=== PATIENT | female | born 1950 | race Caucasian/White ===

== ENCOUNTER → 2018-04-22 09:38 | Outpatient (CLI) | payer MEDICARE, MEDICAID, SELFPAY ==
--- NOTE | 2018-04-22 | CI_ITS ---
Cerebrovascular Exam Indications: Follow-up carotid 433.10. 785.9 Bruit. IMPRESSIONS 1. The bilateral vertebral arteries are patent with normal antegrade flow. 2. Study suggests 20-49% stenosis involving the right internal carotid artery and the left internal carotid artery. Carotid duplex study. Complete study and Doppler flow study including spectral analysis, color and marshall scale imaging. Height: Height: 160cm. Height: 63in. Weight: Weight: 78.9kg. Weight: 173.6lb. Body mass index: BMI: 30.8kg/m^2. Body surface area: BSA: 1.9m^2. Location: Vascular laboratory. Patient status: Outpatient. Tables: Arterial flow: + +--------+--------+ Location V sys V ed + +--------+--------+ Right CCA - proximal 89.6cm/s 14.1cm/s + +--------+--------+ Right CCA - distal 81.7cm/s 16.5cm/s + +--------+--------+ Right ECA 183cm/s -------- + +--------+--------+ Right ICA - proximal 90.8cm/s 17.2cm/s + +--------+--------+ Right ICA - mid 92.8cm/s 22.6cm/s + +--------+--------+ Right ICA - distal 90.4cm/s 22.1cm/s + +--------+--------+ Right vertebral 72.3cm/s -------- + +--------+--------+ Left CCA - proximal 139cm/s 14.9cm/s + +--------+--------+ Left CCA - distal 69.8cm/s 18.8cm/s + +--------+--------+ Left ECA 95.4cm/s -------- + +--------+--------+ Left ICA - proximal 82cm/s 21.6cm/s + +--------+--------+ Left ICA - mid 98.7cm/s 22.1cm/s + +--------+--------+ Left ICA - distal 109cm/s 26.5cm/s + +--------+--------+ Left vertebral 60.2cm/s -------- + +--------+--------+ Velocity ratios: + + + + + + Right, V sys Right, V ed Left, V sys Left, V ed + + + + + + Max ICA/dist CCA 1.14 1.37 1.56 1.41 + + + + + + (Report amended ) Electronically signed by: Erwin Baumann [id number]
--- NOTE | 2018-04-22 10:19 | XR_ITS ---
XR knee RT 3V HISTORY: ITS.REASON: RT KNEE PAIN ORDERING PHYSICIAN: JAY Edwards PATIENT AGE: 67 years COMPARISON: None FINDINGS: No fracture or dislocation. No lytic or blastic change. The joint spaces are well-preserved. There is increased density in the suprapatellar region consistent with knee joint effusion. Multiple surgical clips are present along the medial aspect of the distal thigh and proximal leg. IMPRESSION: Knee joint effusion otherwise negative
== END ==
PROVIDERS: Family Provider Family Medicine; PCP Family Medicine; Visit Provider Physician Assistant
DX: R09.89 Other specified symptoms and signs involving the circulatory and respiratory systems (principal); M25.561 Pain in right knee
CPT/HCPCS: 73562; 93880

== ENCOUNTER → 2019-02-16 15:01 | Outpatient (CLI) | payer MEDICARE, MEDICAID, SELFPAY ==
--- NOTE | 2019-02-16 15:03 | MR_ITS ---
MR lumbar spine wo con, MR 3-d myelogram/MRCP HISTORY: Low back pain, bilateral hip and leg pain, LT leg pain worse. Symptoms x 2-3 months. ITS.REASON: LUMBAR BACK PAIN WITH RADICULOPATHY AFFECTING LEFT LOWER EXT ORDERING PHYSICIAN: Raad Adams MD PATIENT AGE: 68 years Comparison: None TECHNIQUE: Standard multiplanar multiecho sequences are performed without contrast. 3-D MIP and myelographic images are also rendered and reviewed FINDINGS: There is normal alignment. The spinal cord ends at the L1 level. T11-T12: Mild degenerative disc disease. T12-L1: Mild degenerative disc disease. L1-L2: Unremarkable. L2-L3: Mild degenerative disc disease with small concentric bulging disc and mild facet and ligamentum flavum hypertrophy with mild bilateral lateral recess and foraminal narrowing. L3-L4: Degenerative disc disease with bulging disc along with facet and ligamentum flavum hypertrophy causing moderate bilateral lateral recess and foraminal narrowing. There is some transverse narrowing of the canal. L4-L5: Mild concentric bulging disc along with facet and ligamentum flavum hypertrophy with canal stenosis and moderate to severe bilateral lateral recess narrowing and moderate to severe bilateral foraminal narrowing greater on the left. The canal measures approximately 8 mm. L5-S1: Mild concentric bulging disc with mild facet and ligamentous hypertrophy. No extruded herniated disc is evident. IMPRESSION: 1. Mild multilevel degenerative disc disease with bulging disc along with facet and ligamentum flavum hypertrophy with lateral recess and foraminal narrowing. Please above for detailed description at each level 2. L3-L4: Degenerative disc disease with bulging disc along with facet and ligamentum flavum hypertrophy causing moderate bilateral lateral recess and foraminal narrowing. There is some transverse narrowing of the canal. 3. L4-L5: Mild concentric bulging disc along with facet and ligamentum flavum hypertrophy with canal stenosis and moderate to severe bilateral lateral recess narrowing and moderate to severe bilateral foraminal narrowing greater on the left. The canal measures approximately 8 mm
== END ==
PROVIDERS: PCP Family Medicine; Visit Provider Family Medicine
DX: M54.16 Radiculopathy, lumbar region (principal); M51.36 Other intervertebral disc degeneration, lumbar region
CPT/HCPCS: 72148; 76376

== ENCOUNTER → 2019-03-09 08:37 | Outpatient (CLI) | payer MEDICARE, MEDICAID, SELFPAY ==
--- NOTE | 2019-03-09 08:39 | FL_ITS ---
FL barium enema w air contrast CLINICAL INDICATION: History of polyps ITS.REASON: tortuous colon ORDERING PHYSICIAN: You Johnson MD PATIENT AGE: 68 years Comparison: None Fluoroscopy time: 2 minutes and 36 seconds FINDINGS: [employer] exam shows scattered vascular calcifications. There is a 4 mm calcific density overlying the midportion of the left kidney and could be due to a renal stone. The colon is visualized from rectum to cecum. The appendix was filled. No annular constricting lesions or fixed polypoid filling defects are evident. No mucosal anomalies are apparent. There are a few diverticula within the sigmoid colon. IMPRESSION: There are few sigmoid diverticula noted otherwise negative air-contrast barium enema
== END ==
PROVIDERS: PCP Nurse Practitioner; Visit Provider Surgery
DX: Q43.8 Other specified congenital malformations of intestine (principal)
CPT/HCPCS: 74280

== ENCOUNTER → 2021-01-19 17:15 | Outpatient (CLI) | payer MEDICARE, MEDICAID, SELFPAY ==
--- NOTE | 2021-01-19 17:33 | ECG_ITS ---
APPROVED REPORT Exam: Resting ECG HR:62 bpm ECG Measurements Heart Rate 62 AXES OK 138 P 62 QRSd 88 QRS 39 QT 426 T 37 QTc 432 Conclusion Normal sinus rhythm Anterior changes present since 2015 Abnormal ECG Electronically signed by : Sukumar Segura, 01/20/2021 16:30:48
== END ==
PROVIDERS: PCP Nurse Practitioner; Visit Provider Nurse Practitioner
DX: I10 Essential (primary) hypertension (principal); R94.31 Abnormal electrocardiogram [ECG] [EKG]
CPT/HCPCS: 93005; 93225; 93226

== ENCOUNTER → 2021-02-01 14:42 | Outpatient (CLI) | payer MEDICARE, MEDICAID, SELFPAY ==
--- NOTE | 2021-02-01 14:46 | CA_ITS ---
APPROVED REPORT EXAM: Comprehensive 2D, Doppler, and color-flow Echocardiogram Pharmacy Scheduler: [facility] RVT Ht: 5 ft 3 in Wt: 170lbs BSA: 1.80 BP: 144/84 mmHg Indications: PALPS,DM,HTN,A-FIB,CABG 2D Dimensions LVOT 1.38 cm (M/F) 1.5-2.5 LA Volume 21.80 mL LA Volume Index 12.11 mL/m2 (M/F) 16-34 M-Mode Dimensions RVDd 2.58 cm (0.9-2.6) LA Diam 4.57 cm (1.9-4.0) LVDd 3.97 cm (3.5-5.7) Ao Diam 2.51 cm (2.0-3.7) LVDs 2.61 cm (3.5-5.7) IVSd 0.75 cm (0.6-1.1) PWd 1.07 cm (0.6-1.1) EF (Teich) 64.00% FS 34.30% EDV (Teich) 68.80 mL ESV (Teich) 24.80 mL LV Diastology E Decel Time 340.00 (160-240 msec) E/A Ratio 1.1 MED E' 5.70 (< 7 cm/sec) E'/MED E' Ratio 18.47 (>14) LAT E' 7.10 (<10 cm/sec) E/LAT E' Ratio 14.83 (>14) Aortic Valve LVOT Max 164.00 (70-110 cm/s) LVOT VTI 34.84 cm AoV Peak Jeronimo. 249.00 (50-130 cm/s) AI PHT 467.00 ms AO Peak GR. 24.70 mmHg AO Mean GR. 12.50 (<5 mmHg) AO VTI 53.48 (18-25 cm) CLIFFORD (VTI) 0.97 (2.5-4.5 cm2) Mitral Valve MV E Max Ejronimo. 105.00 (40-130 cm/s) MV A Velocity 92.00 (40-130 cm/s) E/A Ratio 1.15 MV Decel. Time 340.00 (160-240 ms) MV PHT 100.00 ms Pulmonary Valve PV Peak Velocity 132.00 (50-150 cm/s) Tricuspid Valve TR P. Velocity 207.00 cm/s RAP Estimate 10.00 mmHg RVSP 27.10 mmHg Left Ventricle Left atrium is mildly enlarged, left ventricle is normal size, mild concentric left ventricular hypertrophy, visually estimated ejection fraction 55% with no regional wall motion abnormality, grade 2 diastolic dysfunction seen with tissue Doppler evidence of raise left atrial pressure. Right Ventricle Right atrium and right ventricular qualitatively mildly enlarged with normal contractility. Aortic Valve Aortic valve is thickened and calcified, mean gradient across valve is 15 mmHg, valve area 1.5 cm??? represents mild aortic stenosis, there is mild aortic insufficiency present. Mitral Valve Mitral valve is grossly normal, there is mild mitral regurgitation. Tricuspid Valve Tricuspid grossly normal, there is mild tricuspid regurgitation, tricuspid regurgitation jet velocity is inadequate for calculation of the right ventricular systolic pressure. Pulmonic Valve Pulmonic valve is poorly visualized. Great Vessels Aortic root is normal size. Pericardium No significant pericardial effusion noted. Conclusion 1. Mild biatrial enlargement, normal left ventricular size, mild concentric left ventricular hypertrophy, visually estimated ejection fraction 55% with no regional wall motion abnormality, grade 2 diastolic dysfunction seen with tissue Doppler evidence of raise left atrial pressure. 2. Mildly enlarged right ventricle with normal contractility. 3. Thickened and calcified aortic valve with mild aortic stenosis, valve area is 1.6 cm???. There is mild aortic insufficiency. 4. Mild mitral and tricuspid regurgitation. 5. No significant pericardial effusion noted. Electronically signed by : Adal Leary, 02/01/2021 16:29:01
== END ==
PROVIDERS: PCP Nurse Practitioner; Visit Provider Nurse Practitioner
DX: R00.2 Palpitations (principal)
CPT/HCPCS: 93306

== ENCOUNTER → 2022-05-11 15:44 | Outpatient (CLI) | payer MEDICARE, MEDICAID, SELFPAY | PROVIDERS: PCP Nurse Practitioner; Visit Provider Surgery | DX: Z01.812 Encounter for preprocedural laboratory examination (principal); Z20.822 Contact with and (suspected) exposure to COVID-19; Z13.810 Encounter for screening for upper gastrointestinal disorder; Z12.11 Encounter for screening for malignant neoplasm of colon | CPT/HCPCS: C9803; U0003; U0005 ==

== ENCOUNTER 2022-05-14 08:20 | Day surgery (SDC) | payer MEDICARE, MEDICAID, SELFPAY ==
[2022-05-10 14:23] VITALS: BMI 24.7
[2022-05-14 08:52] VITALS: BP 161/58; PULSE 78; RESP 18; TEMP 36.7; O2SAT 98
--- NOTE | 2022-05-14 09:07 | P.PN_ITS ---
[facility] Anesthesia Checklist - Patient Identification Patient Identification: Arm Band - Structural Data Admitted From: Home Planned Operative Procedure/s: EGD/Colonoscopy Consent for Planned Operative Procedure(s) Verified: Yes - NPO Status Verified Time NPO: 00:00 - Additional verifications Anesthesia Reactions: No Hx Blood Transfusions: No Blood Transfusion Reaction: No - Airway Assessment C-Spine Mobility Assessed: Yes TMJ Mobility Assessed: Yes Dentition: Edentulous - Neurological Assessment Level of Consciousness: Awake Hx Seizures: No Numbness or tingling in extremities: No - Anesthesia Plan Anesthesia Risk discussed: Yes Anesthesia Plan: Verified ASA Class: III Anesthesia Type: MAC [facility] History I have reviewed the patient's past medical history: Yes Medical History: Reports:: Atrial Fibrillation, Diabetes Mellitus Type 2, Hyperlipidemia, Hypertension Denies:: Cancer, Diabetes Mellitus Type 1, Internal Pacemaker, Lung Disease, MRSA, Seizures *Have you ever received a pneumonia vaccine?: Yes *Have you received a flu vaccine this season?: No Other Medical History: Denies: Blood Transfusion Reaction Anesthesia experience/problems:: None Laterality Cases: Bilateral: Other Other Surgeries: Yes: Colonoscopy, Hysterectomy-Total. No: Pacemaker Amputation: No Fractures: No - *Social History Last grade of school completed: High school graduate Smoking Status: Never smoker Alcohol Intake: never Alcohol Intake Frequency:: 0-2 drinks per day Substance Use Type: denies use *Occupational Status:: retired Housing: house Household Members: other *Travel in the last 8 weeks: None Family Hx:: Coronary Artery Disease, Hypertension, Diabetes
[2022-05-14 09:09] LABS: POC Glucose,Bedside 240 (70-110)
[2022-05-14 09:48] VITALS: O2SAT 98
[2022-05-14 10:31] VITALS: BP 103/51; PULSE 85; RESP 18; TEMP 36.2; O2SAT 94
--- NOTE | 2022-05-14 10:32 | HMH.SCOPE ---
- Procedure: Date: 05/14/22 Patient Date of :: 1950 Procedure Performed:: Esophagogastroduodenoscopy with biopsy Colonoscopy Indications:: History of colon polyps Recent weight loss (20 pounds in 4 months) Gastroesophageal reflux Note: The patient is status post colonoscopy in March 2016 at which time she was diagnosed with diverticulosis and a right colonic adenoma. Visualization somewhat limited secondary to spasticity and tortuosity. A repeat colonoscopy in November 2018 revealed persistent spasticity and tortuosity and an adenoma was removed at 40 cm. Follow-up barium enema in February 2019 revealed diverticulosis and no other definitive abnormality. She has noticed some increased reflux recently and has also noted a 20 pound weight loss over the past 4 months despite normal appetite . Performing Provider:: You Johnson MD Referring Provider:: . Sedation:: Monitored anesthesia care Procedure:: After informed consent was obtained the patient was taken to the endoscopy suite. Sedation ensued after the patient was transferred to the left lateral decubitus position. Pulse, blood pressure, and oxygen saturation were monitored throughout the procedure. The endoscope was advanced beyond the duodenal bulb. Retroflexion within the gastric lumen was accomplished. The gastroscope was carefully removed. Digital rectal exam revealed no significant abnormality. The colonoscope was placed in position. The entire colon was evaluated. The colonoscope was carefully removed and the patient was transferred to recovery in stable condition. Please see findings and specimens below for detail. Findings:: Sliding hiatal hernia Gastroesophageal junction at 35 cm Very mild/early mid/distal varices Bowel preparation moderate to poor with undigested food particles noted throughout Fairly significant lack of relaxation Persistent tortuosity/spasticity Specimens:: Antral biopsy Recommendations:: Follow-up pathology Evaluation with regard to weight loss will be ongoing. May benefit from UGI/SBFT May benefit from CT scan of chest, abdomen, and pelvis Continued fairly close surveillance with repeat colonoscopy in approximately 3 years (unless needed more urgently) Complications:: No immediate Estimated blood obtained (mL): 1
[2022-05-14 10:41] VITALS: BP 103/53; PULSE 79; RESP 18; O2SAT 94
[2022-05-14 10:51] VITALS: BP 96/43; PULSE 79; RESP 18; O2SAT 94
[2022-05-14 11:15] VITALS: BP 111/51; PULSE 76; RESP 18; O2SAT 96
== END 2022-05-14 11:20 | disposition home or self-care (01) ==
LOC: OUTP 08:22
PROVIDERS: PCP Nurse Practitioner; Visit Provider Surgery
PROC: 0DJ08ZZ Inspection of Upper Intestinal Tract, Via Natural or Artificial Opening Endoscopic (ICD-10-PCS; CPT 43235; principal; 2022-05-14 09:30)
DX: K21.9 Gastro-esophageal reflux disease without esophagitis (principal); R63.4 Abnormal weight loss; Z86.010 Personal history of colon polyps; E11.9 Type 2 diabetes mellitus without complications; I48.91 Unspecified atrial fibrillation; I10 Essential (primary) hypertension; E78.5 Hyperlipidemia, unspecified; Z79.899 Other long term (current) drug therapy; K29.50 Unspecified chronic gastritis without bleeding; B96.81 Helicobacter pylori [H. pylori] as the cause of diseases classified elsewhere
CPT/HCPCS: 43239; 45378; 82962; 88305; J2704

== ENCOUNTER → 2022-05-24 15:36 | Outpatient (CLI) | payer MEDICARE, MEDICAID, SELFPAY ==
[2022-05-24 16:00] LABS: Basophils # 0.1 K/mm3 (0-0.2); Basophils % 1.4 % (0.1-2.0); Eosinophils # 0.1 K/mm3 (0.0-0.4); Eosinophils % 1.6 % (0.1-12.0); Hemoglobin 8.9 g/dL (12.2-16.2); Lymphocytes # 1.9 K/mm3 (0.7-4.5); Lymphocytes % 25.3 % (10-50); Mean Corpuscular HGB Conc 29.7 g/dL (31.8-35.4); Mean Corpuscular Hemoglobin 21.3 pg (27.0-31.2); Mean Corpuscular Volume 71.7 fl (81-99); Mean Platelet Volume 9.1 fl (7.4-10.4); Monocytes # 0.4 K/mm3 (0.1-1.0); Monocytes % 4.7 % (1.7-9.3); Neutrophils # 4.9 K/mm3 (1.8-7.8); Platelet Count 189 K/mm3 (142-424); Red Blood Count 4.18 M/mm3 (4.20-5.40); Red Cell Distribution Width 20.3 % (11.5-17.5); White Blood Count 7.3 K/mm3 (4.8-10.8)
[2022-05-24 16:23] LABS: Alanine Aminotransferase 20 U/L (12-78); Albumin Level 4.2 g/dl (3.5-5.0); Albumin/Globulin Ratio 1.4 (1.1-1.8); Alkaline Phosphatase 130 U/L (38-126); Amylase 46 U/L (30-110); Anion Gap 15.7 mEq/L (5-15); Aspartate Amino Transferase 28 U/L (14-36); Bilirubin,Total 0.3 mg/dl (0.2-1.3); Blood Urea Nitrogen 20 mg/dl (7-17); Calcium 9.2 mg/dl (8.4-10.2); Carbon Dioxide 26 mmol/L (22.0-30.0); Chloride 99 mmol/L (98-107); Estimated Glomerular Filt Rate 71 ml/min (>60); GFR (African American) 86 ML/MIN (>60); Globulin 3.1 g/dL (1.3-3.2); Glucose 271 mg/dl (74-100); Lipase 292 U/L (23-300); Potassium 4.7 mmoL/L (3.5-5.1); Sodium 136 mmol/L (136-145); Total Protein,Serum 7.3 g/dl (6.3-8.2)
== END ==
PROVIDERS: PCP Nurse Practitioner; Visit Provider Surgery
DX: R10.9 Unspecified abdominal pain (principal)
CPT/HCPCS: 36415; 80053; 82150; 83690; 85025

== ENCOUNTER → 2022-05-27 09:38 | Outpatient (CLI) | payer MEDICARE, MEDICAID, SELFPAY ==
--- NOTE | 2022-05-27 09:39 | CT_ITS ---
FINAL REPORT CLINICAL HISTORY: abdominal pain/ weight loss blood in urine COMPARISON: September 24, 2016 FINDINGS: CT OF THE ABDOMEN AND PELVIS WITH CONTRAST Axial CT images of the abdomen and pelvis were obtained after the administration of oral and iv contrast. Coronal reformatted images were also obtained and reviewed.This study was performed with techniques to keep radiation doses as low as reasonably achievable (ALARA). Individualized dose reduction techniques using automated exposure control or adjustment of mA and/or kV according to the patient's size were employed. Abdomen: There is mild atelectasis or scarring in the lung bases.. The heart is normal in size. The liver has an unremarkable appearance, without evidence of mass or biliary ductal dilatation. The spleen is unremarkable. No adrenal mass is present. The pancreas has an unremarkable appearance. There is a 14 mm mass in the lower pole of the right kidney favored to represent a small cyst. There is mild left hydronephrosis and hydroureter. The aorta is normal in caliber. There is no free fluid or adenopathy. There is moderate vascular calcification. Pelvis: The appendix is somewhat enlarged up to 8 mm. There is no adjacent inflammation or evidence of appendicitis. There is right greater than left lateral wall thickening favored to be inflammatory over neoplastic. There has been hysterectomy. There are multiple borderline sized bilateral inguinal lymph nodes that are nonspecific and favored to be reactive. There are several sigmoid diverticulum. IMPRESSION: Mild left hydronephrosis and hydroureter. 14 mm right renal mass favoring a small cyst. Bladder wall thickening favored to be inflammatory over neoplastic. Nonspecific bilateral inguinal adenopathy favored to be reactive. Mildly enlarged appendix without evidence of appendicitis. Reviewed, Interpreted and Dictated by Antoni Solano III, MD Transcribed by Danish Matt Authenticated and [facility]
== END ==
PROVIDERS: PCP Nurse Practitioner; Visit Provider Surgery
DX: R10.9 Unspecified abdominal pain (principal)
CPT/HCPCS: 74177; Q9967

== ENCOUNTER → 2022-05-29 14:16 | Outpatient (CLI) | payer MEDICARE, MEDICAID, SELFPAY ==
[2022-05-29 14:21] LABS: Microscopic, Urine URINE MICROSCOPIC (MICROSCOPIC)
[2022-05-29 15:28] LABS: Hematocrit 31.6 % (37.0-47.0); Hemoglobin 9.6 g/dL (12.2-16.2)
[2022-05-29 15:30] LABS: Appearance,Urine CLEAR (Clear); Bilirubin,Urine Negative (Negative); Blood, Urine 3+ (Negative); Color,Urine YELLOW (Yellow); Glucose,Urine (UA) 3+ (Negative); Ketones,Urine Negative (Negative); Leukocyte Esterase,Urine Negative (Negative); Nitrate,Urine Negative (Negative); PH,Urine 5.5 (5.0-8.5); Protein,Urine Negative (Negative); Urobilinogen,Urine 0.2 EU/dl (0.2)
[2022-05-29 16:04] LABS: RBC,Urine 20-50 #/hpf (0-3)
== END ==
PROVIDERS: PCP Nurse Practitioner; Visit Provider Surgery
DX: R63.4 Abnormal weight loss (principal); A04.8 Other specified bacterial intestinal infections; R10.33 Periumbilical pain; K21.9 Gastro-esophageal reflux disease without esophagitis; D64.9 Anemia, unspecified
CPT/HCPCS: 36415; 81001; 85014; 85018

== ENCOUNTER → 2022-06-03 07:48 | Outpatient (CLI) | payer MEDICARE, MEDICAID, SELFPAY ==
--- NOTE | 2022-06-03 07:51 | FL_ITS ---
FINAL REPORT CLINICAL HISTORY: Upper GI with small bowel-- fluoro and xrays FINDINGS: UPPER GI WITH SBFT UPPER GI EXAM HISTORY: Anemia PROCEDURE: The patient ingested barium. Effervescent crystals were also administered. Spot and overhead films were obtained. FINDINGS: The esophagus is normal. There is a small sliding type hiatal hernia. There is moderate gastroesophageal reflux. Peristalsis is normal. The rugal fold pattern of the stomach is normal. The duodenal bulb is normal. FLUOROSCOPY TIME: 1 minute IMPRESSION: Small sliding-type hiatal hernia. Gastroesophageal reflux to the level of the aortic arch. Otherwise, unremarkable upper GI. SBFT: The turntable man film is normal. There is no evidence of obstruction. The mucosal fold pattern is normal. The terminal ilium is normal. IMPRESSION: Normal SBFT. Films reviewed , interpreted and dictated by Dr. Veroniac Arroyo. Transcribed by Jimmie Tracy PA-C. Reviewed, Interpreted and Dictated by Veronica Arroyo MD Transcribed by JAY Long Authenticated and [facility]
[2022-06-03 10:28] LABS: Occult Blood,Stool Negative (Negative)
[2022-06-05 06:15] LABS: H. pylori Stool Ag, EIA Negative (Negative)
== END ==
PROVIDERS: PCP Nurse Practitioner; Visit Provider Surgery
DX: K21.9 Gastro-esophageal reflux disease without esophagitis (principal); R63.4 Abnormal weight loss
CPT/HCPCS: 74246; 74248; 82272; 87338; G0328

== ENCOUNTER → 2022-06-11 06:13 | Outpatient (CLI) | payer MEDICARE, MEDICAID, SELFPAY | PROVIDERS: PCP Nurse Practitioner; Visit Provider Nurse Practitioner | DX: L03.031 Cellulitis of right toe (principal); B95.7 Other staphylococcus as the cause of diseases classified elsewhere | CPT/HCPCS: 87070; 87077; 87186; 87205 ==

== ENCOUNTER → 2022-08-07 15:03 | Outpatient (CLI) | payer MEDICARE, MEDICAID, SELFPAY | PROVIDERS: PCP Nurse Practitioner Family; Visit Provider Nurse Practitioner Family | DX: S91.201A Unspecified open wound of right great toe with damage to nail, initial encounter (principal); B95.7 Other staphylococcus as the cause of diseases classified elsewhere | CPT/HCPCS: 87070; 87077; 87186; 87205 ==

== ENCOUNTER → 2022-08-16 10:46 | Outpatient (CLI) | payer MEDICARE, MEDICAID, SELFPAY ==
--- NOTE | 2022-08-16 10:47 | US_ITS ---
FINAL REPORT CLINICAL HISTORY: CLAUDICATION,DM,HTN,HLD FINDINGS: ANKLE-BRACHIAL PRESSURE INDICES Pressure indices are as follows: RIGHT LOWER EXTREMITY: Ankle-brachial pressure index: 1.07 Comments: Normal LEFT LOWER EXTREMITY: Ankle-brachial pressure index: 1.07 Comments: Normal CONCLUSION: No evidence of significant obstructive peripheral vascular disease of the lower extremities Reviewed, Interpreted and Dictated by Antoni Solano III, MD Transcribed by Guadalupe Amanda Authenticated and . [facility]
== END ==
PROVIDERS: PCP Nurse Practitioner; Visit Provider Podiatrist
DX: R09.89 Other specified symptoms and signs involving the circulatory and respiratory systems (principal)
CPT/HCPCS: 93923

== ENCOUNTER 2023-02-28 22:07 | Emergency (ER) | payer MEDICARE, MEDICAID, SELFPAY ==
[2023-02-28 22:08] VITALS: BP 154/68; PULSE 101; RESP 18; TEMP 36.9; O2SAT 98; BMI 22.8
[2023-02-28 22:19] VITALS: BP 154/68; PULSE 102; O2SAT 100
[2023-02-28 22:23] LABS: Microscopic, Urine URINE MICROSCOPIC (MICROSCOPIC)
[2023-02-28 22:31] VITALS: BP 141/71; PULSE 97; O2SAT 94
[2023-02-28 22:32] LABS: Appearance,Urine CLOUDY (Clear); Bilirubin,Urine 1+ (Negative); Blood, Urine 3+ (Negative); Color,Urine ORANGE (Yellow); Glucose,Urine (UA) 3+ (Negative); Ketones,Urine Negative (Negative); Leukocyte Esterase,Urine 1+ (Negative); Nitrate,Urine POSITIVE (Negative); Protein,Urine 3+ (Negative); Specific Gravity, Urine 1.015 (1.005-1.030)
--- NOTE | 2023-02-28 22:36 | PC.NURSE ---
Spoke with [facility] about obtaining medical records from last weeks visit. Release of information faxed.
--- NOTE | 2023-02-28 22:38 | CT_ITS ---
PROCEDURE INFORMATION: Exam: CT Abdomen And Pelvis Without Contrast Exam date and time: 02/28/2023 11:01 PM Age: 72 years old Clinical indication: Abdominal pain; Additional info: Abd pain TECHNIQUE: Imaging protocol: Computed tomography of the abdomen and pelvis without contrast. Radiation optimization: All CT scans at this facility use at least one of these dose optimization techniques: automated exposure control; mA and/or kV adjustment per patient size (includes targeted exams where dose is matched to clinical indication); or iterative reconstruction. REPORTING DATA: Count of CT and Cardiac NM exams in prior 12 months: This patient has received [address] and 0 known cardiac nuclear medicine studies in the 12 months prior to the current study. COMPARISON: CT ABDOMEN PELVIS W CON 05/27/2022 10:00 AM FINDINGS: Lungs: Calcified granuloma in the right middle lobe. Coronary arteries: Partially visualized coronary artery calcification. Liver: Calcified granulomas in the liver. Hepatomegaly with liver measuring 19.7 cm in craniocaudal dimension, unchanged compared to 05/27/2022. Gallbladder and bile ducts: Unremarkable. Pancreas: Unremarkable. Spleen: Calcified the spleen. Adrenal glands: Unremarkable. Kidneys and ureters: Stable hypodensity at the right inferior renal pole which is incompletely characterized but likely a cyst. Asymmetric enlargement kidney perinephric stranding. No perinephric fluid collection. Severe left hydroureteronephrosis. Stomach and bowel: Unremarkable. No bowel obstruction. Appendix: No evidence of appendicitis. Intraperitoneal space: Prominent atherosclerotic calcification in the abdomen and pelvis. Vasculature: Unremarkable. Lymph nodes: Mildly enlarged pelvic sidewall and left retroperitoneal lymph nodes are likely reactive. Urinary bladder: Distended bladder with circumferential wall thickening and Clotilde cystic stranding. Multiple foci of air noted within the bladder wall and within the lumen of the bladder. Reproductive: Status post hysterectomy. Bones/joints: No acute osseous abnormality. Soft tissues: Unremarkable. IMPRESSION: 1. Prominent bladder wall thickening with intraluminal air and foci of gas within bladder wall compatible with emphysematous cystitis. 2. Severe left hydroureteronephrosis, source of obstruction not identified. 3. Mildly enlarged pelvic sidewall and left retroperitoneal lymph nodes are likely reactive. 4. Stable hepatomegaly. COMMENTS: Consistent with the [employer]'s Incidental Findings Committee white paper (J Am Guillermina Radiol 2018): Any incidental renal lesion less than 1 cm or classified as too small to characterize, or any incidental cystic renal lesion characterized as simple-appearing, is likely benign. No follow-up imaging is recommended for these lesions per consensus recommendations based on imaging criteria.
--- NOTE | 2023-02-28 22:38 | PC.NURSE ---
Pt medical release faxed to [facility]
[2023-02-28 22:45] LABS: Bacteria,Urine 1+ /lpf; RBC,Urine TNTC #/hpf (0-3); Squamous Epithelial Cell,Urine Occasional #/hpf (0-5)
--- NOTE | 2023-02-28 23:16 | HMH.EDABDPAI ---
Discharge Plan Disposition Patient Disposition: Home, Self-Care Prescriptions Prescriptions: New cefdinir [cefdinir] 300 mg capsule 300 mg PO BID Qty: 14 0RF No Action lovastatin 40 mg tablet 40 mg PO QPM aspirin [Adult Low Dose Aspirin] 81 mg tablet,delayed release (DR/EC) 81 mg PO ONCE fluticasone propionate [Allergy Relief (fluticasone)] 50 mcg/actuation spray,suspension 1 spray NS DAILY Rx Instructions: administer into each nostril Fish Oil 340-1,000 mg capsule 3 cap PO DAILY cholecalciferol (vitamin D3) 50 mcg (2,000 unit) tablet 150 mcg PO DAILY tamsulosin 0.4 mg capsule 0.4 mg PO HS nitroglycerin 0.4 mg tablet, sublingual 0.4 mg SL Q5M PRN Rx Instructions: do not exceed 3 doses per episode cyanocobalamin (vitamin B-12) 1,000 mcg tablet 1,000 mcg PO DAILY atorvastatin 40 mg tablet 40 mg PO DAILY amlodipine 5 mg tablet 5 mg PO DAILY Label Comments: TAKE 1 TABLET BY MOUTH EVERY DAY ferrous sulfate 325 mg (65 mg iron) tablet 325 mg PO TID Label Comments: TAKE 1 TABLET BY MOUTH THREE TIMES A DAY lidocaine (PF) 20 mg/mL (2 %) solution 20 mg SQ ONCE Qty: 3 0RF gentamicin 0.1 % ointment 1 applic topical .qday Qty: 30 1RF silver sulfadiazine 1 % cream 1 applic topical BID Qty: 25 2RF Rx Instructions: apply a 1.5 mm thickness pantoprazole 40 mg tablet,delayed release (DR/EC) See Rx Instructions .ROUTE .COMPLEX Qty: 90 1RF Dose Instruction: TAKE 1 TABLET BY MOUTH EVERY DAY FOR 90 DAYS Rx Instructions: TAKE 1 TABLET BY MOUTH EVERY DAY FOR 90 DAYS metoprolol succinate 50 mg tablet extended release 24 hr See Rx Instructions .ROUTE .COMPLEX Qty: 180 1RF Dose Instruction: TAKE 2 TABLETS BY MOUTH EVERY DAY FOR 90 DAYS Rx Instructions: TAKE 2 TABLETS BY MOUTH EVERY DAY FOR 90 DAYS estradiol 0.5 mg tablet See Rx Instructions .ROUTE .COMPLEX Qty: 90 1RF Dose Instruction: TAKE 1 TABLET BY MOUTH EVERY DAY FOR 90 DAYS Rx Instructions: TAKE 1 TABLET BY MOUTH EVERY DAY FOR 90 DAYS meloxicam 15 mg tablet See Rx Instructions .ROUTE .COMPLEX Qty: 90 1RF Dose Instruction: TAKE 1 TABLET BY MOUTH EVERY DAY FOR 90 DAYS Rx Instructions: TAKE 1 TABLET BY MOUTH EVERY DAY FOR 90 DAYS fenofibrate 160 mg tablet See Rx Instructions .ROUTE .COMPLEX Qty: 90 1RF Dose Instruction: TAKE 1 TABLET BY MOUTH EVERY DAY FOR 90 DAYS Rx Instructions: TAKE 1 TABLET BY MOUTH EVERY DAY FOR 90 DAYS losartan 50 mg tablet See Rx Instructions .ROUTE .COMPLEX Qty: 90 1RF Dose Instruction: TAKE 1 TABLET BY MOUTH EVERY DAY FOR 90 DAYS Rx Instructions: TAKE 1 TABLET BY MOUTH EVERY DAY FOR 90 DAYS metformin 1,000 mg tablet See Rx Instructions .ROUTE .COMPLEX Qty: 180 1RF Dose Instruction: TAKE 1 TABLET BY MOUTH TWICE A DAY FOR DIABETES Rx Instructions: TAKE 1 TABLET BY MOUTH TWICE A DAY FOR DIABETES empagliflozin 25 mg tablet 25 mg PO DAILY Qty: 90 0RF Referrals Follow up/Referrals: Toro Narayanan [Primary Care Provider] - See instructions Clinical Impressions Clinical Impression: Emphysematous cystitis, Hydroureteronephrosis, SIRS (systemic inflammatory response syndrome) Instructions Patient Instructions: DI for Urinary Tract Infection (UTI) Discharge ED Provider: Federico (ED)Abel Abdominal Pain HPI General Chief Complaint: Abdominal Pain Stated Complaint: Possible UTI Time Seen by Provider: 02/28/23 23:16 Mode of Arrival: Ambulatory Source of Information: Patient and Medical Record Limitations: No Limitations Description of Symptoms (Recalled from ER Triage Doc. by RN): Pt states that she has been having lower mid abdominal pain since last night with urinary urgency. Pt reports that she self-caths three times a day to prevent urinary retention. Denies fever or body aches. History of
[2023-02-28 23:25] LABS: Basophils % 0.3 % (0.1-2.0); Eosinophils # 0.2 K/mm3 (0.0-0.4); Eosinophils % 1.2 % (0.1-12.0); Hematocrit 31.5 % (37.0-47.0); Hemoglobin 9.9 g/dL (12.2-16.2); Lymphocytes # 1.3 K/mm3 (0.7-4.5); Lymphocytes % 9.7 % (10-50); Mean Corpuscular HGB Conc 31.4 g/dL (31.8-35.4); Mean Corpuscular Hemoglobin 25.5 pg (27.0-31.2); Mean Corpuscular Volume 81.1 fl (81-99); Mean Platelet Volume 7.7 fl (7.4-10.4); Monocytes # 0.6 K/mm3 (0.1-1.0); Monocytes % 4.9 % (1.7-9.3); Platelet Count 399 K/mm3 (142-424); Red Blood Count 3.88 M/mm3 (4.20-5.40); White Blood Count 13.1 K/mm3 (4.8-10.8)
[2023-02-28 23:30] VITALS: BP 154/69; PULSE 96; O2SAT 96
--- NOTE | 2023-02-28 23:31 | PC.NURSE ---
Spoke with [facility] concerning out patient ultra sound. They advised they are unable to release those records because they were through a urology group. Attempted to call urology group. They have no one in office after hours.
[2023-02-28 23:32] LABS: Chloride 100 mmol/L (98-107); Potassium 3.6 mmoL/L (3.5-5.1); Sodium 137 mmol/L (136-145)
[2023-02-28 23:35] LABS: Alanine Aminotransferase 19 U/L (12-78); Albumin Level 3.9 g/dl (3.5-5.0); Albumin/Globulin Ratio 0.8 (1.1-1.8); Alkaline Phosphatase 209 U/L (38-126); Anion Gap 13.6 mEq/L (5-15); Aspartate Amino Transferase 30 U/L (14-36); Bilirubin,Total 0.6 mg/dl (0.2-1.3); Blood Urea Nitrogen 29 mg/dl (7-17); Calcium 9.3 mg/dl (8.4-10.2); Carbon Dioxide 27 mmol/L (22.0-30.0); Creatinine Clearance Estimated 48 mL/min (50-200); Estimated Glomerular Filt Rate 55 ml/min (>60); GFR (African American) 66 ML/MIN (>60); Globulin 4.6 g/dL (1.3-3.2); Glucose 274 mg/dl (74-100); Total Protein,Serum 8.5 g/dl (6.3-8.2)
[2023-02-28 23:42] LABS: C-Reactive Protein 131.6 mg/L (0-4)
[2023-03-01] VITALS: BP 142/65; PULSE 95; O2SAT 98
[2023-03-01 00:06] LABS: Erythrocyte Sedimentation Rate > 140 mm/hr (0-30)
[2023-03-01 00:08] LABS: Procalcitonin 0.238 ng/mL (0.0-2.0)
[2023-03-01 01:30] VITALS: BP 161/75; PULSE 53; O2SAT 96
[2023-03-01 02:00] VITALS: BP 147/69; PULSE 93; O2SAT 95
[2023-03-01 02:12] VITALS: BP 150/60; PULSE 90; RESP 18; TEMP 36.6; O2SAT 99
== END 2023-03-01 02:19 | disposition home or self-care (01) ==
PROVIDERS: Emergency Provider Emergency Medicine; PCP Pediatrics
DX: N30.80 Other cystitis without hematuria (principal); N13.4 Hydroureter; R65.10 Systemic inflammatory response syndrome (SIRS) of non-infectious origin without acute organ dysfunction
CPT/HCPCS: 74176; 80053; 81001; 84145; 85025; 85651; 86140; 87086; 87088; 87186; 96360; 96361; 96374; 99284; 99285; J1335

== ENCOUNTER 2023-10-29 13:47 | Emergency (ER) | payer MEDICARE, MEDICAID, SELFPAY ==
[2023-10-29 13:49] VITALS: BP 210/90; PULSE 79; RESP 16; TEMP 36.6; O2SAT 97; BMI 25.8
[2023-10-29 13:59] VITALS: BP 160/79; PULSE 83; O2SAT 98
[2023-10-29 14:15] VITALS: BP 151/68; PULSE 83; O2SAT 95
--- NOTE | 2023-10-29 14:20 | CT_ITS ---
FINAL REPORT TECHNIQUE: Axial images were obtained of the cervical spine by computed tomography. Coronal and sagittal reconstruction process performed. This study was performed with techniques to keep radiation doses as low as reasonably achievable (ALARA). Individualized dose reduction techniques using automated exposure control or adjustment of mA and/or kV according to the patient''s size were employed. CLINICAL HISTORY: fall injury FINDINGS: Cervical vertebrae show normal height. Disc spaces are well-preserved. There is no malalignment. There is [id number] facet hypertrophy in the upper cervical spine. There are densely calcified right paratracheal and subcarinal lymph nodes. IMPRESSION: Facet sclerosis without acute bony abnormality. Reviewed, Interpreted and Dictated by Adiel Alegre MD Transcribed by Kathy Delgadillo Authenticated and [facility]
--- NOTE | 2023-10-29 14:20 | CT_ITS ---
FINAL REPORT TECHNIQUE: Axial CT images were performed through the head. Coronal reformatted images were submitted. This study was performed with techniques to keep radiation doses as low as reasonably achievable (ALARA). Individualized dose reduction techniques using automated exposure control or adjustment of mA and/or kV according to the patient's size were employed. CLINICAL HISTORY: fall head injury FINDINGS: There is mild to moderate ventriculomegaly which appears out of proportion to the degree of cortical atrophy, may be related to communicating hydrocephalus. There is no evidence of hemorrhage. There is no mass or edema identified. There is no abnormal extra-axial fluid seen. The sinuses are well aerated. 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 Reviewed, Interpreted and Dictated by Adiel Alegre MD Transcribed by Kathy Delgadillo Authenticated and [facility]
--- NOTE | 2023-10-29 14:24 | HMH.EDGENADL ---
Discharge Plan Disposition Patient Disposition: Home, Self-Care Condition: Good Prescriptions Prescriptions: No Action lovastatin 40 mg tablet 40 mg PO QPM aspirin [Adult Low Dose Aspirin] 81 mg tablet,delayed release (DR/EC) 81 mg PO ONCE fluticasone propionate [Allergy Relief (fluticasone)] 50 mcg/actuation spray,suspension 1 spray NS DAILY Rx Instructions: administer into each nostril Fish Oil 340-1,000 mg capsule 3 cap PO DAILY cholecalciferol (vitamin D3) 50 mcg (2,000 unit) tablet 150 mcg PO DAILY tamsulosin 0.4 mg capsule 0.4 mg PO HS nitroglycerin 0.4 mg tablet, sublingual 0.4 mg SL Q5M PRN Rx Instructions: do not exceed 3 doses per episode cyanocobalamin (vitamin B-12) 1,000 mcg tablet 1,000 mcg PO DAILY atorvastatin 40 mg tablet 40 mg PO DAILY amlodipine 5 mg tablet 5 mg PO DAILY Patient Comments: TAKE 1 TABLET BY MOUTH EVERY DAY ferrous sulfate 325 mg (65 mg iron) tablet 325 mg PO TID Patient Comments: TAKE 1 TABLET BY MOUTH THREE TIMES A DAY lidocaine (PF) 20 mg/mL (2 %) solution 20 mg SQ ONCE Qty: 3 0RF gentamicin 0.1 % ointment 1 applic topical .qday Qty: 30 1RF silver sulfadiazine 1 % cream 1 applic topical BID Qty: 25 2RF Rx Instructions: apply a 1.5 mm thickness Jardiance 25 mg tablet See Rx Instructions .ROUTE .COMPLEX Qty: 90 1RF Dose Instruction: TAKE 1 TABLET ORALLY ONCE DAILY FOR DIABETES Rx Instructions: TAKE 1 TABLET ORALLY ONCE DAILY FOR DIABETES metformin 1,000 mg tablet See Rx Instructions .ROUTE .COMPLEX Qty: 180 1RF Dose Instruction: TAKE 1 TABLET BY MOUTH TWICE A DAY FOR DIABETES Rx Instructions: TAKE 1 TABLET BY MOUTH TWICE A DAY FOR DIABETES pantoprazole 40 mg tablet,delayed release (DR/EC) See Rx Instructions .ROUTE .COMPLEX Qty: 30 0RF Dose Instruction: TAKE 1 TABLET BY MOUTH EVERY DAY FOR 90 DAYS Rx Instructions: TAKE 1 TABLET BY MOUTH EVERY DAY estradiol 0.5 mg tablet See Rx Instructions .ROUTE .COMPLEX Qty: 90 1RF Dose Instruction: TAKE 1 TABLET BY MOUTH EVERY DAY FOR 90 DAYS Rx Instructions: TAKE 1 TABLET BY MOUTH EVERY DAY FOR 90 DAYS meloxicam 15 mg tablet See Rx Instructions .ROUTE .COMPLEX Qty: 90 1RF Dose Instruction: TAKE 1 TABLET BY MOUTH EVERY DAY FOR 90 DAYS Rx Instructions: TAKE 1 TABLET BY MOUTH EVERY DAY FOR 90 DAYS metoprolol succinate 50 mg tablet extended release 24 hr See Rx Instructions .ROUTE .COMPLEX Qty: 180 1RF Dose Instruction: TAKE 2 TABLETS BY MOUTH EVERY DAY FOR 90 DAYS Rx Instructions: TAKE 2 TABLETS BY MOUTH EVERY DAY FOR 90 DAYS losartan 50 mg tablet See Rx Instructions .ROUTE .COMPLEX Qty: 90 1RF Dose Instruction: TAKE 1 TABLET BY MOUTH EVERY DAY FOR 90 DAYS Rx Instructions: TAKE 1 TABLET BY MOUTH EVERY DAY FOR 90 DAYS fenofibrate 160 mg tablet See Rx Instructions .ROUTE .COMPLEX Qty: 90 1RF Dose Instruction: TAKE 1 TABLET BY MOUTH EVERY DAY FOR 90 DAYS Rx Instructions: TAKE 1 TABLET BY MOUTH EVERY DAY FOR 90 DAYS cefdinir [cefdinir] 300 mg capsule 300 mg PO BID Qty: 14 0RF Referrals Follow up/Referrals: Toro Narayanan [Primary Care Provider] - See instructions Activity Restrictions/Add. Instructions Additional Instructions/Restrictions: You were evaluated in the emergency department today. Please follow-up with your primary care provider. Return to the emergency department for new or worsening symptoms. Clinical Impressions Clinical Impression: Minor head injury, Hematoma of occipital region of scalp, Fall, Hydrocephalus Instructions Patient Instructions: DI for Closed Head Injury Discharge ED Provider: Lizbeth Helm General Adult HPI <Melvina Cabral MD - Last Filed: 10/29/23 14:55> General Chief complaint: Head Injury Stated complaint: [id number]
--- NOTE | 2023-10-29 15:34 | PC.NURSE ---
checked on pt no needs at this time,call light at bs
[2023-10-29 15:50] VITALS: BP 170/68; PULSE 77; RESP 16; TEMP 36.6; O2SAT 97
== END 2023-10-29 15:51 | disposition home or self-care (01) ==
PROVIDERS: Emergency Provider Emergency Medicine; PCP Pediatrics
DX: S09.8XXA Other specified injuries of head, initial encounter (principal); G91.9 Hydrocephalus, unspecified; S00.03XA Contusion of scalp, initial encounter; E11.9 Type 2 diabetes mellitus without complications; E78.5 Hyperlipidemia, unspecified; I10 Essential (primary) hypertension; W18.30XA Fall on same level, unspecified, initial encounter
CPT/HCPCS: 70450; 72125; 96360; 99285

== ENCOUNTER 2023-12-20 12:55 | Observation (INO) | payer MEDICARE, MEDICAID, SELFPAY ==
[2023-12-20] VITALS (9 sets, daily range): BP systolic 132–198; BP diastolic 60–80; PULSE 83–110; RESP 18–35; TEMP 36.9–37.9; O2SAT 92–97; BMI 23.3
[2023-12-20 14:03] LABS: Chloride 101 mmol/L (98-107); Potassium 4.6 mmoL/L (3.5-5.1); Sodium 138 mmol/L (136-145)
[2023-12-20 14:06] LABS: Alanine Aminotransferase 20 U/L (12-78); Albumin Level 4.4 g/dl (3.5-5.0); Albumin/Globulin Ratio 0.9 (1.1-1.8); Alkaline Phosphatase 157 U/L (38-126); Anion Gap 15.6 mEq/L (5-15); Aspartate Amino Transferase 36 U/L (14-36); Bilirubin,Total 0.8 mg/dl (0.2-1.3); Blood Urea Nitrogen 21 mg/dl (7-17); Carbon Dioxide 26 mmol/L (22.0-30.0); Creatinine Clearance Estimated 41 mL/min (50-200); Estimated Glomerular Filt Rate 44 ml/min (>60); GFR (African American) 54 ML/MIN (>60); Globulin 4.9 g/dL (1.3-3.2); Total Protein,Serum 9.3 g/dl (6.3-8.2)
[2023-12-20 14:07] LABS: Calcium 9.9 mg/dl (8.4-10.2); Glucose 280 mg/dl (74-100)
--- NOTE | 2023-12-20 14:07 | XR_ITS ---
PROCEDURE INFORMATION: Exam: XR Chest Exam date and time: 12/20/2023 2:12 PM Age: 73 years old Clinical indication: Dyspnea TECHNIQUE: Imaging protocol: Radiologic exam of the chest. Views: 1 view. COMPARISON: CT CERVICAL SPINE WO CON 10/29/2023 2:31 PM FINDINGS: Lungs: Unremarkable. No consolidation. Pleural spaces: Unremarkable. No pleural effusion. No pneumothorax. Heart/Mediastinum: Unremarkable. No cardiomegaly. Bones/joints: Unremarkable. IMPRESSION: No acute findings.
--- NOTE | 2023-12-20 14:07 | CT_ITS ---
PROCEDURE INFORMATION: Exam: CT Head Without Contrast Exam date and time: 12/20/2023 2:21 PM Age: 73 years old Clinical indication: Altered mental status/memory loss; Confusion or disorientation; Additional info: AMS TECHNIQUE: Imaging protocol: Computed tomography of the head without contrast. Radiation optimization: All CT scans at this facility use at least one of these dose optimization techniques: automated exposure control; mA and/or kV adjustment per patient size (includes targeted exams where dose is matched to clinical indication); or iterative reconstruction. COMPARISON: CT HEAD/BRAIN WO CON 10/29/2023 2:31 PM FINDINGS: Brain: Periventricular white matter tract changes demonstrated. Mild-moderate prominence of the cortical sulci. Cerebral ventricles: No ventriculomegaly. Paranasal sinuses: Visualized sinuses are unremarkable. No fluid levels. Mastoid air cells: Visualized mastoid air cells are well aerated. Bones/joints: Unremarkable. No acute fracture. Soft tissues: Unremarkable. IMPRESSION: 1. Findings compatible with moderate intracerebral volume loss. 2. No evidence of acute intracranial abnormality.
--- NOTE | 2023-12-20 14:09 | ED_ITS ---
Discharge Plan Disposition Patient Disposition: Admitted Prescriptions Prescriptions: No Action lovastatin 40 mg tablet 40 mg PO QPM aspirin [Adult Low Dose Aspirin] 81 mg tablet,delayed release (DR/EC) 81 mg PO ONCE fluticasone propionate [Allergy Relief (fluticasone)] 50 mcg/actuation spray,suspension 1 spray NS DAILY Rx Instructions: administer into each nostril Fish Oil 340-1,000 mg capsule 3 cap PO DAILY cholecalciferol (vitamin D3) 50 mcg (2,000 unit) tablet 150 mcg PO DAILY tamsulosin 0.4 mg capsule 0.4 mg PO HS nitroglycerin 0.4 mg tablet, sublingual 0.4 mg SL Q5M PRN Rx Instructions: do not exceed 3 doses per episode cyanocobalamin (vitamin B-12) 1,000 mcg tablet 1,000 mcg PO DAILY atorvastatin 40 mg tablet 40 mg PO DAILY amlodipine 5 mg tablet 5 mg PO DAILY Patient Comments: TAKE 1 TABLET BY MOUTH EVERY DAY ferrous sulfate 325 mg (65 mg iron) tablet 325 mg PO TID Patient Comments: TAKE 1 TABLET BY MOUTH THREE TIMES A DAY lidocaine (PF) 20 mg/mL (2 %) solution 20 mg SQ ONCE Qty: 3 0RF gentamicin 0.1 % ointment 1 applic topical .qday Qty: 30 1RF silver sulfadiazine 1 % cream 1 applic topical BID Qty: 25 2RF Rx Instructions: apply a 1.5 mm thickness Jardiance 25 mg tablet See Rx Instructions .ROUTE .COMPLEX Qty: 90 1RF Dose Instruction: TAKE 1 TABLET ORALLY ONCE DAILY FOR DIABETES Rx Instructions: TAKE 1 TABLET ORALLY ONCE DAILY FOR DIABETES metformin 1,000 mg tablet See Rx Instructions .ROUTE .COMPLEX Qty: 180 1RF Dose Instruction: TAKE 1 TABLET BY MOUTH TWICE A DAY FOR DIABETES Rx Instructions: TAKE 1 TABLET BY MOUTH TWICE A DAY FOR DIABETES estradiol 0.5 mg tablet See Rx Instructions .ROUTE .COMPLEX Qty: 90 1RF Dose Instruction: TAKE 1 TABLET BY MOUTH EVERY DAY FOR 90 DAYS Rx Instructions: TAKE 1 TABLET BY MOUTH EVERY DAY FOR 90 DAYS meloxicam 15 mg tablet See Rx Instructions .ROUTE .COMPLEX Qty: 90 1RF Dose Instruction: TAKE 1 TABLET BY MOUTH EVERY DAY FOR 90 DAYS Rx Instructions: TAKE 1 TABLET BY MOUTH EVERY DAY FOR 90 DAYS metoprolol succinate 50 mg tablet extended release 24 hr See Rx Instructions .ROUTE .COMPLEX Qty: 180 1RF Dose Instruction: TAKE 2 TABLETS BY MOUTH EVERY DAY FOR 90 DAYS Rx Instructions: TAKE 2 TABLETS BY MOUTH EVERY DAY FOR 90 DAYS losartan 50 mg tablet See Rx Instructions .ROUTE .COMPLEX Qty: 90 1RF Dose Instruction: TAKE 1 TABLET BY MOUTH EVERY DAY FOR 90 DAYS Rx Instructions: TAKE 1 TABLET BY MOUTH EVERY DAY FOR 90 DAYS fenofibrate 160 mg tablet See Rx Instructions .ROUTE .COMPLEX Qty: 90 1RF Dose Instruction: TAKE 1 TABLET BY MOUTH EVERY DAY FOR 90 DAYS Rx Instructions: TAKE 1 TABLET BY MOUTH EVERY DAY FOR 90 DAYS pantoprazole 40 mg tablet,delayed release (DR/EC) See Rx Instructions .ROUTE .COMPLEX Qty: 30 0RF Dose Instruction: TAKE 1 TABLET BY MOUTH EVERY DAY Rx Instructions: TAKE 1 TABLET BY MOUTH EVERY DAY cefdinir [cefdinir] 300 mg capsule 300 mg PO BID Qty: 14 0RF Referrals Follow up/Referrals: Toro Narayanan [Primary Care Provider] - See instructions Clinical Impressions Clinical Impression: Encephalopathy acute, Severe sepsis, Acute UTI Instructions Patient Instructions: DI for Altered Mental Status Discharge ED Provider: Melvina Cabral General Adult HPI General Chief complaint: Altered Mental Status Stated complaint: disorientation vomiting ba dizziness Time Seen by Provider: 12/20/23 14:04 Mode of Arrival: Wheelchair Source of Information: Patient and Relative Limitations: No Limitations Description of Symptoms (Recalled from ER Triage Doc. by RN): pt family member noted patient acting more confused last night and this morning and pt has hx of UTIs. pt also vomitted once today but denies any other s/s and no pain History of Present Illness HPI narrative: Patient is a 73-year-old female brought in today for confusion and altered mental status by daughter. Denies any symptoms including dysuria frequency urgency chest pain shortness of breath etc. She is without complaints at the moment. Related Data Home Medications Medication Instructions Recorded Confirmed aspirin 81 mg tablet,delayed 81 mg PO ONCE prevention 05/26/18 09/11/22 release (Adult Low Dose Aspirin) lovastatin 40 mg tablet 40 mg PO QPM Cholesterol 05/26/18 09/11/22 cholecalciferol (vitamin D3) 50 150 mcg PO DAILY 06/10/22 09/11/22 mcg (2,000 unit) tablet cyanocobalamin (vitamin B-12) 1,000 mcg PO DAILY 06/10/22 09/11/22 1,000 mcg tablet fluticasone propionate 50 1 spray intranasal DAILY 06/10/22 09/11/22 mcg/actuation nasal spray,suspension (Allergy Relief (fluticasone)) nitroglycerin 0.4 mg sublingual 0.4 mg sublingual Q5M PRN 06/10/22 09/11/22 tablet omega-3 fatty acids-fish oil 340 3 cap PO DAILY 06/10/22 09/11/22 mg-1,000 mg capsule (Fish Oil) tamsulosin 0.4 mg capsule 0.4 mg PO HS 06/10/22 09/11/22 amlodipine 5 mg tablet 5 mg PO DAILY 10/16/22 10/16/22 atorvastatin 40 mg tablet 40 mg PO DAILY 10/16/22 10/16/22 ferrous sulfate 325 mg (65 mg 325 mg PO TID 10/16/22 10/16/22 iron) tablet Previous Rx's Medication Instructions Recorded gentamicin 0.1 % topical ointment 1 applic topical .qday cellulitis 07/17/22 #30 grams silver sulfadiazine 1 % topical 1 applic topical BID burn #25 grams 08/21/22 cream cefdinir 300 mg capsule 300 mg PO BID #14 caps 03/01/23 empagliflozin 25 mg tablet See Rx Instructions .Route 05/29/23 (Jardiance) .COMPLEX #90 tabs metformin 1,000 mg tablet See Rx Instructions .Route 07/10/23 .COMPLEX #180 tabs estradiol 0.5 mg tablet See Rx Instructions .Route 10/01/23 .COMPLEX #90 tabs losartan 50 mg tablet See Rx Instructions .Route 10/01/23 .COMPLEX #90 tabs meloxicam 15 mg tablet See Rx Instructions .Route 10/01/23 .COMPLEX #90 tabs metoprolol succinate 50 mg See Rx Instructions .Route 10/01/23 tablet,extended release 24 hr .COMPLEX #180 tabs fenofibrate 160 mg tablet See Rx Instructions .Route 10/14/23 .COMPLEX #90 tabs pantoprazole 40 mg tablet,delayed See Rx Instructions .Route 11/11/23 release .COMPLEX #30 tabs Allergies Allergy/AdvReac Type Severity Reaction Status Date / Time No Known Allergies Allergy Verified 10/16/22 13:54 [facility] Disclaimer: The information contained in this section may have been updated after the patient was seen, as this information can be updated by other users. Social History Smoking Status: Never smoker second hand exposure: Yes alcohol intake: never substance use type: denies use current occupational status: retired Travel in the last 8 weeks: None household members: other housing: house current occupational exposures/hazards: No caffeine: Yes ROS Obtained: Yes All systems reviewed & no additional complaints except as documented Physical Exam General General appearance: alert and in no apparent distress Respiratory Respiratory exam: Present normal lung sounds bilaterally; Absent respiratory distress Cardiovascular Cardiovascular exam: Present regular rate and tachycardia Abdominal Exam Abdominal exam: Present soft; Absent distention or tenderness Neurological Exam Neurological exam: Present alert, oriented X3 and CN II-XII intact; Absent motor sensory deficit Skin Skin exam: Present warm (Feels very warm I repeated her temperature was 100.5 on my evaluation) Medical Decision Making Henry Inquiry Pt receiving controlled substance: No Vital Signs: 12/20/23 12:57 12/20/23 15:00 12/20/23 15:30 Temperature 98.4 F Temperature Source Oral Pulse Rate 101 H 89 Pulse Rate [Right Radial] 102 H Respiratory Rate 18 22 24 Blood Pressure 151/66 H 153/62 H Blood Pressure [Right Arm] 198/80 H Blood Pressure Mean 113 109 Blood Pressure Mean [Right Arm] 119 02 Sat by Pulse Oximetry 93 L 97 94 L Oxygen Delivery Method Room Air Lab Data Lab results reviewed: Yes I reviewed the patient's lab results. Lab Results 12/20/23 13:40: WBC 13.8 H, RBC 4.40, Hgb 11.0 L, Hct 34.6 L, MCV 78.6 L, MCH 24.9 L, MCHC 31.7 L, RDW 17.7 H, Plt Count 352, MPV 7.8, Neut % (Auto) 91.5 H, Lymph % (Auto) 5.6 L, [place] % (Auto) 2.6, Eos % (Auto) 0.0 L, Baso % (Auto) 0.2, Neut # (Auto) 12.6 H, Lymph # (Auto) 0.8, [place] # (Auto) 0.4, Eos # (Auto) 0.0, Baso # (Auto) 0.0, Total Counted 100, Neutrophils % (Manual) 95 H, Lymphocytes % (Manual) 3 L, Monocytes % (Manual) 2, Platelet Estimate Normal, RBC Morphology Normal, Sodium 138, Potassium 4.6, Chloride 101, Carbon Dioxide 26, Anion Gap 15.6 H, BUN 21 H, Creatinine 1.20 H, Estimated Creat Clear 41, Estimated GFR 44 L, Est GFR ( Amer) 54 L, Glucose 280 H, Calcium 9.9, Total Bilirubin 0.8, AST 36, ALT 20, Alkaline Phosphatase 157 H, Total Protein 9.3 H, Albumin 4.4, Globulin 4.9 H, Albumin/Globulin Ratio 0.9 L 12/20/23 13:54: Urine Color Yellow, Urine Appearance Clear, Urine pH 6.5, Ur Specific [place] 1.010, Urine Protein 2+, Urine Glucose (UA) 3+, Urine Ketones Negative, Urine Blood 3+, Urine Nitrate Positive, Urine Bilirubin Negative, Ur ine Urobilinogen 0.2, Ur Leukocyte Esterase 1+ A, Urine RBC 20-50, Urine WBC 10- 20, Ur Squamous Epith Cells Occasional, Urine Bacteria 3+ 12/20/23 14:05: SARS-CoV-2 (PCR) Not detected, Influenza A Untype (PCR) Not detected, Influenza Type B (PCR) Not detected 12/20/23 14:27: Lactate 1.3 12/20/23 13:40 12/20/23 13:40 Orders (Tests/Meds): ED MEDICATIONS Generic Name Dose Route Start Last Admin Trade Name Freq PRN Reason Stop Dose Admin Ceftriaxone Sodium 1 gm/ 50 mls @ 100 mls/hr 12/20/23 15:38 12/20/23 15:45 Sodium Chloride IV 12/20/23 16:07 100 mls/hr ONCE ONE Administration Discontinued Medications Generic Name Dose Route Start Last Admin Trade Name Freq PRN Reason Stop Dose Admin Acetaminophen 1,000 mg 12/20/23 14:07 12/20/23 14:16 Acetaminophen 500mg Tab PO 12/20/23 14:08 1,000 mg ONCE ONE Administration Lactated Ringer's 1,000 mls @ 999 mls/hr 12/20/23 14:15 12/20/23 14:16 Lactated Ringer's 1000 Ml Bag IV 12/20/23 15:15 999 mls/hr .[id number] MARIA EUGENIA Administration ORDERS Category Date Time Status CT head/brain wo con Stat Cat Scan 12/20/23 14:07 Completed CXR --portable [XR chest portable] Stat Exams 12/20/23 14:07 Completed Complete Blood Count Auto Diff Stat Lab 12/20/23 13:40 Completed Comprehensive Metabolic Panel Stat Lab 12/20/23 13:40 Completed Lactic Acid Stat Lab 12/20/23 14:27 Completed Rapid PCR Covid and Flu A/B Stat Lab 12/20/23 14:05 Completed Urinalysis and Microscopic Stat Lab 12/20/23 13:54 Completed Blood Culture Stat Micro 12/20/23 14:33 Received Urine Culture Stat Micro 12/20/23 13:54 Received Tissue Perfus/Sepsis Re-Eval Sepsis Re-Evaluation Performed: Yes Date Performed: 12/20/23 Time Performed: 15:59 Medical Decision Narrative: Patient is a 73-year-old female presents today with confusion but her exam for me is relatively normal. She is febrile on my exam and tachycardic. Will work her up for sepsis including looking for source with urine and chest x-ray flu COVID blood cultures etc. Reassessment chest x-ray performed which I personally turbid shows no acute cardiopulmonary emergency CT scan of the head which I personally interpreted shows no acute intracranial abnormality radiology read consistent with this as well. Remarkable for leukocytosis also she is positive for urinary tract infection. Patient is encephalopathic from historical standpoint and this is endorgan damage and she also presented with tachycardia fever and she was mildly tachypneic on my reassessment. She is hemodynamically stable. Overall this is consistent with severe sepsis with endorgan damage being her encephalopathy. She was given Rocephin bolus of fluids tissue perfusion and with serial assessments remained stable. She was admitted to hospital medicine for further evaluation and treatment. Critical Care Critical Care Time Critical Care Time: Yes Attestation: On 12/20/23, the high probability of a clinically significant, sudden or life threatening deterioration of the following system(s) required my full and direct attention, intervention and personal management. The time I documented below is in addition to time spent performing reported procedures but includes the following listed in this critical care notation. Total Time Total Critical Care Time: 35
[2023-12-20 14:15] LABS: Basophils % 0.2 % (0.1-2.0); Hematocrit 34.6 % (37.0-47.0); Lymphocytes # 0.8 K/mm3 (0.7-4.5); Lymphocytes % 5.6 % (10-50); Mean Corpuscular HGB Conc 31.7 g/dL (31.8-35.4); Mean Corpuscular Hemoglobin 24.9 pg (27.0-31.2); Mean Corpuscular Volume 78.6 fl (81-99); Mean Platelet Volume 7.8 fl (7.4-10.4); Monocytes # 0.4 K/mm3 (0.1-1.0); Monocytes % 2.6 % (1.7-9.3); Neutrophils # 12.6 K/mm3 (1.8-7.8); Neutrophils % 91.5 % (37.0-80.0); Platelet Count 352 K/mm3 (142-424); Red Cell Distribution Width 17.7 % (11.5-17.5); White Blood Count 13.8 K/mm3 (4.8-10.8)
--- NOTE | 2023-12-20 14:15 | PC.NURSE ---
RAD at [facility]
[2023-12-20] MEDS: LACTATED RINGERS 1000ML 1,000 ML 999 ML IV (14:16)
[2023-12-20] MEDS: ACETAMINOPHEN 500MG TAB 1000 MG PO (14:16)
[2023-12-20 14:17] LABS: Microscopic, Urine URINE MICROSCOPIC (MICROSCOPIC)
[2023-12-20 14:17] LABS: Coronavirus 19, PCR Not Detected (NotDetected); Influenza A, PCR Not Detected (NotDetected); Influenza B, PCR Not Detected (NotDetected)
[2023-12-20 14:23] LABS: Appearance,Urine CLEAR (Clear); Bilirubin,Urine Negative (Negative); Blood, Urine 3+ (Negative); Color,Urine YELLOW (Yellow); Glucose,Urine (UA) 3+ (Negative); Ketones,Urine Negative (Negative); Leukocyte Esterase,Urine 1+ (Negative); Nitrate,Urine POSITIVE (Negative); PH,Urine 6.5 (5.0-8.5); Protein,Urine 2+ (Negative); Urobilinogen,Urine 0.2 EU/dl (0.2)
[2023-12-20 14:25] LABS: MANUAL DIFFERENTIAL MANUAL DIFFERENTIAL (MANUAL DIFF)
[2023-12-20 14:33] LABS: Lymphocytes % 3 % (10-50); Monocytes % 2 % (2-9); Neutrophils % 95 % (42-76); Total Cells Counted 100
[2023-12-20 14:34] LABS: Platelet Estimate Normal; RBC Morphology Normal
[2023-12-20 14:53] LABS: Bacteria,Urine 3+ /lpf; RBC,Urine 20-50 #/hpf (0-3); Squamous Epithelial Cell,Urine Occasional #/hpf (0-5)
[2023-12-20 14:59] LABS: Lactic Acid 1.3 mmol/L (0.7-2.1)
[2023-12-20] MEDS: CEFTRIAXONE SODIUM 1 GM in 0.9 % SODIUM CHLORIDE 50 ML IV (15:45)
--- NOTE | 2023-12-20 16:04 | EXP.HP ---
History of Present Illness *Admission Date: 12/20/23 *Reason for visit:: confusion *History of present illness: Ms. Maria is a 73-year-old female with history of urine retention needing frequent In-N-Out catheterizations, hyperlipidemia, hypertension, diabetes, who presented to the ER with report of acting more confused by her daughter who presented with her. She has a history of UTIs but has done well and not had one in several months. Daughter reports patient also vomited once today. Denies any fever, chills, chest pain or shortness of breath. Confusion has been worsening over the past 24 hours. No report of dysuria. Workup in the ER concerning for sepsis with tachycardia, leukocytosis, grossly abnormal UA. Urine culture obtained. Patient initiated on antibiotics and fluids. Medicine consulted for admission. Upon my evaluation in the ER, patient is alert and oriented x 3. Feeling somewhat better. Does have some mild right-sided CVA tenderness. Daughter at bedside states patient is doing better but not quite back to herself. Has had couple spontaneous voids since decision to admit but does have some lower abdominal tenderness. Stable on room air. [facility] Disclaimer: The information contained in this section may have been updated after the patient was seen, as this information can be updated by other users. Medical History (Updated 12/20/23 @ 20:27 by Reg Oquendo MD) Diabetes HTN (hypertension) Family History Hx of CABG Social History Smoking Status: Never smoker second hand exposure: Yes alcohol intake: never substance use type: denies use current occupational status: retired Travel in the last 8 weeks: None household members: other housing: house current occupational exposures/hazards: No caffeine: Yes Review of Systems Review of Systems Review of systems (narrative): 14 point review of systems performed, pertinent positives and negatives as per HPI Meds Home Medications and Allergies Home Medications Medication Instructions Recorded Confirmed Type aspirin 81 mg tablet,delayed 81 mg PO ONCE prevention 05/26/18 12/20/23 History release (Adult Low Dose Aspirin) cholecalciferol (vitamin D3) 50 150 mcg PO DAILY 06/10/22 12/20/23 History mcg (2,000 unit) tablet cyanocobalamin (vitamin B-12) 1,000 mcg PO DAILY 06/10/22 12/20/23 History 1,000 mcg tablet fluticasone propionate 50 1 spray intranasal DAILY 06/10/22 12/20/23 History mcg/actuation nasal spray,suspension (Allergy Relief (fluticasone)) nitroglycerin 0.4 mg sublingual 0.4 mg sublingual Q5M PRN chestpain 06/10/22 12/20/23 History tablet omega-3 fatty acids-fish oil 340 3 cap PO DAILY 06/10/22 12/20/23 History mg-1,000 mg capsule (Fish Oil) tamsulosin 0.4 mg capsule 0.4 mg PO HS 06/10/22 12/20/23 History amlodipine 5 mg tablet 5 mg PO DAILY 10/16/22 12/20/23 History atorvastatin 40 mg tablet 40 mg PO DAILY 10/16/22 12/20/23 History ferrous sulfate 325 mg (65 mg 325 mg PO TID 10/16/22 12/20/23 History iron) tablet empagliflozin 25 mg tablet See Rx Instructions .Route 05/29/23 12/20/23 Rx (Jardiance) .COMPLEX #90 tabs metformin 1,000 mg tablet See Rx Instructions .Route 07/10/23 12/20/23 Rx .COMPLEX #180 tabs metoprolol succinate 50 mg See Rx Instructions .Route 10/01/23 12/20/23 Rx tablet,extended release 24 hr .COMPLEX #180 tabs fenofibrate 160 mg tablet See Rx Instructions .Route 10/14/23 12/20/23 Rx .COMPLEX #90 tabs pantoprazole 40 mg tablet,delayed See Rx Instructions .Route 11/11/23 12/20/23 Rx release .COMPLEX #30 tabs estradiol 0.5 mg tablet 0.5 mg PO DAILY 12/20/23 12/20/23 History losartan 50 mg tablet 50 mg PO DAILY 12/20/23 12/20/23 History meloxicam 15 mg tablet 15 mg PO DAILY 12/20/23 12/20/23 History New Prescriptions to Start Prescriptions: Allergies Allergy/AdvReac Type Severity Reaction Status Date / Time No Known Allergies Allergy Verified 10/16/22 13:54 Exam Data for Last 24 hours Vital signs and Labs for Last 24 Hours: Temp Pulse Resp BP Pulse Ox O2 Del Method 98.4 F 89 24 153/62 H 94 L Room Air 12/20/23 12:57 12/20/23 15:30 12/20/23 15:30 12/20/23 15:30 12/20/23 15:30 12/20/23 12:57 Laboratory Results - last 24 hr 12/20/23 13:40: WBC 13.8 H, RBC 4.40, Hgb 11.0 L, Hct 34.6 L, MCV 78.6 L, MCH 24.9 L, MCHC 31.7 L, RDW 17.7 H, Plt Count 352, MPV 7.8, Neut % (Auto) 91.5 H, Lymph % (Auto) 5.6 L, [place] % (Auto) 2.6, Eos % (Auto) 0.0 L, Baso % (Auto) 0.2, Neut # (Auto) 12.6 H, Lymph # (Auto) 0.8, [place] # (Auto) 0.4, Eos # (Auto) 0.0, Baso # (Auto) 0.0, Total Counted 100, Neutrophils % (Manual) 95 H, Lymphocytes % (Manual) 3 L, Monocytes % (Manual) 2, Platelet Estimate Normal, RBC Morphology Normal, Sodium 138, Potassium 4.6, Chloride 101, Carbon Dioxide 26, Anion Gap 15.6 H, BUN 21 H, Creatinine 1.20 H, Estimated Creat Clear 41, Estimated GFR 44 L, Est GFR ( Amer) 54 L, Glucose 280 H, Calcium 9.9, Total Bilirubin 0.8, AST 36, ALT 20, Alkaline Phosphatase 157 H, Total Protein 9.3 H, Albumin 4.4, Globulin 4.9 H, Albumin/Globulin Ratio 0.9 L 12/20/23 13:54: Urine Color Yellow, Urine Appearance Clear, Urine pH 6.5, Ur Specific [place] 1.010, Urine Protein 2+, Urine Glucose (UA) 3+, Urine Ketones Negative, Urine Blood 3+, Urine Nitrate Positive, Urine Bilirubin Negative, Urine Urobilinogen 0.2, Ur Leukocyte Esterase 1+ A, Urine RBC 20-50, Urine WBC 10-20, Ur Squamous Epith Cells Occasional, Urine Bacteria 3+ 12/20/23 14:05: SARS-CoV-2 (PCR) Not detected, Influenza A Untype (PCR) Not detected, Influenza Type B (PCR) Not detected 12/20/23 14:27: Lactate 1.3 I & O for Last 24 hours: Intake & Output 12/17/23 12/18/23 12/19/23 12/20/23 23:59 23:59 23:59 23:59 Weight 59.874 kg Constitutional Constitutional: no acute distress, average body habitus and cooperative *Routine HEENT Exam Head: Present normocephalic Eye: Present EOMI and PERRL ENT: Present mucous membranes moist *Routine Neck Exam Neck: Present supple; Absent lymphadenopathy *Routine Respiratory Exam Respiratory: Present CTA bilaterally; Absent rhonchi, wheezes or crackles *Routine Cardiovascular Exam Cardiovascular: Present RRR *Routine Abdominal Exam Abdominal: Present soft, normoactive bowel sounds and tenderness (suprapubic with firm mass above pubis) *Routine Rectal Exam Rectal:: deferred *Routine Genitalia Exam Genitalia:: deferred *Routine Extremities Exam Extremities: Absent cyanosis, clubbing or edema Routine Back/Spine/Pelvis Exam Back/Spine: Present CVA tenderness (mild, right sided) *Routine Skin Exam Skin: Present warm; Absent rash *Routine Neurological Exam Neurological: Present alert, oriented X3 and moving all extremities; Absent altered mental status Assessment and Plan *Assessment and plan (1) Severe sepsis: Status: Acute Category: Medical Code(s): A41.9 - Sepsis, unspecified organism; R65.20 - Severe sepsis without septic shock (2) Acute UTI: Status: Acute Category: Medical Code(s): N39.0 - Urinary tract infection, site not specified (3) Encephalopathy acute: Status: Acute Category: Medical Code(s): G93.40 - Encephalopathy, unspecified (4) HTN (hypertension): Status: Acute Category: Medical Code(s): I10 - Essential (primary) hypertension (5) Urinary retention: Status: Acute Category: Medical Code(s): R33.9 - Retention of urine, unspecified (6) Diabetes: Status: Acute Category: Medical Code(s): E11.9 - Type 2 diabetes mellitus without complications Plan 73-year-old female presenting with confusion. Found to have UTI. Discussed case with ER, request admission for antibiotics and further treatment of sepsis. Medicine agreed to admit. Problems addressed as follows: Sepsis Urinary tract infection -Urinalysis grossly abnormal; Positive nitrate, 1+ leuk esterase, 3+ bacteria white cell count elevated at 13.8. Patient tachycardic. CVA tenderness on right side. Suspicious for pyelonephritis. -Previous cultures positive for Klebsiella, sensitive to ceftriaxone and fluoroquinolones. -Continue ceftriaxone 1 g daily, urine and blood cultures pending -Status post bolus in the ER. Given improvement in mentation, tolerating p.o. intake well. -CBC, CMP, magnesium ordered for the morning. Hypertension: A1c 8.7. Continue sliding scale insulin with fingersticks ACHS. Continue home metformin 1000mg twice daily -Hold Jardiance in the setting of UTI Hypertension: Hyperlipidemia Resume metoprolol succinate 50 mg daily, losartan 50 mg daily, Lipitor 40 mg daily, amlodipine 5 mg daily Chronic GERD: Continue pantoprazole 40 mg daily Chronic urinary retention: Will place [place] catheter to decompress bladder, reevaluate use tomorrow and transitioning back to in and out cathing. Continue tamsulosin 0.4 mg daily Full code Diabetic diet Lovenox 40 mg subcu daily
--- NOTE | 2023-12-20 16:14 | PC.NURSE ---
pt is being admitted per hospital medicine for urosepsis, DTA order placed, dye house worker notified for bed assignment
[2023-12-20 17:15] LABS: Hemoglobin A1C 8.7 % (4.0-6.0)
--- NOTE | 2023-12-20 17:15 | PC.NURSE ---
Pt to be admitted with urosepsis to hospitalist; room 218 obs
--- NOTE | 2023-12-20 17:15 | PC.NURSE ---
FAMILY AT BEDSIDE, NO NEEDS AT THIS TIME
--- NOTE | 2023-12-20 17:26 | PC.NURSE ---
Pt provided with dinner tray
--- NOTE | 2023-12-20 17:26 | PC.NURSE ---
Called report to Naz JONES, answered all questions
--- NOTE | 2023-12-20 17:44 | PC.NURSE ---
Dr. Oquendo at BS
--- NOTE | 2023-12-20 18:19 | PC.NURSE ---
Pt waiting for room on med/surg to be prepped
[2023-12-20] MEDS: LACTATED RINGERS 1000ML 1,570 ML 785 ML IV (19:46)
--- NOTE | 2023-12-20 19:49 | PC.NURSE ---
Verified with Tito that pt will get additional 794 ml to complete sepsis bolus. For a total of 1794.
[2023-12-20] MEDS: ACETAMINOPHEN 325MG TAB 650 MG PO (21:45)
[2023-12-20] MEDS: PANTOPRAZOLE 40MG TABLET 40 MG PO (21:45)
[2023-12-20] MEDS: TAMSULOSIN 0.4MG CAPSULE 0.400000000000000022 MG PO (22:22)
[2023-12-21] VITALS: BP 143/66; PULSE 110; PULSE 118; RESP 28; TEMP 38.4; O2SAT 94
[2023-12-21] MEDS: ACETAMINOPHEN 325MG TAB 650 MG PO (01:47)
--- NOTE | 2023-12-21 02:15 | ECG_ITS ---
APPROVED REPORT Exam: Resting ECG HR:95 bpm ECG Measurements Heart Rate 95 AXES CA 132 P 57 QRSd 90 QRS 43 QT 274 T 48 QTc 327 Conclusion SINUS RHYTHM WITH FREQUENT SUPRAVENTRICULAR PREMATURE COMPLEXES POSSIBLE LEFT ATRIAL ENLARGEMENT [-0.1mV P-WAVE IN V1/V2] NONSPECIFIC T-WAVE ABNORMALITY ABNORMAL RHYTHM ECG UNCONFIRMED REPORT Electronically signed by : Sukumar Segura MD 12/21/2023 14:30:35
[2023-12-21 04:00] VITALS: BP 119/53; PULSE 90; PULSE 96; RESP 18; TEMP 37.2; O2SAT 96; BMI 23.3
[2023-12-21 07:38] LABS: Chloride 103 mmol/L (98-107); Potassium 4.6 mmoL/L (3.5-5.1); Sodium 137 mmol/L (136-145)
[2023-12-21 07:39] LABS: Basophils % 0.3 % (0.1-2.0); Eosinophils % 0.2 % (0.1-12.0); Hematocrit 32.4 % (37.0-47.0); Hemoglobin 10.1 g/dL (12.2-16.2); Lymphocytes # 1.5 K/mm3 (0.7-4.5); Lymphocytes % 16.7 % (10-50); Mean Corpuscular HGB Conc 31.2 g/dL (31.8-35.4); Mean Corpuscular Hemoglobin 24.7 pg (27.0-31.2); Monocytes # 0.3 K/mm3 (0.1-1.0); Monocytes % 3.2 % (1.7-9.3); Neutrophils # 6.9 K/mm3 (1.8-7.8); Neutrophils % 79.5 % (37.0-80.0); Platelet Count 286 K/mm3 (142-424); Red Cell Distribution Width 17.6 % (11.5-17.5); White Blood Count 8.7 K/mm3 (4.8-10.8)
[2023-12-21 07:40] LABS: Blood Urea Nitrogen 21 mg/dl (7-17); Creatinine Clearance Estimated 41 mL/min (50-200); Estimated Glomerular Filt Rate 44 ml/min (>60); GFR (African American) 54 ML/MIN (>60)
[2023-12-21 07:41] LABS: Alanine Aminotransferase 20 U/L (12-78); Albumin Level 3.8 g/dl (3.5-5.0); Albumin/Globulin Ratio 0.9 (1.1-1.8); Alkaline Phosphatase 137 U/L (38-126); Anion Gap 12.6 mEq/L (5-15); Aspartate Amino Transferase 40 U/L (14-36); Bilirubin,Total 0.8 mg/dl (0.2-1.3); Calcium 9.4 mg/dl (8.4-10.2); Carbon Dioxide 26 mmol/L (22.0-30.0); Globulin 4.3 g/dL (1.3-3.2); Glucose 220 mg/dl (74-100); Magnesium 2.3 mg/dl (1.6-2.3); Total Protein,Serum 8.1 g/dl (6.3-8.2)
[2023-12-21 08:00] VITALS: BP 136/63; PULSE 90; PULSE 97; RESP 21; TEMP 36.4; O2SAT 97
[2023-12-21] MEDS: IRBESARTAN 75MG TABLET 75 MG PO (09:59)
[2023-12-21] MEDS: ASPIRIN EC 81MG TABLET 81 MG PO (09:59)
[2023-12-21] MEDS: METFORMIN 500MG TABLET 1000 MG PO (09:59)
[2023-12-21] MEDS: AMLODIPINE 5MG TABLET 5 MG PO (09:59)
[2023-12-21] MEDS: levoFLOXacin 750 MG TABLET PO (09:59)
[2023-12-21] MEDS: INSULIN GLARGINE 100 UNITS/ML 3ML FLEXPEN 10 UNIT SQ (10:04)
[2023-12-21] MEDS: ONDANSETRON 4MG/2ML VIAL 4 MG IV (10:49)
--- NOTE | 2023-12-21 11:15 | HMH.PHAINT1 ---
Pharmacy Intervention Comments: MEDICATION RECONCILIATION COMPLETE USING EXTERNAL PHARMACY FILL HISTORY.
[2023-12-21] MEDS: humaLOG 100 UNITS/ML 3ML VIAL (SSI) SQ (11:30)
[2023-12-21 11:33] VITALS: BP 137/70; PULSE 96; RESP 15; TEMP 36.9; O2SAT 98
[2023-12-21 12:00] VITALS: PULSE 102
[2023-12-21 12:11] LABS: POC Glucose,Bedside 275 (70-110)
[2023-12-21 12:11] LABS: POC Glucose,Bedside 224 (70-110)
--- NOTE | 2023-12-21 14:34 | P.DS_ITS ---
General Admission date:: 12/20/23 Discharge date: 12/21/23 HPI HPI HPI: Ms. Maria is a 73-year-old female with history of urine retention needing frequent In-N-Out catheterizations, hyperlipidemia, hypertension, diabetes, who presented to the ER with report of acting more confused by her daughter who presented with her. She has a history of UTIs but has done well and not had one in several months. Daughter reports patient also vomited once today. Denies any fever, chills, chest pain or shortness of breath. Confusion has been worsening over the past 24 hours. No report of dysuria. Workup in the ER c oncerning for sepsis with tachycardia, leukocytosis, grossly abnormal UA. Urine culture obtained. Patient initiated on antibiotics and fluids. Medicine consulted for admission. Upon my evaluation in the ER, patient is alert and oriented x 3. Feeling somewhat better. Does have some mild right-sided CVA tenderness. Daughter at bedside states patient is doing better but not quite back to herself. Has had couple spontaneous voids since decision to admit but does have some lower abdominal tenderness. Stable on room air. Hospital Course Hospital Course Hospital Course: 73-year-old female presenting with confusion. Found to have UTI. Discussed case with ER, request admission for antibiotics and further treatment of sepsis. Medicine agreed to admit. Responded well to antibiotics during admission. Improved to baseline mentation rapidly after treatment initiation. Stable for discharge home. Needs close follow-up with her urologist. Problems addressed as follows: Sepsis, resolved Urinary tract infection -Urinalysis grossly abnormal; Positive nitrate, 1+ leuk esterase, 3+ bacteria white cell count elevated at 13.8. Patient tachycardic. CVA tenderness on right side. Suspicious for pyelonephritis. Previous cultures positive for Klebsiella, sensitive to ceftriaxone and fluoroquinolones. Initially started on ceftriaxone, transitioned to levofloxacin. Will continue levofloxacin 750 mg every other day for total of 7 days of antibiotics. Given improvement in mentation and normalization in white count, stable for discharge home. Will continue to follow culture and monitor for sensitivity. Diabetes: A1c 8.7. Sliding scale insulin during admission. Continue metformin. Initiated on glargine. Continue at discharge with 15 units nightly. Jardiance is contraindicated in the setting of UTI. Discontinued at this time. Needs repeat A1c in 3 months. Hypertension: Hyperlipidemia Resume metoprolol succinate 50 mg daily, losartan 50 mg daily, Lipitor 40 mg daily, amlodipine 5 mg daily Chronic GERD: Continue pantoprazole 40 mg daily Chronic urinary retention: Fiore catheter placed to decompress bladder. Patient had improved symptom relief. Will leave in place at discharge. Recommend close follow-up with urologist to discuss further management. Continue tamsulosin 0.4 mg daily. Spent 30 minutes in discharge counseling, documentation, chart review, and direct care with patient. Exam Data for Last 24 hours Vital signs and Labs for Last 24 Hours: Temp Pulse Resp BP Pulse Ox O2 Del Method 98.5 F 102 H 15 137/70 98 Room Air 12/21/23 11:33 12/21/23 12:00 12/21/23 11:33 12/21/23 11:33 12/21/23 11:33 12/21/23 11:33 Laboratory Results - last 24 hr 12/20/23 13:40: Total Counted 100, Neutrophils % (Manual) 95 H, Lymphocytes % (Manual) 3 L, Monocytes % (Manual) 2, Platelet Estimate Normal, RBC Morphology Normal, Hemoglobin A1c 8.7 H 12/20/23 13:54: Urine RBC 20-50, Urine WBC 10-20, Ur Squamous Epith Cells Occasional, Urine Bacteria 3+ 12/20/23 14:05: SARS-CoV-2 (PCR) Not detected, Influenza A Untype (PCR) Not detected, Influenza Type B (PCR) Not detected 12/20/23 14:27: Lactate 1.3 12/21/23 06:08: POC Glucose 224 H 12/21/23 07:00: WBC 8.7 D, RBC 4.10 L, Hgb 10.1 L, Hct 32.4 L, MCV 79.0 L, MCH 24.7 L, MCHC 31.2 L, RDW 17.6 H, Plt Count 286, MPV 8.0, Neut % (Auto) 79.5, Lymph % (Auto) 16.7, Phelps % (Auto) 3.2, Eos % (Auto) 0.2, Baso % (Auto) 0.3, Neut # (Auto) 6.9, Lymph # (Auto) 1.5, Phelps # (Auto) 0.3, Eos # (Auto) 0.0, Baso # (Auto) 0.0, Sodium 137, Potassium 4.6, Chloride 103, Carbon Dioxide 26, Anion Gap 12.6, BUN 21 H, Creatinine 1.20 H, Estimated Creat Clear 41, Estimated GFR 44 L, Est GFR ( Amer) 54 L, Glucose 220 H D, Calcium 9.4, Magnesium 2.3, Total Bilirubin 0.8, AST 40 H, ALT 20, Alkaline Phosphatase 137 H, Total Protein 8.1, Albumin 3.8 D, Globulin 4.3 H, Albumin/Globulin Ratio 0.9 L 12/21/23 11:22: POC Glucose 275 H I & O for Last 24 hours: Intake & Output 12/18/23 12/19/23 12/20/23 12/21/23 23:59 23:59 23:59 23:59 Intake Total 898 / 898 Output Total 2800 / 2800 Balance -1902 / -1902 Weight 59.874 kg 59.862 kg Constitutional Constitutional: no acute distress, average body habitus and chronically ill appearing *Routine HEENT Exam Head: Present normocephalic Eye: Present EOMI and PERRL ENT: Present mucous membranes moist *Routine Neck Exam Neck: Present supple; Absent lymphadenopathy *Routine Respiratory Exam Respiratory: Present CTA bilaterally; Absent rhonchi, wheezes or crackles *Routine Cardiovascular Exam Cardiovascular: Present RRR *Routine Abdominal Exam Abdominal: Present soft and normoactive bowel sounds; Absent tenderness *Routine Exam Comments: fiore in place *Routine Extremities Exam Extremities: Absent cyanosis, clubbing or edema *Routine Skin Exam Skin: Present warm; Absent rash *Routine Neurological Exam Neurological: Present alert, oriented X3 and moving all extremities; Absent altered mental status Results Data Completed and Pending Labs on day of discharge: Labs from last 24 hours 12/21/23 12/21/23 12/21/23 11:22 07:00 06:08 WBC 8.7 D RBC 4.10 L Hgb 10.1 L Hct 32.4 L MCV 79.0 L MCH 24.7 L MCHC 31.2 L RDW 17.6 H Plt Count 286 MPV 8.0 Neut % (Auto) 79.5 Lymph % (Auto) 16.7 Phelps % (Auto) 3.2 Eos % (Auto) 0.2 Baso % (Auto) 0.3 Neut # (Auto) 6.9 Lymph # (Auto) 1.5 Phelps # (Auto) 0.3 Eos # (Auto) 0.0 Baso # (Auto) 0.0 Total Counted Neutrophils % (Manual) Lymphocytes % (Manual) Monocytes % (Manual) Platelet Estimate RBC Morphology Sodium 137 Potassium 4.6 Chloride 103 Carbon Dioxide 26 Anion Gap 12.6 BUN 21 H Creatinine 1.20 H Estimated Creat Clear 41 Estimated GFR 44 L Est GFR ( Amer) 54 L Glucose 220 H D POC Glucose 275 H 224 H Hemoglobin A1c Lactate Calcium 9.4 Magnesium 2.3 Total Bilirubin 0.8 AST 40 H ALT 20 Alkaline Phosphatase 137 H Total Protein 8.1 Albumin 3.8 D Globulin 4.3 H Albumin/Globulin Ratio 0.9 L Urine RBC Urine WBC Ur Squamous Epith Cells Urine Bacteria SARS-CoV-2 (PCR) Influenza A Untype (PCR) Influenza Type B (PCR) 12/20/23 12/20/23 12/20/23 14:27 14:05 13:54 WBC RBC Hgb Hct MCV MCH MCHC RDW Plt Count MPV Neut % (Auto) Lymph % (Auto) Phelps % (Auto) Eos % (Auto) Baso % (Auto) Neut # (Auto) Lymph # (Auto) Phelps # (Auto) Eos # (Auto) Baso # (Auto) Total Counted Neutrophils % (Manual) Lymphocytes % (Manual) Monocytes % (Manual) Platelet Estimate RBC Morphology Sodium Potassium Chloride Carbon Dioxide Anion Gap BUN Creatinine Estimated Creat Clear Estimated GFR Est GFR ( Amer) Glucose POC Glucose Hemoglobin A1c Lactate 1.3 Calcium Magnesium Total Bilirubin AST ALT Alkaline Phosphatase Total Protein Albumin Globulin Albumin/Globulin Ratio Urine RBC 20-50 Urine WBC 10-20 Ur Squamous Epith Cells Occasional Urine Bacteria 3+ SARS-CoV-2 (PCR) Not detected Influenza A Untype (PCR) Not detected Influenza Type B (PCR) Not detected 12/20/23 13:40 WBC RBC Hgb Hct MCV MCH MCHC RDW Plt Count MPV Neut % (Auto) Lymph % (Auto) Phelps % (Auto) Eos % (Auto) Baso % (Auto) Neut # (Auto) Lymph # (Auto) Phelps # (Auto) Eos # (Auto) Baso # (Auto) Total Counted 100 Neutrophils % (Manual) 95 H Lymphocytes % (Manual) 3 L Monocytes % (Manual) 2 Platelet Estimate Normal RBC Morphology Normal Sodium Potassium Chloride Carbon Dioxide Anion Gap BUN Creatinine Estimated Creat Clear Estimated GFR Est GFR ( Amer) Glucose POC Glucose Hemoglobin A1c 8.7 H Lactate Calcium Magnesium Total Bilirubin AST ALT Alkaline Phosphatase Total Protein Albumin Globulin Albumin/Globulin Ratio Urine RBC Urine WBC Ur Squamous Epith Cells Urine Bacteria SARS-CoV-2 (PCR) Influenza A Untype (PCR) Influenza Type B (PCR) DS: Diagnosis Discharge Diagnosis (1) Severe sepsis: Status: Acute Code(s): A41.9 - Sepsis, unspecified organism; R65.20 - Severe sepsis without septic shock (2) Acute UTI: Status: Acute Code(s): N39.0 - Urinary tract infection, site not specified (3) Encephalopathy acute: Status: Acute Code(s): G93.40 - Encephalopathy, unspecified (4) HTN (hypertension): Status: Acute Code(s): I10 - Essential (primary) hypertension (5) Urinary retention: Status: Acute Code(s): R33.9 - Retention of urine, unspecified (6) Diabetes: Status: Acute Code(s): E11.9 - Type 2 diabetes mellitus without complications Meds Home Medications and Allergies Home Medications Medication Instructions Recorded Confirmed Type aspirin 81 mg tablet,delayed 81 mg PO DAILY Heart Disease 05/26/18 12/21/23 History release (Adult Low Dose Aspirin) cholecalciferol (vitamin D3) 50 150 mcg PO DAILY Supplement 06/10/22 12/21/23 History mcg (2,000 unit) tablet cyanocobalamin (vitamin B-12) 1,000 mcg PO DAILY Supplement 06/10/22 12/21/23 History 1,000 mcg tablet fluticasone propionate 50 1 spray intranasal DAILY Allergy 06/10/22 12/21/23 History mcg/actuation nasal Symptoms spray,suspension (Allergy Relief (fluticasone)) nitroglycerin 0.4 mg sublingual 0.4 mg sublingual Q5MINP PRN Chest 06/10/22 12/21/23 History tablet Pain omega-3 fatty acids-fish oil 340 3 cap PO DAILY Cholesterol 06/10/22 12/20/23 History mg-1,000 mg capsule (Fish Oil) tamsulosin 0.4 mg capsule 0.4 mg PO HS URINARY SYMPTOMS 06/10/22 12/20/23 History amlodipine 5 mg tablet 5 mg PO DAILY 10/16/22 12/21/23 History atorvastatin 40 mg tablet 40 mg PO HS Cholesterol 10/16/22 12/21/23 History ferrous sulfate 325 mg (65 mg 325 mg PO DAILY Supplement 10/16/22 12/21/23 History iron) tablet estradiol 0.5 mg tablet 0.5 mg PO DAILY HORMONE REPLACEMENT 12/20/23 12/20/23 History losartan 50 mg tablet 50 mg PO DAILY High Blood Pressure 12/20/23 12/21/23 History meloxicam 15 mg tablet 15 mg PO DAILY Pain 12/20/23 12/20/23 History dulaglutide 3 mg/0.5 mL 3 mg SQ WEEKLY 12/21/23 12/21/23 History subcutaneous pen injector (Trulicity) fenofibrate 160 mg tablet 160 mg PO DAILY Cholesterol 12/21/23 12/21/23 History insulin glargine 100 unit/mL (3 15 unit (0.15 mL) SQ HS 30 days 12/21/23 Rx mL) subcutaneous pen (Lantus #4.5 mL Solostar U-100 Insulin) levofloxacin 750 mg tablet 750 mg PO Q48H 6 days #3 tabs 12/21/23 Rx metformin 1,000 mg tablet 1,000 mg PO BIDWMEAL Diabetes 12/21/23 12/21/23 History metoprolol succinate 50 mg 100 mg PO DAILY High Blood Pressure 12/21/23 12/21/23 History tablet,extended release 24 hr mirabegron 25 mg tablet,extended 25 mg PO DAILY URINARY SYMPTOMS 12/21/23 12/21/23 History release 24 hr (Myrbetriq) pantoprazole 40 mg tablet,delayed 40 mg PO DAILY Acid Reflux 12/21/23 12/21/23 History release pen needle, diabetic 31 gauge x #100 ea 12/21/23 Rx 1/4 New Prescriptions to Start Prescriptions: insulin glargine [Lantus Solostar U-100 Insulin] Reg Oquendo levofloxacin Reg Oquendo pen needle, diabetic Reg Oquendo Allergies Allergy/AdvReac Type Severity Reaction Status Date / Time No Known Allergies Allergy Verified 10/16/22 13:54 Discharge Plan Disposition Patient Disposition: Home, Self-Care Condition: Fair Follow up Plan Follow up with: Toro Narayanan [Primary Care Provider] - Enter time for follow up (Please call for your follow up appt. ) Prescriptions/Medication Reconciliation: New levofloxacin 750 mg Tablet 750 mg PO Q48H 6 Days Qty: 3 0RF Rx Instructions: Next dose due 12/23/2023. insulin glargine [Lantus Solostar U-100 Insulin] 100 unit/mL (3 mL) Insulin Pen 15 unit SQ HS 30 Days Qty: 4.5 0RF (DME) pen needle, diabetic 31 gauge x 1/4 needle See Rx Instructions .Route Qty: 100 0RF Rx Instructions: As directed Continued aspirin [Adult Low Dose Aspirin] 81 mg tablet,delayed release (DR/EC) 81 mg PO DAILY fluticasone propionate [Allergy Relief (fluticasone)] 50 mcg/actuation spray,suspension 1 spray NS DAILY Fish Oil 340-1,000 mg capsule 3 cap PO DAILY cholecalciferol (vitamin D3) 50 mcg (2,000 unit) tablet 150 mcg PO DAILY tamsulosin 0.4 mg capsule 0.4 mg PO HS nitroglycerin 0.4 mg tablet, sublingual 0.4 mg SL Q5MINP PRN (Reason: Chest Pain) Rx Instructions: do not exceed 3 doses per episode cyanocobalamin (vitamin B-12) 1,000 mcg tablet 1,000 mcg PO DAILY atorvastatin 40 mg tablet 40 mg PO HS amlodipine 5 mg tablet 5 mg PO DAILY ferrous sulfate 325 mg (65 mg iron) tablet 325 mg PO DAILY Patient Comments: TAKE 1 TABLET BY MOUTH THREE TIMES A DAY meloxicam 15 mg tablet 15 mg PO DAILY losartan 50 mg tablet 50 mg PO DAILY estradiol 0.5 mg tablet 0.5 mg PO DAILY metoprolol succinate 50 mg tablet extended release 24 hr 100 mg PO DAILY Patient Comments: TAKE 2 TABLETS BY MOUTH EVERY DAY FOR 90 DAYS pantoprazole 40 mg tablet,delayed release (DR/EC) 40 mg PO DAILY Patient Comments: TAKE 1 TABLET BY MOUTH EVERY DAY metformin 1,000 mg tablet 1,000 mg PO BIDWMEAL Patient Comments: TAKE 1 TABLET BY MOUTH TWICE A DAY FOR DIABETES fenofibrate 160 mg tablet 160 mg PO DAILY Patient Comments: TAKE 1 TABLET BY MOUTH EVERY DAY FOR 90 DAYS Myrbetriq 25 mg tablet extended release 24 hr 25 mg PO DAILY Patient Comments: TAKE 1 TABLET BY MOUTH EVERY DAY Trulicity 3 mg/0.5 mL pen injector 3 mg SQ WEEKLY Discontinued Jardiance 25 mg tablet 25 mg PO DAILY Problem Reconciliation Problems Reviewed?: Yes Patient Discharge Instructions ACTIVITY: Continue current activity DIET: continue same diet Additional Instructions: Please dual appointment with your urologist in [facility] for sometime in the next 1 to 2 weeks to discuss removal of Fiore catheter Patient Instructions: DI for Urinary Tract Infection (UTI), DI for Sepsis -- Adult, Catheter-Associated Urinary Tract Infection Providers Primary Care Provider: Toro Narayaann Admit Provider: Reg Oquendo Attending Provider: Reg Oquendo
--- NOTE | 2023-12-23 15:27 | CARE MANAGER ---
Called and spoke with patient regrding recent discharge. She states that she is doing well, has made her f/u appt for next Friday with her PCP and has started new medication. She voiced no concerns at time of call.
== END 2023-12-21 15:32 | disposition home or self-care (01) ==
LOC: ER 16:05 → 2ND 17:43 → ICU 19:51
PROVIDERS: Student in an Organized Health Care Education/Training Program; Admitting Provider Internal Medicine Adolescent Medicine; Emergency Provider Emergency Medicine; PCP Pediatrics; Visit Provider Internal Medicine Adolescent Medicine
DX: A41.9 Sepsis, unspecified organism (principal); R65.20 Severe sepsis without septic shock; N39.0 Urinary tract infection, site not specified; G93.40 Encephalopathy, unspecified; I10 Essential (primary) hypertension; R33.9 Retention of urine, unspecified; E11.9 Type 2 diabetes mellitus without complications; Z79.84 Long term (current) use of oral hypoglycemic drugs; E78.5 Hyperlipidemia, unspecified; K21.9 Gastro-esophageal reflux disease without esophagitis
CPT/HCPCS: 36415; 70450; 71045; 80053; 81001; 82962; 83036; 83605; 83735; 85007; 85025; 87040; 87086; 87636; 93005; G0378; J0696; J2405

== ENCOUNTER 2025-05-19 17:10 | Emergency (ER) | payer MEDICARE, MEDICAID, SELFPAY ==
--- OUTSIDE RECORDS SUMMARY | 2024-07-27 20:00 | XMS_ITS | CCD ---
Author Name Lawanda Horn NP Address [address] [facility] [address] [place] [address] Phone Organization [facility] Phone Care Team Providers Care It Infrastructure Engineer Name Role Phone Unavailable Primary Care Provider Unavailabl e Unavailable Chronic Care Management Unavaila ble Summary Purpose DataExchange Insurance Providers Payer name Policy type / Coverage type Covered democrat ID Effective Begin Date Effective End Date MEDICARE [place] [id number] Unknown Unknown NO COPAY HOLD [id number] Unknown Unknown Family history Mother Diagnosis Age At Onset CAD (Coronary Artery Disease) Unknown Diabetes Unknown Father Diagnosis Age At Onset Diabetes Unknown CAD (Coronary Artery Disease) Unknown Social History Social History Element Codes Description Effec tive Dates Marital status Unknown 07/28/2024 Number of children Unknown 1 Living arrangements Unknown Trailer 07/28/20 24 Number of children in household Unknown 0 07/28/2024 Number of adults in household Unknown 1 07/28/2024 Education level Unknown High School Graduate 07/11 Employment Unknown Retired from [employer] work 07/28/2024 Tobacco history Unknown Never Used 07/28/[address]: [id number] Never drinks alco hol 07/28/2024 Illegal/Recreational drug history Unknown *Has never used illegal/recreational drugs 07/28/2024 DNR Order/ Advanced Directive Unknown Full Code 07/28/2024 Allergies, Adverse Reactions, Alerts Substance Reaction Codes Entered Date Inactivated Date Status *No known food allergies Unknown 07/28/2024 No I nactive Date Active *No known environmental allergies Unknown 07/28/2024 No Inactive Date Active * NO KNOWN DRUG ALLERGIES Unknown 07/28/2024 No Inactive Date Active Problems Condition Codes Effective Dates Condition St atus Aortic valve disease ICD-10: I35.9 06/26/2021 Active Atherosclerosis of aorta ICD-10: I70.0 10/11/2022 Ac tive Atrial fibrillation, unspeci fied type ICD-10: I48.91 ICD-9: 427.31 07/28/2024 Active Atrial fibrillation, unspeci fied type ICD-10: I48.91 03/08/2024 Active Bulging lumbar disc ICD-10: M51.36 06/22/2021 Active Calculus of ureter ICD-10: N20.1 01/27/2023 Active Coronary artery disease invo lving coronary bypass graft of [place] heart without angina pectoris ICD-10: I25.810 ICD-9: 414.05 07/28/2024 Active Coronary artery disease invo lving coronary bypass graft of [place] heart without angina pectoris ICD-10: I25.810 01/02/2012 Active Encounter for general adult medical examination with abnormal findings ICD-10: Z00.01 ICD-9: V70.0 07/28/2024 Active Hyperlipidemia ICD-10: E78.5 ICD-9: 272.4 07/28/2024 Active Hyperlipidemia ICD-10: E78.5 03/08/2024 Active Murmur, heart ICD-10: R01.1 10/31/2011 Active Neurogenic bladder ICD-10: N31.9 03/08/2024 Active Palpitations ICD-10: R00.2 02/19/2021 Active Persistent microalbuminuria associated with type II diabetes mellitus ICD-10: E11.29 12/11/2023 Active Polyarthralgia ICD-10: M25.50 03/08/2022 Active Post-menopausal bleeding ICD-10: N95.0 01/07/2011 Ac tive Primary hypertension ICD-10: I10 ICD-9: 401.9 07/28/2024 Active Primary hypertension ICD-10: I10 10/31/2011 Active S/P CABG x 3 ICD-10: Z95.1 10/31/2011 Active Type 2 diabetes mellitus wit h hyperglycemia, without long-term current use of insulin ICD-10: E11.65 ICD-9: 250.00 07/28/2024 Active Type 2 diabetes mellitus wit h hyperglycemia, without long-term current use of insulin ICD-10: E11.65 01/20/2023 Active Medications Medication Codes Instructions Start Date Stop Date Status Fill Instructions Myrbetriq 25 mg tablet,extended release RxNorm: 1795645 Take 1 Tablet(s) Oral every day 4 10/20/20 25 Active Jardiance 25 mg tablet RxNorm: 0840021 Take 1 Tablet(s) Oral every day 4 10/25/20 24 Inactive dulaglutide (TRULICITY) 4.5 mg/0.5 mL SubQ Pen Injector RxNorm: 6561774 Subcutaneous (Inject under the skin) 0.5 mL once a week. 4 No Stop Date Active finerenone (KERENDIA) 10 mg Oral Tablet RxNorm: 4763241 Take 10 Milligram(s) Oral every day . 4 No Stop Date Active cephALEXin (KEFLEX) 500 mg Oral Capsule RxNorm: 428851 Take 1 Capsule(s) Oral every 8 hours for 10 days . 4 07/18/20 24 Inactive meloxicam (MOBIC) 15 mg Oral Tablet RxNorm: 478102 Take 15 Milligram(s) Oral every day . 4 No Stop Date Active pantoprazole (PROTONIX) 40 mg Oral Tablet, Delayed Release (E.C.) RxNorm: 544597 Take 1 Tablet(s) Oral every day 4 No Stop Date Active ferrous sulfate 325 mg (65 mg iron) Oral Tablet RxNorm: 063425 Take 1 Tablet(s) Oral every day 4 No Stop Date Active metoprolol succinate (TOPROL-XL) 50 mg Oral Tablet Sustained Release 24 hr RxNorm: 778237 Take 2 Tablet(s) Oral every day . 4 No Stop Date Active fenofibrate (LOFIBRA) 160 mg Oral Tablet RxNorm: 166972 Take 1 Tablet(s) Oral every day . 4 No Stop Date Active losartan (COZAAR) 50 mg Oral Tablet RxNorm: 169563 Take 1 Tablet(s) Oral every day . 4 10/04/20 24 Inactive pioglitazone (ACTOS) 30 mg Oral Tablet RxNorm: 199972 Take 1 Tablet(s) Oral every day . 4 No Stop Date Active atorvastatin (LIPITOR) 40 mg Oral Tablet RxNorm: 016217 Take 1 Tablet(s) Oral every day night time 4 No Stop Date Active amLODIPine (NORVASC) 5 mg Oral Tablet RxNorm: 091957 Take 1 Tablet(s) Oral every day . 4 No Stop Date Active cholecalciferol, vitamin D3, 25 mcg (1,000 unit) Oral Tablet RxNorm: 595054 Take 1 Tablet(s) Oral every day . 4 Active aspirin 81 mg Oral Tablet, Chewable RxNorm: 326368 Take by mouth daily. 4 Active Medication Administered No Medication Administered data Results Observation Observation Code Item Item Code Result Date Service Location Direct LDL 01935 LDL-Direct 54886-6 81 mg/dL 024 [facility] [address] [place] [address] 22271 TRIGLYCERIDES 53999 Triglycerides 2571-8 266 mg/dL 024 [facility] [address] [place] [address] 49638 TRIGLYCERIDES 81787 VLDL 62567-7 53 mg/dL 024 [facility] [address] [place] [address] 62460 COMPLETE CBC W/ DIFF WBC 07130 WBC 6690-2 7.8 K/ul 024 [facility] [address] [place] [address] 47698 COMPLETE CBC W/ DIFF WBC 48999 RBC 789-8 3.76 M/uL 024 [facility] [address] [place] [address] 34031 COMPLETE CBC W/ DIFF WBC 14130 Hemoglobin 718-7 9.8 g/dL 024 [facility] [address] [place] [address] 11340 COMPLETE CBC W/ DIFF WBC 22189 Hematocrit 4544-3 30.9 % 024 [facility] [address] [place] [address] 74020 COMPLETE CBC W/ DIFF WBC 89425 MCV 787-2 82.1 fL 024 [facility] [address] [place] [address] 95037 COMPLETE CBC W/ DIFF WBC 16247 MCH 785-6 26.1 pg 024 [facility] [address] [place] [address] 10956 COMPLETE CBC W/ DIFF WBC 32082 MCHC 786-4 31.8 g/dL 024 [facility] [address] [place] [address] 97332 COMPLETE CBC W/ DIFF WBC 85719 RDW 788-0 18.5 % 024 [facility] [address] [place] [address] 99669 COMPLETE CBC W/ DIFF WBC 29755 Platelet Count 777-3 318 K/uL 024 [facility] [address] [place] [address] 85745 COMPLETE CBC W/ DIFF WBC 02517 MPV 23343-1 8.1 fL 024 [facility] [address] [place] [address] COMPLETE CBC W/ DIFF WBC 60618 Neutrophils % 770-8 75.6 % 024 [facility] [address] [place] [address] 71168 COMPLETE CBC W/ DIFF WBC 49355 Lymphocytes % 736-9 17.4 % 024 [facility] [address] [place] [address] 77029 COMPLETE CBC W/ DIFF WBC 76602 Monocytes % 5905-5 5.3 % 024 [facility] [address] [place] [address] 45915 COMPLETE CBC W/ DIFF WBC 90748 Eosinophils % 713-8 1.0 % 024 [facility] [address] [place] [address] 82611 COMPLETE CBC W/ DIFF WBC 35940 Basophils% 706-2 0.7 % 024 [facility] [address] [place] [address] 11331 COMPLETE CBC W/ DIFF WBC 90432 Absolute Neutrophil 751-8 5897 /ul 024 [facility] [address] [place] [address] 06854 COMPLETE CBC W/ DIFF WBC 95205 Absolute Lymphocyte 27950-0 1357 /ul 024 [facility] [address] [place] [address] 15033 COMPLETE CBC W/ DIFF WBC 10145 Absolute Monocyte 742-7 413 /ul 024 [facility] [address] [place] [address] 12267 COMPLETE CBC W/ DIFF WBC 44991 Absolute Eosinophil 711-2 78 /ul 024 [facility] [address] [place] [address] 78215 COMPLETE CBC W/ DIFF WBC 82629 Absolute Basophil 704-7 55 /ul 024 [facility] [address] [place] [address] 85280 [id number] IN 4548-4 Glyco HGB A1C 36528-5 8.3 % 024 [facility] [address] [place] [address] [id number] IN 4548-4 eAG 60249-3 192 mg/dL 024 [facility] [address] [place] [address] CHOLESTEROL 33350 Cholesterol 2093-3 160 mg/dL 024 [facility] [address] [place] [address] URINALYSIS AUTO W/SCOPE 17209 Glucose 2345-7 >1000 mg/dL ++++ mg/dL 024 [facility] [address] [place] [address] URINALYSIS AUTO W/SCOPE 16718 Protein 100 mg/dL ++ mg/dL 024 [facility] [address] [place] [address] URINALYSIS AUTO W/SCOPE 83258 Bilirubin Negative mg/dL 024 [facility] [address] [place] [address] URINALYSIS AUTO W/SCOPE 12223 Urobilinogen Negative mg/dL 024 [facility] [address] [place] [address] URINALYSIS AUTO W/SCOPE 52549 Ph 6.00 024 [facility] [address] [place] [address] URINALYSIS AUTO W/SCOPE 28965 Blood >1.0 mg/dL +++ mg/dL 024 [facility] [address] [place] [address] URINALYSIS AUTO W/SCOPE 90725 Ketones Negative mg/dL 024 [facility] [address] [place] [address] URINALYSIS AUTO W/SCOPE 63039 Nitrite Negative 024 [facility] [address] [place] [address] URINALYSIS AUTO W/SCOPE 52455 Leukocytes 500 Kain/uL +++ Kain/uL 024 [facility] [address] [place] [address] URINALYSIS AUTO W/SCOPE 60362 Clarity Ex.Turbid 024 [facility] [address] [place] [address] URINALYSIS AUTO W/SCOPE 85758 Specific [place] 1.014 024 [facility] [address] [place] [address] URINALYSIS AUTO W/SCOPE 37913 Color Light-Orang e 024 [facility] [address] [place] [address] URINALYSIS AUTO W/SCOPE 19892 Red Blood Cell >182 #/HPF 024 [facility] [address] [place] [address] URINALYSIS AUTO W/SCOPE 31494 SQUAMOUS EPITHELIAL 2 /HPF #/HPF 024 [facility] [address] [place] [address] URINALYSIS AUTO W/SCOPE 99311 White Blood Cell >182 #/HPF 024 [facility] [address] [place] [address] URINALYSIS AUTO W/SCOPE 71670 Bacteria 2+ graded/HPF 024 [facility] [address] [place] [address] URINALYSIS AUTO W/SCOPE 12729 White Blood Cell Clump MANY graded/HPF 024 [facility] [address] [place] [address] CHEM 14 (METABOLIC PANEL) 53795 Glucose 2345-7 199 mg/dL 024 [facility] [address] [place] [address] 09550 CHEM 14 (METABOLIC PANEL) 10415 BUN 3094-0 35 mg/dL 024 [facility] [address] [place] [address] 21050 CHEM 14 (METABOLIC PANEL) 91484 Creatinine 2160-0 2.2 mg/dL 024 [facility] [address] [place] [address] 59021 CHEM 14 (METABOLIC PANEL) 91157 BUN/Creat Ratio 3097-3 15.8 024 [facility] [address] [place] [address] 41279 CHEM 14 (METABOLIC PANEL) 33599 GFR Estimated 85704-5 23 mL/min/1.73 m2 024 [facility] [address] [place] [address] 50797 CHEM 14 (METABOLIC PANEL) 65505 Sodium 2951-2 139 mmol/L 024 [facility] [address] [place] [address] 68931 CHEM 14 (METABOLIC PANEL) 17758 Potassium 2823-3 4.1 mmol/L 024 [facility] [address] [place] [address] 30023 CHEM 14 (METABOLIC PANEL) 80296 Chloride 2075-0 108 mmol/L 024 [facility] [address] [place] [address] 70742 CHEM 14 (METABOLIC PANEL) 69264 Total CO2 2028-9 23 mmol/L 024 [facility] [address] [place] [address] 05883 CHEM 14 (METABOLIC PANEL) 53058 Anion Gap 1863-0 12.1 mEq/L 024 [facility] [address] [place] [address] 50303 CHEM 14 (METABOLIC PANEL) 46303 Calculated Serum Osmolality 53007-5 302 mOsm/kg 024 [facility] [address] [place] [address] 31298 CHEM 14 (METABOLIC PANEL) 91269 Albumin 25621-9 3.5 g/dL 024 [facility] [address] [place] [address] 66407 CHEM 14 (METABOLIC PANEL) 70104 Total Protein 2885-2 8.4 g/dL 024 [facility] [address] [place] [address] 33002 CHEM 14 (METABOLIC PANEL) 60510 Globulin 2336-6 4.9 g/dL 024 [facility] [address] [place] [address] 38688 CHEM 14 (METABOLIC PANEL) 09498 Albumin/Globulin Ratio 1759-0 0.7 024 [facility] [address] [place] [address] 79324 CHEM 14 (METABOLIC PANEL) 04804 ALK PHOS 6768-6 104.00 U/L 024 [facility] [address] [place] [address] 76460 CHEM 14 (METABOLIC PANEL) 70839 SGOT/AST 1920-8 20 U/L 024 [facility] [address] [place] [address] 98445 CHEM 14 (METABOLIC PANEL) 43125 SGPT/ALT 1743-4 12 U/L 024 [facility] [address] [place] [address] 92053 CHEM 14 (METABOLIC PANEL) 73087 Total Bilirubin 1975-2 0.4 mg/dL 024 [facility] [address] [place] [address] 45615 CHEM 14 (METABOLIC PANEL) 71597 Calcium 45089-7 9.2 mg/dL 024 [facility] [address] [place] [address] 41538 CHEM 14 (METABOLIC PANEL) 13258 Corrected Calcium 11296-2 9.8 mg/dL 024 [facility] [address] [place] [address] 15283 Microalbumin (Urine) 18076 Microalbumin 40537-6 28.0 mg/dL 024 [facility] [address] [address] Microalbumin (Urine) 67507 Microalbumin/Cre atinine Ratio 16913-8 582 MCG/MGCREAT 024 [facility] [address] [address] Microalbumin (Urine) 05003 Urine Creatinine 2161-8 48.10 mg/dL 024 [facility] [address] [address] HDL - CHOL 38628 HDL 2085-9 46 mg/dL 024 [facility] [address] [address] HDL - CHOL 77727 CHD 13011-2 29 % 024 [facility] [address] [address] Procedures Procedure Codes Date MED LIST DOCD IN [facility] CPT-4: 1159F 07/28/2024 RVW MEDS BY RX/DR IN [facility] CPT-4: 1160F 2023 Amnt pain noted; none prsnt CPT-4: 1126F 07/11 Screening for clinical depre ssion is negative, follow-up plan not required CPT-4: G8510 07/28/2024 [id number] CPT-4: 84346 Unknown Vital Signs Date Vital 07/28/2024 Blood Pressure 1: 158/65 Code: 8480-6 BMI: 23.9 Code: 47267-0 Heart Rate 1: 81 bpm Height: 5'3 Code: 8302-2 Respiratory Rate: 16 bpm SpO2: 98% Temperature: 35.8 (C) / 96.5 (F) Weight: 135 lbs Code: 95327-3 Reason For Visit Reason For Visit Effective Dates Notes new patient welcome visit 07/28/2024 Encounters Encounter Performer Location Location Address Codes Date ([address]) Home or Residence Visit MANAGER SHAREPOINT - Moderate Level, 60 mins Diagnosis: Encounter for general adult medical examination with abnormal findings[ICD10: Z00.01] Diagnosis: Primary hypertension[ICD10 : I10] Diagnosis: Type 2 diabetes mellitus with hyperglycemia, without long-term current use of insulin[ICD10: E11.65] Diagnosis: Atrial fibrillation, unspecified type[ICD10: I48.91] Diagnosis: Hyperlipidemia[ICD 10: E78.5] Diagnosis: Coronary artery disease involving coronary bypass graft of [place] heart without angina pectoris[ICD10: I25.810] Lawanda Finkxiao [place] [facility] [address] [place] [address] CPT-4: 51017 07/28/2024 Plan of Care Planned Activity Notes Codes Status Date Visit Plan: Z00.01-V70.0 Encount er for general adult medical examination with abnormal findings I10-401.9 Primary hypertension E11.65-250.00 Type 2 diabetes mellitus with hyperglycemia, without long-term current use of insulin I48.91-427.31 Atrial fibrillation, unspecified type E78.5-272.4 Hyperlipidemia I25.810-414.05 Coronary artery disease involving coronary bypass graft of [place] heart without angina pectoris This is a pleasant 74 year old female that presents for her welcome visit. Patient reports that she does have a significant heart history. She has had a triple bypass done in the past. She does have DM type 2. She does not use insulin. She tries to watch her sugar levels with diet. She was ill last month and her A1C went up according to her PCP. She does see a sanipractic physician once a year, Her PCP has been managing her medication for her afib and HTN. She is going to see a Kidney Doctor soon as her PCP states her kidney function is getting worse. She does not know what kind of kidney function is wrong with her. Her daughter has been taking her to appointments. She is unable to drive herself to appointments. She is asking if we can help with some transportation to MD appointments. We did draw labs today on this patient. Patient will be notified of the results. We did talk with patient about her disease process. We did encourage her to eat a heart healthy diabetic diet. We advised her to limit her sodium intake. We also stressed to take her medications at the same time everyday. We did encourage her to increase her water intake. Patient will continue to use her medications as prescribed. She will continue her current treatment plan. We will follow up with this patient in four weeks for a recheck. We also did send in a referral for assistance with transportation. We also did refer her for a yearly diabetic eye exam. Patient was encouraged to contact clinic with any needs before her next appointment. Patient verbalized understanding and agreeable to plan of care, 07/28/2024 Patient Education: Patient Medication Summary Completed 07/28/2024 Care Plan: eGFR KHE Pending Referral: [facility] WPtel: [address] [facility] [id number] [place] Referral faxed to: Agency Name: [facility] Agency Address: [address] [place] [address] Agency Phone #: [phone] Agency Agency will contact the patient to schedule Order Faxed Referral: Pending Medical Records Information ORDER FAXED TO [id number] [facility] Order Faxed Referral: Henrymary ann Lawanda WPtel: [address] [facility] [address] [facility] [address] [id number] Was the patient contacted?_Yes, no pref Patient scheduling preferences:_agency will contact pt Was agency contacted and confirmed insurance is accepted?_yes Was an appointment scheduled?_no Referral faxed to: Agency Name:[facility] Agency Address:[address] [facility] [address], [place] [address] Agency Agency Order Faxed Instructions Comment Date . Z00.01-V70.0 Encounter for general adult medical examination with abnormal findings I10-401.9 Primary hypertension E11.65-250.00 Type 2 diabetes mellitus with hyperglycemia, without long-term current use of insulin I48.91-427.31 Atrial fibrillation, unspecified type E78.5-272.4 Hyperlipidemia I25.810-414.05 Coronary artery disease involving coronary bypass graft of [place] heart without angina pectoris This is a pleasant 74 year old female that presents for her welcome visit. Patient reports that she does have a significant heart history. She has had a triple bypass done in the past. She does have DM type 2. She does not use insulin. She tries to watch her sugar levels with diet. She was ill last month and her A1C went up according to her PCP. She does see a sanipractic physician once a year, Her PCP has been managing her medication for her afib and HTN. She is going to see a Kidney Doctor soon as her PCP states her kidney function is getting worse. She does not know what kind of kidney function is wrong with her. Her daughter has been taking her to appointments. She is unable to drive herself to appointments. She is asking if we can help with some transportation to MD appointments. We did draw labs today on this patient. Patient will be notified of the results. We did talk with patient about her disease process. We did encourage her to eat a heart healthy diabetic diet. We advised her to limit her sodium intake. We also stressed to take her medications at the same time everyday. We did encourage her to increase her water intake. Patient will continue to use her medications as prescribed. She will continue her current treatment plan. We will follow up with this patient in four weeks for a recheck. We also did send in a referral for assistance with transportation. We also did refer her for a yearly diabetic eye exam. Patient was encouraged to contact clinic with any needs before her next appointment. Patient verbalized understanding and agreeable to plan of care, 07/28/2024 Medical Equipment No Medical Equipment data Advance Directives No Advance Directive data
--- OUTSIDE RECORDS SUMMARY | 2024-10-03 20:00 | XMS_ITS | CCD ---
Author Name Justina SALINAS, Lawanda Address [address] [facility] [address] [place] [address] Phone Organization [facility] Phone Care Team Providers Care Hotel Lobby Concierge Name Role Phone Unavailable Primary Care Provider Unavailabl e Unavailable Chronic Care Management Unavaila ble Summary Purpose DataExchange Insurance Providers Payer name Policy type / Coverage type Covered alliance party ID Effective Begin Date Effective End Date MEDICARE [place] [id number] Unknown Unknown NO COPAY HOLD [id number] Unknown Unknown Family history Mother Diagnosis Age [...] School Graduate 07/11 Employment Unknown Retired from [employer] 07/28/2024 Tobacco history Unknown Never Used 07/28/[address]: [id number] Never drinks alco hol 07/28/2024 Illegal/Recreational drug [...] Condition Codes Effective Dates Condition St atus Atrial fibrillation, unspeci fied type ICD-10: I48.91 ICD-9: 427.31 07/28/2024 Active 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 angina pectoris ICD-10: I25.810 ICD-9: 414.05 07/28/2024 Active Neurogenic bladder ICD-10: N31.9 ICD-9: 596.59 10/04/2024 Active Primary hypertension ICD-10: I10 ICD-9: 401.9 07/28/2024 Active Type 2 diabetes mellitus wit h hyperglycemia, without long-term current use of insulin ICD-10: E11.65 ICD-9: 250.00 07/28/2024 Active Aortic valve disease ICD-10: I35.9 06/26/2021 Active Atherosclerosis of aorta ICD-10: I70.0 10/11/2022 Ac tive Atrial fibrillation, unspeci fied type ICD-10: I48.91 03/08/2024 Active Bulging lumbar disc ICD-10: M51.36 06/22/2021 Active Calculus of ureter ICD-10: N20.1 01/27/2023 Active 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 angina pectoris ICD-10: I25.810 01/02/2012 [...] 01/07/2011 Ac tive Primary hypertension ICD-10: I10 10/31/2011 Active S/P CABG x 3 ICD-10: Z95.1 10/31/2011 Active Type 2 diabetes mellitus wit h hyperglycemia, without long-term current use of insulin ICD-10: E11.65 01/20/2023 Active Medications Medication Codes Instructions Start Date Stop Date Status Fill Instructions Myrbetriq 25 mg tablet,extended release RxNorm: 7355486 Take 1 Tablet(s) Oral every day 4 10/20/20 25 Active Jardiance 25 mg tablet RxNorm: 9020368 Take 1 Tablet(s) Oral every day 4 10/25/20 24 Inactive dulaglutide (TRULICITY) 4.5 mg/0.5 mL SubQ Pen Injector RxNorm: 3854090 Subcutaneous (Inject under the skin) 0.5 mL once a week. 4 No Stop Date Active finerenone (KERENDIA) 10 mg Oral Tablet RxNorm: 8786748 Take 10 Milligram(s) Oral every day . 4 No Stop Date Active cephALEXin (KEFLEX) 500 mg Oral Capsule RxNorm: 408613 Take 1 Capsule(s) Oral every 8 hours for 10 days . 4 07/18/20 24 Inactive meloxicam (MOBIC) 15 mg Oral Tablet RxNorm: 498987 Take 15 Milligram(s) Oral every day . 4 No Stop Date Active pantoprazole (PROTONIX) 40 mg Oral Tablet, Delayed Release (E.C.) RxNorm: 254677 Take 1 Tablet(s) Oral every day 4 No Stop Date Active ferrous sulfate 325 mg (65 mg iron) Oral Tablet RxNorm: 988558 Take 1 Tablet(s) Oral every day 4 No Stop Date Active metoprolol succinate (TOPROL-XL) 50 mg Oral Tablet Sustained Release 24 hr RxNorm: 210482 Take 2 Tablet(s) Oral every day . 4 No Stop Date Active fenofibrate (LOFIBRA) 160 mg Oral Tablet RxNorm: 178387 Take 1 Tablet(s) Oral every day . 4 No Stop Date Active losartan (COZAAR) 50 mg Oral Tablet RxNorm: 626399 Take 1 Tablet(s) Oral every day . 4 10/04/20 24 Inactive pioglitazone (ACTOS) 30 mg Oral Tablet RxNorm: 270022 Take 1 Tablet(s) Oral every day . 4 No Stop Date Active atorvastatin (LIPITOR) 40 mg Oral Tablet RxNorm: 197582 Take 1 Tablet(s) Oral every day night time No Stop Date Active amLODIPine (NORVASC) 5 mg Oral Tablet RxNorm: 038030 Take 1 Tablet(s) Oral every day . 4 No Stop Date Active cholecalciferol, vitamin D3, 25 mcg (1,000 unit) Oral Tablet RxNorm: 543477 Take 1 Tablet(s) Oral every day . 4 Active aspirin 81 mg Oral Tablet, Chewable RxNorm: 441258 Take by mouth daily. Active Medication Administered No Medication Administered data Procedures Procedure Codes Date Most recent A1c = 8.0% and < 9.0% CPT-4: 3052F 10/04/2024 Discharge Meds Reconciled w/ Current Med list CP T-4: 1111F 10/04/2024 MED LIST DOCD IN [facility] CPT-4: 1159F 10/04/2024 RVW MEDS BY RX/DR IN [facility] CPT-4: 1160F 2023 [id number] CPT-4: 99383 Unknown Vital Signs Date Vital 10/04/2024 Blood Pressure 1: 130/80 Code: 8480-6 BMI: 23.9 Code: 08025-3 Heart Rate 1: 62 bpm Height: 5'3 Code: 8302-2 Respiratory Rate: 16 bpm SpO2: 97% Temperature: 36.2 (C) / 97.2 (F) Weight: 135 lbs Code: 42459-3 Reason For Visit Reason For Visit Effective Dates Notes established patient visit 10/04/2024 post ED/hospital visit 10/04/2024 Encounters Encounter Performer Location Location Address Codes Date ([address]) Home or Residence Visit Est Pt - Moderate Level, 40 mins Diagnosis: Neurogenic bladder[ICD10: N31.9] Diagnosis: Atrial fibrillation, unspecified type[ICD10: I48.91] Diagnosis: Type 2 diabetes mellitus with hyperglycemia, without long-term current use of insulin[ICD10: E11.65] Diagnosis: Coronary artery disease involving 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 angina pectoris[ICD10: I25.810] Diagnosis: Primary hypertension[ICD10 : I10] Lawanda Horn [place] [facility] [address] [facility] [address] [place] [address] CPT-4: 45726 10/04/2024 Plan of Care Planned Activity Notes Codes Status Date Visit Plan: N31.9-596.59 Neuroge stefany bladder I48.91-427.31 Atrial fibrillation, unspecified type E11.65-250.00 Type 2 diabetes mellitus with hyperglycemia, without long-term current use of insulin I25.810-414.05 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 After patients last visit she went to the Kidney doctor that had her admitted to the hospital for fluid on the kidneys . She was discharged on 09/01 to home. They have left a indwelling catheter in for her to use. She does self cath twice daily. Patients discharge records look like she had a bacterial infection that caused the hospitalization. She has since been wearing the indwelling cath with no issues. She had some medications discharged while in the hospital. She also started some new rueda medications. She has been taking all her medications as prescribed. She states that her blood pressure has been doing good. She has kept a log of her blood pressure for us today. Her blood sugars have been usually under 180 with a few high spikes but she states that this is due to eating poorly. We did talk with patient today about her yearly eye exam. We will send her to an opthomologist for evaluation. We will also send in referral for help with any resources in the community that she might qualify for including private aid and food. We did talk about a healthy ADA cardiac diet. We discussed the importance of maintaining blood sugars below 180. Patient will continue her current medications as prescribed. We will see patient back in 6 weeks for a recheck. Patient verbalized understanding and agreeable to plan of care. We did provide the number for medicare so that she can change her plan as [facility] is no longer accepting her insurance plan. 10/04/2024 Patient Education: Patient Medication Summary Completed 10/04/2024 Appointment: Lawanda Horn WPtel: [address] [place], [place] [id number] [id number] 07/28/2024 Referral: [facility] WPtel: [address] [facility] [id number] [place] Referral faxed to: Agency Name: [facility] Nakita Uribe Agency Address: [address] [facility], [place] [address] Agency Phone #: [phone] Agency Agency will contact the patient to schedule Order Faxed Referral: Pending Medical Records Information ORDER FAXED TO [id number] [facility] Order Faxed Referral: Lawanda Horn WPtel: [address] [facility] [address] [facility] [address] [id number] [place] Was the patient contacted?_Yes, no pref Patient scheduling preferences:_agency will contact pt Was agency contacted and confirmed insurance is accepted?_yes Was an appointment scheduled?_no Referral faxed to: Agency Name:[facility] Agency Address:[address] [facility] [address], [place] [address] Agency Agency Order Faxed Instructions Comment Date 1-800-medicare. N31.9-596.59 Neurogenic bladder I48.91-427.31 Atrial fibrillation, unspecified type E11.65-250.00 Type 2 diabetes mellitus with hyperglycemia, without long-term current use of insulin I25.810-414.05 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 After patients last visit she went to the Kidney doctor that had her admitted to the hospital for fluid on the kidneys . She was discharged on 09/01 to home. They have left a indwelling catheter in for her to use. She does self cath twice daily. Patients discharge records look like she had a bacterial infection that caused the hospitalization. She has since been wearing the indwelling cath with no issues. She had some medications discharged while in the hospital. She also started some new rueda medications. She has been taking all her medications as prescribed. She states that her blood pressure has been doing good. She has kept a log of her blood pressure for us today. Her blood sugars have been usually under 180 with a few high spikes but she states that this is due to eating poorly. We did talk with patient today about her yearly eye exam. We will send her to an opthomologist for evaluation. We will also send in referral for help with any resources in the community that she might qualify for including private aid and food. We did talk about a healthy ADA cardiac diet. We discussed the importance of maintaining blood sugars below 180. Patient will continue her current medications as prescribed. We will see patient back in 6 weeks for a recheck. Patient verbalized understanding and agreeable to plan of care. We did provide the number for medicare so that she can change her plan as [facility] is no longer accepting her insurance plan. 10/04/2024 Medical Equipment No Medical Equipment data Advance Directives No Advance Directive data
--- OUTSIDE RECORDS SUMMARY | 2024-11-24 20:00 | XMS_ITS | CCD ---
Author Name Justina SALINAS, Lawanda Address [address] [facility] [address] [place] [address] Phone Organization [facility] Phone Care Team Providers Care Printer Machine Name Role Phone Unavailable Primary Care Provider Unavailabl e Unavailable Chronic Care Management Unavaila ble Summary Purpose DataExchange Insurance Providers Payer name Policy type / Coverage type Covered alliance party ID Effective Begin Date Effective End Date MEDICARE [place]ARE [place] [id number] Unknown Unknown NO COPAY HOLD [id number] Unknown Unknown Family history Mother Diagnosis Age [...] School Graduate 07/11 Employment Unknown Retired from [employer] 07/28/2024 Tobacco history Unknown Never Used 07/28/[address]: 893121067 Never drinks alco hol 07/28/2024 Illegal/Recreational drug [...] Condition Codes Effective Dates Condition St atus Patient not seen ICD-10: UXZ.01 ICD-9: UXZ.01 11/25/2024 Active Atrial fibrillation, unspeci fied type ICD-10: I48.91 ICD-9: 427.31 07/28/2024 Active Coronary artery disease invo lving coronary bypass graft of [place] heart without angina pectoris ICD-10: I25.810 ICD-9: [...] disease invo lving coronary bypass graft of [place] heart without angina pectoris ICD-10: I25.810 01/02/2012 [...] Instructions Myrbetriq 25 mg tablet,extended release RxNorm: 7073078 Take 1 Tablet(s) Oral every day 4 10/20/20 25 Active Jardiance 25 mg tablet RxNorm: 4315725 Take 1 Tablet(s) Oral every day 4 10/25/20 24 Inactive dulaglutide (TRULICITY) 4.5 mg/0.5 mL SubQ Pen Injector RxNorm: 3284137 Subcutaneous (Inject under the skin) 0.5 mL once a week. 4 No Stop Date Active finerenone (KERENDIA) 10 mg Oral Tablet RxNorm: 5468280 Take 10 Milligram(s) Oral every day . 4 No Stop Date Active cephALEXin (KEFLEX) 500 mg Oral Capsule RxNorm: 573193 Take 1 Capsule(s) Oral every 8 hours for 10 days . 4 07/18/20 24 Inactive meloxicam (MOBIC) 15 mg Oral Tablet RxNorm: 789568 Take 15 Milligram(s) Oral every day . 4 No Stop Date Active pantoprazole (PROTONIX) 40 mg Oral Tablet, Delayed Release (E.C.) RxNorm: 073027 Take 1 Tablet(s) Oral every day 4 No Stop Date Active ferrous sulfate 325 mg (65 mg iron) Oral Tablet RxNorm: 551245 Take 1 Tablet(s) Oral every day 4 No Stop Date Active metoprolol succinate (TOPROL-XL) 50 mg Oral Tablet Sustained Release 24 hr RxNorm: 910615 Take 2 Tablet(s) Oral every day . 4 No Stop Date Active fenofibrate (LOFIBRA) 160 mg Oral Tablet RxNorm: 418752 Take 1 Tablet(s) Oral every day . 4 No Stop Date Active losartan (COZAAR) 50 mg Oral Tablet RxNorm: 349774 Take 1 Tablet(s) Oral every day . 4 10/04/20 24 Inactive pioglitazone (ACTOS) 30 mg Oral Tablet RxNorm: 108505 Take 1 Tablet(s) Oral every day . 4 No Stop Date Active atorvastatin (LIPITOR) 40 mg Oral Tablet RxNorm: 190119 Take 1 Tablet(s) Oral every day night time No Stop Date Active amLODIPine (NORVASC) 5 mg Oral Tablet RxNorm: 949277 Take 1 Tablet(s) Oral every day . 4 No Stop Date Active cholecalciferol, vitamin D3, 25 mcg (1,000 unit) Oral Tablet RxNorm: 045557 Take 1 Tablet(s) Oral every day . 4 Active aspirin 81 mg Oral Tablet, Chewable RxNorm: 422823 Take by mouth daily. 4 Active Medication Administered No Medication Administered data Procedures Procedure Codes Date Most recent A1c = 8.0% and < 9.0% CPT-4: 3052F 11/25/2024 [id number] CPT-4: 68697 Unknown Reason For Visit No Reason For Visit data Encounters Encounter Performer Location Location Address Codes Date ([address]) Other Reason/Patient not seen Diagnosis: Patient not seen[ICD10: UXZ.01] Lawanda Horn [place] [facility] [address] [address] CPT-4: 10084 11/25/2024 Plan of Care Planned Activity Notes Codes Status Date Patient Education: Patient Medication Summary Completed 11/25/2024 Appointment: Lawanda Horn WPtel: [address] [place], [place] [id number] 10/04/2024 Appointment: Lawanda Horn WPtel: [address] [place], [place] [id number] [id number] 07/28/2024 Referral: [facility] WPtel: [address] [place], [place] [id number] Referral faxed to: Agency Name: [facility] Agency Address: [address] [place] [address] Agency Phone #: [phone] Agency Agency will contact the patient to schedule Order Faxed Referral: Pending Medical Records Information ORDER FAXED TO [id number] [facility] Order Faxed Referral: Kecia Horni WPtel: [address] [facility] [address] [id number] [place] Was the patient contacted?_Yes, no pref Patient scheduling preferences:_agency will contact pt Was agency contacted and confirmed insurance is accepted?_yes Was an appointment scheduled?_no Referral faxed to: Agency Name:[facility] Agency Address:[address] [facility] [address], [place] [address] Agency Agency Order Faxed Medical Equipment No Medical Equipment data Advance Directives No Advance Directive data
--- OUTSIDE RECORDS SUMMARY | 2025-03-30 13:36 | XMS_ITS | Encounter Summary ---
Author [place] [address] Care Team Providers Care Printer Assistant Name Role Phone Reg Narayanan MD Primary Care Provider [phone] Perez Matthew Ud, MD Unavailable [phone] Reason for Visit * Auth/Cert/Inpt Specialty Diagnoses / Procedures Referred By Tyrone t Referred To Contact Diagnoses Hydronephrosis, unspecified hydronephrosis type Hydronephrosis, unspecified hydronephrosis type [N13.30] Procedures VA CYSTOURETHROSCOPY WITH BIOPSY VA CYSTOURETHROSCOPY W/URETERAL CATHETERIZATION VA CYSTO W/INSERT URETERAL STENT VA CYSTO W/SIMPLE REMOVAL STONE & STENT cystoscopy possible bladder biopsy bilateral retrograde pyelogram possible bilateral stent insertion Referral ID Status Reason Start Date Expiration Date Visits Re quested Visits Authorized [id number] 1 1 Encounter Details Date Type Department Care Team (Latest Contact Info) Description 03/30/2025 1:36 PM EDT - 03/30/2025 2:38 PM EDT Hospital Encounter EDG PRE-ADMIT TESTING [facility] [address] [place] [id number] Preop testing (Primary Dx); Hypertension, unspecified type; Hydronephrosis, unspecified hydronephrosis type; Chronic kidney disease, unspecified CKD stage Discharge Disposition: Home or Self Care Anesthesia Record Procedure Summary Procedure Name Responsible Anesthesiologist Anesthesia Start Time Anesthesia Stop Time CYSTOSCOPY WITH BLADDER BIOPSY AND FULGURATION (Bilateral) Ann Mack MD 04/08/25 1113 04/08/25 1210 Events Date Time Event Comment 04/08/2025 0950 1113 AN Equip Check 1113 An Start 1113 An Start Data 1113 Start Supplemental O2 Disabl es direct capture of O2 [ANES AGENT O2 [[id number]] and Air flow [ANES AGENT AIR [[id number]] variables into chart. 1113 Immediate Pre Anesthetic Ass es 1120 Anesthesia Ready 1127 Time out 1127 Incision 1203 an stop data 1210 An Stop 1210 Handoff I completed my SBAR handoff to the receiving nurse which has included the followin. Identification of the patient, family, or patient surrogate 2. Identification of the responsible practitioner 3. Pertinent medical history 4. Surgical procedure and reason for procedure 5. Intraoperative anesthetic management 6. All current lines, drains and respiratory support. 7. Outstanding follow up orders (X-rays, consults etc) 8. Expectations/Plans for the early post-procedure period 9. Opportunity for questions and acknowledgement of understanding from the receiving PACU/ICU merchandise flow team member Meds * Agents No agents on file. * Blood No blood administrations on file. Lines, Drains, and Airways Type Details Placement Removal Peripheral IV 04/08/25; 0946; 20; Right; Hand; Clint ambrose RN; 1; 04/08/25; 1235; Therapy completed 04/08/25 0946 by Cassandra Byrnes RN 04/08/25 1235 by Tamica Bush RN Airway Device: Nasal Cannul a Salter; Placement Date: 04/08/25; Placement Time: 1113 (created via procedure documentation); Removal Date: 04/08/25; Removal Time: 1241 04/08/25 1113 by Ayad Contreras CRNA 04/08/25 1241 by Tamica Bush RN Incision/Wound 04/08/25; 1125; Yes (urethra); Other (Comment); Urethra; 04/08/25; 165804/08/25 1125 by Carol العلي RN 04/08/25 165 by Discharge Provider, Automatic Urethral Catheter ([place]) Placement Date: 04/08/25; Placement Time: 1154; Inserted By: Loraine Hanson MD; Type: Double-lumen, Straight-tip; Balloon Size: 10 ml; Collection Container: Standard; Securement Method: Leg strap; Urine Returned: Yes; Location: OR; Silver-Coated Catheter In Use?: Yes; YUNIER Intact?: Yes; Removal Date: 04/08/25; Removal Time: 165804/08/25 1154 by Lilliana Quinonez RN 04/08/25 1659 by Discharge Provider, Automatic documented in this encounter Social History Tobacco Use Types Packs/Day Years Used Date Smoking Tobacco: Never Smokeless Tobacco: Never Alcohol Use Standard Drinks/Week Comments No 0 (1 standard drink = 0.6 oz pur e alcohol) [facility] Utilities Answer Date Recorded In the past 12 months has th e electric, gas, oil, or water company threatened to shut off services in your home? No 09/02/2024 Overall Financial Resource Strain (CARDIA) Answe r Date Recorded How hard is it for you to pa y for the very basics like food, housing, medical care, and heating? Not very hard 09/02/2024 PHQ-2 Answer Date Recorded PHQ-2 Total Score 0 09/02/2024 [facility] - Occupational Stress Questionnaire Answer Date Recorded Do you feel stress - tense, restless, nervous, or anxious, or unable to sleep at night because your mind is troubled all the time - these days? Only a little 09/02/2024 Exercise Vital Sign Answer Date Recorde d On average, how many days pe r week do you engage in moderate to strenuous exercise (like a brisk walk)? 0 days 09/02/2024 On average, how many minutes do you engage in exercise at this level? 0 min 09/02/2024 Hunger Vital Sign Answer Date Recorded Within the past 12 months, y ou worried that your food would run out before you got the money to buy more. Never true 09/02/20 24 Within the past 12 months, t he food you bought just didn't last and you didn't have money to get more. Never true 09/02/2024 PRAPARE - Transportation Answer Date Re corded In the past 12 months, has l ack of transportation kept you from medical appointments or from getting medications? No 02/09 In the past 12 months, has l ack of transportation kept you from meetings, work, or from getting things needed for daily living? No 03/08/2022 [facility] IP Transportation Answer D ate Recorded In the past 12 months, has l ack of reliable transportation kept you from medical appointments, meetings, work or from getting things needed for daily living? No 09/02/2024 Sexually Active Control Partners Comments Not Currently Post-menopausal Male hysterectom y Comments No Sex and Gender Information Value Date Recorded Sex Assigned at Not on file Legal Sex Female 7:25 AM EDT Gender Identity Not on file Sexual Orientation Not on file documented as of this encounter Last Filed Vital Signs Vital Sign Reading Time Taken Comments Blood Pressure 123/51 03/30/2025 1:54 PM EDT Pulse 72 03/30/2025 1:54 PM EDT Temperature 36.6 C (97.8 F) 03/30/2025 1:54 PM EDT Respiratory Rate 16 03/30/2025 1:54 PM EDT Oxygen Saturation 98% 03/30/2025 1:54 PM EDT Inhaled Oxygen Concentration - - Weight 60.6 kg (133 lb 8 oz) 03/30/2025 1:54 PM EDT Height 157.5 cm (5' 2 ) 03/30/2025 1:54 PM EDT Body Mass Index 24.42 03/30/2025 1:54 PM EDT documented in this encounter Functional Status * Is the person deaf or does he/she have serious difficulty hearing? Answer Date of Assessment Author No 01/20/2023 8:57 AM EDT Jreemías Salazar MA * Is the person blind or does he/she have serious difficulty seeing even when wearing glasses? Answer Date of Assessment Author No 01/20/2023 8:57 AM EDT Jeremías Salazar MA * Does this person have serious difficulty walking or climbing stairs? Answer Date of Assessment Author No 01/20/2023 8:57 AM EDT Jeremías Salazar MA * Does this person have difficulty dressing or bathing? Answer Date of Assessment Author No 01/20/2023 8:57 AM EDT Jeremías Salazar MA * Because of a physical, mental or emotional condition, does this person have difficulty doing errands alone such as visiting a doctor's office or shopping? Answer Date of Assessment Author No 01/20/2023 8:57 AM EDT Jeremías Salazar MA documented as of this encounter Mental Status * Because of a physical, mental or emotional condition, does this person have serious difficulty concentrating, remembering or making decisions? Answer Entry Date Author No 01/20/2023 8:57 AM EDT Jeremías Salazar MA documented in this encounter Discharge Instructions * Discharge Instructions* Ruma Tang, KAREN - 03/30/2025 1:56 PM EDT Images from the original note were not included. PREPARING FOR YOUR SURGERY Date of Surgery: 04/08/25 Time of Surgery: Your surgeon???s office will notify you of your scheduled arrival time. {QIANA CHACKO SE and SSI:[id number]} PREPARING FOR YOUR SURGERY Date of Surgery: 04/08/25 Time of Surgery: Your surgeon???s office will notify you of your scheduled arrival time. Medications on the Day of Surgery Take the following medications on the morning of surgery: metoprolol, amlodipine, protonix Medications to hold prior to surgery; Verify with your doctor for possibly discontinuing the following medications: blood thinners, aspirin, anti-inflammatories, or supplements. Hold Farxiga 3 days prior to surgery. and Hold Tirzepatide (Mounjaro) 7 days prior to surgery. RYDER KIRAN DIABETIC INSTRUCTIONS-ORAL MEDS: Day before Surgery:Take all diabetic meds as usual unless your doctor gives you other instructions., Do not take any oral DIABETIC medications the morning of surgery., and We will check your blood sugar when you get to the hospital and throughout the day. Food, Drinks, Tobacco Do not eat any food after midnight. This includes gum, mints, candy, chewing tobacco, and dip. Unless otherwise instructed by your surgeon, you may consume water, Gatorade, Powerade, black coffee/tea(no milk, no cream/creamers, no sugar) up to two hours prior to your scheduled arrival time. No exceptions or substitutions to these restrictions. Do not smoke, vape, or use any type of tobacco or marijuana products within 24 hours prior to surgery. Smoking will also slow your rate of healing. It is advised that you do not smoke during the healing process. No alcohol 24 hours prior to surgery. Stock Taker It is important to have a Stock Taker, someone who is 18 years or older, to accompany you and remain in the facility for the duration of your surgery. This person should be available for the Perioperative Team, which includes your surgeon, to communicate with before, during and after your surgery. Because you are receiving anesthesia, someone is needed to drive you home and remain with you for at least 24 hours after surgery to make sure you are safe during that time We also recommend that no children be present on the day of surgery. If you have a concern, please reach out to our department [phone]. Hygiene [place] your teeth and gargle the morning of surgery. Shower the morning of surgery or the night before. Do not wear makeup (including eye makeup) lotion, powder, deodorant, perfume, or cologne. Do not shave the operative extremity or near the operative area. Remove nail citizen [place] prior to surgery. This includes artificial nails and gel nail [place]. Turn the water back on and rinse your body thoroughly. Pat yourself dry with a clean, soft towel. Do not apply any lotions, perfumes or powders after use. See additional information located under label on product. Personal Items Wear clean, simple, loose-fitting clothing (no jeans) and sturdy shoes (no flip flops, slides or crocs) to the hospital. Do not bring unnecessary valuables with you. It is policy that [facility] does not assume responsibility for lost, stolen or broken personal items that are brought in. Exceptions may be consideredfor items which are considered necessary for your healthcare. These items will be formally documented. Remove all jewelry prior to surgery to prevent injury. We will not tape wedding rings/bands If you have dentures, they may need to be removed before going into the operating room. We will have a case for them. Glasses and contacts will need to be removed prior to surgery. Please bring a case for them.. Bring with You Bring a copy of your Living Will and/or Durable Power of Transport Aide for Healthcare. Notify the Surgeon Notify your surgeon if you develop any illness (fever, cold, cough, sore throat, nausea, vomiting, skin rashes etc.) between now and surgery time Notify your surgeon and Pre-admission testing ([phone]) if you have any changes in your healthconditions or if any new medications are ordered between now and surgery.. Questions or Concerns? If you have any questions or concerns, feel free to call the Pre-Admission testing department at [phone]. We want to make sure you feel safe and have an excellent experience while you are here. Do not reply to this message through [employer] as it may not be answered promptly. [facility] [place] at [phone]; [place] [facility]: Patient Entrance 3A, stop at check-in desk. [address] [place] [id number]. Please do not reply to this message. Please call Pre-admission testing [phone] with questions. DOORS OPEN AT 5:00 AM FRI-FRI AND 6:00 SHYANN FRIDAY AND 6:30 AM ON FRIDAY Surgical Site Infections FAQs What is a Surgical Site Infection (SSI)? A surgical site infection is an infection that occurs after surgery in the part of the body where the surgery took place. Most patients who have surgery do not develop an infection. However, infections develop in about 1 to 3 out of every 100 patients who have surgery. Some of the common symptoms of a surgical site infection are: Redness and pain around the area where you had surgery Drainage of cloudy fluid from your surgical wound. Fever Can SSIs be treated? Yes. Most surgical site infections can be treated with antibiotics. The antibiotic given to you depends on the bacteria (germs) causing the infection. Sometimes patients with SSIs also need another surgery to treat the infection. What are some of the things that hospitals are doing to prevent SSIs? To prevent SSIs, doctors, nurses, and other healthcare providers: Clean their hands and arms up to their elbows with an antiseptic agent just before the surgery. Clean their hands with soap and water or an alcohol-based hand rub before and after caring for eachpatient. May remove some of your hair immediately before your surgery using electric clippers if the hair isin the same area where the procedure will occur. They should not shave you with a razor. Wear special hair covers, masks, gowns, and gloves during surgery to keep the surgery area clean. Give you antibiotics before your surgery starts. In most cases, you should get antibiotics within 60 minutes before the surgery starts and the antibiotics should be stopped within 24 hours after surgery. Clean the skin at the site of your surgery with a special soap that kills germs. What can I do to help prevent SSIs? Before your surgery: Tell your doctor about other medical problems you may have. Health problems such as allergies, diabetes, and obesity could affect your surgery and your treatment. Quit smoking. Patients who smoke get more infections. Talk to your doctor about how you can quit before your surgery. Do not shave near where you will have surgery. Shaving with a razor can irritate your skin and makeit easier to develop an infection. At the time of your surgery: Speak up if someone tries to shave you with a razor before surgery. Ask why you need to be shaved and talk with your surgeon if you have any concerns. Ask if you will get antibiotics before surgery. After your surgery: Make sure that your healthcare providers clean their hands before examining you, either with soap and water or an alcohol-based hand rub. If you do not see your providers clean their hands, please ask them to do so. Family and friends who visit you should not touch the surgical wound or dressings. Family and friends should clean their hands with soap and water or an alcohol- based hand rub beforeand after visiting you. If you do not see them clean their hands, ask them to clean their hands. What do I need to do when I go home from the hospital? Before you go home, your doctor or nurse should explain everything you need to know about taking care of your wound. Make sure you understand how to care for your wound before you leave the hospital. Always clean your hands before and after caring for your wound. Before you go home, make sure you know who to contact if you have questions or problems after you get home. If you have any symptoms of an infection, such as redness and pain at the surgery site, drainage, or fever, call your doctor immediately. If you have additional questions, please ask your doctor or nurse. Developed and co-sponsored by The Society for Healthcare Epidemiology of [place] (CHAVES); InfectiousDiseases Society of [place] (IDSA); [place] [facility] [employer]; Association for Professionals inInfection Control and Epidemiology (APIC); Centers for Disease Control and Prevention (CDC); and The Joint Commission. This information is not intended to replace advice given to you by your health care provider. Make sure you discuss any questions you have with your health care provider. , ANESTHESIA - COMMON SIDE EFFECTS (if present, these should resolve within 24 hours) TIREDNESS SHIVERING DIZZINESS DRY MOUTH MILD NAUSEA/VOMITING SORE THROAT OR HOARSENESS MILD PAIN OR DISCOMFORT IS NORMAL CALL THE SURGEON DAY OR NIGHT You have nausea or vomiting that doesn???t go away by the next morning. You experience severe pain not relieved by suggested medications. Thank you for letting us care for you. documented in this encounter Medications at Time of Discharge amLODIPine (NORVASC) 5 mg Oral TabletIndications :Primary hypertension Take 1 Tablet by mouth daily. 30 Tablet 5 02/23/2025 aspirin 81 mg Oral Tablet, Chewable Take by mouth daily. atorvastatin (LIPITOR) 80 mg Oral Tablet Take 1 Tablet by mouth nightly. 30 Tablet 11 08/26/2024 Blood Sugar Diagnostic (ONETOUCH ULTRA TEST) Misc StripIndications: Type 2 diabetes mellitus without complication, unspecified whether usp insulin use (HCC) USE TO CHECK BLOOD SUGAR 3 times DAILY 200 Strip 11 11/25/2024 Blood Sugar Diagnostic Misc Strip Use as directed once daily 100 Each 11 12/09/2024 Blood-Glucose Meter Misc Kit Use daily as directed. 1 Kit 12/09/2024 Blood-Glucose Meter Misc Kit Use to check blood sugar daily. 1 Kit 09/27/2024 cholecalciferol, vitamin D3, 25 mcg (1,000 unit) Oral Tablet Take 1 Tablet by mouth daily. cyanocobalamin 1,000 mcg Oral Tablet Take 1,000 mcg by mouth daily. dapagliflozin propanediol (FARXIGA) 10 mg Oral TabletIndications :Type 2 diabetes mellitus with stage 3b chronic kidney disease, with long-term current use of insulin (HCC) Take 1 Tablet by mouth daily. 90 Tablet 3 02/24/2025 fenofibrate (LOFIBRA) 160 mg Oral Tablet Take 1 Tablet by mouth once daily. 90 Tablet 1 11/18/2024 finerenone (KERENDIA) 10 mg Oral Tablet Take 10 mg by mouth daily. 21 Tablet 01/18/2025 finerenone (KERENDIA) 10 mg Oral TabletIndications :Type 2 diabetes mellitus with hyperglycemia, without long-term current use of insulin ([facility]),Microalbumi nuric diabetic nephropathy (HCC),Stage 3a chronic kidney disease ([facility]) Take 10 mg by mouth daily. 90 Tablet 3 07/08/2024 Fish Oil-DHA-EPA 1,200-144-216 mg Oral Capsule Take 1 Capsule by mouth daily. insulin glargine U-300 conc (TOUJEO SOLOSTAR U-300 INSULIN) 300 unit/mL (1.5 mL) SubQ Insulin PenIndications:Ty pe 2 diabetes mellitus with stage 3b chronic kidney disease, with long-term current use of insulin ([facility]) Subcutaneous (Inject under the skin) 20 Units daily. 3 mL 3 12/23/2024 Lancets [facility] Use to check blood sugar daily. 100 Each 2 12/19/2022 metoprolol succinate (TOPROL-XL) 50 mg Oral Tablet Sustained Release 24 hr Take 2 Tablets by mouth daily. 200 Tablet 2 09/06/2024 mirabegron (MYRBETRIQ) 25 mg Oral Tablet Sustained Release 24 hr Take by mouth daily. nitroGLYCERIN (NITROSTAT) 0.4 mg SL Tablet, SublingualIndicat ions:ASHD (arteriosclerotic heart disease) Place 1 Tablet under the tongue every 5 minutes as needed for Chest pain. Dissolve 1 tablet under the tongue at onset of chest pain. For persistent or worsening pain, call 911 and repeat dose every 5 minutes, up to 3 tablets in a 15-minute period. 100 Tablet 3 08/26/2024 pen needle, diabetic (MICRODOT INSULIN PEN NEEDLE) 33 gauge x 5/32 [facility] NeedleIndications :Type 2 diabetes mellitus with stage 3b chronic kidney disease, with long-term current use of insulin ([facility]) 1 Applicator by [facility].(Non-Drug; Combo Route) route once a week. 100 Each 1 09/17/2024 tamsulosin (FLOMAX) 0.4 mg Oral CapsuleIndication s:Feeling of incomplete bladder emptying Take 1 Capsule by mouth nightly. 30 Capsule 01/19/2025 tirzepatide (MOUNJARO) 7.5 mg/0.5 mL SubQ Pen InjectorIndicatio ns:Type 2 diabetes mellitus with stage 3b chronic kidney disease, with long-term current use of insulin ([facility]) Inject 7.5 mg under the skin once weekly. 2 mL 2 03/09/2025 cephALEXin (KEFLEX) 500 mg Oral Capsule Take 1 Capsule by mouth every 8 hours for 5 days. 15 Capsule 04/08/2025 5 FEROSUL 325 mg (65 mg iron) Oral Tablet Take 1 Tablet by mouth once daily. 90 Tablet 12/15/2024 5 pantoprazole (PROTONIX) 40 mg Oral Tablet, Delayed Release (E.C.)Indications :Melena Take 1 Tablet by mouth 2 times daily (before meals) for 90 days. 60 Tablet 2 02/14/2025 5 documented as of this encounter Discharge Disposition Disposition Code Departure Means Destination Home or Self Care documented in this encounter Plan of Treatment Upcoming Encounters Date Type Department Care Team (Late st Contact Info) Description 06/06/2025 9:15 AM EDT Office Visit [facility] [address] [place] [id number] Reg Narayanan MD [address] [place] [address] [place] [id number] 07/20/2025 11:30 AM EDT Office Visit [facility] [address] [facility] [address] [place] [address] Perez Matthew Ud, MD [address] [place] [address] documented as of this encounter Goals Goal Patient Goal Type Associated Problems Recent Progress Patient-Stated? Author Blood Pressure < 140/90 Blood Pressure 120/78(2024 8:54 PM EDT) No Reg Narayanan MD BMI (Calculated) < 30 General 23.9(04/11/20 8:54 PM EDT) No Reg Narayanan MD Maintain a healthy diet, exercise regularly and maintain an ideal body weight General No Reg Narayanan MD HEMOGLOBIN A1C < 7.0 Result Component 6.9( 8:23 AM EDT) No Reg Narayanan MD documented as of this encounter Procedures Procedure Name Priority Date/Time Associated Diagnosis Comments BASIC METABOLIC PANEL Routine 03/30/2025 2:48 PM EDT Preop testing Hypertension, unspecified type Hydronephrosis, unspecified hydronephrosis type Chronic kidney disease, unspecified CKD stage EK EKG 12 LEAD STAT 03/30/2025 2:39 PM EDT Preop testing Hypertension, unspecified type Hydronephrosis, unspecified hydronephrosis type Chronic kidney disease, unspecified CKD stage documented in this encounter Results * (ABNORMAL) BASIC METABOLIC PANEL (03/30/2025 2:48 PM EDT) Sodium 139 136 - 145 mmol/L 03/30/2025 3:51 PM EDT [facility] Potassium 3.8 3.5 - 5.0 mmol/L 03/30/2025 3:51 PM EDT [facility] Chloride 104 98 - 107 mmol/L 03/30/2025 3:51 PM EDT [facility] Total CO2 21(L) 22 - 29 mmol/L 03/30/2025 3:51 PM EDT [facility] Anion Gap 14 7 - 16 mmol/L 03/30/2025 3:51 PM EDT [facility] Calcium 8.3(L) 8.8 - 10.4 mg/dL 03/30/2025 3:51 PM EDT [facility] Glucose Lvl 331(H) 70 - 99 mg/dL 03/30/2025 3:51 PM EDT [facility] BUN 35(H) 8 - 23 mg/dL 03/30/2025 3:51 PM EDT [facility] Creatinine 1.87(H) 0.51 - 1.30 mg/dL 03/30/2025 3:51 PM EDT [facility] eGFR (CKD-EPIcr 2020) 28(L) >=60 mL/min/1.7 3 m2 03/30/2025 3:51 PM EDT [facility] Comment:Estimated GFR was ca lculated using the CKD-EPIcr (2020) equation refit without race. The equation is recommended by the National Kidney Foundation - [place] Society of Nephrology Task Force. Blood VENOUS BLOOD / Unknown Venipuncture / Unknown 03/30/2025 2:48 PM EDT 03/30/2025 2:53 PM EDT us Marycruz Bingham [employer]PER[employer] CHEMISTRY ORDERABLES Final Re sult [facility], [facility] [address] , [place] [address] * EK EKG 12 LEAD (03/30/2025 2:39 PM EDT) Anatomical Region Laterality Modality Electrocardiogra phy 03/30/2025 2:40 PM EDT Impressions 03/31/2025 9:[address] [facility] Test Date: 2025-03-30 Pat Name: ABRAHAN WILKINSON Department: DEPID Room: Gender: Female Kickboxing Instructor: : 1950 Requested By: MARYCRUZ BINGHAM Order Number: [id number] Reading : Nitesh Tom Measurements Intervals [place] Rate: 71 P: 58 VA: 140 QRS: 47 QRSD: 88 T: 24 QT: 364 QTc: 398 Interpretive Statements SINUS RHYTHM NO PREVIOUS ECG Electronically Signed On 03-31-2025 09:42:50 EDT by Nitesh Tom Narrative Procedure Note Nitesh Tom MD - 03/31/2025 IMPRESSION [facility] Test Date: 2025-03-30 Pat Name: ABRAHAN Department: DEPID Room: Gender: Female Kickboxing Instructor: : 1950 Requested By: MARYCRUZ BINGHAM Order Number: [id number] Jin BARRIOS: Nitesh Tom Measurements Intervals [place] Rate: 71 P: 58 VA: 140 QRS: 47 QRSD: 88 T: 24 QT: 364 QTc: 398 Interpretive Statements SINUS RHYTHM NO PREVIOUS ECG Electronically Signed On 03-31-2025 09:42:50 EDT by Nitesh Tom us Marycruz Bingham ELECTRONICS PRODUCTION SUPERVISOR IMG ECG ORDERABLES Final Resu lt documented in this encounter Visit Diagnoses Diagnosis Preop testing- Primary Preoperative examination, unspecified Hypertension, unspecified type Hydronephrosis, unspecified hydronephrosis type Chronic kidney disease, unspecified CKD stage documented in this encounter Additional Health Concerns Assessment Noted Time A fall risk assessment has been complete d for the patient 12/22/2024 11:37 AM EST documented as of this encounter Care Teams Printer Assistant Relationship Specialty Start Date End Date Reg Narayanan MD [address] [place] [address] [place] [address] PCP - General Family Medicine 10/14/22 Perez Matthew Ud, MD [address] [place] [address] Internal Medicine-Nephrology 08/04/24 documented as of this encounter
--- OUTSIDE RECORDS SUMMARY | 2025-03-30 14:39 | XMS_ITS | Encounter Summary ---
Author Organization [place] [address] Care Team Providers Care Options Advisor Name Role Phone Reg Narayanan MD Primary Care Provider [phone] Perez Matthwe Ud, MD Unavailable [phone] Encounter Details Date Type Department Care Team (Latest Contact Info) Description 03/30/2025 2:39 PM EDT - 03/30/2025 11:59 PM EDT Hospital Encounter [facility] [address] [place] [address] Marycruz Rutledge APRN [address] [facility] [address] [place] [address] Discharge Disposition: Home or Self Care Social History Tobacco Use Types Packs/Day Years Used Date Smoking Tobacco: Never Smokeless Tobacco: Never Alcohol Use Standard Drinks/Week Comments No 0 (1 standard drink = 0.6 oz pur e alcohol) [facility] Utilities Answer Date Recorded In the past 12 months has [facility] [employer], gas, oil, or water [email or web address] threatened to shut off services in your home? No 09/02/2024 Overall Financial Resource Strain (CARDIA) Answe r Date Recorded How hard is it for you to pa y for the very basics like food, housing, medical care, and heating? Not very hard 09/02/2024 PHQ-2 Answer Date Recorded PHQ-2 Total Score 0 09/02/2024 [facility] [place] [facility] Occup[facility] - Occupational Stress [...] money to buy more. Never true 09/02/20 Within the past 12 months, t he [...] things needed for daily living? No 03/08/2022 [facility] IP Transportation Answer D ate Recorded In [...] on file documented as of this encounter Functional Status * Is the person deaf or does he/she have serious difficulty hearing? Answer Date of Assessment Author No 01/20/2023 8:57 AM Jeremías Harding MA * Is the person blind or does he/she have serious difficulty seeing even when wearing glasses? Answer Date of Assessment Author No 01/20/2023 8:57 AM Jeremías Harding MA * Does this person have serious difficulty walking or climbing stairs? Answer Date of Assessment Author No 01/20/2023 8:57 AM Jeremías Harding MA * Does this person have difficulty dressing or bathing? Answer Date of Assessment Author No 01/20/2023 8:57 AM Jeremías Harding MA * Because of a physical, mental or emotional condition, does this person have difficulty doing errands alone such as visiting a doctor's office or shopping? Answer Date of Assessment Author No 01/20/2023 8:57 AM Jeremías Harding MA documented as of this encounter Mental Status * Because of a physical, mental or emotional condition, does this person have serious difficulty concentrating, remembering or making decisions? Answer Entry Date Author No 01/20/2023 8:57 AM Jeremías Harding MA documented in this encounter Medications at Time [...] 2 diabetes mellitus without complication, unspecified whether halfway insulin use (HCC) USE TO CHECK BLOOD [...] hyperglycemia, without long-term current use of insulin (HCC),Microalbumi nuric diabetic nephropathy (HCC),Stage 3a chronic kidney disease (HCC) Take 10 mg by mouth daily. 90 Tablet 3 07/08/2024 Fish Oil-DHA-EPA 1,200-144-216 mg Oral Capsule Take 1 Capsule by mouth daily. insulin glargine U-300 conc (TOUJEO SOLOSTAR U-300 INSULIN) 300 unit/mL (1.5 mL) SubQ Insulin PenIndications:Ty pe 2 diabetes mellitus with stage 3b chronic kidney disease, with long-term current use of insulin ([facility]) Subcutaneous (Inject under the skin) 20 Units daily. 3 mL 3 12/23/2024 Lancets [facility] Use to check blood sugar [...] INSULIN PEN NEEDLE) 33 gauge x 5/32 [facility] NeedleIndications :Type 2 diabetes mellitus with stage 3b chronic kidney disease, with long-term current use of insulin ([facility]) 1 Applicator by [facility]Non-Drug; Combo Route) route once a week. 100 Each 1 09/17/2024 tamsulosin (FLOMAX) 0.4 mg Oral CapsuleIndication s:Feeling of incomplete bladder emptying Take 1 Capsule by mouth nightly. 30 Capsule 01/19/2025 tirzepatide (MOUNJARO) 7.5 mg/0.5 mL SubQ Pen InjectorIndicatio ns:Type 2 diabetes mellitus with stage 3b chronic kidney disease, with long-term current use of insulin ([facility]) Inject 7.5 mg under the skin once weekly. 2 mL 2 03/09/2025 cephALEXin (KEFLEX) 500 mg Oral Capsule Take 1 Capsule by mouth every 8 hours for 5 days. 15 Capsule 04/08/2025 FEROSUL 325 mg (65 mg iron) Oral Tablet Take 1 Tablet by mouth once daily. 90 Tablet 12/15/2024 pantoprazole (PROTONIX) 40 mg Oral Tablet, Delayed [...] 9:15 AM EDT Office Visit [facility] Ar[facility]o [address] [place] [address] Reg Narayanan MD [address] [place] [address] [place] [address] 07/20/2025 11:30 AM EDT Office Visit [facility] [address] [facility] [place] [address] Perez Matthew Ud, MD [address] [place] [address] documented as of this encounter Goals Goal [...] Procedure Name Priority Date/Time Associated Diagnosis Comments EK EKG 12 LEAD STAT 03/30/2025 2:39 PM EDT Preop testing Hypertension, unspecified type Hydronephrosis, unspecified hydronephrosis type Chronic kidney disease, unspecified CKD stage documented in this encounter Results * EK EKG 12 LEAD (03/30/2025 2:39 PM EDT) Anatomical Region Laterality Modality Electrocardiogra phy 03/30/2025 2:40 PM EDT Impressions 03/31/2025 9:42 AM EDT [facility] Test Date: 2025-03-30 Pat Name: JEANNE MARIA Department: DEPID Room: Gender: Female Elevator Runner: : 1950 Requested By: MARYCRUZ RUTLEDGE Order Number: [id number] Reading MD: Nitesh Tom Measurements Intervals [place] Rate: 71 P: 58 NV: 140 QRS: 47 QRSD: 88 T: 24 QT: 364 QTc: 398 Interpretive Statements SINUS RHYTHM NO PREVIOUS ECG Electronically Signed On 03-31-2025 09:42:50 EDT by Nitesh Tom Narrative Procedure Note Nitesh Tom MD - 03/31/2025 IMPRESSION [place] [facility] Test Date: 2025-03-30 Pat Name: JEANNE MARIA Department: DEPID Room: Gender: Female Elevator Runner: : 1950 Requested By: MARYCRUZ RUTLEDGE Order Number: [id number] Reading : Nitesh Tom Measurements Intervals [place] Rate: 71 P: 58 NV: 140 QRS: 47 QRSD: 88 T: 24 QT: 364 QTc: 398 Interpretive Statements SINUS RHYTHM NO PREVIOUS ECG Electronically Signed On 03-31-2025 09:42:50 EDT by Nitesh Tom us Marycruz Rutledge [employer] IN[employer]ATION [employer]W MEMBER IMG ECG ORDERABLES Final Resu lt documented in this encounter Visit Diagnoses Not on filedocumented in this encounter Additional Health Concerns Assessment Noted Time A fall risk assessment has been complete d for the patient 12/22/2024 11:37 AM EST documented as of this encounter Care Teams Options Advisor Relationship Specialty Start Date End Date Reg Narayanan MD [address] [place] [address] [place] [address] PCP - General Family Medicine 10/14/22 Perez Matthew Ud, MD [address] [facility] [place] [address] Internal Medicine-Nephrology 08/04/24 documented as of this encounter
--- OUTSIDE RECORDS SUMMARY | 2025-04-08 08:50 | XMS_ITS | Encounter Summary ---
Author Organization [place] [address] Care Team Providers Care Ear Nose And Throat Specialist Name Role Phone Reg Narayanan MD Primary Care Provider Perez Matthew Ud, MD Unavailable Reason for Visit * Auth/Cert/Inpt Specialty Diagnoses / Procedures Referred By Tyrone hall Referred To Contact Diagnoses Hydronephrosis, unspecified hydronephrosis type Hydronephrosis, unspecified hydronephrosis type [N13.30] Procedures GA CYSTOURETHROSCOPY WITH BIOPSY GA CYSTOURETHROSCOPY W/URETERAL CATHETERIZATION GA CYSTO W/INSERT URETERAL STENT GA CYSTO W/SIMPLE REMOVAL STONE & STENT cystoscopy possible bladder biopsy bilateral retrograde pyelogram possible bilateral stent insertion Referral ID Status Reason Start Date Expiration Date Visits Re quested Visits Authorized [id number] 1 1 Encounter Details Date Type Department Care Team (Latest Contact Info) Description 04/08/2025 8:50 AM EDT - 04/08/2025 12:54 PM EDT Hospital Encounter [facility] SAME DAY SURGERY [facility] Alex Hanson MD [address] [place] [address] Hydronephrosis, unspecified hydronephrosis type Discharge Disposition: Home or Self Care Social History Tobacco Use Types Packs/Day Years Used Date Smoking Tobacco: Never Smokeless Tobacco: Never Alcohol Use Standard Drinks/Week Comments No 0 (1 standard drink = 0.6 oz pur e alcohol) [facility] Utilities Answer Date Recorded In the past 12 months has [employer], gas, oil, or water company threatened to shut off services in your home? No 09/02/2024 Overall Financial Resource Strain (CARDIA) Answe r Date Recorded How hard is it for you to pa y for the very basics like food, housing, medical care, and heating? Not very hard 09/02/2024 PHQ-2 Answer Date Recorded PHQ-2 Total Score 0 09/02/2024 [facility] - Occupational Stress Questionnaire Answer Date Recorded [...] things needed for daily living? No 03/08/2022 [facility] IP Transportation Answer D ate Recorded In [...] Sign Reading Time Taken Comments Blood Pressure 117/83 04/08/2025 12:26 PM EDT Pulse 68 04/08/2025 12:26 PM EDT Temperature 36.7 C (98.1 F) 04/08/2025 12:08 PM EDT Respiratory Rate 16 04/08/2025 12:26 PM EDT Oxygen Saturation 99% 04/08/2025 12:26 PM EDT Inhaled Oxygen Concentration - - Weight 58 kg (127 lb 12.8 oz) 04/08/2025 9:19 AM EDT Height 157.5 cm (5' 2 ) 04/08/2025 9:19 AM EDT Body Mass Index 23.37 04/08/2025 9:19 AM EDT documented in this encounter Functional Status * Is the person deaf or does he/she have serious difficulty hearing? Answer Date of Assessment Author No 01/20/2023 8:57 AM EDT Jeremías Salazar MA * Is the person blind [...] Jeremías Harding MA documented in this encounter Discharge Instructions * Discharge Instructions* Jermaine Meza MD - 04/08/2025 9:50 AM EDT Images from the original note were not included. +++++++++++++++++++++++++++++++++++++++++++++++++++++++++++++++++++ [facility] Discharge Instructions - Following Anesthesia We appreciate the opportunity to care for you today! Here are a few reminders as you head home: A responsible adult, 18 years or older must be in attendance until tomorrow morning. Rest quietly today. May resume usual diet as tolerated or as directed by your surgeon. Do not drive or operate any machinery until tomorrow morning or as instructed. Do not make any legal or important decisions for the next 24 hours. Do not drink alcoholic beverages or take sleeping pills for 24 hours unless otherwise directed. If you received a nerve block for post-operative pain control, protect your blocked arm/leg. It maybe numb. Carefully pad your limb to prevent pressure sores and other injuries. Be careful with applying cold/warm to the blocked limb. Numbness will alter the sensation of the limb and could damage your skin if you cannot correctly feel the temperature. If you have questions or concerns regarding your anesthesia experience, please call our office at . Get Well Soon! [facility] +++++++++++++++++++++++++++++++++++++++++++++++++++++++++++++++++++ documented in this encounter Medications at Time of Discharge amLODIPine (NORVASC) 5 mg Oral TabletIndications :Primary hypertension Take 1 Tablet by mouth daily. 30 Tablet 5 02/23/2025 aspirin 81 mg Oral Tablet, Chewable Take by mouth daily. atorvastatin (LIPITOR) 80 mg Oral Tablet Take 1 Tablet by mouth nightly. 30 Tablet 11 08/26/2024 Blood Sugar Diagnostic (ONETOUCH ULTRA TEST) [facility] StripIndications: Type 2 diabetes mellitus without complication, unspecified whether watermaster insulin use (HCC) USE TO CHECK BLOOD [...] disease, with long-term current use of insulin ([facility]) Take 1 Tablet by mouth daily. 90 Tablet 3 02/24/2025 fenofibrate (LOFIBRA) 160 mg Oral Tablet Take 1 Tablet by mouth once daily. 90 Tablet 1 11/18/2024 finerenone (KERENDIA) 10 mg Oral Tablet Take 10 mg by mouth daily. 21 Tablet 01/18/2025 finerenone (KERENDIA) 10 mg Oral TabletIndications :Type 2 diabetes mellitus with hyperglycemia, without long-term current use of insulin ([facility]),Microalbumi nuric diabetic nephropathy (HCC),Stage 3a chronic kidney disease (HCC) Take 10 mg by mouth daily. 90 Tablet 3 07/08/2024 Fish Oil-DHA-EPA 1,200-144-216 mg Oral Capsule Take 1 Capsule by mouth daily. insulin glargine U-300 conc (TOUJEO SOLOSTAR U-300 INSULIN) 300 unit/mL (1.5 mL) SubQ Insulin PenIndications:Ty pe 2 diabetes mellitus with stage 3b chronic kidney disease, with long-term current use of insulin ([facility]) Subcutaneous (Inject under the skin) 20 Units daily. 3 mL 3 12/23/2024 Lancets [facility] Use to check blood [...] (MICRODOT INSULIN PEN NEEDLE) 33 gauge x [facility] NeedleIndications :Type 2 diabetes mellitus with stage 3b chronic kidney disease, with long-term current use of insulin (HCC) 1 Applicator by [facility].(Non-Drug; Combo Route) route once a week. 100 Each 1 09/17/2024 tamsulosin (FLOMAX) 0.4 mg Oral CapsuleIndication s:Feeling of incomplete bladder emptying Take 1 Capsule by mouth nightly. 30 Capsule 01/19/2025 tirzepatide (MOUNJARO) 7.5 mg/0.5 mL SubQ Pen InjectorIndicatio ns:Type 2 diabetes mellitus with stage 3b chronic kidney disease, with long-term current use of insulin (HCC) Inject 7.5 mg under the skin once [...] 02/14/2025 5 documented as of this encounter Ordered Prescriptions Prescription Sig Dispense Quantity Refills Last Filled Start Date End Date cephALEXin (KEFLEX) 500 mg Oral Capsule Take 1 Capsule by mouth every 8 hours for 5 days. 15 Capsule 04/08/2025 5 documented in this encounter Discharge Disposition Disposition Code Departure Means Destination Comment s Home or Self Care Wheelchair Home documented in this encounter H&P Notes * Chris Dick APRN - 04/08/2025 9:08 AM EDT [facility] History and Physical Name: Jeanne Hong [place] ADDRESS: [address] [place] [id number] : 1950 AGE: 74 y.o. ASSESSMENT: Hydronephrosis, unspecified hydronephrosis type [N13.30] Medications: Poor historian with her meds-->sets out meds per week. Aspirin 81 mg-last dose states no longer taking Amlodipine 5 mg-last dose 04/08/2025 Farxiga 10 mg-Off x 3 days Metoprolol succinate-last dose 04/08/2025 Mounjaro-last dose 04/01/2025 PLAN: Procedure(s): cystoscopy possible bladder biopsy bilateral retrograde pyelogram possible bilateral stent insertion per Alex Hanson MD Admitting Physician: Alex Hanson MD Date of Admit: 04/08/2025 SUBJECTIVE: Chief Complaint: Hydronephrosis, unspecified hydronephrosis type [N13.30] History of Present Illness: Patient is a 74 y.o. female with Hydronephrosis, unspecified hydronephrosis type [N13.30] who presents for surgical intervention. Past Medical History: Diagnosis Date AAA (abdominal aortic aneurysm) Anemia CAD (coronary artery disease) Colon polyp Diabetes mellitus (HCC) Heart murmur Heartburn Hyperlipidemia Hypertension Kidney stones Post-operative nausea and vomiting Self-catheterizes urinary bladder 3 times daily Urinary incontinence Past Surgical History: Procedure Laterality Date CARDIAC CATHETERIZATION CARDIAC SURGERY 06/05/2011 CORONARY ARTERY BYPASS GRAFT - SCIP performed by CRISTY RICHMOND at ED MAIN OR COLONOSCOPY 04/23/2022 CYSTOSCOPY N/A 02/12/2022 cystoscopy with bladder biopsy; Surgeon: Christos Hood MD; Location: [facility] OR; Service: Urology CYSTOSCOPY 02/06/2023 Surgeon: Alex Hanson MD; Location: ED MAIN OR; Service: Urology CYSTOSCOPY 02/06/2023 Surgeon: Alex Hanson MD; Location: ED MAIN OR; Service: Urology HYSTERECTOMY 02/19/2011 DAVINCI ROBOTIC TOTAL HYSTERECTOMY - SCIP performed by ALEXANDER WHIPPLE at ED MAIN OR IR ANGIOGRAM RENAL LEFT SELECTIVE 02/25/2025 IR ANGIOGRAM RENAL LEFT SELECTIVE 02/25/2025 Ana Arnett MD [facility] IR IR ULTRASOUND GUIDED VASCULAR ACCESS 02/25/2025 IR ULTRASOUND GUIDED VASCULAR ACCESS 02/25/2025 Ana Arnett MD [facility] IR UPPER GASTROINTESTINAL ENDOSCOPY UPPER GASTROINTESTINAL ENDOSCOPY 05/31/2024 Prior to Admission medications Medication Sig Start Date End Date Taking? Authorizing Provider dapagliflozin propanediol (FARXIGA) 10 mg Oral Tablet Take 1 Tablet by mouth daily. 02/24/25 Yes Reg Narayanan MD metoprolol succinate (TOPROL-XL) 50 mg Oral Tablet Sustained Release 24 hr Take 2 Tablets by mouth daily. 09/06/24 Yes Reg Narayanan MD amLODIPine (NORVASC) 5 mg Oral Tablet Take 1 Tablet by mouth daily. 02/23/25 Perez Matthew Ud, MD aspirin 81 mg Oral Tablet, Chewable Take by mouth daily. Patient not taking: Reported on 03/30/2025 Provider, Historical atorvastatin (LIPITOR) 80 mg Oral Tablet Take 1 Tablet by mouth nightly. 08/26/24 Yolanda Santacruz, Blood Sugar Diagnostic (ONETOUCH ULTRA TEST) Misc Strip USE TO CHECK BLOOD SUGAR 3 times DAILY 11/25/24 Reg Narayanan MD Blood Sugar Diagnostic Misc Strip Use as directed once daily 12/09/24 Reg Narayanan MD Blood-Glucose Meter Misc Kit Use daily as directed. 12/09/24 Reg Narayanan MD Blood-Glucose Meter Misc Kit Use to check blood sugar daily. 09/27/24 Reg Narayanan MD cholecalciferol, vitamin D3, 25 mcg (1,000 unit) Oral Tablet Take 1 Tablet by mouth daily. Provider, Historical cyanocobalamin 1,000 mcg Oral Tablet Take 1,000 mcg by mouth daily. Provider, Historical fenofibrate (LOFIBRA) 160 mg Oral Tablet Take 1 Tablet by mouth once daily. 11/18/24 Reg Narayanan MD FEROSUL 325 mg (65 mg iron) Oral Tablet Take 1 Tablet by mouth once daily. 12/15/24 Reg Narayanan MD finerenone (KERENDIA) 10 mg Oral Tablet Take 10 mg by mouth daily. Patient not taking: Reported on 03/30/2025 01/18/25 Reg Narayanan MD finerenone (KERENDIA) 10 mg Oral Tablet Take 10 mg by mouth daily. Patient not taking: Reported on 03/30/2025 07/08/24 Reg Narayanan MD Fish Oil-DHA-EPA 1,200-144-216 mg Oral Capsule Take 1 Capsule by mouth daily. Provider, Historical insulin glargine U-300 conc (TOUJEO SOLOSTAR U-300 INSULIN) 300 unit/mL (1.5 mL) SubQ Insulin Pen Subcutaneous (Inject under the skin) 20 Units daily. 12/23/24 Reg Narayanan MD Lancets [facility] Use to check blood sugar daily. 12/19/22 Reg Narayanan MD mirabegron (MYRBETRIQ) 25 mg Oral Tablet Sustained Release 24 hr Take by mouth daily. Provider, Historical nitroGLYCERIN (NITROSTAT) 0.4 mg SL Tablet, Sublingual Place 1 Tablet under the tongue every 5 minutes as needed for Chest pain. Dissolve 1 tablet under the tongue at onset of chest pain. For persistent or worsening pain, call 911 and repeat dose every 5 minutes, up to 3 tablets in a 15-minute period. 08/26/24 Yolanda Santacruz DO pantoprazole (PROTONIX) 40 mg Oral Tablet, Delayed Release (E.C.) Take 1 Tablet by mouth 2 times daily (before meals) for 90 days. 02/14/25 05/15/25 Ladan Murray MD pen needle, diabetic (MICRODOT INSULIN PEN NEEDLE) 33 gauge x 5/32 [facility] Needle 1 Applicator by [facility].(Non-Drug; Combo Route) route once a week. 09/17/24 Reg Narayanan MD tamsulosin (FLOMAX) 0.4 mg Oral Capsule Take 1 Capsule by mouth nightly. 01/19/25 Yolanda Santacruz DO tirzepatide (MOUNJARO) 7.5 mg/0.5 mL SubQ Pen Injector Inject 7.5 mg under the skin once weekly. 03/09/25 Reg Narayanan MD No Known Allergies Social History Socioeconomic History Marital status: Spouse name: Manan Number of children: 1 Years of education: None Highest education level: None Tobacco Use Smoking status: Never Smokeless tobacco: Never Vaping Use Vaping status: Never Used Substance and Sexual Activity Alcohol use: No Drug use: No Sexual activity: Not Currently Partners: Male control/protection: Post-menopausal Comment: hysterectomy Social Drivers of Health Financial Resource Strain: Low Risk (09/02/2024) Overall Financial Resource Strain (CARDIA) Difficulty of Paying Living Expenses: Not very hard Food Insecurity: No Food Insecurity (09/02/2024) Hunger Vital Sign Worried About Running Out of Food in the Last Year: Never true Ran Out of Food in the Last Year: Never true Transportation Needs: No Transportation Needs (09/02/2024) [facility] IP Transportation In the past 12 months, has lack of reliable transportation kept you from medical appointments, meetings, work or from getting things needed for daily living?: No Physical Activity: Inactive (09/02/2024) Exercise Vital Sign Days of Exercise per Week: 0 days Minutes of Exercise per Session: 0 min Stress: No Stress Concern Present (09/02/2024) [place] [facility] [place] [facility] - Occupational Stress Questionnaire Feeling of Stress : Only a little Family History Problem Relation Age of Onset Diabetes Mother High Blood Pressure Mother Heart Disease Mother Diabetes Father High Blood Pressure Father Heart Disease Father Ovarian Cancer Sister Cancer Sister bladder High Blood Pressure Brother Heart Disease Brother Anesth Problems Neg Hx Active Hospital Problems Diagnosis *Hydronephrosis Review of Systems: The listed systems were reviewed and reveal the following in addition to any already discussed in the HPI: Review of Systems Constitutional: Negative for chills and fever. HENT: Negative. Eyes: Negative. Respiratory: Negative. Cardiovascular: Negative. Gastrointestinal: Negative. Genitourinary: Positive for frequency, hematuria and urgency. Musculoskeletal: Negative. Skin: Negative. Neurological: Negative. Endo/Heme/Allergies: Negative. Psychiatric/Behavioral: Negative. OBJECTIVE: Blood pressure 143/61, pulse 78, temperature 97.7 ??F (36.5 ??C), temperature source Oral, resp. rate 16, height 5' 2 (1.575 m), weight 127 lb 12.8 oz (58 kg), SpO2 99%, not currently . Physical Exam Constitutional: Appearance: Normal appearance. HENT: Head: Normocephalic. Nose: Nose normal. Mouth/Throat: Mouth: Mucous membranes are moist. Eyes: Extraocular Movements: Extraocular movements intact. Cardiovascular: Rate and Rhythm: Normal rate and regular rhythm. Pulmonary: Effort: Pulmonary effort is normal. Abdominal: Palpations: Abdomen is soft. Genitourinary: Comments: Indwelling catheter Musculoskeletal: General: Normal range of motion. Cervical back: Normal range of motion. Skin: General: Skin is warm and dry. Neurological: General: No focal deficit present. Mental Status: She is alert. Psychiatric: Mood and Affect: Mood normal. Labs: Lab Results Component Value Date WBC 9.0 02/22/2025 HGB 10.0 (L) 02/22/2025 HCT 34.1 02/22/2025 MCV 91.2 02/22/2025 PLT 351 02/22/2025 Lab Results Component Value Date CREATININE 1.87 (H) 03/30/2025 BUN 35 (H) 03/30/2025 NA 139 03/30/2025 K 3.8 03/30/2025 CL 104 03/30/2025 CO2 21 (L) 03/30/2025 GFRCKDEPI 28 (L) 03/30/2025 Radiology: EK03/30/2025 SINUS RHYTHM Chris Dick APRN 04/08/2025 Cosigned by Erwin Bella MD at 04/08/2025 9:46 AM EDT documented in this encounter Procedure Notes * Alex Hanson MD - 04/08/2025 12:12 PM EDT Images from the original note were not included. Patient Name: Jeanne Maria CSN: [id number] Facility: [facility] Operative Note Date of Operation: 04/08/2025 Pre-procedure diagnosis: Possible bladder tumor, bilateral hydronephrosis Post-procedure diagnosis: No obvious tumor Surgeon: Alex Hanson MD Procedure(s): 1) Cystourethroscopy with bladder biopsies and fulguration 2) Bilateral retrograde pyelograms 3) Fiore catheter exchange Indications: The patient has a history of a possible bladder tumor seen on RBUS. She also had bilateral hydronephrosis and her Cr had increased up to 2.3 from a baseline around 1-1.1. Her Cr since then has decreased to 1.9. She presents for cystoscopic evaluation of her possible bladder mass and bilateral retrograde pyelograms. The risks, benefits and alternatives were explained to the patient, and the patient consented to the procedure. Description of procedure: The patient was brought back to the operating suite. After the induction of anesthesia, a surgical time out was performed. Patient received pre-operative antibiotics within 60 minutes of start time. The genital area was prepped and draped in the usual, sterile fashion. We introduced a 21 Fr cystoscope easily into the bladder noting a normal urethra. Upon entering the bladder pancystoscopy was performed. There was an area of edematous tissue on the dome of her bladder. This appeared benign but we performed biopsies x3. The areas were then fulgurated. Her bladder appeared poorly compliant and small capacity at time of cystoscopy. The ureteral orifices were orthotopic bilaterally. A 5 Fr open ended pollack was used to instill contrast up the ureter. There were no filling defects noted bilaterally. We identified efflux of contrast from both ureters. After monitoring for 5 minutes, there appeared to be residual contrast in the renal pelvis. A 18 Fr fiore catheter was placed into the bladder with 10 cc of sterile water instilled into the balloon. The patient was then awoken from anesthesia without event, transferred to cart and transported to the PACU in good condition. Specimens: urine for cytology, bladder dome bladder biopsies EBL: Minimal Follow Up Plan: D/C home after BMP is drawn to recheck Cr. She will need a RBUS at next available and follow up with me after RBUS to go over results and Cr. If she has persistent hydro despite foleyplacement and Cr is still above her baseline, will then consider renal scan to assess for obstruction. Alex Hanson MD [facility] 04/08/2025 12:12 PM documented in this encounter Nursing Notes * Cassandra Byrnes, RN - 04/08/2025 10:46 AM EDT Pt unsure of her last date of , thinks she took it yesterday . Anesthesia notified , okay to proceed documented in this encounter Miscellaneous Notes * Plan of Care - Lilliana Quinonez RN - 04/08/2025 12:10 PM EDT Problem: Potential for Infection Description: Related to: -Invasive lines (IV, CVD, Indwelling Urinary Catheter) -Alteration in skin integrity related to positioning during procedure -Surgical Site Goal: Patient will be free from infection Outcome: Completed Problem: Potential for injury Description: Related to: Procedure Goal: Patient is free from signs or symptoms of physical injury unrelated to the intended therapeutic effects of the procedure. Outcome: Completed * Plan of Care - Cassandra Byrnes RN - 04/08/2025 9:05 AM EDT Problem: 4M's of Age Friendly Care Goal: What matters to patient and family Outcome: Progressing Goal: Mentation Outcome: Progressing Goal: Mobility Outcome: Progressing Goal: Medication Outcome: Progressing Problem: Potential for anxiety Description: Related to: Procedure Goal: Patient verbalizes an understanding of planned interventions and/or demonstrates signs of decreased anxiety. Outcome: Progressing Problem: Potential for alteration in skin integrity Description: Related to: Procedure Goal: Pre-op skin integrity will be maintained. Outcome: Progressing Problem: Pain Management Goal: The patient's stated pain goal will be reached and maintained. Outcome: Progressing Problem: Safety: Fall Risk Description: Related to: Procedure Goal: Patient will be free from falls. Outcome: Progressing documented in this encounter Plan of Treatment Upcoming Encounters Date Type Department Care Team (Late st Contact Info) Description 06/06/2025 9:15 AM EDT Office Visit [facility] [address] [place] [id number] Reg Narayanan MD [address] [place] [address] [place] [id number] 07/20/2025 11:30 AM EDT Office Visit [facility] [address] [place] [address] Perez Matthew Ud, [place] [address] [place] [address] documented as of this encounter Goals [...] Associated Diagnosis Comments BASIC METABOLIC PANEL Routine 04/08/2025 12:31 PM EDT PATHOLOGY TISSUE REQUEST Routine 04/08/2025 11:29 AM EDT Hydronephrosis, unspecified hydronephrosis type NON-RN ALLERGY CYTOLOGY REQUEST Routine 04/08/2025 11:16 AM EDT Hydronephrosis, unspecified hydronephrosis type CYSTOSCOPY RETROGRADE PYELOGRAM / STENT PLACEMENT 04/08/2025 11:13 AM EDT Hydronephrosis, unspecified hydronephrosis type Special Needs [facility] CYSTOSCOPY WITH BLADDER BIOPSY AND FULGURATION 04/08/2025 11:13 AM EDT Hydronephrosis, unspecified hydronephrosis type Special Needs [facility] GLUCOSE METER POC Routine 04/08/2025 10: 06 AM EDT documented in this encounter Results * (ABNORMAL) BASIC METABOLIC PANEL (04/08/2025 12:31 PM EDT) Sodium 136 136 - 145 mmol/L 04/08/2025 1:15 PM EDT [facility] Potassium 3.9 3.5 - 5.0 mmol/L 04/08/2025 1:15 PM EDT [facility] Chloride 102 98 - 107 mmol/L 04/08/2025 1:15 PM EDT [facility] Total CO2 24 22 - 29 mmol/L 04/08/2025 1:15 PM EDT [facility] Anion Gap 10 7 - 16 mmol/L 04/08/2025 1:15 PM EDT [facility] Calcium 9.9 8.8 - 10.4 mg/dL 04/08/2025 1:15 PM EDT [facility] Glucose Lvl 161(H) 70 - 99 mg/dL 04/08/2025 1:15 PM EDT [facility] BUN 41(H) 8 - 23 mg/dL 04/08/2025 1:15 PM EDT [facility] Creatinine 1.72(H) 0.51 - 1.30 mg/dL 04/08/2025 1:15 PM EDT [facility] eGFR (CKD-EPIcr 2020) 31(L) >=60 mL/min/1.7 3 m2 04/08/2025 1:15 PM EDT [facility] Comment:Estimated GFR was ca lculated using the CKD-EPIcr (2020) equation refit without race. The equation is recommended by the National Kidney Foundation - [place] [employer] of Nephrology Task Force. Blood VENOUS BLOOD / Unknown Venipuncture / Unknown 04/08/2025 12:31 PM EDT 04/08/2025 12:46 PM EDT us Alex Hanson MD CHEMISTRY ORDERABLES Final Resul t [facility] [address] , [place] [address] * PATHOLOGY TISSUE REQUEST (04/08/2025 11:29 AM EDT) CASE REPORT Surgical Pathology Case: [id number] Authorizing Provider: Alex Hanson MD Collected: 04/08/2025 1129 Ordering Location: [facility] Received: 04/08/2025 1405 Pathologist: Jaleesa Barboza MD Specimen: Bladder, Urinary, bladder dome biopsies 04/11/2025 10:[address] [facility] FINAL DIAGNOSIS Bladder dome, biopsy: - Fragments of urothelium with squamous metaplasia and moderate acute and chronic inflammation. - Fragment of inflamed granulation tissue. - Negative for malignancy. 04/11/2025 10:[address] [facility] at 1049 EDT GROSS DESCRIPTION The specimen is received in formalin, labeled with the patient's name, medical record number, and bladder dome biopsies . It consists of 3 domingo-pink and domingo-white tissue fragments, ranging from 0.4 x 0.2 x 0.1 cm to 0.4 x 0.3 x 0.1 cm. The specimen is submitted in toto in cassette A1. TONY Velasquez PA(ASCP) 04/08/2025 04/11/2025 10:49 AM EDT [facility] MICROSCOPIC DESCRIPTION The microscopic examination may have been rendered in whole, or in part, by analyzing high-resolutio n digital images (whole slide images) on the [employer] Digital Pathology platform validated at [facility]. 04/11/2025 10:[address] [facility] EMBEDDED IMAGES 04/11/2025 10:[address] [facility] Tissue URINARY BLADDER STRUCTURE / Unknown 04/08/2025 11:29 AM EDT 04/08/2025 2:05 PM EDT us Alex Hanson MD PATHOLOGY ORDERABLES Final Resul t [facility] [address] [place] [address] [facility] [address] [place] [address] * NON-RN ALLERGY CYTOLOGY REQUEST (04/08/2025 11:16 AM EDT) CASE REPORT Non-gynecologic Cytology Case: [id number] Authorizing Provider: Alex Hanson MD Collected: 04/08/2025 1116 Ordering Location: [facility] Received: 04/08/2025 1239 Pathologist: Salena Palomo MD Specimen: Urine, Clean Catch, urine for cytology 04/11/2025 2:17 PM EDT [facility] NON-RN ALLERGY CYTOLOGY FINAL DIAGNOSIS Urine: - Negative for high-grade urothelial carcinoma. - Abundant acute inflammatory cells. 04/11/2025 2:17 PM EDT [facility] at 1417 EDT EMBEDDED IMAGES 04/11/2025 2:17 PM EDT [facility] MICROSCOPIC DESCRIPTION Microscopic examination is performed and the findings corroborate the diagnosis. 04/11/2025 2:17 PM EDT [facility] Gross Description Urine, Rec'd 70ml of yellow fluid. (TP) Gross description has been reviewed by screening access services assistant. 04/11/2025 2:17 PM EDT [facility] Urine STRUCTURE OF URINARY TRACT PROPER / Unknown 04/08/2025 11:16 AM EDT 04/08/2025 12:39 PM EDT us Alex Hanson MD CYTOLOGY ORDERABLES Final Result Performing Organization Address City/State/[facility] [place] Phone Number [facility] [address] [place] [address] * (ABNORMAL) GLUCOSE METER POC (04/08/2025 10:06 AM EDT) Glucose Meter POC 205(H) 70 - 100 mg/dL 04/08/2025 10:08 AM EDT [facility] Sample Type Capillary 04/08/2025 10:08 AM EDT [facility] Patient Status Non-Critical Patient 04/08/2025 10:08 AM EDT [facility] Blood BLOOD SPECIMEN / Unknown 04/08/2025 10:06 AM EDT 04/08/2025 10:08 AM EDT us Alex Hanson MD POINT OF CARE TEST ORDERABLES Fi nal Result [place] [address] documented in this encounter Visit Diagnoses Diagnosis Hydronephrosis, unspecified hydronephrosis type documented in this encounter Admitting Diagnoses Diagnosis Hydronephrosis documented in this encounter Administered Medications Inactive Administered Medications - up to 1 most recent administrations Medication Order MAR Action Action Date Dose Rate Site acetaminophen (TYLENOL) tablet 1,000 mg 1,000 mg, Oral, PREPROCEDURE, 1 dose, Starting on Fri04/08/25 at 0000, Until Fri04/08/25 at 1003, Coanalgesic, Do not give if patient received acetaminophen within the last 6 hours Maximum adult dose of acetaminophen is 4000 mg from all sources in 24 hours., Pre-op (Holding/SDS Meds) Given 04/08/2025 10:03 AM EDT 1,000 mg insulin aspart U-100 (NovoLOG) injection 1-5 Units 1-5 Units, Subcutaneous, PREPROCEDURE, 1 dose, Starting on Fri04/08/25 at 0000, Until Fri04/08/25 at 1011, Other, Pre-op Hyperglycemia Correction, Type 1 DM (or Type 2 DM less than 80 kg): FSBS Correction 121-149 0 units 150-199 1 unit 200-250 2 units 251-300 3 units 301-350 4 units 351-400 5 units Greater than 400___notify anesthesiologist Waste Sort Code = BLACK RCRA Hazardous Waste Container, Pre-op (Holding/SDS Meds) Given 04/08/2025 10:11 AM EDT 2 Units Right Arm lactated ringers infusion Intravenous, at 50 mL/hr, PREPROCEDURE CONTINUOUS, Starting on Fri04/08/25 at 0000, Until Fri04/08/25 at 1654, To be given in SDS/Pre-op Holding Area, Pre-op (Holding/SDS Meds) IV Restarted 04/08/2025 11:13 AM EDT ondansetron (ZOFRAN) injection 4 mg 4 mg, Intravenous, ONCE PRN, 1 dose, Starting on Fri04/08/25 at 1159, Until Fri04/08/25 at 1654, Nausea, Do not give if patient received granisetron (Kytril) or ondansetron (Zofran) within 4 hours., PACU ondansetron (ZOFRAN-ODT) disintegrating tablet 8 mg 8 mg, Oral, ONCE PRN, 1 dose, Starting on Fri04/08/25 at 1159, Until Fri04/08/25 at 1654, Nausea, Do not give if patient received granisetron (Kytril) or ondansetron (Zofran) within 4 hours., PACU documented in this encounter Active and Recently Administered Medications Times are shown in EDT. Scheduled Medication Order 04/06/2025 04/07/2025 04/08/2025 ceFAZolin (ANCEF) IVPB 2 g (COMPLETED) 2 g, Intravenous, ONCE PREPROCEDURE, 1 dose, On Fri04/08/25 at 0915, Administer over 30 Minutes, Reason for Therapy: Surgical Prophylaxis, Pre-op (Antibiotic) 1113 (Given - Provid er: Ayad Contreras CRNA) PRN Medication Order 04/06/2025 04/07/2025 04/08/2025 acetaminophen (TYLENOL) tablet 1,000 mg (COMPLETED) 1,000 mg, Oral, PREPROCEDURE, 1 dose, Starting on Fri04/08/25 at 0000, Until Fri04/08/25 at 1003, Coanalgesic, Do not give if patient received acetaminophen within the last 6 hours Maximum adult dose of acetaminophen is 4000 mg from all sources in 24 hours., Pre-op (Holding/SDS Meds) 1003 (Given - Provid er: Cassandra Byrnes RN) droPERidol (INAPSINE) injection 0.625 mg 0.625 mg, Intravenous, PRN, Starting on Fri04/08/25 at 1159, Until Fri04/08/25 at 1654, Nausea, If unable to give zofran. Give second dose if nausea unrelieved in 10 minutes. May give total of two doses if needed., PACU fentaNYL (SUBLIMAZE) injection 25 mcg 25 mcg, Intravenous, EVERY 5 MIN PRN, Starting on Fri04/08/25 at 1159, Until Fri04/08/25 at 1654, Pain, For initial pain. Maximum dose not to exceed 100 mcg., PACU HYDROmorphone (DILAUDID) injection 0.5 mg 0.5 mg, Intravenous, EVERY 10 MIN PRN, Starting on Fri04/08/25 at 1159, Until Fri04/08/25 at 1654, Breakthrough Pain, Do not exceed 2 mg in one hour unless otherwise ordered by the Anesthesia Coordinator For pain unrelieved by fentanyl or oral opioid, PACU insulin aspart U-100 (NovoLOG) injection 1-5 Units (COMPLETED) 1-5 Units, Subcutaneous, PREPROCEDURE, 1 dose, Starting on Fri04/08/25 at 0000, Until Fri04/08/25 at 1011, Other, Pre-op Hyperglycemia Correction, Type 1 DM (or Type 2 DM less than 80 kg): FSBS Correction 121-149 0 units 150-199 1 unit 200-250 2 units 251-300 3 units 301-350 4 units 351-400 5 units Greater than 400___notify anesthesiologist Waste Sort Code = BLACK RCRA Hazardous Waste Container, Pre-op (Holding/SDS Meds) 1011 (Given - Provid er: Cassandra Byrnes RN - Comment: bs 205) iopamidoL (ISOVUE-300) 300 mg iodine /mL (61 %) injection (CANCELED) INTRAPROCEDURE, Starting on Fri04/08/25 at 1140, Until Fri04/08/25 at 1309, Intra-op 1140 (Given - Provid er: Alex Hanson MD) lactated ringers infusion Intravenous, at 50 mL/hr, PREPROCEDURE CONTINUOUS, Starting on Fri04/08/25 at 0000, Until Fri04/08/25 at 1654, To be given in SDS/Pre-op Holding Area, Pre-op (Holding/SDS Meds) 0947 (New Bag - Prov ider: Milvia Shelby RN)1112 (IV Paused - Provider: Ayad Contreras CRNA - Comment: Switch to gravity)1113 (IV Restarted - Provider: Ayad Contreras CRNA)1209 (Stopped - Provider: Ayad Contreras CRNA) lidocaine HCL (GLYDO) 2 % mucosal jelly 2% (CANCELED) INTRAPROCEDURE, Starting on Fri04/08/25 at 1156, Until Fri04/08/25 at 1309, Intra-op 1156 (Given - Provid er: Alex Hanson MD) meperidine (DEMEROL) injection (PF) 12.5 mg 12.5 mg, Intravenous, ONCE PRN, 1 dose, Starting on Fri04/08/25 at 1159, Until Fri04/08/25 at 1654, Shivering, Shivering, unless otherwise ordered by Anesthesia Coordinator, PACU ondansetron (ZOFRAN) injection 4 mg(Linked Group 1) 4 mg, Intravenous, ONCE PRN, 1 dose, Starting on Fri04/08/25 at 1159, Until Fri04/08/25 at 1654, Nausea, Do not give if patient received granisetron (Kytril) or ondansetron (Zofran) within 4 hours., PACU ondansetron (ZOFRAN-ODT) disintegrating tablet 8 mg(Linked Group 1) 8 mg, Oral, ONCE PRN, 1 dose, Starting on Fri04/08/25 at 1159, Until Fri04/08/25 at 1654, Nausea, Do not give if patient received granisetron (Kytril) or ondansetron (Zofran) within 4 hours., PACU oxyCODONE (ROXICODONE) immediate release tablet 5 mg 5 mg, Oral, EVERY 1 HOUR PRN, Starting on Fri04/08/25 at 1159, Until Fri04/08/25 at 1654, Pain, When tolerating oral intake. Maximum dose not to exceed 10 mg unless otherwise directed by the Anesthesia Coordinator., PACU Linked Groups Order Group 1: ondansetron (ZOFRAN) injection 4 mgJump to med 4 mg, Intravenous, ONCE PRN, 1 dose, Starting on Fri04/08/25 at 1159, Until Fri04/08/25 at 1654, Nausea, Do not give if patient received granisetron (Kytril) or ondansetron (Zofran) within 4 hours., PACU Or ondansetron (ZOFRAN-ODT) disintegrating tablet 8 mgJump to med 8 mg, Oral, ONCE PRN, 1 dose, Starting on Fri04/08/25 at 1159, Until Fri04/08/25 at 1654, Nausea, Do not give if patient received granisetron (Kytril) or ondansetron (Zofran) within 4 hours., PACU documented in this encounter Orders Medications Ordered That Charles ht Not Have Been Administered Count Last Ordered Date First Ordered Date ceFAZolin (ANCEF) IVPB 2 g 1 04/08/2025 droPERidol (INAPSINE) injection 0.625 mg 1 04/08/2025 fentaNYL (SUBLIMAZE) injection 25 mcg 1 HYDROmorphone (DILAUDID) injection 0.5 mg 1 04/08/2025 iopamidoL (ISOVUE-300) 300 m g iodine /mL (61 %) injection 1 04/08/2025 lidocaine HCL (GLYDO) 2 % mucosal jelly 2% 1 04/08/2025 meperidine (DEMEROL) injecti on (PF) 12.5 mg 1 04/08/2025 ondansetron (ZOFRAN) injection 4 mg 1 04/08 ondansetron (ZOFRAN-ODT) dis integrating tablet 8 mg 1 04/08/2025 oxyCODONE (ROXICODONE) immed iate release tablet 5 mg 1 04/08/2025 Discharge Count Last Ordered Date First Orde red Date DISCHARGE PATIENT 1 04/08/2025 documented in this encounter Additional Health Concerns Assessment Noted Time A fall risk assessment has been complete d for the patient 12/22/2024 11:37 AM EST documented as of this encounter Care Teams Ear Nose And Throat Specialist Relationship Specialty Start Date End Date Reg Narayanan MD [address] [facility] [place] [address] PCP - General Family Medicine 10/14/22 Perez Matthew Ud, MD [address] [place] [address] Internal Medicine-Nephrology 08/04/24 documented as of this encounter
--- OUTSIDE RECORDS SUMMARY | 2025-04-08 10:50 | XMS_ITS | Encounter Summary ---
Author Organization [place] [address] Care Team Providers Care Inoculator Name Role Phone Reg Narayanan MD Primary Care Provider [phone] Perez Matthew Ud, MD Unavailable [phone] Reason for Visit * Auth/Cert/Inpt Specialty Diagnoses / Procedures Referred By Tyrone t Referred To Contact Diagnoses Hydronephrosis, unspecified hydronephrosis type Hydronephrosis, unspecified hydronephrosis type [N13.30] Procedures LA CYSTOURETHROSCOPY WITH BIOPSY LA CYSTOURETHROSCOPY W/URETERAL CATHETERIZATION LA CYSTO W/INSERT URETERAL STENT LA CYSTO W/SIMPLE REMOVAL STONE & STENT cystoscopy possible bladder biopsy bilateral retrograde pyelogram possible bilateral stent insertion Referral ID Status Reason Start Date Expiration Date Visits Re quested Visits Authorized [id number] 1 1 Encounter Details Date Type Department Care Team (Late st Contact Info) Description 04/08/2025 10:50 AM EDT - 04/08/2025 11:55 AM EDT Surgery [facility] [address] [place] [phone] Alex Hanson MD [address] [place] [address] CYSTOSCOPY WITH BLADDER BIOPSY AND FULGURATION Surgery Details Date/Time Status Location OR Service Patient Class Case Class Case Type Trauma Case? 04/08/2025 10:50 AM Posted [facility] MAIN OR [facility] _Cysto Urology Same Day Surgery Elective Panel 1 Procedure LRB Anes Op Region Wound Class Comments CYSTOSCOPY WITH BLADDER BIOPSY AND FULGURATION Bilateral Monitored Anesthesia Care Clean Contaminated CYSTOSCOPY, BLADDER BIOPSY TIMES THREE, FULGURATION, BILATERAL RETROGRADE PYELOGRAM, RIVAS PLACEMENT CYSTOSCOPY RETROGRADE PYELOGRAM / STENT PLACEMENT Bilateral Monitored Anesthesia Care Ureter Clean Contaminated Surgeon Surgeon Role Service Panel Alex Hanson MD Primary Urology 1 Special Needs KCsk documented in this encounter Social History Tobacco Use Types Packs/Day Years Used Date Smoking Tobacco: Never Smokeless Tobacco: Never Alcohol Use Standard Drinks/Week Comments No 0 (1 standard drink = 0.6 oz pur e alcohol) [facility] Utilities Answer Date Recorded In the past 12 months has e electric, gas, oil, or water [employer] threatened to shut off services in your home? No 09/02/2024 Overall Financial Resource Strain (CARDIA) Answe r Date Recorded How hard is it for you to pa y for the very basics like food, housing, medical care, and heating? Not very hard 09/02/2024 PHQ-2 Answer Date Recorded PHQ-2 Total Score 0 09/02/2024 [facility] - Occupational Stress Questionnaire Answer Date Recorded [...] things needed for daily living? No 03/08/2022 [facility] H[facility]N [facility] IP Transportation Answer D ate Recorded [...] Sign Reading Time Taken Comments Blood Pressure 143/61 04/08/2025 9:19 AM EDT Pulse 78 04/08/2025 9:19 AM EDT Temperature 36.5 C (97.7 F) 04/08/2025 9:19 AM EDT Respiratory Rate 16 04/08/2025 9:19 AM EDT Oxygen Saturation 99% 04/08/2025 9:19 AM EDT Inhaled Oxygen Concentration - - Weight [...] the original note were not included. +++++++++++++++++++++++++++++++++++++++++++++++++++++++++++++++++++ [facility] Discharge Instructions - Following Anesthesia We appreciate [...] our office at . Get Well Soon! [facility] +++++++++++++++++++++++++++++++++++++++++++++++++++++++++++++++++++ documented in this encounter Medications [...] 2 diabetes mellitus without complication, unspecified whether senior producer insulin use (HCC) USE TO CHECK BLOOD [...] disease, with long-term current use of insulin ([facility]) Take 1 Tablet by mouth daily. 90 Tablet 3 02/24/2025 fenofibrate (LOFIBRA) 160 mg Oral Tablet Take 1 Tablet by mouth once daily. 90 Tablet 1 11/18/2024 finerenone (KERENDIA) 10 mg Oral Tablet Take 10 mg by mouth daily. 21 Tablet 01/18/2025 finerenone (KERENDIA) 10 mg Oral TabletIndications :Type 2 diabetes mellitus with hyperglycemia, without long-term current use of insulin ([facility]),Microalbumi nuric diabetic nephropathy (HCC),Stage 3a chronic kidney disease (HCC) Take 10 mg by mouth daily. 90 Tablet 3 07/08/2024 Fish Oil-DHA-EPA 1,200-144-216 mg Oral Capsule Take 1 Capsule by mouth daily. insulin glargine U-300 conc (TOUJEO SOLOSTAR U-300 INSULIN) 300 unit/mL (1.5 mL) SubQ Insulin PenIndications:Ty pe 2 diabetes mellitus with stage 3b chronic kidney disease, with long-term current use of insulin ([facility]) Subcutaneous (Inject under the skin) 20 Units daily. 3 mL 3 12/23/2024 Lancets [facility] Use to check blood sugar daily. 100 [...] (MICRODOT INSULIN PEN NEEDLE) 33 gauge x [facility] NeedleIndications :Type 2 diabetes mellitus with stage 3b chronic kidney disease, with long-term current use of insulin ([facility]) 1 Applicator by [facility] [...] hours for 5 days. 15 Capsule 04/08/2025 documented in this encounter Discharge Disposition Disposition Code Departure Means Destination Comment s Home or Self Care Wheelchair Home documented in this encounter H&P Notes * Chris Dick APRN - 04/08/2025 9:08 AM EDT [facility] History and Physical Name: Jeanne Hong [place] ADDRESS: [address] [place] [id number] : 1950 AGE: 74 y.o. ASSESSMENT: Hydronephrosis, [...] bladder biopsy; Surgeon: Christos Hood MD; Location: [facility] MAIN OR; Service: Urology CYSTOSCOPY 02/06/2023 Surgeon: Alex Hanson MD; Location: [facility] MAIN OR; Service: Urology CYSTOSCOPY 02/06/2023 Surgeon: Alex Hanson MD; Location: [facility] MAIN OR; Service: Urology HYSTERECTOMY 02/19/2011 DAVINCI ROBOTIC TOTAL HYSTERECTOMY - SCIP performed by ALEXANDER WHIPPLE at [facility] MAIN OR IR ANGIOGRAM RENAL LEFT SELECTIVE [...] 1 Tablet by mouth nightly. 08/26/24 Yolanda Santacruz R, Blood Sugar Diagnostic (ONETOUCH ULTRA TEST) Misc [...] Units daily. 12/23/24 Reg Narayanan MD Lancets [facility] Use to check blood sugar daily. 12/19/22 [...] (MICRODOT INSULIN PEN NEEDLE) 33 gauge x [facility] Needle 1 Applicator by [facility].(Non-Drug; Combo Route) route once a week. 09/17/24 Reg Narayanan MD tamsulosin (FLOMAX) 0.4 mg Oral Capsule Take 1 Capsule by mouth nightly. 01/19/25 Yolanda Santacruz tirzepatide (MOUNJARO) 7.5 mg/0.5 mL SubQ Pen [...] true Transportation Needs: No Transportation Needs (09/02/2024) [facility] IP Transportation In the past 12 months, has lack of reliable transportation kept you from medical appointments, meetings, work or from getting things needed for daily living?: No Physical Activity: Inactive (09/02/2024) Exercise Vital Sign Days of Exercise per Week: 0 days Minutes of Exercise per Session: 0 min Stress: No Stress Concern Present (09/02/2024) [facility] - Occupational Stress Questionnaire [...] not included. Patient Name: Jeanne Maria CSN: [id number] Facility: [facility] Operative Note Date of Operation: 04/08/2025 Pre-procedure diagnosis: Possible bladder tumor, bilateral hydronephrosis Post-procedure diagnosis: No obvious tumor Surgeon: Alex Hanson MD Procedure(s): 1) Cystourethroscopy with bladder biopsies and fulguration 2) Bilateral retrograde pyelograms 3) Rivas catheter exchange Indications: The patient has a [...] in the renal pelvis. A 18 Fr rivas catheter was placed into the bladder with 10 cc of sterile water instilled into the balloon. The patient was then awoken from anesthesia without event, transferred to [facility] and transported to the PACU in good [...] in this encounter Nursing Notes * Cassandra Byrnes RN - 04/08/2025 10:46 AM EDT Pt [...] 9:15 AM EDT Office Visit [facility] [address] [place] [address] [place] [address] Reg Narayanan MD [address] [place] [address] [place] [address] 07/20/2025 11:30 AM EDT Office Visit [facility] [address] [facility] [place] [address] Perez Matthew Ud, MD [address] [place] [address] documented as of this encounter Goals [...] 11:29 AM EDT Hydronephrosis, unspecified hydronephrosis type NON-[facility]LAUGHTERER RELIGI[facility] RITUAL CYTOLOGY REQUEST Routine 04/08/2025 11:16 AM EDT [...] 04/08/2025 1:15 PM EDT [facility] Potassium 3.9 3.5 - 5.0 mmol/L 04/08/2025 1:15 PM EDT [facility] Chloride 102 98 - 107 mmol/L 04/08/2025 1:15 PM EDT [facility] Total CO2 24 22 - 29 mmol/L 04/08/2025 1:15 PM EDT [facility] Anion Gap 10 7 - 16 mmol/L 04/08/2025 1:15 PM EDT [facility] Calcium 9.9 8.8 - 10.4 mg/dL 04/08/2025 1:15 PM EDT [facility] Glucose Lvl 161(H) 70 - 99 mg/dL 04/08/2025 1:15 PM EDT [facility] BUN 41(H) 8 - 23 mg/dL 04/08/2025 1:15 PM EDT [facility] Creatinine 1.72(H) 0.51 - 1.30 mg/dL 04/08/2025 1:15 PM EDT [facility] eGFR (CKD-EPIcr 2020) 31(L) >=60 mL/min/1.7 3 m2 04/08/2025 1:15 PM EDT [facility] Comment:Estimated GFR was ca lculated using the CKD-EPIcr (2020) equation refit without race. The equation is recommended by the National Kidney Foundation - [place] Society of Nephrology Task Force. Blood VENOUS BLOOD / Unknown Venipuncture / Unknown 04/08/2025 12:31 PM EDT 04/08/2025 12:46 PM EDT Alex Hanson MD CHEMISTRY ORDERABLES Final Resul t [facility] [address], [place] [address] * PATHOLOGY TISSUE REQUEST (04/08/2025 11:29 AM EDT) CASE REPORT Surgical Pathology Case: [id number] Authorizing Provider: Alex Hanson MD Collected: 04/08/2025 1129 Ordering Location: [facility] Received: 04/08/2025 1405 Pathologist: Jaleesa Barboza MD Specimen: Bladder, Urinary, bladder dome biopsies 04/11/2025 10:49 AM EDT [facility] FINAL DIAGNOSIS Bladder dome, biopsy: - Fragments of urothelium with squamous metaplasia and moderate acute and chronic inflammation. - Fragment of inflamed granulation tissue. - Negative for malignancy. 04/11/2025 10:49 AM EDT [facility] at 1049 EDT GROSS DESCRIPTION The specimen [...] Velasquez PA(ASCP) 04/08/2025 04/11/2025 10:49 AM EDT [facility] MICROSCOPIC DESCRIPTION The microscopic examination may have been rendered in whole, or in part, by analyzing high-resolutio n digital images (whole slide images) on the [employer] Digital Pathology platform validated at [facility]. 04/11/2025 10:49 AM EDT [facility] EMBEDDED IMAGES 04/11/2025 10:49 AM EDT [facility] Tissue URINARY BLADDER STRUCTURE / Unknown 04/08/2025 11:29 AM EDT 04/08/2025 2:05 PM EDT us Alex Hanson MD PATHOLOGY ORDERABLES Final Resul t [facility] [address] [place] [address] [facility] [address] [place], [place] [id number] * NON-SLAUGHTERER RELIGIOUS RITUAL CYTOLOGY REQUEST (04/08/2025 11:16 AM EDT) CASE REPORT Non-gynecologic Cytology Case: [id number] Authorizing Provider: Alex Hanson MD Collected: 04/08/2025 1116 Ordering Location: [facility] Received: 04/08/2025 1239 Pathologist: Salena Palomo MD Specimen: Urine, Clean Catch, urine for cytology 04/11/2025 2:17 PM EDT [facility] NON-SLAUGHTERER RELIGIOUS RITUAL CYTOLOGY FINAL DIAGNOSIS Urine: - Negative for high-grade urothelial carcinoma. - Abundant acute inflammatory cells. 04/11/2025 2:17 PM EDT [facility] at 1417 EDT EMBEDDED IMAGES 04/11/2025 2:17 PM EDT [facility] MICROSCOPIC DESCRIPTION Microscopic examination is performed and the findings corroborate the diagnosis. 04/11/2025 2:17 PM EDT [facility] Gross Description Urine, Rec'd 70ml of yellow fluid. (TP) Gross description has been reviewed by screening steam distribution supervisor. 04/11/2025 2:17 PM EDT [facility] Urine STRUCTURE OF URINARY TRACT PROPER / Unknown 04/08/2025 11:16 AM EDT 04/08/2025 12:39 PM EDT us Alex Hanson MD CYTOLOGY ORDERABLES Final Result Performing Organization Address [facility]/State/ZIP Co de Phone Number [facility] [address] [place] [address] * (ABNORMAL) GLUCOSE METER POC (04/08/2025 10:06 AM EDT) Glucose Meter POC 205(H) 70 - 100 mg/dL 04/08/2025 10:08 AM EDT [facility] Sample Type Capillary 04/08/2025 10:08 AM EDT [facility] Patient Status Non-Critical Patient 04/08/2025 10:08 AM EDT [facility] Blood BLOOD SPECIMEN / Unknown 04/08/2025 10:06 AM EDT 04/08/2025 10:08 AM EDT us Alex Hanson MD POINT OF CARE TEST ORDERABLES Fi nal Result [facility] [address] [place] [address] documented in this encounter Visit Diagnoses Diagnosis Hydronephrosis, unspecified hydronephrosis type Hydronephrosis, unspecified hydronephrosis type documented in this [...] 10:11 AM EDT 2 Units Right Arm iopamidoL (ISOVUE-300) 300 mg iodine /mL (61 %) injection INTRAPROCEDURE, Starting on Fri04/08/25 at 1140, Until Fri04/08/25 at 1309, Intra-op Given 04/08/2025 11:40 AM EDT 45 mL lactated ringers infusion Intravenous, at 50 mL/hr, PREPROCEDURE CONTINUOUS, Starting on Fri04/08/25 at 0000, Until Fri04/08/25 at 1654, To be given in SDS/Pre-op Holding Area, Pre-op (Holding/SDS Meds) IV Restarted 04/08/2025 11:13 AM EDT lidocaine HCL (GLYDO) 2 % mucosal jelly 2% INTRAPROCEDURE, Starting on Fri04/08/25 at 1156, Until Fri04/08/25 at 1309, Intra-op Given 04/08/2025 11:56 AM EDT 11 mL ondansetron (ZOFRAN) injection 4 mg 4 mg, [...] Intra-op 1140 (Given - Provid er: Alex Hansno MD) lactated ringers infusion Intravenous, at 50 [...] HYDROmorphone (DILAUDID) injection 0.5 mg 1 04/08/2025 meperidine (DEMEROL) injecti on (PF) [...] documented as of this encounter Care Teams Inoculator Relationship Specialty Start Date End Date Reg Narayanan MD [address] [place] [address] [place] [address] PCP - General Family Medicine 10/14/22 Perez Matthew Ud, MD [address] [facility] [place] [address] Internal Medicine-Nephrology 08/04/24 documented as of this encounter
--- OUTSIDE RECORDS SUMMARY | 2025-04-08 11:13 | XMS_ITS | Encounter Summary ---
Author Organization [place] [address] Care Team Providers Care Pricing Consultant Name Role Phone Reg Narayanan MD Primary Care Provider [phone] Perez Matthew Ud, MD Unavailable [phone] Reason for Visit * Auth/Cert/Inpt Specialty Diagnoses / Procedures Referred By Tyrone hall Referred To Contact Diagnoses Hydronephrosis, unspecified hydronephrosis type Hydronephrosis, unspecified hydronephrosis type [N13.30] Procedures CO CYSTOURETHROSCOPY WITH BIOPSY CO CYSTOURETHROSCOPY W/URETERAL CATHETERIZATION CO CYSTO W/INSERT URETERAL STENT CO CYSTO W/SIMPLE REMOVAL STONE & STENT cystoscopy possible bladder biopsy bilateral retrograde pyelogram possible bilateral stent insertion Referral ID Status Reason Start Date Expiration Date Visits Re quested Visits Authorized [id number] 1 1 Encounter Details Date Type Department Care Team (Late st Contact Info) Description 04/08/2025 11:13 AM EDT Anesthesia Event EDG PERIOP One [facility] [place] [address] Ann Mack MD [address] [place] [address] [facility] [place] [address] Ayad Contreras CRNA [address] [place] [address] [place] [address] Anesthesia Record Procedure Summary Procedure Name Responsible Anesthesiologist Anesthesia Start Time Anesthesia Stop Time CYSTOSCOPY WITH BLADDER BIOPSY AND FULGURATION (Bilateral) Ann Mack MD 04/08/25 1113 04/08/25 1210 Events Date Time Event Comment 04/08/2025 0950 1113 AN Equip Check 1113 An Start 1113 An Start Data 1113 Start Supplemental O2 Disabl es direct capture of O2 [ANES AGENT O2 [[id number]] and Air flow [ANES AGENT AIR [[id number]] variables into chart. 1113 Immediate Pre Anesthetic [...] acknowledgement of understanding from the receiving PACU/ICU wireless team member Meds Name Total propofol (DIPRIVAN) injection 50 mg propofol (DIPRIVAN) infusion 10 mg/mL 33 4,950 mcg fentaNYL 50 MCG/ML INJ 100 mcg lidocaine injection 1% 10 mg ceFAZolin (ANCEF) IVPB 2 g 2 g lactated ringers infusion 300 mL * Agents Name O2 N2O Air Et Sevoflurane * Blood No blood administrations on file. [...] 1125; Yes (urethra); Other (Comment); Urethra; 04/08/25; 1659 04/08/25 1125 by Carol العلي RN 04/08/25 1659 by Discharge Provider, Automatic Urethral Catheter ([place]) Placement Date: 04/08/25; Placement Time: 1154; Inserted By: Loraine Hanson MD; Type: Double-lumen, Straight-tip; Balloon Size: 10 ml; Collection Container: Standard; Securement Method: Leg strap; Urine Returned: Yes; Location: OR; Silver-Coated Catheter In Use?: Yes; YUNIER Intact?: Yes; Removal Date: 04/08/25; Removal Time: 165804/08/25 115 by Lilliana Quinonez RN 04/08/251658 by Discharge Provider, Automatic documented in this encounter Social History Tobacco Use Types Packs/Day Years Used Date Smoking Tobacco: Never Smokeless Tobacco: Never Alcohol Use Standard Drinks/Week Comments No 0 (1 standard drink = 0.6 oz pur e alcohol) [facility] Utilities Answer Date Recorded In [...] Date Recorded PHQ-2 Total Score 0 09/02/2024 [facility] - Occupational Stress [...] things needed for daily living? No 03/08/2022 [facility] IP Transportation Answer D ate Recorded In [...] Jeremías Harding MA documented in this encounter Procedure Notes * Ayad Contreras, DAVID - 04/08/2025 11:24 AM EDTAssociated Order(s): Airway Intraop Airway Placement: Date/Time: 04/08/2025 11:13 AM Induction type: IV Pre-Oxygenation: Standard Mask ventilation: Not attempted Airway type: Nasal cannula salter documented in this encounter OR Notes * Anesthesia Postprocedure Evaluation - Martinez Muñoz MD - 04/08/2025 12:34 PM EDT Post-Anesthesia Evaluation Note Patient Name: Jeanne Maria Patient Date: April 08, 2025 Post-Anesthesia Evaluation Patient Location: PACU Post op vitals: stable Nausea controlled: yes Level of consciousness: awake, alert and oriented Post anesthesia pain: adequate analgesia Long acting local anesthetic: n/a Airway patency: patent Respiratory status: spontaneous ventilation Cardiovascular status: stable Hydration status: euvolemic Temperature: Normothermia Perioperative complications: NONE Vitals Value Taken Time BP 117/83 04/08/25 12:26 Resp 16 04/08/25 12:26 SpO2 99 % 04/08/25 12:26 Temp 36.7 ??C (98.1 ??F) 04/08/25 12:08 Pulse 68 04/08/25 12:26 * Anesthesia Preprocedure Evaluation - Jermaine Meza MD - 04/08/2025 9:45 AM EDT Pre-Anesthesia Evaluation Note Patient Name: Jeanne Maria Sex: female Patient : 1950 Age: 74 y.o. Patient Date: April 08, 2025 CYSTOSCOPY BLADDER /URETHRA BIOPSY (Bilateral) CYSTOSCOPY RETROGRADE PYELOGRAM / STENT PLACEMENT (Bilateral: Ureter) Anesthesia Evaluation Previous anesthesia. 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 radiating murmur) (-) no angina, no shortness of breath, no peripheral edema Neuro/Psych - negative ROS (-) seizures, no cerebrovascular disease GI/Hepatic/Renal Comments: Urinary incontinence Hydronephrosis (+)GERD/PUD: well controlled Nausea and vomiting Kidney stones Chronic kidney disease: (follows with Dr. 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 * Post stress left ventricular ejection fraction is low normal, 53 %. * The rest/stress volume ratio (Transient Ischemic Dilation) is normal. (Normal with exercise is <1.23 and with vasodilator is <1.37). * The apical anterior, apical septal and true apical segments are severely hypokinetic. * There is a small area of mildly decreased perfusion in the apical anterior and apical septal segments at stress with partial improvement at rest consistent with a small area of mixed ischemia-scar. Opioids : Naive Body mass index is 23.37 kg/m??. Anesthesia Plan ASA 2 Last solid intake: The patient has not eaten within the last 8 hours. Last clear liquid intake: The patient has not had clear liquids within the last 2 hours. Anesthesia Plan: MAC Induction: intravenous Monitors: STD Informed consent Anesthetic plan and risks discussed with: patient. Chart Reviewed and patient examined documented in this encounter Miscellaneous Notes * PAT Pre Evaluation for Anesthesia - Marycruz Bingham APRN - 03/30/2025 9:31 AM EDT Pre-Anesthesia Evaluation Note Patient Name: Jeanne Maria Sex: female Patient : 1950 Age: 74 y.o. Patient Date: March 30, 2025 CYSTOSCOPY BLADDER /URETHRA BIOPSY (Bilateral) CYSTOSCOPY RETROGRADE PYELOGRAM / STENT PLACEMENT (Bilateral: Ureter) Anesthesia Evaluation Previous anesthesia. 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 radiating murmur) (-) no angina, no shortness of breath, no peripheral edema Neuro/Psych - negative ROS (-) seizures, no cerebrovascular disease GI/Hepatic/Renal Comments: Urinary incontinence Hydronephrosis (+)GERD/PUD: well controlled Nausea and vomiting Kidney stones Chronic kidney disease: (follows with Dr. 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 * Post stress left ventricular ejection fraction is low normal, 53 %. * The rest/stress volume ratio (Transient Ischemic Dilation) is normal. (Normal with exercise is <1.23 and with vasodilator is <1.37). * The apical anterior, apical septal and true apical segments are severely hypokinetic. * There is a small area of mildly decreased perfusion in the apical anterior and apical septal segments at stress with partial improvement at rest consistent with a small area of mixed ischemia-scar. Opioids : Naive There is no height or weight on file to calculate BMI. Anesthesia Plan Anesthesia Plan: MAC Chart Reviewed and patient examined documented in this encounter Plan of Treatment Upcoming Encounters Date Type Department Care Team (Late st Contact Info) Description 06/06/2025 9:15 AM EDT Office Visit [facility] [address] [place], [place] [address] Reg Narayanan MD [address] [place] [address] [place] [id number] 07/20/2025 11:30 AM EDT Office Visit [facility] [address] [facility] [place] [address] [place] [address] Perez Matthew Ud, MD [address] [place] [address] documented as of this encounter [...] Procedure Name Priority Date/Time Associated Diagnosis Comments INTRAOP AIRWAY PLACEMENT Routine 04/08/2025 11:13 AM EDT documented in this encounter Results * INTRAOP AIRWAY PLACEMENT (04/08/2025 11:13 AM EDT) Narrative [facility] - 04/08/2025 11:13 AM EDT Ayad Contreras CRNA 04/08/2025 11:24 AM Intraop Airway Placement: Date/Time: 04/08/2025 11:13 AM Induction type: IV Pre-Oxygenation: Standard Mask ventilation: Not attempted Airway type: Nasal cannula salter us Ann Mack MD CO ANESTHESIA Final Result [facility] [address] [place] [address] documented in this encounter Visit Diagnoses Not on filedocumented in this encounter Administered Medications Inactive Administered Medications - up to 1 most recent administrations Medication Order MAR Action Action Date Dose Rate Site ceFAZolin (ANCEF) IVPB 2 g 2 g, Intravenous, ONCE PREPROCEDURE, 1 dose, On Fri04/08/25 at 0915, Administer over 30 Minutes, Reason for Therapy: Surgical Prophylaxis, Pre-op (Antibiotic) Given 04/08/2025 11:13 AM EDT 2 g fentaNYL (SUBLIMAZE) injection Intravenous, PRN (Anesthesia), Starting on Fri04/08/25 at 1118, Until Fri04/08/25 at 1210, Anesthesia Intra-op Given 04/08/2025 11:48 AM EDT 25 mcg lactated ringers infusion Intravenous, at 50 mL/hr, PREPROCEDURE CONTINUOUS, Starting on Fri04/08/25 at 0000, Until Fri04/08/25 at 1654, To be given in SDS/Pre-op Holding Area, Pre-op (Holding/SDS Meds) IV Restarted 04/08/2025 11:13 AM EDT lidocaine 1% 10 mg/mL (1 %) injection Intravenous, PRN (Anesthesia), Starting on Fri04/08/25 at 1118, Until Fri04/08/25 at 1210, Anesthesia Intra-op Given 04/08/2025 11:18 AM EDT 10 mg propofol (DIPRIVAN) infusion 10 mg/mL Intravenous, CONTINUOUS PRN, Starting on Fri04/08/25 at 1118, Until Fri04/08/25 at 1210, Anesthesia Intra-op Rate/Dose Change 04/08/2025 11:51 AM EDT 150 mcg/kg/min 52.2 mL/hr propofoL (DIPRIVAN) injection Intravenous, PRN (Anesthesia), Starting on Fri04/08/25 at 1118, Until Fri04/08/25 at 1210, Anesthesia Intra-op Given 04/08/2025 11:18 AM EDT 50 mg documented in this encounter Additional Health Concerns Assessment Noted Time A fall risk assessment has been complete d for the patient 12/22/2024 11:37 AM EST documented as of this encounter Care Teams Pricing Consultant Relationship Specialty Start Date End Date Reg Narayanan MD [address] [place] [address] [place] [id number] PCP - General Family Medicine 10/14/22 Perez Matthew Ud, MD [address] [place] [address] Internal Medicine-Nephrology 08/04/24 documented as of this encounter
--- OUTSIDE RECORDS SUMMARY | 2025-04-11 09:40 | XMS_ITS | Encounter Summary ---
Author [place] [address] Care Team Providers Care Collator Name Role Phone Reg Narayanan MD Primary Care Provider [phone] Perez Matthew Ud, MD Unavailable [phone] Reason for Visit * Reason Comments Labs Only Encounter Details Date Type Department Care Team (Late st Contact Info) Description 04/11/2025 9:40 AM EDT Clinical Support [facility] [place] [address] [place] [address] Daphne Jaime E [address] [place] [address] Stage 3b chronic kidney disease (HCC); Vitamin D deficiency Social History Tobacco Use Types Packs/Day Years Used Date Smoking Tobacco: Never Smokeless Tobacco: Never Alcohol Use Standard Drinks/Week Comments No 0 (1 standard drink = 0.6 oz pur e alcohol) [facility] Utilities Answer Date Recorded In the past 12 months has [employer], gas, oil, or water [employer] threatened to shut off services in your home? No 09/02/2024 Overall Financial Resource Strain (CARDIA) Answe r Date Recorded How hard is it for you to pa y for the very basics like food, housing, medical care, and heating? Not very hard 09/02/2024 PHQ-2 Answer Date Recorded PHQ-2 Total Score 0 09/02/2024 [facility] [place] [facility] - Occupational Stress [...] things needed for daily living? No 03/08/2022 [facility] IP Transportation Answer D ate Recorded [...] Assessment Author No 01/20/2023 8:57 AM EDT Marie, A brenda, MA * Because of a physical, mental [...] Jeremías Salazar MA documented in this encounter Progress Notes * Daphne Jaime - 04/11/2025 9:40 AM EDT Venipuncture in the right antecubital vein with 21 gauge needle, length 1 1/2 inch. documented in this encounter Plan of Treatment Upcoming Encounters Date Type Department Care Team (Late st Contact Info) Description 06/06/2025 9:15 AM EDT Office Visit [facility] [place] [address] [place] [address] Reg Narayanan MD [address] [place] [address] [place] [id number] 07/20/2025 11:30 AM EDT Office Visit [facility] [address] [facility] [place] [address] Perez Matthew Ud, MD [address] [place] [address] documented as of this encounter Goals Goal [...] Procedure Name Priority Date/Time Associated Diagnosis Comments PROTEIN LEVEL URINE Routine 04/11/2025 9 :40 AM EDT Stage 3b chronic kidney disease (HCC) Vitamin D deficiency CREATININE LEVEL URINE Routine 04/11/2025 9:40 AM EDT Stage 3b chronic kidney disease (HCC) Vitamin D deficiency URINALYSIS Routine 04/11/2025 9:40 AM EDT Stage 3b chronic kidney disease (HCC) Vitamin D deficiency VITAMIN D 25 HYDROXY Routine 04/11/2025 9:29 AM EDT Stage 3b chronic kidney disease (HCC) Vitamin D deficiency CBC WITH DIFF Routine 04/11/2025 9:29 AM EDT Stage 3b chronic kidney disease (HCC) Vitamin D deficiency URIC ACID Routine 04/11/2025 9:29 AM EDT Stage 3b chronic kidney disease (HCC) Vitamin D deficiency PARATHYROID HORMONE INTACT Routine 04/11/2025 9:29 AM EDT Stage 3b chronic kidney disease (HCC) Vitamin D deficiency RENAL FUNCTION PANEL Routine 04/11/2025 9:29 AM EDT Stage 3b chronic kidney disease (HCC) Vitamin D deficiency documented in this encounter Results * (ABNORMAL) URINALYSIS (04/11/2025 9:40 AM EDT) UA Color Light Yellow 04/11/2025 2:50 PM EDT [facility] UA Appear Cloudy(A) Clear 04/11/2025 2:50 PM EDT [facility] UA Glucose 4+ (>1000mg/dL) (A) Negative mg/dL 04/11/2025 2:50 PM EDT [facility] UA Ketones Negative Negative mg/dL 04/11/2025 2:50 PM EDT [facility] UA Blood 2+ (0.2 - 0.5 mg/dL)(A) Negative 04/11/2025 2:50 PM EDT [facility] UA pH 6.0 5.0 - 8.0 pH 04/11/2025 2:50 PM EDT [facility] UA Protein 1+ (30-70 mg/dL)(A) Negative mg/dL 04/11/2025 2:50 PM EDT [facility] UA Urobilinogen Normal <=1 mg/dL 2:50 PM EDT [facility] UA Bili Negative Negative 04/11/2025 2:50 PM EDT [facility] UA Nitrite Negative Negative 04/11/2025 2:50 PM EDT [facility] UA Leuk Est 4+ (500 Kain/mcl)(A) Negative 04/11/2025 2:50 PM EDT [facility] UA Spec Grav 1.019 1.001 - 1.035 no units 04/11/2025 2:50 PM EDT [facility] Comment:Reference range rob d for random specimens only. UA WBC >182(H) 0 - 4 /HPF 04/11/2025 2:50 PM EDT [facility] UA RBC 101(H) 0 - 3 /HPF 04/11/2025 2:50 PM EDT [facility] UA Squam Epi 4+ /LPF 04/11/2025 2:50 PM EDT [facility] UA Mucus Trace /LPF 04/11/2025 2:50 PM EDT [facility] Urine STRUCTURE OF URINARY TRACT PROPER / Unknown 04/11/2025 9:40 AM EDT 04/11/2025 9:40 AM EDT Perez Nichols MD URINE ORDERABLES Final R esult [facility] [address] [facility] , [place] [address] * PROTEIN LEVEL URINE (04/11/2025 9:40 AM EDT) Urine Protein 87.1 mg/dL 04/11/2025 3:14 PM EDT [facility] [email or web address] [facility] Urine STRUCTURE OF URINARY TRACT PROPER / Unknown 04/11/2025 9:40 AM EDT 04/11/2025 9:40 AM EDT Perez Nichols MD URINE ORDERABLES Final R esult Performing Organization Address [facility] de Phone Number [facility] [employer] , [place] [address] * CREATININE LEVEL URINE (04/11/2025 9:40 AM EDT) Urine Creatinine 50.1 mg/dL 04/11/2025 3:14 PM EDT [facility] [email or web address] [facility] Urine STRUCTURE OF URINARY TRACT PROPER / Unknown 04/11/2025 9:40 AM EDT 04/11/2025 9:40 AM EDT Perez Nichols MD URINE ORDERABLES Final R esult Performing Organization Address [facility] Phone Number [facility] [employer] , [place] [address] * (ABNORMAL) VITAMIN D 25 HYDROXY (04/11/2025 9:29 AM EDT) Vit D 25 OH 20.6(L) 30.0 - 150.0 ng/mL 04/11/2025 5:24 PM EDT [facility] [email or web address] [facility] Comment: Preferred: >= 30 ng/mL Insufficient: 21-29 ng/mL Deficient <= 20 ng/mL Possible Toxicity: >150 ng/mL Samples should not be taken from patients receiving therapy with high biotin doses (i.e. > 5 mg/day) until at least 8 hours following the last biotin administration. Blood VENOUS BLOOD / Unknown Venipuncture / Unknown 04/11/2025 9:29 AM EDT 04/11/2025 9:29 AM EDT Perez Nichols MD CHEMISTRY ORDERABLES Fin al Result Performing Organization Address [facility] Co de Phone Number [facility], [address] , [place] [address] * (ABNORMAL) URIC ACID (04/11/2025 9:29 AM EDT) Uric Acid 7.5(H) 2.4 - 5.7 mg/dL 04/11/2025 5:14 PM EDT [facility] Blood VENOUS BLOOD / Unknown Venipuncture / Unknown 04/11/2025 9:29 AM EDT 04/11/2025 9:29 AM EDT [facility] CHEMISTRY ORDERABLES Fin al Result Performing Organization Address [facility] Co de Phone Number [facility], [address] , [place] [address] * (ABNORMAL) RENAL FUNCTION PANEL (04/11/2025 9:29 AM EDT) Sodium 136 136 - 145 mmol/L 04/11/2025 5:14 PM EDT [facility] Potassium 4.6 3.5 - 5.0 mmol/L 04/11/2025 5:14 PM EDT [facility] Chloride 102 98 - 107 mmol/L 04/11/2025 5:14 PM EDT [facility] Total CO2 23 22 - 29 mmol/L 04/11/2025 5:14 PM EDT [facility] Anion Gap 11 7 - 16 mmol/L 04/11/2025 5:14 PM EDT [facility] Calcium 10.7(H) 8.8 - 10.4 mg/dL 04/11/2025 5:14 PM EDT [facility] Glucose Lvl 204(H) 70 - 99 mg/dL 04/11/2025 5:14 PM EDT [facility] BUN 44(H) 8 - 23 mg/dL 04/11/2025 5:14 PM EDT [facility] Creatinine 1.79(H) 0.51 - 1.30 mg/dL 04/11/2025 5:14 PM EDT [facility] Albumin 4.3 3.2 - 4.6 gm/dL 04/11/2025 5:14 PM EDT [facility] Phosphorus 3.4 2.5 - 4.5 mg/dL 04/11/2025 5:14 PM EDT [facility] eGFR (CKD-EPIcr 2020) 30(L) >=60 mL/min/1.7 3 m2 04/11/2025 5:14 PM EDT [facility] Comment:Estimated GFR was ca lculated using the CKD-EPIcr (2020) equation refit without race. The equation is recommended by the National Kidney Foundation - [place] [employer] Nephrology Task Force. Blood VENOUS BLOOD / Unknown Venipuncture / Unknown 04/11/2025 9:29 AM EDT 04/11/2025 9:29 AM EDT Perez Nichols MD CHEMISTRY ORDERABLES Fin al Result [facility] [address] [facility] , [place] [address] * PARATHYROID HORMONE INTACT (04/11/2025 9:29 AM EDT) PTH Intact 52.90 15.00 - 65.00 pg/mL 04/11/2025 3:44 PM EDT [facility] [email or web address] [facility] Blood VENOUS BLOOD / Unknown Venipuncture / Unknown 04/11/2025 9:29 AM EDT 04/11/2025 9:29 AM EDT Narrative [facility] [email or web address] [facility] - 04/11/2025 3:44 PM EDT Intact PTH Calcium Interpretation ------- 15 - 65 8.6 - 10.2 Normal > 65 > 10.2 Primary Hyperparathyroidism < 20 > 10.2 Non-Parathyroid hypercalcemia < 15 < 8.6 Hypoparathyroidism Consider the above as guidelines only. PTH results should be interpreted in conjunction with the total or ionized calcium level. The finding of a persistently high-normal calcium accompanied by a high-normal PTH (or a low-normal calcium accompanied by a low-normal PTH) warrants further investigation. Although the PTH may itself be within normal limits, it may be inappropriately high (or low) relative to the circulating calcium level. Ingestion of mohsen doses of biotin (>5 mg/day) taken within 8 hours of drawing blood sample can interfere with this immunoassay test. Perez Nichols MD CHEMISTRY ORDERABLES Fin al Result [facility] [address] [facility] , [place] [address] * (ABNORMAL) CBC WITH DIFF (04/11/2025 9:29 AM EDT) Pathologist [facility] WBC 8.4 3.7 - 10.3 x10(3)/mcL 04/11/2025 2:59 PM EDT [facility] RBC 4.02 3.90 - 5.20 x10(6)/mcL 04/11/2025 2:59 PM EDT [facility] Hgb 11.1(L) 11.2 - 15.7 g/dL 04/11/2025 2:59 PM EDT [facility] Hct 36.8 34.0 - 45.0 % 04/11/2025 2:59 PM EDT [facility] MCV 91.5 80.0 - 100.0 fL 04/11/2025 2:59 PM EDT [facility] MCH 27.6 26.0 - 34.0 pg 04/11/2025 2:59 PM EDT [facility] MCHC 30.2(L) 30.7 - 35.5 g/dL 04/11/2025 2:59 PM EDT [facility] RDW 17.0(H) <=14.9 % 04/11/2025 2:59 PM EDT [facility] Platelet 299 155 - 369 x10(3)/mcL 04/11/2025 2:59 PM EDT [facility] MPV 10.9 8.8 - 12.5 fL 04/11/2025 2:59 PM EDT [facility] Neut Percent 69.2 % 04/11/2025 2:59 PM EDT [facility] Comment:Neutrophils equals s egs plus bands Imm Gran% 0.5 % 04/11/2025 2:59 PM EDT [facility] Comment:Automated count of m etamyelocytes, myelocytes and promyelocytes. Lymph Percent 16.9 % 04/11/2025 2:59 PM EDT [facility] [place] Percent 10.8 % 04/11/2025 2:59 PM EDT [facility] Eos Percent 1.9 % 04/11/2025 2:59 PM EDT [facility] Baso Percent 0.7 % 04/11/2025 2:59 PM EDT [facility] Neut # 5.8 1.6 - 6.1 x10(3)/[facility] 04/11/2025 2:59 PM EDT [facility] Comment:Neutrophils equals s egs plus bands IMMGRAN# 0.0 0.0 - 0.1 x10(3)/mcL 04/11/2025 2:59 PM EDT [facility] Comment:Automated count of m etamyelocytes, myelocytes and promyelocytes. An absolute IG <0.1 is reported as 0.0. Lymph # 1.4 1.2 - 3.9 x10(3)/mcL 04/11/2025 2:59 PM EDT [facility] [place] # 0.9 0.3 - 0.9 x10(3)/[facility] 04/11/2025 2:59 PM EDT [facility] Eos# 0.2 0.0 - 0.5 x10(3)/[facility] 04/11/2025 2:59 PM EDT [facility] Baso # 0.1 0.0 - 0.1 x10(3)/[facility] 04/11/2025 2:59 PM EDT [facility] Blood VENOUS BLOOD / Unknown Venipuncture / Unknown 04/11/2025 9:29 AM EDT 04/11/2025 9:29 AM EDT Perez Nichols MD HEMATOLOGY ORDERABLES Fi nal Result [facility] [address] [facility] , [address] [place], [place] [id number] documented in this encounter Visit Diagnoses Diagnosis Stage 3b chronic kidney disease (HCC) Vitamin D deficiency Unspecified vitamin D deficiency documented in this encounter Additional Health Concerns Assessment Noted Time A fall risk assessment has been complete d for the patient 12/22/2024 11:37 AM EST documented as of this encounter Care Teams Collator Relationship Specialty Start Date End Date Reg Narayanan MD [address] [place] [address] [place] [address] PCP - General Family Medicine 10/14/22 Perez Matthew Ud, MD [address] [place] [address] Internal Medicine-Nephrology 08/04/24 documented as of this encounter
--- OUTSIDE RECORDS SUMMARY | 2025-04-12 13:00 | XMS_ITS | Encounter Summary ---
Author Organization [facility] Address [address] [place] [address] Care Team Providers Care Popcorn Attendant Name Role Phone Reg Narayanan MD Primary Care Provider [phone] Perez Matthew Ud, MD Unavailable [phone] Reason for Visit * Reason Comments Follow-up CKD 3 Encounter Details Date Type Department Care Team (Late st Contact Info) Description 04/12/2025 1:00 PM EDT Office Visit [facility] [address] [phone] Perez Matthew Ud, MD [address] [phone] AMARI (acute kidney injury) (Primary Dx); Stage 3b chronic kidney disease (HCC); Bladder dysfunction; Hydronephrosis, unspecified hydronephrosis type; Primary hypertension; Metabolic bone disease Social History Tobacco Use Types Packs/Day Years Used Date Smoking Tobacco: Never Smokeless Tobacco: Never Alcohol Use Standard Drinks/Week Comments No 0 (1 standard drink = 0.6 oz pur e alcohol) [facility] Utilities Answer Date Recorded In the past 12 months has e electric, gas, oil, or water company threatened to shut off services in your home? No 09/02/2024 Overall Financial Resource Strain (CARDIA) Answe r Date Recorded How hard is it for you to pa y for the very basics like food, housing, medical care, and heating? Not very hard 09/02/2024 PHQ-2 Answer Date Recorded PHQ-2 Total Score 0 09/02/2024 [facility] [place] of Occupat ional Health - Occupational Stress [...] things needed for daily living? No 03/08/2022 [facility] IP Transportation Answer D ate Recorded In [...] Sign Reading Time Taken Comments Blood Pressure 120/78 04/11/2025 8:54 PM EDT Pulse 75 04/11/2025 8:54 PM EDT Temperature 36.1 C (96.9 F) 04/11/2025 8:54 PM EDT Respiratory Rate 16 04/11/2025 8:54 PM EDT Oxygen Saturation - - Inhaled Oxygen Concentration - - Weight 59.1 kg (130 lb 6.4 oz) 04/11/2025 8:54 P M EDT Height 157.5 cm (5' 2 ) 04/11/2025 8:54 PM EDT Body Mass Index 23.85 04/11/2025 8:54 PM EDT documented in this encounter Functional [...] documented in this encounter Progress Notes * Perez Matthew Ud, MD - 04/12/2025 1:00 PM EDT Referring Physician: Lady BARRIOS Reason for Referral: CKD and HTN Chief Complaint: New Patient (CKD 3) Dear Dr. Narayanan I had the pleasure of seeing Ms. Jeanne Hong [place] the office today for work-up and treatment for CKD and HTN. As you may recall She is very pleasant 74 yrs old woman with baseline history of DM, HTN, CAD s/p CABG some 10 yrs ago, hyperlipidemia, GERD, AAA, urinary incontinence with self catheterizations, Colon polyps and CKD. Has been struggling with urinary incontinence for a while and had some bladder lesion in 2022 and had cysto done and biopsy was negative but had bilateral hydronephrosis andhas been doing self cathter 3 times per day and recently was found to have worsening renal functionwith very poor HTN control and was sent over to me for further evaluation in July 2024. Comes in today for follow up and interval has been feeling OK and s/p EGD and no major issues and s/p renal artery angiogram without FAY and has seen urologist with benign bladder biopsies and has Fiore in place and BP is stable and no much swelling in feet, Breathing is comfortable, making urine with Fiore and urine is still cloudy. Reviewed events and evaluations REVIEW OF SYSTEMS: Detailed 14 point ROS is negative except HPI PAST MEDICAL HISTORY: Past Medical History: Diagnosis Date AAA (abdominal aortic aneurysm) Anemia CAD (coronary artery disease) Colon polyp Diabetes mellitus (HCC) Heart murmur Heartburn Hyperlipidemia Hypertension Kidney stones Post-operative nausea and vomiting Self-catheterizes urinary bladder 3 times daily Urinary incontinence PAST SURGICAL HISTORY: Past Surgical History: Procedure Laterality Date CARDIAC CATHETERIZATION CARDIAC SURGERY 06/05/2011 CORONARY ARTERY BYPASS GRAFT - SCIP performed by CRISTY RICHMOND at [facility] COLONOSCOPY 04/23/2022 CYSTOSCOPY N/A 02/12/2022 cystoscopy with bladder biopsy; Surgeon: Christos Hood MD; [facility]; Service: Urology CYSTOSCOPY 02/06/2023 [...] UPPER GASTROINTESTINAL ENDOSCOPY UPPER GASTROINTESTINAL ENDOSCOPY 05/31/2024 SOCIAL HISTORY: Social History Tobacco Use Smoking status: Never Smokeless tobacco: Never Substance Use Topics Alcohol use: No FAMILY HISTORY: No known renal history in family. ALLERGIES: No Known Allergies OUTPATIENT MEDICATIONS: Outpatient Medications Prior to Visit Medication Sig Dispense Refill amLODIPine (NORVASC) 5 mg Oral Tablet Take 1 Tablet by mouth daily. 30 Tablet 5 atorvastatin (LIPITOR) 80 mg Oral Tablet Take 1 Tablet by mouth nightly. 30 Tablet 11 Blood Sugar Diagnostic (ONETOUCH ULTRA TEST) Misc Strip USE TO CHECK BLOOD SUGAR 3 times DAILY 200 Strip 11 Blood Sugar Diagnostic Misc Strip Use as directed once daily 100 Each 11 Blood-Glucose Meter Misc Kit Use daily as directed. 1 Kit 0 Blood-Glucose Meter Misc Kit Use to check blood sugar daily. 1 Kit 0 cephALEXin (KEFLEX) 500 mg Oral Capsule Take 1 Capsule by mouth every 8 hours for 5 days. 15 Capsule 0 cholecalciferol, vitamin D3, 25 mcg (1,000 unit) Oral Tablet Take 1 Tablet by mouth daily. cyanocobalamin 1,000 mcg Oral Tablet Take 1,000 mcg by mouth daily. dapagliflozin propanediol (FARXIGA) 10 mg Oral Tablet Take 1 Tablet by mouth daily. 90 Tablet 3 fenofibrate (LOFIBRA) 160 mg Oral Tablet Take 1 Tablet by mouth once daily. 90 Tablet 1 FEROSUL 325 mg (65 mg iron) Oral Tablet Take 1 Tablet by mouth once daily. 90 Tablet 0 Fish Oil-DHA-EPA 1,200-144-216 mg Oral Capsule Take 1 Capsule by mouth daily. insulin glargine U-300 conc (TOUJEO SOLOSTAR U-300 INSULIN) 300 unit/mL (1.5 mL) SubQ Insulin Pen Subcutaneous (Inject under the skin) 20 Units daily. 3 mL 3 Lancets [facility] Misc Use to check blood sugar daily. 100 Each 2 metoprolol succinate (TOPROL-XL) 50 mg Oral Tablet Sustained Release 24 hr Take 2 Tablets by mouth daily. 200 Tablet 2 mirabegron (MYRBETRIQ) 25 mg Oral Tablet Sustained Release 24 hr Take by mouth daily. nitroGLYCERIN (NITROSTAT) 0.4 mg SL Tablet, Sublingual Place 1 Tablet under the tongue every 5 minutes as needed for Chest pain. Dissolve 1 tablet under the tongue at onset of chest pain. For persistent or worsening pain, call 911 and repeat dose every 5 minutes, up to 3 tablets in a 15-minute period. 100 Tablet 3 pantoprazole (PROTONIX) 40 mg Oral Tablet, Delayed Release (E.C.) Take 1 Tablet by mouth 2 times daily (before meals) for 90 days. 60 Tablet 2 pen needle, diabetic (MICRODOT INSULIN PEN NEEDLE) 33 gauge x 5/32 Misc Needle 1 Applicator by [facility].(Non-Drug; Combo Route) route once a week. 100 Each 1 tamsulosin (FLOMAX) 0.4 mg Oral Capsule Take 1 Capsule by mouth nightly. 30 Capsule 0 tirzepatide (MOUNJARO) 7.5 mg/0.5 mL SubQ Pen Injector Inject 7.5 mg under the skin once weekly. 2 mL 2 aspirin 81 mg Oral Tablet, Chewable Take by mouth daily. (Patient not taking: Reported on 04/12/2025) finerenone (KERENDIA) 10 mg Oral Tablet Take 10 mg by mouth daily. (Patient not taking: Reported on04/12/2025) 21 Tablet 0 finerenone (KERENDIA) 10 mg Oral Tablet Take 10 mg by mouth daily. (Patient not taking: Reported on04/12/2025) 90 Tablet 3 No facility-administered medications prior to visit. PHYSICAL EXAMINATION: Vitals: 04/11/252053 BP: 120/78 Pulse: 75 Resp: 16 Temp: 96.9 ??F (36.1 ??C) Body mass index is 23.85 kg/m??. BP 120/78 (BP Location: Left arm, Patient Position: Sitting) Pulse 75 Temp 96.9 ??F (36.1 ??C) (Forehead) Resp 16 Ht 5' 2 (1.575 m) Wt 130 lb 6.4 oz (59.1 kg) BMI 23.85 kg/m?? General Appearance: Alert, cooperative, no distress, appears stated age Head: Normocephalic, without obvious abnormality, atraumatic Eyes: PERRL, conjunctiva/corneas clear, EOM's intact Ears: Normal TM's and external ear canals, both ears Nose: Nares normal, septum midline, mucosa normal, no drainage or sinus tenderness Throat: Lips, mucosa, and tongue normal; teeth and gums normal Neck: Supple, symmetrical, trachea midline, no adenopathy; thyroid: no enlargement/tenderness/nodules; no carotid bruit or JVD Back: Symmetric, no curvature, ROM normal, no CVA tenderness Lungs: Clear to auscultation bilaterally, respirations unlabored Chest Wall: No tenderness or deformity Heart: Regular rate and rhythm, S1 and S2 normal, no murmur, rub or gallop Breast Exam: No tenderness, masses, or nipple abnormality Abdomen: Soft, non-tender, bowel sounds active all four quadrants, no masses, no organomegaly Genitalia: Normal female without lesion, discharge or tenderness Extremities: Extremities normal, atraumatic, no cyanosis or edema Pulses: 2+ and symmetric all extremities Skin: Skin color, texture, turgor normal, no rashes or lesions Lymph nodes: Cervical, supraclavicular, and axillary nodes normal Neurologic: CNII-XII intact, normal strength, sensation and reflexes throughout CBC Lab Results Component Value Date WBC 8.4 04/11/2025 HGB 11.1 (L) 04/11/2025 HCT 36.8 04/11/2025 PLT 299 04/11/2025 RBC 4.02 04/11/2025 CMP Lab Results Component Value Date NA 136 04/11/2025 K 4.6 04/11/2025 CL 102 04/11/2025 CO2 23 04/11/2025 BUN 44 (H) 04/11/2025 CREATININE 1.79 (H) 04/11/2025 MG 1.7 09/05/2024 PHOS 3.4 04/11/2025 A/P AMARI on CKD stage 3 Related urinary obstruction per recent renal imaging with bladder dysfunction with bilateral hydronephrosis with bladder wall thickening per old and recent imaging and CKD is due to DM, HTN obstructive nephropathy, UA bland with proteinuria and renal imaging with bilateral hydronephrosis and has fiore now with improving renal function and volume status look OK and - Will continue follow up with urology as planned - Need to stop NSAIDs - Off Losartan for now - Will need aggressive DM and HTN control - Consider avoiding SGLT-2 inhibitors in her case given her recurrent UTI and bladder issues 2. HTN BP is well controlled and will continue - Amlodipine 5 mg daily - Stay hydrated 3. Hyperkalemia Stable and will hold off on ACEi for now 4. Anemia No immediate need for NAT 5. Proteinuria Plan to add losartan once the AMARI is better 6. Urinary obstruction Discussion as above and will continue urology evaluation 7. Hypercalcemia Improved RTC 3 months. Thank you for allowing me to participate in the care of this patient. Should you haveany questions or concerns please feel free to contact my office at Perez Nichols MD 04/12/2025 12:59 PM documented in this encounter Plan of Treatment Upcoming Encounters Date Type Department Care Team (Late st Contact Info) Description 06/06/2025 9:15 AM EDT Office Visit [facility] [address] [place] [address] [place] [phone] Reg Narayanan MD [address] [place] [address] [place] [address] 07/20/2025 11:30 AM EDT Office Visit [facility] [address] [facility] [address] Perez Matthew Ud, MD [address] [place] [address] documented as of this encounter [...] Narayanan MD documented as of this encounter Visit Diagnoses Diagnosis AMARI (acute kidney injury)- Primary Acute kidney failure, unspecified Stage 3b chronic kidney disease (HCC) Bladder dysfunction Other functional disorder of bladder Hydronephrosis, unspecified hydronephrosis type Primary hypertension Unspecified essential hypertension Metabolic bone disease Other disorders of bone and cartilage documented in this encounter Additional Health Concerns Assessment Noted Time A fall risk assessment has been complete d for the patient 12/22/2024 11:37 AM EST documented as of this encounter Care Teams Popcorn Attendant Relationship Specialty Start Date End Date Reg Narayanan MD [address] [place] [address] [place] [address] PCP - General Family Medicine 10/14/22 Perez Matthew Ud, MD [address] [facility] [place] [address] Internal Medicine-Nephrology 08/04/24 documented as of this encounter
--- OUTSIDE RECORDS SUMMARY | 2025-05-16 09:56 | XMS_ITS | Encounter Summary ---
Author Organization [place] [address] Care Team Providers Care Excavator Backhoe Operator Name Role Phone Reg Narayanan MD Primary Care Provider [phone] Perez Matthew Ud, MD Unavailable [phone] Reason for Referral * Ultrasound (Routine) - Pending Review Specialty Diagnoses / Procedures Referred By Contac t Referred To Contact Radiology Diagnoses Lower urinary tract infection Procedures US RETROPERITONEAL COMPLETE Sarah Ortega PA-C [address] [facility] [address] [place] [address] Phone: tel: fax: Referral ID Status Reason Start Date Expiration Date V isits Requested Visits Authorized [id number] Pending Review 04/22/2025 04/22/2026 1 1 Reason for Visit * Ultrasound (Routine) - Pending Review Specialty Diagnoses / Procedures Referred By Contac t Referred To Contact Radiology Diagnoses Lower urinary tract infection Procedures US RETROPERITONEAL COMPLETE Sarah Ortega PA-C [address] [facility] [address] [place] [address] Phone: tel: fax: Referral ID Status Reason Start Date Expiration Date V isits Requested Visits Authorized [id number] Pending Review 04/22/2025 04/22/2026 1 1 Encounter Details Date Type Department Care Team (Latest Contact Info) Description 05/16/2025 9:56 AM EDT - 05/16/2025 11:59 PM EDT Hospital Encounter [facility] Ultrasound [address] [place] [address] Sarah Ortega PA-C [address] [facility] [address] [place] [address] Lower urinary tract infection Discharge Disposition: Home or Self Care Social History Tobacco Use Types Packs/Day Years Used Date Smoking Tobacco: Never Smokeless Tobacco: Never Alcohol Use Standard Drinks/Week Comments No 0 (1 standard drink = 0.6 oz pur e alcohol) [facility] Utilities Answer Date Recorded In the past [...] Date Recorded PHQ-2 Total Score 0 09/02/2024 [facility] of Occupat ional Health - Occupational [...] things needed for daily living? No 03/08/[address] [facility] IP Transportation Answer D ate Recorded In [...] of Assessment Author No 01/20/2023 8:57 AM EDJeremías William MA * Does this person have difficulty dressing or bathing? Answer Date of Assessment Author No 01/20/2023 8:57 AM COOPERT Jeremías Salazar MA * Because of a [...] 30 Tablet 11 08/26/2024 Blood Sugar Diagnostic (UberMediaTOUCH ULTRA TEST) Misc StripIndications: Type 2 diabetes mellitus without complication, unspecified whether extermination supervisor insulin use (HCC) USE TO CHECK BLOOD [...] disease, with long-term current use of insulin ([facility]) Take 1 Tablet by mouth daily. 90 Tablet 3 02/24/2025 fenofibrate (LOFIBRA) 160 mg Oral Tablet Take 1 Tablet by mouth once daily. 90 Tablet 1 11/18/2024 FEROSUL 325 mg (65 mg iron) Oral Tablet Take 1 Tablet by mouth once daily. 90 Tablet 04/11/2025 finerenone (KERENDIA) 10 mg Oral Tablet Take 10 mg by mouth daily. 21 Tablet 01/18/2025 finerenone (KERENDIA) 10 mg Oral TabletIndications :Type 2 diabetes mellitus with hyperglycemia, without long-term current use of insulin ([facility]),Microalbumi nuric diabetic nephropathy (HCC),Stage 3a [...] disease, with long-term current use of insulin ([facility]) Subcutaneous (Inject under the skin) 20 Units daily. 3 mL 3 12/23/2024 Lancets [facility] Mis Use to check blood sugar daily. 100 [...] (MICRODOT INSULIN PEN NEEDLE) 33 gauge x [facility] NeedleIndications :Type 2 diabetes mellitus with stage 3b chronic kidney disease, with long-term current use of insulin ([facility]) 1 Applicator by [facility].(Non-Drug; Combo Route) route once a week. 100 [...] skin once weekly. 2 mL 2 03/09/2025 documented as of this encounter Discharge Disposition Disposition Code Departure Means Destination Home or Self Care documented in this encounter Plan of Treatment Upcoming Encounters Date Type Department Care Team (Late st Contact Info) Description 06/06/2025 9:15 AM EDT Office Visit [facility] [place] [phone] Reg Narayanan MD [address] [facility] [place] [address] 07/20/2025 11:30 AM EDT Office Visit [facility] [address] [place] [address] Perez Matthew Ud, MD [address] [facility] [place] [address] documented as of this encounter Goals [...] Procedure Name Priority Date/Time Associated Diagnosis Comments US RETROPERITONEAL COMPLETE Routine 05/16/2025 11:00 AM EDT Lower urinary tract infection documented in this encounter Results * US RETROPERITONEAL COMPLETE (05/16/2025 11:00 AM EDT) Anatomical Region Laterality Modality Ultrasound 05/16/2025 11:0 0 AM EDT Impressions 05/16/2025 12:54 PM EDT 1. Mild right and moderate left hydronephrosis. 2. No solid-appearing renal mass or shadowing stone. 3. Urinary bladder is collapsed around a [place] catheter balloon and cannot be further assessed. - Note: Radiology results need to be interpreted within a comprehensive clinical context. If you have questions about the radiology report, please contact the office of the ordering clinician. Narrative 05/16/2025 12:54 PM EDT US RETROPERITONEAL COMPLETE, 05/16/2025 11:00 AM CLINICAL HISTORY: N39.0-Urinary tract infection, site not [id number]. COMPARISON: Renal ultrasound 03/15/2025 PROCEDURE COMMENTS: Routine sonographic evaluation of the kidneys and bladder with payable representative images and vp rheumatology notes sent to PACS for radiologist review. FINDINGS: RIGHT: 10.3 x 5.9 x 4.5 cm. No solid-appearing renal mass or shadowing stone. There is mild right hydronephrosis. There is a simple 1.8 cm right renal cortical cyst. LEFT: 10.5 x 4.7 x 5.2 cm. No solid-appearing mass or shadowing stone. Moderate left hydronephrosis. PELVIS: Urinary bladder is collapsed around a [place] catheter balloon and cannot be further assessed. Procedure Note Josue Rice MD - 05/16/2025 US RETROPERITONEAL COMPLETE, 05/16/2025 11:00 AM CLINICAL HISTORY: N39.0-Urinary tract infection, site [id number]. COMPARISON: Renal ultrasound 03/15/2025 PROCEDURE COMMENTS: Routine sonographic evaluation of the kidneys andbladder with payable representative images and vp rheumatology notes sent to PACS forradiologist review. FINDINGS: RIGHT: 10.3 x 5.9 x 4.5 cm. No solid-appearing renal mass or shadowingstone. There is mild right hydronephrosis. There is a simple 1.8 cm right renal cortical cyst. LEFT: 10.5 x 4.7 x 5.2 cm. No solid-appearing mass or shadowing stone. Moderate left hydronephrosis. PELVIS: Urinary bladder is collapsed around a [place] catheter balloon andcannot be further assessed. IMPRESSION: 1. Mild right and moderate left hydronephrosis. 2. No solid-appearing renal mass or shadowing stone. 3. Urinary bladder is collapsed around a [place] catheter balloon andcannot be further assessed. - Note: Radiology results need to be interpreted within a comprehensiveclinical context. If you have questions about the radiology report, please contactthe office of the ordering clinician. us Sarah Ortega PA-C [facility] US ORDERABLES Final Result documented in this encounter Visit Diagnoses Diagnosis Lower urinary tract infection Urinary tract infection, site not specified documented in this encounter Additional Health Concerns Assessment Noted Time A fall risk assessment has been complete d for the patient 12/22/2024 11:37 AM EST documented as of this encounter Care Teams Excavator Backhoe Operator Relationship Specialty Start Date End Date Reg Narayanan MD [address] [place] [address] [place] [address] PCP - General Family Medicine 10/14/22 Perez Matthew Ud, MD [address] [facility] [place] [address] Internal Medicine-Nephrology 08/04/24 documented as of this encounter
[2025-05-19 17:19] VITALS: BP 155/67; PULSE 70; RESP 14; TEMP 36.8; O2SAT 99; BMI 23.0
--- OUTSIDE RECORDS SUMMARY | 2025-05-19 17:24 | XMS_ITS | Encounter Summary ---
Author Organization [facility] Address [address] [facility] [place] [address] Care Team Providers Care Vp Clinical Research Name Role Phone Reg Narayanan MD Primary Care Provider [phone] Perez Matthew Ud, MD Unavailable [phone] Encounter Details Date Type Department Care Team (Late st Contact Info) Description 03/21/2025 Orders Only [facility] [address] [place], [place] [id number] Perez Matthew Ud, MD [address] [place], [place] [id number] Stage 3b chronic kidney disease (HCC) (Primary Dx); Vitamin D deficiency Social History Tobacco Use Types Packs/Day Years Used Date Smoking Tobacco: Never Smokeless Tobacco: Never Alcohol Use Standard Drinks/Week Comments No 0 (1 standard drink = 0.6 oz pur e alcohol) [facility] Utilities Answer Date Recorded In the past 12 months has [employer], gas, oil, or water [employer] threatened to shut off services in your home? No 09/02/2024 Overall Financial Resource Strain (CARDIA) Answe r Date Recorded How hard is it for you to pa y for the very basics like food, housing, medical care, and heating? Not very hard 09/02/2024 PHQ-2 Answer Date Recorded PHQ-2 Total Score 0 09/02/2024 [facility] [place] of Occupat ional Health - Occupational Stress [...] things needed for daily living? No 03/08/2022 [facility] IP Transportation Answer D ate Recorded [...] Jeremías Salazar MA documented in this encounter Plan of Treatment Upcoming Encounters Date Type Department Care Team (Late st Contact Info) Description 06/06/2025 9:15 AM EDT Office Visit CARLO BRIGHT [address] [place] [address] [place] [id number] Reg Narayanan MD [address] [place] [address] [place] [address] 07/20/2025 11:30 AM EDT Office Visit [facility] [address] [facility] [place] [address] Perez Matthew Ud, MD [address] [place] [address] documented as of this encounter [...] Narayanan MD documented as of this encounter Results * (ABNORMAL) URINALYSIS (04/11/2025 9:40 AM EDT) UA Color Light Yellow 04/11/2025 2:50 PM EDT [facility] UA Appear Cloudy(A) Clear 04/11/2025 2:50 PM EDT [facility] UA Glucose 4+ (>1000mg/dL) (A) Negative mg/dL 04/11/2025 2:50 PM EDT [facility] UA Ketones Negative Negative mg/dL 04/11/2025 2:50 [...] 2:50 PM EDT [facility] Comment:Reference range rob d for random [...] ORDERABLES Final R esult Performing Organization Address [facility] Co de Phone Number [facility] [employer] [facility] [address] [facility] , [place] [address] * PROTEIN LEVEL URINE (04/11/2025 9:40 AM EDT) Urine Protein 87.1 mg/dL 04/11/2025 3:14 PM EDT [facility] [employer] Urine STRUCTURE OF URINARY TRACT PROPER / Unknown 04/11/2025 9:40 AM EDT 04/11/2025 9:40 AM EDT Perez Nichols MD URINE ORDERABLES Final R esult Performing Organization Address [facility] de Phone Number [facility] [employer] [facility] [address] [facility] [place] [address] * CREATININE LEVEL URINE (04/11/2025 9:40 AM EDT) Urine Creatinine 50.1 mg/dL 04/11/2025 3:14 PM EDT [facility] [employer] Urine STRUCTURE OF URINARY TRACT PROPER / Unknown 04/11/2025 9:40 AM EDT 04/11/2025 9:40 AM EDT Perez Nichols MD URINE ORDERABLES Final R esult Performing Organization Address [facility] de Phone Number [facility] [employer] [facility] [address] [facility] , [place] [address] * (ABNORMAL) VITAMIN D 25 HYDROXY (04/11/2025 9:29 AM EDT) Vit D 25 OH 20.6(L) 30.0 - 150.0 ng/mL 04/11/2025 5:24 PM EDT [facility] Comment: Preferred: >= 30 ng/mL Insufficient: 21-29 [...] ORDERABLES Fin al Result Performing Organization Address [facility] Phone Number [facility], [address] , [place] [address] * (ABNORMAL) URIC ACID (04/11/2025 9:29 AM EDT) Uric Acid 7.5(H) 2.4 - 5.7 mg/dL 04/11/2025 5:14 PM EDT [facility] Blood VENOUS BLOOD / Unknown Venipuncture / Unknown 04/11/2025 9:29 AM EDT 04/11/2025 9:29 AM EDT Perez Nichols MD CHEMISTRY ORDERABLES Fin al Result Performing Organization Address [facility] Phone Number [facility], [address] [place] [address] * (ABNORMAL) RENAL FUNCTION PANEL (04/11/2025 9:29 [...] mg/dL 04/11/2025 5:14 PM EDT [facility] Glucose Lvl 204(H) 70 - 99 mg/dL 04/11/2025 5:14 PM EDT [facility] BUN 44(H) 8 - 23 mg/dL 04/11/2025 5:14 PM EDT [facility] Creatinine 1.79(H) 0.51 - 1.30 mg/dL 04/11/2025 5:14 PM EDT [facility] Albumin 4.3 3.2 - 4.6 gm/dL 04/11/2025 5:14 PM EDT [facility] Phosphorus 3.4 2.5 - 4.5 mg/dL 04/11/2025 5:14 PM EDT [facility] eGFR (CKD-EPIcr 2020) 30(L) >=60 mL/min/1.7 3 m2 04/11/2025 5:14 PM EDT [facility] Comment:Estimated GFR was ca lculated using the CKD-EPIcr (2020) equation refit without race. The equation is recommended by the National Kidney Foundation - [place] [employer] of Nephrology Task Force. Blood VENOUS BLOOD / Unknown Venipuncture / Unknown 04/11/2025 9:29 AM EDT 04/11/2025 9:29 AM EDT Perez Nichols MD CHEMISTRY ORDERABLES Fin al Result [facility], [facility] [address] [facility] , [place] [address] * PARATHYROID HORMONE INTACT (04/11/2025 9:29 AM EDT) PTH Intact 52.90 15.00 - 65.00 pg/mL 04/11/2025 3:44 PM EDT [facility] Blood VENOUS BLOOD / Unknown Venipuncture / Unknown 04/11/2025 9:29 AM EDT 04/11/2025 9:29 AM EDT Narrative [facility] - 04/11/2025 3:44 PM EDT Intact PTH [...] ORDERABLES Fin al Result [facility] [address] [facility] , [place] [address] * (ABNORMAL) CBC WITH DIFF (04/11/2025 9:29 AM EDT) WBC 8.4 3.7 - 10.3 x10(3)/mcL 04/11/2025 2:59 PM EDT [facility] RBC 4.02 3.90 - 5.20 x10(6)/mcL [...] 04/11/2025 2:59 PM EDT [facility] RDW 17.0(H) <=14.9 % 04/11/2025 2:59 PM EDT [facility] Platelet 299 155 - 369 x10(3)/mcL 04/11/2025 2:59 PM EDT [facility] MPV 10.9 8.8 - 12.5 fL 04/11/2025 2:59 PM EDT [facility] Neut Percent 69.2 % 04/11/2025 2:59 PM EDT [facility] Comment:Neutrophils equals s egs plus bands Imm Gran% 0.5 % 04/11/2025 2:59 PM EDT [facility] Comment:Automated count of m etamyelocytes, myelocytes and promyelocytes. Lymph Percent 16.9 % 04/11/2025 2:59 PM EDT [facility] [place] Percent 10.8 % 04/11/2025 2:59 PM EDT [facility] Eos Percent 1.9 % 04/11/2025 2:59 PM EDT [facility] Baso Percent 0.7 % 04/11/2025 2:59 PM EDT [facility] Neut # 5.8 1.6 - 6.1 x10(3)/mcL 04/11/2025 2:59 PM EDT [facility] Comment:Neutrophils equals s egs plus bands IMMGRAN# 0.0 0.0 - 0.1 x10(3)/mcL 04/11/2025 2:59 PM EDT [facility] Comment:Automated count of m etamyelocytes, myelocytes and promyelocytes. An absolute IG <0.1 is reported as 0.0. Lymph # 1.4 1.2 - 3.9 x10(3)/mcL 04/11/2025 2:59 PM EDT [facility] [place] # 0.9 0.3 - 0.9 x10(3)/mcL 04/11/2025 2:59 PM EDT [facility] Eos# 0.2 0.0 - 0.5 x10(3)/mcL 04/11/2025 2:59 PM EDT [facility] Baso # 0.1 0.0 - 0.1 x10(3)/[facility] 04/11/2025 2:59 PM EDT [facility] Blood VENOUS BLOOD / Unknown Venipuncture / Unknown 04/11/2025 9:29 AM EDT 04/11/2025 9:29 AM EDT Perez Nichols MD HEMATOLOGY ORDERABLES Fi nal Result [facility] [address] [facility] , [place] [address] documented in this encounter Visit Diagnoses Diagnosis Stage 3b chronic kidney disease (HCC)- Primary Vitamin D deficiency Unspecified vitamin D deficiency documented in this encounter Additional Health Concerns Infection Onset Date Last Indicated Resolved 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
--- OUTSIDE RECORDS SUMMARY | 2025-05-19 17:24 | XMS_ITS | Encounter Summary ---
Author Organization [place] [address] Care Team Providers Care Outpatient Physical Therapist Name Role Phone Reg Narayanan MD Primary Care Provider [phone] Perez Matthew Ud, MD Unavailable [phone] Encounter Details Date Type Department Care Team (Late st Contact Info) Description 02/24/2025 Results Follow-Up [facility] [place] [address] [place] [address] Reg Narayanan MD [address] [place] [address] [place] [address] HEMOGLOBIN A1C, MICROALBUMIN/CREATIN INE RATIO URINE Social History Tobacco Use Types Packs/Day Years Used Date Smoking Tobacco: Never Smokeless Tobacco: Never Alcohol Use Standard Drinks/Week Comments No 0 (1 standard drink = 0.6 oz pur e alcohol) [facility] Utilities Answer Date Recorded In the [...] Date Recorded PHQ-2 Total Score 0 09/02/2024 [facility] [place] of Occupat ional Health - Occupational Stress [...] daily living? No 03/08/2022 [facility] IP Transportation Answer D ate Recorded [...] Jeremías Salazar MA documented in this encounter Ordered Prescriptions Prescription Sig Dispense Quantity Refills Last Filled Start Date End Date dapagliflozin propanediol (FARXIGA) 10 mg Oral TabletIndications:T ype 2 diabetes mellitus with stage 3b chronic kidney disease, with long-term current use of insulin (HCC) Take 1 Tablet by mouth daily. 90 Tablet 3 02/24/2025 documented in this encounter Progress Notes * Reg Narayanan MD - 02/24/2025 12:07 PM EDT Her A1c has significantly improved from 9.3 previously down to 6.9 which is in the goal range. Continue our current diabetic medications. Her protein in her urine was improved but still somewhat elevated. Please continue on Krendia. I sent in Farxiga as well to help with her kidney function and to help reduce the protein in her urine. This will also help with her diabetes documented in this encounter Plan of Treatment Upcoming Encounters Date Type Department Care Team (Late st Contact Info) Description 06/06/2025 9:15 AM EDT Office Visit CARLO BRIGHT [address] [place] [id number] Reg Narayanan MD [address] [place] [address] [place] [address] 07/20/2025 11:30 AM EDT Office Visit [facility] [address] [facility] [place] [address] Perez Matthwe Ud, MD [address] [place] [address] documented as of this encounter Goals [...] as of this encounter Visit Diagnoses Diagnosis Type 2 diabetes mellitus with stage 3b chronic kidney disease, with long-term current use of insulin (HCC)- Primary documented in this encounter Additional Health Concerns Infection Onset Date Last Indicated Resolved Time 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
--- OUTSIDE RECORDS SUMMARY | 2025-05-19 17:24 | XMS_ITS | Encounter Summary ---
Author Organization [place] [address] Care Team Providers Care Ecommerce Marketing Specialist Name Role Phone Reg Narayanan MD Primary Care Provider [phone] Perez Matthew Ud, MD Unavailable [phone] Encounter Details Date Type Department Care Team (Late st Contact Info) Description 03/29/2025 Orders Only Adult Med 1 [place] [address] Alex Hanson MD [address] [place] [address] Hydronephrosis, unspecified hydronephrosis type (Primary Dx) Social History Tobacco Use Types Packs/Day Years Used Date Smoking Tobacco: Never Smokeless Tobacco: Never Alcohol Use Standard Drinks/Week Comments No 0 (1 standard drink = 0.6 oz pur e alcohol) [facility] Utilities Answer Date Recorded In the past [...] Date Recorded PHQ-2 Total Score 0 09/02/2024 [facility] [place] of Occupat ional Health - Occupational Stress [...] things needed for daily living? No 03/08/2022 [facility] IP Transportation Answer D ate Recorded In [...] 9:15 AM EDT Office Visit CARLO BRIGHT [address] [place] [address] [place] [address] Reg Narayanan MD [address] [place] [address] [place] [address] 07/20/2025 11:30 AM EDT Office Visit [facility] [address] 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
--- OUTSIDE RECORDS SUMMARY | 2025-05-19 17:24 | XMS_ITS | Encounter Summary ---
Author Organization [place] [address] Care Team Providers Care Pharmacy Informatics Specialist Name Role Phone Reg Narayanan MD Primary Care Provider [phone] Perez Matthew Ud, MD Unavailable [phone] Reason for Visit * Reason Onset Date Comments Appointment Needed 02/21/2025 Lab appt Encounter Details Date Type Department Care Team (Late Contact Info) Description 02/21/2025 Telephone SEP [facility] [place] [address] [address] Reg Narayanan MD [address] [place] [address] [place] [address] Appointment Needed (Lab appt ) Social History Tobacco Use Types Packs/Day Years Used Date Smoking Tobacco: Never Smokeless Tobacco: Never Alcohol Use Standard Drinks/Week Comments No 0 (1 standard drink = 0.6 oz pur e alcohol) [facility] Utilities Answer Date Recorded In the past 12 months has [employer], gas, oil, or water [employer] threatened to shut off services in your home? No 09/02/2024 Overall Financial Resource Strain (CARDIA) Answe r Date Recorded How hard is it for you to pa y for the very basics like food, housing, medical care, and heating? Not very hard 09/02/2024 PHQ-2 Answer Date Recorded PHQ-2 Total Score 0 09/02/2024 [facility] [place] of Occupat ional Health - Occupational Stress [...] things needed for daily living? No 03/08/2022 [facility] IP Transportation Answer D [...] Jeremías Salazar MA documented in this encounter Miscellaneous Notes * Telephone Encounter - Reg Narayanan MD - 02/21/2025 11:37 AM EDT I added on an A1c to the blood work orders * Telephone Encounter - Zahraa Forman MA - 02/21/2025 10:05 AM EDT Patient is coming in tomorrow for lab work for Dr. Cuellar, she says she thinks its almost time for her to have labs done for you as well. Is there anything you want to add? * Telephone Encounter - Polina Mosquera LPN - 02/21/2025 10:00 AM EDT Select the most appropriate reason for this telephone message: Appointment Needed Appointment Requested By: Patient Provider Preference: Other lab appt Type of Appt Needed: Other lab appt Detailed Reason for Appt: lab appt Requested Timeframe: Tomorrow morning Reason Scheduling Assistance is Needed: Call Center not permitted to schedule Return Method of Communication: Phone Call Additional Information: Please advise,thank you documented in this encounter Plan of Treatment Upcoming Encounters Date Type Department Care Team (Late st Contact Info) Description 06/06/2025 9:15 AM EDT Office Visit CARLO [place] [address] 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
--- OUTSIDE RECORDS SUMMARY | 2025-05-19 17:24 | XMS_ITS | Clinical Summary ---
Author Organization [facility] Address [address] [place] [address] Phone Care Team Providers Care Carrot Grader Inspector Name Role Phone Reg Narayanan MD Primary Care Provider [phone] Perez Matthew Ud, MD Unavailable [phone] Allergies No known active allergies Medications Fish Oil-DHA-EPA 1,200-144-216 mg Oral Capsule Take 1 Capsule by mouth daily. Active cyanocobalamin 1,000 mcg Oral Tablet Take 1,000 mcg by mouth daily. Active cholecalciferol, vitamin D3, 25 mcg (1,000 unit) Oral Tablet Take 1 Tablet by mouth daily. Active Lancets Misc Misc Use to check blood sugar daily. 100 Each 2 12/19/19 23 Active mirabegron (MYRBETRIQ) 25 mg Oral Tablet Sustained Release 24 hr Take by mouth daily. Active aspirin 81 mg Oral Tablet, Chewable Take by mouth daily. Active finerenone (KERENDIA) 10 mg Oral TabletIndication s:Type 2 diabetes mellitus with hyperglycemia, without long-term current use of insulin (HCC),Microalbum inuric diabetic nephropathy (HCC),Stage 3a chronic kidney disease (HCC) Take 10 mg by mouth daily. 90 Tablet 3 07/08/20 24 Active Additional Information Patient not taking.Reason: Therapy Completed, Reported on 04/12/2025 nitroGLYCERIN (NITROSTAT) 0.4 mg SL Tablet, SublingualIndica tions:ASHD (arterioscleroti c heart disease) Place 1 Tablet under the tongue every 5 minutes as needed for Chest pain. Dissolve 1 tablet under the tongue at onset of chest pain. For persistent or worsening pain, call 911 and repeat dose every 5 minutes, up to 3 tablets in a 15-minute period. 100 Tablet 3 08/26/20 24 Active atorvastatin (LIPITOR) 80 mg Oral Tablet Take 1 Tablet by mouth nightly. 30 Tablet 11 08/26/20 24 Active metoprolol succinate (TOPROL-XL) 50 mg Oral Tablet Sustained Release 24 hr Take 2 Tablets by mouth daily. 200 Tablet 2 09/06/20 24 Active pen needle, diabetic (MICRODOT INSULIN PEN NEEDLE) 33 gauge x 5/32 [facility] NeedleIndication s:Type 2 diabetes mellitus with stage 3b chronic kidney disease, with long-term current use of insulin ([facility]) 1 Applicator by [facility].(Non-Drug; Combo Route) route once a week. 100 Each 1 09/17/20 24 Active Blood-Glucose Meter [facility] Kit Use to check blood sugar daily. 1 Kit 09/27/20 24 Active fenofibrate (LOFIBRA) 160 mg Oral Tablet Take 1 Tablet by mouth once daily. 90 Tablet 1 11/18/19 25 Active Blood Sugar Diagnostic (ONETOUCH ULTRA TEST) [facility] StripIndications :Type 2 diabetes mellitus without complication, unspecified whether manager intermediate insulin use (HCC) USE TO CHECK BLOOD SUGAR 3 times DAILY 200 Strip 11 11/25/19 25 Active Blood-Glucose Meter Misc Kit Use daily as directed. 1 Kit 12/09/19 25 Active Blood Sugar Diagnostic Misc Strip Use as directed once daily 100 Each 11 12/09/19 25 Active insulin glargine U-300 conc (TOUJEO SOLOSTAR U-300 INSULIN) 300 unit/mL (1.5 mL) SubQ Insulin PenIndications:T ype 2 diabetes mellitus with stage 3b chronic kidney disease, with long-term current use of insulin ([facility]) Subcutaneous (Inject under the skin) 20 Units daily. 3 mL 3 12/23/19 25 Active finerenone (KERENDIA) 10 mg Oral Tablet Take 10 mg by mouth daily. 21 Tablet 01/19/20 25 Active Additional Information Patient not taking.Reason: Therapy Completed, Reported on 04/12/2025 tamsulosin (FLOMAX) 0.4 mg Oral CapsuleIndicatio ns:Feeling of incomplete bladder emptying Take 1 Capsule by mouth nightly. 30 Capsule 01/20/20 25 Active amLODIPine (NORVASC) 5 mg Oral TabletIndication s:Primary hypertension Take 1 Tablet by mouth daily. 30 Tablet 5 02/24/20 25 Active dapagliflozin propanediol (FARXIGA) 10 mg Oral TabletIndication s:Type 2 diabetes mellitus with stage 3b chronic kidney disease, with long-term current use of insulin (HCC) Take 1 Tablet by mouth daily. 90 Tablet 3 02/25/20 25 Active tirzepatide (MOUNJARO) 7.5 mg/0.5 mL SubQ Pen InjectorIndicati ons:Type 2 diabetes mellitus with stage 3b chronic kidney disease, with long-term current use of insulin (HCC) Inject 7.5 mg under the skin once weekly. 2 mL 2 03/09/20 25 Active FEROSUL 325 mg (65 mg iron) Oral Tablet Take 1 Tablet by mouth once daily. 90 Tablet 04/11/20 25 Active pantoprazole (PROTONIX) 40 mg Oral Tablet, Delayed Release (E.C.)Indication s:Melena Take 1 Tablet by mouth 2 times daily (before meals) for 90 days. 60 Tablet 2 02/15/20 25 025 Active Problems Patient Care Coordination No te Formatting of this note migh t be different from the original. [facility] audit completed by Naz Heaton RN on 09/02/2023. Problem Noted Date Diagnosed Date Combined forms of age-related cataract, bilatera l 04/12/2025 Diabetes mellitus 04/12/2025 Hydronephrosis 03/29/2025 Type 2 diabetes mellitus wit h stage 3b chronic kidney disease, with long-term current use of insulin 10/11/2024 Assessment & Plan (12/07/2024 9:49 AM EST): Monitor renal function closely. Avoid NSAIDs. Continue Kerendia. Unable to tolerate SGLT2's due to recurrent UTIs/yeast infections. Orders: BASIC METABOLIC PANEL; Future HEMOGLOBIN A1C; Future Assessment & Plan (11/01/2024 9:10 AM EST): Orders: tirzepatide (MOUNJARO) 7.5 mg/0.5 mL SubQ Pen Injector; Subcutaneous (Inject under the skin) 7.5 mg once a week. Assessment & Plan (10/21/2024 9:38 AM EST): Orders: insulin glargine U-300 conc (TOUJEO SOLOSTAR U-300 INSULIN) 300 unit/mL (1.5 mL) SubQ Insulin Pen; Subcutaneous (Inject under the skin) 20 Units daily. Patient advised to increase Toujeo from 10 units daily to 20 units daily due to uncontrolled glucose readings at home. Patient advised to keep a log of daily blood sugar readings to bring to next appointment. Patient advised to contact the office if she has any readings under 100. Patient to follow up in 7-10 days for ongoing management and further insulin titration Stage 3a chronic kidney disease (CKD) 09/15/2024 Assessment & Plan (09/16/2024 10:41 AM EST): Orders: BASIC METABOLIC PANEL; Future BASIC METABOLIC PANEL History of recurrent UTI (urinary tract infectio n) 09/05/2024 History of urinary retention 09/05/2024 Cellulitis of both feet 08/04/2024 Diabetic foot 08/04/2024 Hypergranulation 08/04/2024 Onychocryptosis 08/04/2024 Open wound of right great toe with damage to giuliana l 08/04/2024 Unspecified open wound of le ft great toe with damage to nail, initial encounter 08/04/2024 Pain around toenail 08/04/2024 Pain in both feet 08/04/2024 Pes anserine bursitis 08/04/2024 Encounter for general adult medical examination with abnormal findings 07/28/2024 Atrial fibrillation, unspecified type 03/08/2024 Hyperlipidemia 03/08/2024 Neurogenic bladder 03/08/2024 Persistent microalbuminuria associated with type II diabetes mellitus 12/11/2023 Overview (12/11/2023): On Jardiance Calculus of ureter 01/27/2023 Overview (01/27/2023): Added automatically from request for surgery [id number] Type 2 diabetes mellitus wit h hyperglycemia, without long-term current use of insulin 01/20/2023 Overview (12/25/2023): Lab Results Component Value Date HGBA1C 8.2 (H) 12/11/2023 HGBA1C 8.2 (H) 07/18/2023 HGBA1C 8.6 (H) 04/17/2023 On Jardiance, Metformin and Trulicity On ASA, statin and Arb for risk reduction. Assessment & Plan (12/07/2024 9:49 AM EST): Will get microalbumin at next visit, deferred today given her acute UTI. Follow- up IV exam results from her outside eye doctor when available. -Follow-up diabetes A1c and adjust regimen if needed based on A1c. -Diabetes is managed longitudinally requires prescription management. Requires follow-up every 3 to 4 months for repeat A1c and medication adjustments if needed. Orders: MICROALBUMIN/CREATININE RATIO URINE; Future BASIC METABOLIC PANEL; Future HEMOGLOBIN A1C; Future Assessment & Plan (09/16/2024 10:41 AM EST): Orders: insulin glargine (LANTUS SOLOSTAR U-100 INSULIN) 100 unit/mL (3 mL) SubQ Insulin Pen; Subcutaneous (Inject under the skin) 10 Units every evening. BASIC METABOLIC PANEL; Future BASIC METABOLIC PANEL Diabetes not well-controlled with recent A1c greater than 9%. Having issues with AMARI and UTIs per above. Will discontinue her SGLT2 inhibitor because of this. Will transition to long-acting insulin and continue on her GLP-1 medication. -Diabetes is managed longitudinally and requires prescription management. Requires follow-up every 3 to 4 months for repeat labs and medication adjustments Assessment & Plan (12/11/2023 10:15 AM EST): Goal A1C: < 7.0 and TIR >70% - Last A1c - 8.2 - 07/18/2023 - improving Compliance: - compliant with diet and medications Home Glucose Monitoring: - FSBS - daily Retinopathy Screening: Retinopathy Not Present - Last Eye Exam - 01/20/2023 - patient reminded to complete a retinal exam annually Nephropathy Assessment: - microalbumin screening completed in the past 12 months Foot Assessment: Last Foot Exam Date - 03/17/2023 - no ulcers or pre-ulcers Diet Advice: - discussed improving diet by reducing carbohydrates at today's visit ASA Therapy: - patient currently on aspirin Statin Therapy: - currently on a statin Medication Management: - a reassessment of the patients current diagnoses, medications, labs, potential SE, appropriate dose and risks assessed and discussed today Atherosclerosis of aorta 10/11/2022 Overview (12/11/2023): 01/24/22 CT Abd/Pel On ASA and statin. Polyarthralgia 03/08/2022 Aortic valve disease 06/26/2021 Bulging lumbar disc 06/22/2021 Palpitations 02/19/2021 Coronary artery disease invo lving coronary bypass graft of iroquois heart without angina pectoris 01/02/2012 Overview (12/11/2023): On ASA, Statin, BB, CCB and Arb S/P CABG x 3 10/31/2011 Primary hypertension 10/31/2011 Overview (12/11/2023): BP Readings from Last 3 Encounters: 12/11/23 138/80 07/18/23 120/80 05/27/23 126/80 Controlled on Losartan, Toprol and Norvasc Murmur, heart 10/31/2011 Post-menopausal bleeding 01/07/2011 Resolved Problems Problem Noted Date Diagnosed Date Resolved Date Acute cystitis with hematuria 09/05/2024 09/16/2024 Assessment & Plan (09/16/2024 10:41 AM EST): Continue remaining course of antibiotics follow-up with urology AMARI (acute kidney injury) 09/01/2024 Assessment & Plan (09/16/2024 10:41 AM EST): Orders: BASIC METABOLIC PANEL; Future BASIC METABOLIC PANEL Follow-up AMARI with BMP per above. -Given her recent AMARI and UTI as well as urinary retention symptoms will discontinue her Farxiga and transition/add on long-acting insulin to help better control her glucose. -Follow-up with urology for [place] catheter removal. Palpitations 03/08/2024 03/11/2024 Acute gastroenteritis 03/08/20242023 Acute cystitis 03/08/2024 03/11/2024 Urinary tract infection asso ciated with indwelling urethral catheter 01/23/2022 03/17/2023 Overview (01/23/2022): Added automatically from request for surgery [id number] Lumbar pain 06/22/2021 10/14/2022 SOB (shortness of breath) 02/19/2021 Encounters Date Type Department Care Team Description 05/16/2025 9:56 AM EDT - 05/16/2025 11:59 PM EDT Hospital Encounter [facility] Ultrasound [address] [place] [address] Sarah Ortega PA-C Lower urinary tract infection Discharge Disposition: Home or Self Care 04/12/2025 1:00 PM EDT Office Visit [facility] [address] [facility] [place] [address] [place] [address] Perez Matthew Ud, MD AMARI (acute kidney injury) (Primary Dx); Stage 3b chronic kidney disease (HCC); Bladder dysfunction; Hydronephrosis, unspecified hydronephrosis type; Primary hypertension; Metabolic bone disease 04/11/2025 9:40 AM EDT Clinical Support [facility] [place] [address] [place] [address] Daphne Jaime Stage 3b chronic kidney disease (HCC); Vitamin D deficiency 04/11/2025 Refill [facility] [address] [place] [address] Reg Narayanan MD Medication Refill 04/08/2025 11:13 AM EDT Anesthesia Event [facility] [place] [address] Ann Mack MD Zehnder, Wende, APRN 04/08/2025 10:50 AM EDT - 04/08/2025 11:55 AM EDT Surgery [facility] [place] [address] Alex Hanson MD CYSTOSCOPY WITH BLADDER BIOPSY AND FULGURATION 04/08/2025 8:50 AM EDT - 04/08/2025 12:54 PM EDT Hospital Encounter [facility] SAME DAY SURGERY [facility] [place] [address] Alex Hanson MD Hydronephrosis, unspecified hydronephrosis type Discharge Disposition: Home or Self Care 04/08/2025 Telephone [facility] [place] [address] [place] [address] Reg Narayanan MD Appointment Needed (Appt needed ) 04/08/2025 Travel 03/30/2025 2:39 PM EDT - 03/30/2025 11:59 PM EDT Hospital Encounter [facility] [place] [address] Marycruz Bingham APRN Discharge Disposition: Home or Self Care 03/30/2025 1:36 PM EDT - 03/30/2025 2:38 PM EDT Hospital Encounter [facility] PRE-ADMIT TESTING [facility] [place] [address] Preop testing (Primary Dx); Hypertension, unspecified type; Hydronephrosis, unspecified hydronephrosis type; Chronic kidney disease, unspecified CKD stage Discharge Disposition: Home or Self Care 03/30/2025 Travel 03/29/2025 Orders Only Adult Med [address] [place] [address] [place] [address] Alex Hanson MD Hydronephrosis, unspecified hydronephrosis type (Primary Dx) 03/21/2025 Orders Only [facility] NEPHROLOGY [facility] [address] [facility] [place] [address] Perez Matthew Ud, MD Stage 3b chronic kidney disease (HCC) (Primary Dx); Vitamin D deficiency 03/16/2025 4:30 PM EDT Office Visit [facility] [address] [place] [address] Cristy Hancock MD UTI (urinary tract infection), uncomplicated (Primary Dx); Vaginal yeast infection 03/15/2025 9:16 AM EDT - 03/15/2025 11:59 PM EDT Hospital Encounter [facility] [address] [facility] [place] [address] Sarah Ortega, VANGIE Lower urinary tract infection Discharge Disposition: Home or Self Care 03/08/2025 Refill [facility] [place] [facility] [address] [place] [address] Reg Narayanan MD Medication Refill; Central Patient Navigator Outreach (med refill 100) 03/08/2025 Patient Outreach SEP [facility] [address] [place] [address] Josefina Hilton, [facility] Medication Management (Clinical Rod Bending Machine Operator: hide and skin fleshing machine operator [phone]/) 03/02/2025 Telephone [facility] [address] [address] Yolanda Santacruz, DO Medication Problem 02/28/2025 Refill [facility] [address] [place] [address] Yolanda Santacruz, DO Medication Refill 02/25/2025 9:05 AM EDT - 02/25/2025 11:59 PM EDT Hospital Encounter [facility] IR [facility] [place] [address] Ana Arnett MD Renal artery stenosis Discharge Disposition: Home or Self Care 02/25/2025 Results Follow-Up [facility] SURG NPTFTT [address] [place] [address] Ana Arnett MD IR ANGIOGRAM RENAL BILATERAL SELECTIVE 02/24/2025 10:15 AM EDT Office Visit [facility] SUR[facility] NPTF[facility] [address] [place] [address] Ana Arnett MD Renal artery stenosis (Primary Dx); Atherosclerosis of aorta; Type 2 diabetes mellitus with stage 3b chronic kidney disease, with long-term current use of insulin (HCC); Primary hypertension; Hyperlipidemia, unspecified hyperlipidemia type 02/24/2025 Telephone [facility]ASC SURG NPTFTT [address] [place] [address] Judy Mathews RMA Procedure 02/24/2025 Results Follow-Up [facility] [place] [address] [place] [phone] Reg Narayanan MD HEMOGLOBIN A1C, MICROALBUMIN/CREATINI NE RATIO URINE 02/23/2025 12:45 PM EDT Office Visit [facility] [address] [facility] [place] [address] Perez Matthew Ud, MD AMARI (acute kidney injury) (Primary Dx); Primary hypertension; Stage 3b chronic kidney disease (HCC); Renal artery stenosis; Hyperkalemia; Metabolic bone disease; Anemia due to stage 3b chronic kidney disease (HCC) 02/22/2025 8:20 AM EDT Clinical Support [facility] [place] [address] [place] [address] Daphne Jaime Stage 3a chronic kidney disease (HCC); Vitamin D deficiency; Renal artery stenosis; Type 2 diabetes mellitus with stage 3b chronic kidney disease, with long-term current use of insulin (HCC); Type 2 diabetes mellitus with hyperglycemia, without long-term current use of insulin (HCC) 02/21/2025 Results Follow-Up [facility] GASTRO NPTFTT [address] [place] [address] Ladan Murray MD PATHOLOGY TISSUE REQUEST 02/21/2025 Orders Only [address] [place] [address] Reg Narayanan MD Type 2 diabetes mellitus with stage 3b chronic kidney disease, with long-term current use of insulin (HCC) (Primary Dx) 02/21/2025 Telephone [place] [address] [place] [address] Reg Narayanan MD Appointment Needed (Lab appt ) 02/18/2025 Telephone [facility] GASTRO [facility] [address] [place] [address] Ladan Murray MD Results from Last 3 Months Immunizations Immunization Administration Dates Next Due Influenza High Dose 09/01/2024,09/29/2019,2017 Influenza Vaccine Quadrivalent Adjuvanted 2022 Influenza Vaccine Quadrivalent PF 07/11/2017 Pneumococcal Conjugate Vaccine 13 Valent 018 Pneumococcal Conjugate Vaccine 20 Valent 023 Td (Adult), Absorbed 01/15/1997 Tdap 05/12/2018 Zoster Recombinant 07/29/2023,09/29/2019 Surgical History Surgery Date Site/Laterality Comments HYSTERECTOMY 02/19/2011 Bilateral DAVINCI ROBOTIC TOTAL HYSTERECTOMY - SCIP performed by ALEXANDER WHIPPLE at [facility] MAIN OR CARDIAC SURGERY 06/05/2011 N/A CORONARY ARTERY BYPASS GRAFT - SCIP performed by CRISTY RICHMOND at [facility] MAIN OR CARDIAC CATHETERIZATION COLONOSCOPY 04/23/2022 UPPER GASTROINTESTINAL ENDOSCOPY CYSTOSCOPY 02/12/2022 N/A cystoscopy with bladder biopsy; Surgeon: Christos Hood MD; Location: [facility] MAIN OR; Service: Urology CYSTOSCOPY 02/06/2023 Surgeon: Alex Hanson MD; Location: [facility] OR; Service: Urology CYSTOSCOPY 02/06/2023 Surgeon: Alex Hanson MD; Location: [facility] OR; Service: Urology UPPER GASTROINTESTINAL ENDOSCOPY 05/31/2024 IR ULTRASOUND GUIDED VASCULA R ACCESS 02/25/2025 IR ULTRASOUND GUIDED VASCULAR ACCESS 02/25/2025 Ana Arnett MD [facility] IR IR ANGIOGRAM RENAL LEFT SELECTIVE 02/25/2025 IR ANGIOGRAM RENAL LEFT SELECTIVE 02/25/2025 Ana Arnett MD [facility] IR Medical History Medical History Date Comments Heartburn Hypertension Hyperlipidemia AAA (abdominal aortic aneurysm) CAD (coronary artery disease) Heart murmur Diabetes mellitus (HCC) Urinary incontinence Post-operative nausea and vomiting Colon polyp Kidney stones Self-catheterizes urinary bladder 3 times daily Anemia Family History Medical History Relation Name Comments Heart Disease Brother High Blood Pressure Brother Diabetes Father Heart Disease Father High Blood Pressure Father Diabetes Mother Heart Disease Mother High Blood Pressure Mother Ovarian Cancer Sister 1 Cancer Sister 2 bladder Anesth Problems Neg Hx Relation Name Status Comments Brother Father Mother Sister 1 Sister 2 Social History Tobacco Use Types Packs/Day Years Used Date Smoking Tobacco: Never Smokeless Tobacco: Never Tobacco Cessation:Counseling Given: Not Answered Alcohol Use Standard Drinks/Week Comments No 0 (1 standard drink = 0.6 oz pur e alcohol) [facility] Utilities Answer Date Recorded In the past [...] Date Recorded PHQ-2 Total Score 0 09/02/2024 [facility] Occupational Stress Questionnaire Answer Date [...] things needed for daily living? No 03[facility]08/2022 [facility] IP Transportation Answer D ate [...] on file Sexual Orientation Not on file Obstetrics History Para Term AB IAB SAB Ectopic Multiple Livin g Live Births 1 1 Date Outcome GA Total Labor Labor/2nd/3rd Weight Sex Type Anes PTL Pooja A1 A5 Name Clin Para Last Filed Vital Signs Vital Sign Reading Time Taken Comments Blood Pressure 120/78 04/11/2025 8:54 PM EDT Pulse 75 04/11/2025 8:54 PM EDT Temperature 36.1 C (96.9 F) 04/11/2025 8:54 PM EDT Respiratory Rate 16 04/11/2025 8:54 PM EDT Oxygen Saturation 99% 04/08/2025 12:26 PM EDT Inhaled Oxygen Concentration - - Weight 59.1 kg (130 lb 6.4 oz) 04/11/2025 8:54 P M EDT Height 157.5 cm (5' 2 ) 04/11/2025 8:54 PM EDT Body Mass Index 23.85 04/11/2025 8:54 PM EDT Plan of Treatment Upcoming Encounters Date Type Department Care Team (Late st Contact Info) Description 06/06/2025 9:15 AM EDT Office Visit [facility] [place] [address] [place] [address] Reg Narayanan MD [address] [facility] [place] [address] 07/20/2025 11:30 AM EDT Office Visit [facility] [address] [place] [address] [place] [address] Perez Matthew Ud, MD [address] [place] [address] Health Maintenance Due Date Last Done Comments Cologuard 1997 FIT 1997 Sigmoidoscopy 1997 Virtual Colonography 1997 RSV or 60+ (1 - Risk 60-74 years 1-dose series) 2012 COVID-19 Vaccine ( season) 2024 02/03/2021, 01/06/2021 Influenza Vaccine (#1) 2025 , 07/29/2023, 09/29/2019, Additional history exists Wellness Exam Medicare 07/23/2025 07/22/2024, 2021 Hemoglobin A1c 08/24/2025 02/22/2025, 11/11, 08/30/2024, Additional history exists Lipids 08/30/2025 08/30/2024, 07/11, 07/28/2024, Additional history exists Breast Cancer Screening 12/25/2025 12/25/19, 04/10/2022, 12/05/2020, Additional history exists Kidney Health: uACR 02/22/2026 02/22/2025, 07/28/2024, 07/06/2024, Additional history exists Kidney Health: eGFR 04/11/2026 04/11/2025, 04/08/2025, 03/30/2025, Additional history exists Diabetic Eye Exam 01/31/2027 01/31/2025, 01/20/2023 DTaP/TDaP/Td (2 - Td or Tdap) 05/12/2028 05/12/2018, 01/15/1997 Colon Cancer Screening 04/23/2032 Colonoscopy 04/23/2032 04/23/2022 Bone Density Screening Completed 04/10/2022 Pneumococcal Vaccine 50+ Completed 04/22/2023, 10/10 Hepatitis C Screening Completed 07/18/2023 Zoster Completed 07/29/2023, 09/29/2019 Hepatitis B Vaccine Aged Out No longe r eligible based on patient's age to complete this topic Meningococcal B Vaccine Aged Out No l onger eligible based on patient's age to complete this topic Goals Goal Patient Goal Type Associated Problems [...] 8:23 AM EDT) No Reg Narayanan MD Procedures Procedure Name Priority Date/Time Associated Diagnosis Comments US RETROPERITONEAL COMPLETE Routine 05/16/2025 11:00 AM EDT Lower urinary tract infection URINALYSIS Routine 04/11/2025 9:40 AM EDT Stage 3b chronic kidney disease (HCC) Vitamin D deficiency PROTEIN LEVEL URINE Routine 04/11/2025 9 :40 [...] chronic kidney disease (HCC) Vitamin D deficiency BASIC METABOLIC PANEL Routine 04/08/2025 12:31 PM EDT PATHOLOGY TISSUE REQUEST Routine 04/08/2025 11:29 AM EDT Hydronephrosis, unspecified hydronephrosis type NON-REGULATORY AFFAIRS COORDINATOR CYTOLOGY REQUEST Routine 04/08/2025 11:16 AM EDT Hydronephrosis, unspecified hydronephrosis type CYSTOSCOPY RETROGRADE PYELOGRAM / STENT PLACEMENT 04/08/2025 11:13 AM EDT Hydronephrosis, unspecified hydronephrosis type Special Needs [facility] CYSTOSCOPY WITH BLADDER BIOPSY AND FULGURATION 04/08/2025 11:13 AM EDT Hydronephrosis, unspecified hydronephrosis type Special Needs [facility] INTRAOP AIRWAY PLACEMENT Routine 04/08/2025 11:13 AM EDT GLUCOSE METER POC Routine 04/08/2025 10:06 AM EDT BASIC METABOLIC PANEL Routine 03/30/2025 2:48 PM EDT Preop testing Hypertension, unspecified type Hydronephrosis, unspecified hydronephrosis type Chronic kidney disease, unspecified CKD stage EK EKG 12 LEAD STAT 03/30/2025 2:39 PM EDT Preop testing Hypertension, unspecified type Hydronephrosis, unspecified hydronephrosis type Chronic kidney disease, unspecified CKD stage POCT URINALYSIS DIPSTICK Routine 03/16/2025 4:39 PM EDT UTI (urinary tract infection), uncomplicated URINE CULTURE (NO STAIN) Routine 03/16/2025 4:38 PM EDT UTI (urinary tract infection), uncomplicated US RENAL AND BLADDER Routine 03/15/2025 9:49 AM EDT Lower urinary tract infection IR ANGIOGRAM RENAL LEFT SELECTIVE Routine 02/25/2025 11:33 AM EDT Renal artery stenosis IR ULTRASOUND GUIDED VASCULAR ACCESS Routine 02/25/2025 11:33 AM EDT Renal artery stenosis URINALYSIS Routine 02/22/2025 8:34 AM EDT Stage 3a chronic kidney disease (HCC) Vitamin D deficiency PROTEIN LEVEL URINE Routine 02/22/2025 8 :34 AM EDT Stage 3a chronic kidney disease (HCC) Vitamin D deficiency CREATININE LEVEL URINE Routine 02/22/2025 8:34 AM EDT Stage 3a chronic kidney disease (HCC) Vitamin D deficiency MICROALBUMIN/CREATINI NE RATIO URINE Routine 02/22/2025 8:34 AM EDT Type 2 diabetes mellitus with hyperglycemia, without long-term current use of insulin (HCC) HEMOGLOBIN A1C Routine 02/22/2025 8:23 AM EDT Type 2 diabetes mellitus with stage 3b chronic kidney disease, with long-term current use of insulin (HCC) VITAMIN D 25 HYDROXY Routine 02/22/2025 8:23 AM EDT Stage 3a chronic kidney disease (HCC) Vitamin D deficiency URIC ACID Routine 02/22/2025 8:23 AM EDT Stage 3a chronic kidney disease (HCC) Vitamin D deficiency RENAL FUNCTION PANEL Routine 02/22/2025 8:23 AM EDT Stage 3a chronic kidney disease (HCC) Vitamin D deficiency PARATHYROID HORMONE INTACT Routine 02/22/2025 8:23 AM EDT Stage 3a chronic kidney disease (HCC) Vitamin D deficiency CBC WITH DIFF Routine 02/22/2025 8:23 AM EDT Stage 3a chronic kidney disease (HCC) Vitamin D deficiency HM DIABETES EYE EXAM Routine 01/31/2025 2:46 PM EDT LIPID PANEL REFLEX Routine 08/30/2024 3: 48 PM EDT Type 2 diabetes mellitus with hyperglycemia, without long-term current use of insulin (HCC) Microalbuminuric diabetic nephropathy (HCC) Encounter for Medicare annual wellness exam MM MAMMO DIGITAL NIYAH SCREEN BILAT Routine 12/25/2023 3:12 PM EST Encounter for screening mammogram for breast cancer HCV ANTIBODY SCREEN W/ REFLEX Routine 07/18/2023 1:17 PM EDT Need for hepatitis C screening test DX BONE DENSITY AXIAL SKELETON Routine 04/10/2022 11:38 AM EDT Postmenopausal status (age-related) (natural) from Last 3 Months or Most Recently Relevant to Health Maintenance Results * US RETROPERITONEAL COMPLETE (05/16/2025 11:00 [...] CLINICAL HISTORY: N39.0-Urinary tract infection, site not [id number]. COMPARISON: Renal ultrasound 03/15/2025 PROCEDURE COMMENTS: Routine sonographic evaluation of the kidneys and bladder with patient registration representative images and belt worker notes sent to PACS for radiologist review. [...] AM CLINICAL HISTORY: N39.0-Urinary tract infection, site [id number]. COMPARISON: Renal ultrasound 03/15/2025 PROCEDURE COMMENTS: Routine sonographic evaluation of the kidneys andbladder with patient registration representative images and belt worker notes sent to PACS forradiologist review. FINDINGS: [...] office of the ordering clinician. us Sarah TRINIDAD US ORDERABLES Final Result * PROTEIN LEVEL URINE (04/11/2025 9:40 AM EDT) Only the most recent of2 resultswithin the time period is included. Urine Protein 87.1 mg/dL 04/11/2025 3:14 PM EDT [facility] Urine STRUCTURE OF URINARY TRACT PROPER / Unknown 04/11/2025 9:40 AM EDT 04/11/2025 9:40 AM EDT Perez Nichols MD URINE ORDERABLES Final R esult Performing Organization Address City/[facility] Co de Phone Number [facility] [address] [place] [address] , [place] [address] * CREATININE LEVEL URINE (04/11/2025 9:40 AM EDT) Only the most recent of2 resultswithin the time period is included. Urine Creatinine 50.1 mg/dL 04/11/2025 3:14 PM EDT [facility] Urine STRUCTURE OF URINARY TRACT PROPER / Unknown 04/11/2025 9:40 AM EDT 04/11/2025 9:40 AM EDT Perez Nichols MD URINE ORDERABLES Final R esult [facility] [address] [place] [address] , [address] [place], [place] [id number] * (ABNORMAL) URINALYSIS (04/11/2025 9:40 AM EDT) Only the most recent of2 resultswithin the time period is included. UA Color Light Yellow 04/11/2025 2:50 PM [...] Mucus Trace /LPF 04/11/2025 2:50 PM EDT [facility] [employer] Urine STRUCTURE OF URINARY TRACT PROPER / Unknown 04/11/2025 9:40 AM EDT 04/11/2025 9:40 AM EDT Perez Nichols MD URINE ORDERABLES Final R esult Performing Organization Address [facility] de Phone Number [facility] [employer] [address] , [place] [address] * (ABNORMAL) VITAMIN D 25 HYDROXY (04/11/2025 9:29 AM EDT) Only the most recent of2 resultswithin the time period is included. Vit D 25 OH 20.6(L) 30.0 - 150.0 ng/mL 04/11/2025 5:24 PM EDT [facility] [employer] [facility] Comment: Preferred: >= 30 ng/mL Insufficient: 21-29 [...] ORDERABLES Fin al Result Performing Organization Address [facility] de Phone Number [facility] [employer] [address] , [place] [address] * (ABNORMAL) CBC WITH DIFF (04/11/2025 9:29 AM EDT) Only the most recent of2 resultswithin the time period is included. Pathologist [facility] [place] WBC 8.4 3.7 - 10.3 x10(3)/mcL 04/11/2025 2:59 PM EDT [facility] [employer], [employer] RBC 4.02 3.90 - 5.20 x10(6)/mcL 04/11/2025 [...] 2:59 PM EDT [facility] Comment:Neutrophils equals s egs plus bands Imm Gran% 0.5 % 04/11/2025 2:59 PM EDT [facility] Comment:Automated count of m etamyelocytes, myelocytes and promyelocytes. Lymph Percent 16.9 % 04/11/2025 2:59 PM EDT [facility] [place] Percent 10.8 % 04/11/2025 2:59 PM EDT [facility] Eos Percent 1.9 % 04/11/2025 2:59 PM EDT [facility] Baso Percent 0.7 % 04/11/2025 2:59 PM EDT [facility] Neut # 5.8 1.6 - 6.1 x10(3)/mcL 04/11/2025 2:59 PM EDT [facility] Comment:Neutrophils equals s egs plus bands IMMGRAN# 0.0 0.0 - 0.1 x10(3)/mcL 04/11/2025 2:59 PM EDT [facility] [employer], [facility] Comment:Automated count of m etamyelocytes, myelocytes and promyelocytes. An absolute IG <0.1 is reported as 0.0. Lymph # 1.4 1.2 - 3.9 x10(3)/[facility] 04/11/2025 2:59 PM EDT [facility] [employer], [facility] [place] # 0.9 0.3 - 0.9 x10(3)/[facility] 04/11/2025 2:59 PM EDT [facility] [employer], [facility] Eos# 0.2 0.0 - 0.5 x10(3)/[facility] 04/11/2025 2:59 PM EDT [facility], [facility] Baso # 0.1 0.0 - 0.1 x10(3)/[facility] 04/11/2025 2:59 PM EDT [facility] [employer], [facility] Blood VENOUS BLOOD / Unknown Venipuncture / Unknown 04/11/2025 9:29 AM EDT 04/11/2025 9:29 AM EDT Perez Nichols MD HEMATOLOGY ORDERABLES Fi nal Result Performing Organization Address City/[facility]/ZIP Co de Phone Number [facility] [employer] [address] , [facility] [place] [address] * (ABNORMAL) URIC ACID (04/11/2025 9:29 AM EDT) Only the most recent of2 resultswithin the time period is included. Uric Acid 7.5(H) 2.4 - 5.7 mg/dL 04/11/2025 5:14 PM EDT [facility] [employer], [facility] Blood VENOUS BLOOD / Unknown Venipuncture / Unknown 04/11/2025 9:29 AM EDT 04/11/2025 9:29 AM EDT Perez Nichols MD CHEMISTRY ORDERABLES Fin al Result Performing Organization Address City/[facility]/ZIP Co de Phone Number [facility] [employer], [address] , [place] [address] * PARATHYROID HORMONE INTACT (04/11/2025 9:29 AM EDT) Only the most recent of2 resultswithin the time period is included. PTH Intact 52.90 15.00 - 65.00 pg/mL 04/11/2025 3:44 PM EDT [facility] Blood VENOUS BLOOD / Unknown Venipuncture / Unknown 04/11/2025 9:29 AM EDT 04/11/2025 9:29 AM EDT Narrative [facility] - 04/11/2025 3:44 PM EDT Intact PTH [...] immunoassay test. Perez Nichols MD CHEMISTRY ORDERABLES [facility] al Result [facility] [address] [facility] , [place] [address] * (ABNORMAL) RENAL FUNCTION PANEL (04/11/2025 9:29 AM EDT) Only the most recent of2 resultswithin the time period is included. Pathologist [facility] [place] Sodium 136 136 - 145 mmol/L 04/11/2025 5:14 PM EDT [facility] Potassium 4.6 3.5 - 5.0 mmol/L 04/11/2025 5:14 PM EDT [facility] Chloride 102 98 - 107 mmol/L 04/11/2025 5:14 PM EDT [facility], [facility] Total CO2 23 22 - 29 mmol/L 04/11/2025 5:14 PM EDT [facility], [facility] Anion Gap 11 7 - 16 mmol/L 04/11/2025 5:14 PM EDT [facility], [facility] Calcium 10.7(H) 8.8 - 10.4 mg/dL 04/11/2025 5:14 PM EDT [facility] Glucose Lvl 204(H) 70 - 99 mg/dL 04/11/2025 5:14 PM EDT [facility], [facility] BUN 44(H) 8 - 23 mg/dL 04/11/2025 5:14 PM EDT [facility], [facility] Creatinine 1.79(H) 0.51 - 1.30 mg/dL 04/11/2025 5:[address] [facility], [facility] Albumin 4.3 3.2 - 4.6 gm/dL 04/11/2025 5:14 PM EDT [facility], [facility] Phosphorus 3.4 2.5 - 4.5 mg/dL 04/11/2025 5:[address] [facility], [facility] eGFR (CKD-EPIcr 2020) 30(L) >=60 mL/min/1.7 3 m2 04/11/2025 5:[address] [facility], [facility] Comment:Estimated GFR was ca lculated using the CKD-EPIcr (2020) equation refit without race. The equation is recommended by the National Kidney Foundation - [place] [employer] of Nephrology Task Force. Blood VENOUS BLOOD / Unknown Venipuncture / Unknown 04/11/2025 9:29 AM EDT 04/11/2025 9:29 AM EDT us Perez Nichols MD CHEMISTRY ORDERABLES Fin al Result [facility], [facility] [address] [facility] , [place] [address] * (ABNORMAL) BASIC METABOLIC PANEL (04/08/2025 12:31 PM EDT) Only the most recent of2 resultswithin the time period is included. [facility] Signature Sodium 136 136 - 145 mmol/L 04/08/2025 [...] 04/08/2025 1:15 PM EDT [facility], [facility] Comment:Estimated GFR was ca lculated using the CKD-EPIcr (2020) equation refit without race. The equation is recommended by the National Kidney [employer] - [place] [employer] of Nephrology Task Force. Blood VENOUS BLOOD / Unknown Venipuncture / Unknown 04/08/2025 12:31 PM EDT 04/08/2025 12:46 PM EDT us Alex Hanson MD CHEMISTRY ORDERABLES Final Resul t [facility], [facility] [address] [facility] , [place] [address] * PATHOLOGY TISSUE REQUEST (04/08/2025 11:29 AM EDT) CASE REPORT Surgical Pathology Case: [id number] Authorizing Provider: Alex Hanson MD Collected: 04/08/2025 1129 Ordering Location: [facility] Received: 04/08/2025 1405 Pathologist: Jaleesa Barboza MD Specimen: Bladder, Urinary, bladder dome biopsies 04/11/2025 10:49 AM EDT [facility] FINAL DIAGNOSIS Bladder dome, biopsy: - Fragments of urothelium with squamous metaplasia and moderate acute and chronic inflammation. - Fragment of inflamed granulation tissue. - Negative for malignancy. 04/11/2025 10:49 AM EDT [facility] at 1049 EDT GROSS DESCRIPTION The [...] Velasquez PA(ASCP) 04/08/2025 04/11/2025 10:49 AM EDT [facility] MICROSCOPIC DESCRIPTION The microscopic examination may have been rendered in whole, or in part, by analyzing high-resolutio n digital images (whole slide images) on the [employer] Digital Pathology platform validated at [facility]. 04/11/2025 10:49 AM EDT [facility] EMBEDDED IMAGES 04/11/2025 10:49 AM EDT [facility] Tissue URINARY BLADDER STRUCTURE / Unknown 04/08/2025 11:29 AM EDT 04/08/2025 2:05 PM EDT us Alex Hanson MD PATHOLOGY ORDERABLES Final Resul t [facility] [address] [place] [address] [facility] [address] [place] [address] * NON-REGULATORY AFFAIRS COORDINATOR CYTOLOGY REQUEST (04/08/2025 11:16 AM EDT) CASE REPORT Non-gynecologic Cytology Case: [id number] Authorizing Provider: Alex Hanson MD Collected: 04/08/2025 1116 Ordering Location: ED SURGERY Received: 04/08/2025 1239 Pathologist: Salena Palomo MD Specimen: Urine, Clean Catch, urine for cytology 04/11/2025 2:17 PM EDT [facility] NON-REGULATORY AFFAIRS COORDINATOR CYTOLOGY FINAL DIAGNOSIS Urine: - Negative for high-grade urothelial carcinoma. - Abundant acute inflammatory cells. 04/11/2025 2:17 PM EDT [facility] at 1417 EDT EMBEDDED IMAGES 04/11/2025 2:17 PM EDT [facility] MICROSCOPIC DESCRIPTION Microscopic examination is performed and the findings corroborate the diagnosis. 04/11/2025 2:17 PM EDT [facility] Gross Description Urine, Rec'd 70ml of yellow fluid. (TP) Gross description has been reviewed by screening laborer shaft sinking. 04/11/2025 2:17 PM EDT [facility] Urine STRUCTURE OF URINARY TRACT PROPER / Unknown 04/08/2025 11:16 AM EDT 04/08/2025 12:39 PM EDT us Alex Hanson MD CYTOLOGY ORDERABLES Final Result Performing Organization Address [facility]/ZIP Co de Phone Number [facility] [address] [place] [address] * INTRAOP AIRWAY PLACEMENT (04/08/2025 11:13 AM EDT) Narrative [facility] - 04/08/2025 11:13 AM EDT Ayad Contreras CRNA 04/08/2025 11:24 AM Intraop Airway Placement: Date/Time: 04/08/2025 11:13 AM Induction type: IV Pre-Oxygenation: Standard Mask ventilation: Not attempted Airway type: Nasal cannula salter us Ann Mack MD MS ANESTHESIA Final Result Performing Organization Address [facility] Co de Phone Number [facility] [address] [place] [address] * (ABNORMAL) GLUCOSE METER POC (04/08/2025 10:06 AM EDT) Glucose Meter POC 205(H) 70 - 100 mg/dL 04/08/2025 10:08 AM EDT [facility] Sample Type Capillary 04/08/2025 10:08 AM EDT [facility] Patient Status Non-Critical Patient 04/08/2025 10:08 AM EDT [facility] Blood BLOOD SPECIMEN / Unknown 04/08/2025 10:06 AM EDT 04/08/2025 10:08 AM EDT us Alex Hanson MD POINT OF CARE TEST ORDERABLES Fi nal Result [facility] [address] [place] [address] * EK EKG 12 LEAD (03/30/2025 2:39 PM EDT) Anatomical Region Laterality Modality Electrocardiogra phy 03/30/2025 2:40 PM EDT Impressions 03/31/2025 9:[address] [facility] Test Date: 2025-03-30 Pat Name: ABRAHAN Department: DEPID Room: Gender: Female Forgesmith: : 1950 Requested By: MARYCRUZ BINGHAM Order Number: [id number] Reading MD: Nitesh Tom Measurements Intervals [place] Rate: 71 P: 58 MS: 140 QRS: 47 QRSD: 88 T: 24 QT: 364 QTc: 398 Interpretive Statements SINUS RHYTHM NO PREVIOUS ECG Electronically Signed On 03-31-2025 09:42:50 EDT by Nitesh Tom Narrative Procedure Note Nitesh Tom MD - 03/31/[address] Test Date: 2025-03-30 Pat Name: ABRAHAN WILKINSON Department: DEPID Room: Gender: Female Forgesmith: : 1950 Requested By: MARYCRUZ BINGHAM Order Number: [id number] Reading MD: Nitesh Tom Measurements Intervals [place] Rate: 71 P: 58 MS: 140 QRS: 47 QRSD: 88 T: 24 QT: 364 QTc: 398 Interpretive Statements SINUS RHYTHM NO PREVIOUS ECG Electronically Signed On 03-31-2025 09:42:50 EDT by Nitesh Tom Marycruz Bingahm JAVA TECH LEAD IMG ECG ORDERABLES Final Resu lt * POCT URINALYSIS DIPSTICK (03/16/2025 4:39 PM EDT) Color, UA pink CLEAR,YELL OW,ORANGE, RUST SEP OFFICE Clarity, UA cloudy CLEAR,CLOU DY SEP OFFICE Glucose, UA trace G/DL% SEP OFFICE Bilirubin, UA neg POS/NEG SEP OFFICE Ketones, UA neg POS/NEG SEP vest maker Grav, UA 1.020 1.001 - 1.035 G/DL SEP OFFICE Blood, UA large POS/NEG SEP OFFICE pH, UA 5.0 5.0 - 8 SEP OFFICE Protein, UA large POS/NEG SEP OFFICE Urobilinogen, UA neg 0.2 - 1.0 MG/DL SEP OFFICE Nitrite, UA neg POS/NEG SEP OFFICE Leukocytes, UA large POS/NEG SEP OFFICE UA Appear POC SEP OFFICE Lot Number SEP OFFICE Expiration Date SEP OFFICE SeriAl # SEP OFFICE Urine 03/16/2025 4:39 PM EDT Cristy Hancock MD POINT OF CARE TEST ORDERABL ES Final Result SEP OFFICE * (ABNORMAL) URINE CULTURE (NO STAIN) (03/16/2025 4:38 PM EDT) Culture Positive Growth(A) 03/19/2025 10:38 AM EDT [facility] Culture >100,000 CFU/mL Escherichia coli SUSCEPTIBI LITY RESULT 03/19/2025 10:38 AM EDT [facility], [employer] Urine STRUCTURE OF URINARY TRACT PROPER / Unknown 03/16/2025 4:38 PM EDT 03/16/2025 4:38 PM EDT Narrative Organism Antibiotic Method Susceptibility Escherichia coli Amikacin SUSCEPTIBILITY RESULT Escherichia coli Amoxicillin/Clavulanate SUSCEPTIBILIT Y RESULT <=8/4 ug/mL: Susceptible Escherichia coli Ampicillin SUSCEPTIBILITY RESULT <=8 ug/mL: Susceptible Escherichia coli Ampicillin/Sulbactam SUSCEPTIBILITY R ESULT <=4/2 ug/mL: Susceptible Escherichia coli Aztreonam SUSCEPTIBILITY RESULT <=4 ug/mL: Susceptible Escherichia coli Cefazolin SUSCEPTIBILITY RESULT <=2 ug/mL: Susceptible Escherichia coli Cefepime SUSCEPTIBILITY RESULT Escherichia coli Cefotaxime SUSCEPTIBILITY RESULT Escherichia coli Cefoxitin SUSCEPTIBILITY RESULT <=8 ug/mL: Susceptible Escherichia coli Ceftazidime SUSCEPTIBILITY RESULT Escherichia coli Ceftazidime/Avibactam SUSCEPTIBILITY RESULT Escherichia coli Ceftolozane/Tazobactam SUSCEPTIBILITY RESULT Escherichia coli Ceftriaxone SUSCEPTIBILITY RESULT Escherichia coli Cefuroxime SUSCEPTIBILITY RESULT Escherichia coli Ciprofloxacin SUSCEPTIBILITY RESULT <=0.25 ug/mL: Susceptible Escherichia coli Ertapenem SUSCEPTIBILITY RESULT <=0.5 ug/mL: Susceptible Escherichia coli Gentamicin SUSCEPTIBILITY RESULT <=2 ug/mL: Susceptible Escherichia coli Imipenem SUSCEPTIBILITY RESULT <=1 ug/mL: Susceptible Escherichia coli Levofloxacin SUSCEPTIBILITY RESULT <=0.5 ug/mL: Susceptible Escherichia coli Meropenem SUSCEPTIBILITY RESULT <=1 ug/mL: Susceptible Escherichia coli Meropenem/Vaborbactam SUSCEPTIBILITY RESULT Escherichia coli Minocycline SUSCEPTIBILITY RESULT Escherichia coli Moxifloxacin SUSCEPTIBILITY RESULT Escherichia coli Nitrofurantoin SUSCEPTIBILITY RESULT <=32 ug/mL: Susceptible Escherichia coli Piperacillin/Tazobactam SUSCEPTIBILIT Y RESULT <=8 ug/mL: Susceptible Escherichia coli Tetracycline SUSCEPTIBILITY RESULT <=4 ug/mL: Susceptible Escherichia coli Tigecycline SUSCEPTIBILITY RESULT Escherichia coli Tobramycin SUSCEPTIBILITY RESULT <=2 ug/mL: Susceptible Escherichia coli Trimethoprim/Sulfame tho xazole SUSCEPTIBILITY RESULT <=0.5/9.5 ug/mL: Susceptible us Cristy Hancock MD MICROBIOLOGY - GENERAL [place] Final Result [facility], [address] , [place] [address] * US RENAL AND BLADDER (03/15/2025 9:49 AM EDT) Anatomical Region Laterality Modality Abdomen, Pelvis Ultrasound 03/15/2025 9:49 AM EDT Impressions 03/15/2025 12:12 PM EDT 1. Severe left and moderate right hydronephrosis. 2. Irregular and thickened urinary bladder wall with indeterminate 2.4 cm echogenic focus involving the anterior urinary bladder wall. Bladder mass is not excluded. Recommend further assessment with cystoscopy versus CT urogram. - Note: Radiology results need to be interpreted within a comprehensive clinical context. If you have questions about the radiology report, please contact the office of the ordering clinician. Narrative 03/15/2025 12:12 PM EDT US KIDNEYS AND BLADDER, 03/15/2025 9:49 AM CLINICAL HISTORY: N39.0-Urinary tract infection, site not [id number]. COMPARISON: Renal ultrasound examinations, most recently 09/10/[address] abdomen and pelvis without IV contrast 07/15/2023 PROCEDURE COMMENTS: Routine sonographic evaluation of the kidneys and bladder with patient registration representative images and belt worker notes sent to PACS for radiologist review. FINDINGS: RIGHT: 11.2 x 8.2 x 4.8 cm. No solid-appearing mass or shadowing stone. Moderate right hydronephrosis. LEFT: 10.6 x 7.2 x 5.9 cm. No solid-appearing mass or shadowing stone. Severe left hydronephrosis with dilated left ureter. PELVIS: Urinary bladder wall is irregular and thickened. Additionally, there is an indeterminate ovoid echogenic focus involving the anterior urinary bladder wall measuring 2.4 x 1.5 cm. Bladder mass is not excluded. Procedure Note Josue Rice MD - 03/15/2025 US KIDNEYS AND BLADDER, 03/15/2025 9:49 AM CLINICAL HISTORY: N39.0-Urinary tract infection, site [id number]. COMPARISON: Renal ultrasound examinations, most recently 09/10/2024 andCT abdomen and pelvis without IV contrast 07/15/2023 PROCEDURE COMMENTS: Routine sonographic evaluation of the kidneys andbladder with patient registration representative images and belt worker notes sent to PACS forradiologist review. FINDINGS: RIGHT: 11.2 x 8.2 x 4.8 cm. No solid-appearing mass or shadowingstone. Moderate right hydronephrosis. LEFT: 10.6 x 7.2 x 5.9 cm. No solid-appearing mass or shadowing stone.Severe left hydronephrosis with dilated left ureter. PELVIS: Urinary bladder wall is irregular and thickened. Additionally,there is an indeterminate ovoid echogenic focus involving the anterior urinarybladder wall measuring 2.4 x 1.5 cm. Bladder mass is not excluded. IMPRESSION: 1. Severe left and moderate right hydronephrosis. 2. Irregular and thickened urinary bladder wall with indeterminate 2.4cm echogenic focus involving the anterior urinary bladder wall. Bladder massis not excluded. Recommend further assessment with cystoscopy versus CTurogram. - Note: Radiology results need to be interpreted within a comprehensiveclinical context. If you have questions about the radiology report, please contactthe office of the ordering clinician. us Sarah Ortega PA-C [employer] US ORDERABLES Final Result * IR ULTRASOUND GUIDED VASCULAR ACCESS (02/25/2025 11:33 AM EDT) Anatomical Region Laterality Modality Interventional R adiology Narrative 02/25/2025 11:48 AM EDT ANGIOGRAPHY REPORT PATIENT NAME: Abrahan Wilkinson MR #: [id number] : 1950 DATE OF PROCEDURE: 02/25/2025 PREOPERATIVE DIAGNOSES: Renal artery stenosis, declining renal function POSTOPERATIVE DIAGNOSES: Same PROCEDURE PERFORMED: 1. Right common femoral artery US-guided access 2. Angiogram of the abdominal aorta and bilateral iliac arteries. 3. Selective catheter placement into the left renal artery Mynx closure (5 Fr) SURGEON: Ana Arnett MD ANESTHESIA: Local anesthesia with moderate sedation; Versed and Fentanyl (26 min) FLUOROSCOPY: Dose: 346 mGy, Time: 2.6 min CONTRAST: 27 ml of [id number] ESTIMATED BLOOD LOSS: 10 mL SPECIMENS: None COMPLICATIONS: None FINDINGS: Access site was widely patent with mild disease Widely patent infrarenal aorta and bilateral renal arteries. Widely patient superior mesenteric artery Widely patent bilateral common, internal and external iliac arteries. Widely patent right common femoral artery, profunda and proximal SFA. INDICATIONS: Abrahan Wilkinson is a 74 y.o. female with declining renal function and renal artery stenosis seen on arterial duplex. Angiogram with intervention was advised. Risks (including bleeding, infection, injury to the vessel resulting in thrombosis or distal embolization, contrast nephropathy, as well as cardiopulmonary complications), benefits and alternatives were discussed at length with the patient, and all questions were answered. Informed consent was signed. PROCEDURE DETAILS: The patient was brought to the IR suite, identified and placed supine on the table. The procedure sites were prepped and draped in a sterile fashion. Time out was performed. Conscious sedation was administered under continuous pulse oximetry and BP monitoring. Under ultrasound guidance, lidocaine was injected over the access site before accessing the right common femoral artery using a micropuncture needle. Ultrasound showed a patent vessel, the puncture site was visualized and image was retained. The needle was exchanged over a guidewire for the micropuncture sheath. The small sheath was then exchanged over a guidewire for an 11 cm 5 Fr sheath, through which an access site angiogram showed no access related complications. Next, Bentson wire and Omniflush catheter were advanced to the abdominal aorta, and an aortoiliac angiogram was performed. See findings above. Over the guidewire, Omniflush catheter was advanced to the abdominal aorta and an aortoiliac angiogram was performed. See findings above. The left renal artery was selected for better visualization and multiple angiograms were performed. Radiographic supervision and interpretation was performed on all angiograms. Based on the angiographic findings, the decision was made to not perform an intervention as none was indicated. The wire and catheter were removed. The sheath was then removed as a 5 Fr Mynx closure device was successfully deployed. Gentle manual pressure was held to assure hemostasis. Sterile dressing was applied to the access site. The patient tolerated the procedure well with no immediate complications. I was present and scrubbed for the entire procedure. The patient was then safely transferred to the recovery area in stable condition after the procedure. SUMMARY: Diagnostic angiogram with no intervention. Widely patent renal arteries with no significant stenosis. RECOMMENDATIONS: Bed rest for 2 hours. Follow up with Nephrology. Signed: Ana Arnett MD Ana Arnett MD [facility] IR ORDERABLES Final Result * IR ANGIOGRAM RENAL LEFT SELECTIVE (02/25/2025 11:33 AM EDT) Anatomical Region Laterality Modality Interventional R adiology Narrative 02/25/2025 11:48 AM EDT ANGIOGRAPHY REPORT PATIENT NAME: Abrahan Wilkinson MR #: [id number] : 1950 DATE OF PROCEDURE: 02/25/2025 PREOPERATIVE DIAGNOSES: Renal artery stenosis, declining renal function POSTOPERATIVE DIAGNOSES: Same PROCEDURE PERFORMED: 1. Right common femoral artery US-guided access 2. Angiogram of the abdominal aorta and bilateral iliac arteries. 3. Selective catheter placement into the left renal artery Mynx closure (5 Fr) SURGEON: Ana Arnett MD ANESTHESIA: Local anesthesia with moderate sedation; Versed and Fentanyl (26 min) FLUOROSCOPY: Dose: 346 mGy, Time: 2.6 min CONTRAST: 27 ml of IsoVue-370 ESTIMATED BLOOD LOSS: 10 mL SPECIMENS: None COMPLICATIONS: None FINDINGS: Access site was widely patent with mild disease Widely patent infrarenal aorta and bilateral renal arteries. Widely patient superior mesenteric artery Widely patent bilateral common, internal and external iliac arteries. Widely patent right common femoral artery, profunda and proximal SFA. INDICATIONS: Abrahan Wilkinson is a 74 y.o. female with declining renal function and renal artery stenosis seen on arterial duplex. Angiogram with intervention was advised. Risks (including bleeding, infection, injury to the vessel resulting in thrombosis or distal embolization, contrast nephropathy, as well as cardiopulmonary complications), benefits and alternatives were discussed at length with the patient, and all questions were answered. Informed consent was signed. PROCEDURE DETAILS: The patient was brought to the IR suite, identified and placed supine on the table. The procedure sites were prepped and draped in a sterile fashion. Time out was performed. Conscious sedation was administered under continuous pulse oximetry and BP monitoring. Under ultrasound guidance, lidocaine was injected over the access site before accessing the right common femoral artery using a micropuncture needle. Ultrasound showed a patent vessel, the puncture site was visualized and image was retained. The needle was exchanged over a guidewire for the micropuncture sheath. The small sheath was then exchanged over a guidewire for an 11 cm 5 Fr sheath, through which an access site angiogram showed no access related complications. Next, Bentson wire and Omniflush catheter were advanced to the abdominal aorta, and an aortoiliac angiogram was performed. See findings above. Over the guidewire, Omniflush catheter was advanced to the abdominal aorta and an aortoiliac angiogram was performed. See findings above. The left renal artery was selected for better visualization and multiple angiograms were performed. Radiographic supervision and interpretation was performed on all angiograms. Based on the angiographic findings, the decision was made to not perform an intervention as none was indicated. The wire and catheter were removed. The sheath was then removed as a 5 Fr Mynx closure device was successfully deployed. Gentle manual pressure was held to assure hemostasis. Sterile dressing was applied to the access site. The patient tolerated the procedure well with no immediate complications. I was present and scrubbed for the entire procedure. The patient was then safely transferred to the recovery area in stable condition after the procedure. SUMMARY: Diagnostic angiogram with no intervention. Widely patent renal arteries with no significant stenosis. RECOMMENDATIONS: Bed rest for 2 hours. Follow up with Nephrology. Signed: Aan Arnett MD Ana Arnett MD IMG IR ORDERABLES Edited Resul t - Final * (ABNORMAL) MICROALBUMIN/CREATININE RATIO URINE (02/22/2025 8:34 AM EDT) Urine Microalb 126.2 mg/L 02/22/2025 5:24 PM EDT [facility] Urine Creatinine 24.7 mg/dL 02/22/2025 5:24 PM EDT [facility] Ur Microalb/Creat 511(H) 0 - 30 mg/g 02/22/2025 5:24 PM EDT [facility] Urine STRUCTURE OF URINARY TRACT PROPER / Unknown 02/22/2025 8:34 AM EDT 02/22/2025 8:34 AM EDT Reg Narayanan MD URINE ORDERABLES Final Result [facility] [address] [place] [address], [place] [address] [facility] [address] [place] [id number] * (ABNORMAL) HEMOGLOBIN A1C (02/22/2025 8:23 AM EDT) Hgb A1C 6.9(H) 4.2 - 5.6 % 02/22/2025 10:11 PM EDT [employer] Master Est. Avg Glucose 151 mg/dL 02/22/2025 10:11 PM EDT [facility] Blood VENOUS BLOOD / Unknown Venipuncture / Unknown 02/22/2025 8:23 AM EDT 02/22/2025 8:23 AM EDT Narrative [facility] - 02/22/2025 10:11 PM EDT REFERENCE RANGE: Normal: 4.0-5.6% Pre-diabetes: 5.7-6.4% Provisional diagnosis of diabetes: >6.4% Hgb F>10% and anything which shortens red cell survival, such as hemolytic anemia, or unstable hemoglobin variants such as HbSS, HbSC, or HbCC, will lower the HbA1c value associated with a given level of glycemic control. Reg Narayanan MD CHEMISTRY ORDERABLES Final Res ult [facility] [address] [facility] , [place] [address] * DIABETES EYE EXAM (01/31/2025 2:46 PM EDT) Left Diabetic Retinopathy Not Present Not Present Present/Not Present SEP OFFICE Right Diabetic Retinopathy Not Present Not Present Present/Not Present SEP OFFICE [facility] Provider HEALTH MAINTENANCE Edited Re sult - Final SEP OFFICE * (ABNORMAL) LIPID PANEL REFLEX (08/30/2024 3:48 PM EDT) Cholesterol 184 <200 mg/dL 08/30/2024 8:29 PM EDT [facility] Comment: < 200 Desirable 200 - 239 Borderline High >= 240 High Triglyceride 316(H) <150 mg/dL 08/30/2024 8:29 PM EDT [facility] Comment: < 150 Normal 150 - 199 Borderline High 200 - 499 High >= 500 Very High HDL 51 >=40 mg/dL 08/30/2024 8:29 PM EDT [facility] Comment: > 60 Optimal 40 - 60 Acceptable < 40 Low LDL Calculated 82 <100 mg/dL 08/30/2024 8:29 PM EDT [facility] Non-HDL-C Calculated 133(H) <=129 mg/dL 08/30/2024 8:29 PM EDT [facility] Comment: <130 Desirable 130-159 Above Desirable 160-189 Borderline High 190-219 High >= 220 Very High Fasting Specimen? No None 024 8:29 PM EDT [facility] Blood VENOUS BLOOD / Unknown Venipuncture / Unknown 08/30/2024 3:48 PM EDT 08/30/2024 3:48 PM EDT us Reg Narayanan MD CHEMISTRY ORDERABLES Final Res ult [facility] [address] [facility], [address] [place] [id number] [facility] [address] [place] [address] * MM MAMMO DIGITAL NIYAH SCREEN BILAT (12/25/2023 3:12 PM EST) Anatomical Region Laterality Modality Breast Bilateral Mammography 12/26/2023 9:15 AM EST Impressions 12/26/2023 9:15 AM EST Negative ([id number]) ~ RECOMMENDATION: Routine screening mammogram in 1 year. ~ DISCLAIMER * Any patient with a palpable abnormality, unexplained by breast imaging, should be managed on clinical basis by the attending physician. * Breast imaging has a false negative rate of 15%. * The patient was notified by mail of the results of this examination. *The patient's information was entered into a reminder system with a target due date for the next mammogram, in accordance with the [employer] [employer] and the Society of Breast Imaging recommendations. Narrative 12/26/2023 9:15 AM EST Procedure:MM MAMMO DIGITAL NIYAH SCREEN BILAT ~ Reason for exam: screening, asymptomatic. Z12.31-Encounter for screening mammogram for malignant neoplasm of [id number] ~ MM MAMMO DIGITAL NIYAH SCREEN BILAT Bilateral CC and MLO view(s) were taken. There are scattered fibroglandular densities. Prior study comparison: Compared with prior studies the most recent being 04/10/22, 12/05/20 No mammographic evidence of malignancy. ~ Procedure Note Krystian Sanchez III, MD - 12/26/2023 Procedure:MM MAMMO DIGITAL NIYAH SCREEN BILAT ~ Reason for exam: screening, asymptomatic. Z12.31-Encounter for screening mammogram for malignant neoplasm of [id number] ~ MM MAMMO DIGITAL NIYAH SCREEN BILAT Bilateral CC and MLO view(s) were taken. There are scattered fibroglandular densities. Prior study comparison: Compared with prior studies the most recentbeing 04/10/22, 12/05/20 No mammographic evidence of malignancy. ~ IMPRESSION: Negative ([id number]) ~ RECOMMENDATION: Routine screening mammogram in 1 year. ~ DISCLAIMER * Any patient with a palpable abnormality, unexplained by breast imaging, should be managed on clinical basis by the attending physician. * Breast imaging has a false negative rate of 15%. * The patient was notified by mail of the results of this examination. *The patient's information was entered into a reminder system with atarget due date for the next mammogram, in accordance with the [place] and the Society of Breast Imaging recommendations. Delmy Scott APRN IMG MAMMOGRAPHY ORDERABLES Final Result * HCV ANTIBODY SCREEN W/ REFLEX (07/18/2023 1:17 PM EDT) Hep C Ab Non-Reactiv e Non-Reacti ve 07/18/2023 9:45 PM EDT [facility] Blood VENOUS BLOOD / Unknown Venipuncture / Unknown 07/18/2023 1:17 PM EDT 07/18/2023 1:17 PM EDT Reg Narayanan MD HEMATOLOGY ORDERABLES Final Re sult [facility] [address] [facility] , [place] [address] * DX BONE DENSITY AXIAL SKELETON (04/10/2022 11:38 AM EDT) Anatomical Region Laterality Modality Dexa Scan 04/10/2022 Narrative 04/11/2022 9:34 AM EDT Indication: The patient is a female age 65 or older who requires a bone density assessment. Study was performed on [employer] APEX 5. Bone Density: Region BMD T-score Z-score Femoral Neck (Left) 0.829 -0.2 1.6 Total Hip (Left) 1.052 0.9 2.4 Femoral Neck (Right) 0.778 -0.6 1.1 Total Hip (Right) 0.987 0.4 1.9 1/3 Radius (Left) 0.737 0.7 2.8 World Health Organization criteria for BMD interpretation classify patients as: Normal (T-score at or above -1.0), Low Bone Density (T-score between -1.0 and -2.5), or Osteoporotic (T-score at or below -2.5). T Scores are reported in Postmenopausal women and in men age 50 and older. Z-scores are reported in females prior to menopause and in males younger than age 50. 10-year Fracture Risk: FRAX not reported because: All T-scores for Spine Total, Hip Total, Femoral Neck at or above -1.0 Clinical Information Provided by Patient: Has used or is currently using the following medications: Vitamin D Has had or currently has the following medical conditions: Diabetes Mellitus Patient maximum height was 63.0 Menopause Age: 57 Patient is Postmenopausal Interpretation: Bone mineral density is in the normal range. The spine portion of the study is omitted due to visual hypertrophic change. A minimum of two years may be required between bone density studies due to inherent testing precision limitations. Intervals between BMD testing should be determined according to each patient's clinical status. Reported by: Amy Pickard PA-C, CCD on 04/10/2022 12:06:00 PM. Radha Velazquez APRN [facility] DEXA ORDERABLES Final Resu lt from Last 3 Months or Most Recently Relevant to Health Maintenance Insurance MEDICAID [place] HU[place]NA MEDICARE HMO [place] MED[place] MEDIC[place]MO Advance Directives For more information, please contact: [phone] * Full Code (Latest Code Status on File) Date Activated Date Inactivated Comments 09/01/2024 3:01 PM 09/05/2024 10:52 PM * Full Code Date Activated Date Inactivated Comments 03/08/2024 11:49 PM 03/09/2024 9:26 PM * Full Code Date Activated Date Inactivated Comments 03/08/2022 1:55 PM 03/09/2022 6:10 PM Care Teams Carrot Grader Inspector Relationship Specialty Start Date End Date Reg Narayanan MD [address] [place] [address] [place] [address] PCP - General Family Medicine 10/14/22 Perez Matthew Ud, MD [address] [place] [address] Internal Medicine-Nephrology 08/04/24
--- OUTSIDE RECORDS SUMMARY | 2025-05-19 17:24 | XMS_ITS | Encounter Summary ---
Author Organization [place] [address] Care Team Providers Care Impregnator And Drier Name Role Phone Reg Narayanan MD Primary Care Provider [phone] Perez Matthew Ud, MD Unavailable [phone] Encounter Details Date Type Department Care Team (Late st Contact Info) Description 02/21/2025 Results Follow-Up SEP GASTRO NPTFTT [address] [place] [id number] Ladan Murray MD [facility] [place] [address] PATHOLOGY TISSUE REQUEST Social History Tobacco Use Types Packs/Day Years Used Date Smoking Tobacco: Never Smokeless Tobacco: Never Alcohol Use Standard Drinks/Week Comments No 0 (1 standard drink = 0.6 oz pur e alcohol) [facility] Utilities Answer Date Recorded In the past 12 months has e electric, gas, oil, or water Whatever threatened to shut off services in your home? No 09/02/2024 Overall Financial Resource Strain (CARDIA) Answe r Date Recorded How hard is it for you to pa y for the very basics like food, housing, medical care, and heating? Not very hard 09/02/2024 PHQ-2 Answer Date Recorded PHQ-2 Total Score 0 09/02/2024 [facility] [place] of Occupat ional Health - Occupational Stress [...] things needed for daily living? No 03/08/2022 [facility] IP Transportation Answer D ate Recorded In [...] 8:57 AM COOPERT Jeremías Salazar MA * Does this person [...] 9:15 AM EDT Office Visit [facility] [address] [place] [address] [place] [address] Reg Narayanan MD [address] [place] [address] [place] [address] 07/20/2025 11:30 AM EDT Office Visit [facility] [address] [facility] [place] [address] Perez Matthew Ud, MD [address] [place] [address] documented as of this encounter Goals Goal [...] documented as of this encounter Care Teams Impregnator And Drier Relationship Specialty Start Date End Date Reg Narayanan MD [address] [place] [address] [place] [address] PCP - General Family Medicine 10/14/22 Perez Matthew Ud, MD [address] [facility] [place] [address] Internal Medicine-Nephrology 08/04/24 documented as of this encounter
--- OUTSIDE RECORDS SUMMARY | 2025-05-19 17:24 | XMS_ITS | Encounter Summary ---
Author Organization [place] [address] Care Team Providers Care Heel Varnisher Name Role Phone Reg Narayanan MD Primary Care Provider [phone] Perez Matthew Ud, MD Unavailable [phone] Reason for Visit * Reason Onset Date Comments Results 02/18/2025 Encounter Details Date Type Department Care Team (Late Contact Info) Description 02/18/2025 Telephone [facility]P [facility]O [facility] [address] [facility] [address] ENTRANCE, 3RD [place] [address] Ladan Murray MD [address] [place] [address] Results Social History Tobacco Use Types Packs/Day Years Used Date Smoking Tobacco: Never Smokeless Tobacco: Never Alcohol Use Standard Drinks/Week Comments No 0 (1 standard drink = 0.6 oz pur e alcohol) [facility] Utilities Answer Date Recorded In the past 12 months has [facility] electric, gas, oil, or water company threatened to shut off services in your home? No 09/02/2024 Overall Financial Resource Strain (CARDIA) Answe r Date Recorded How hard is it for you to pa y for the very basics like food, housing, medical care, and heating? Not very hard 09/02/2024 PHQ-2 Answer Date Recorded PHQ-2 Total Score 0 09/02/2024 [facility] [place] of Occupat ional Health - Occupational Stress [...] things needed for daily living? No 03/08/2022 [facility] IP Transportation Answer D ate Recorded [...] encounter Miscellaneous Notes * Telephone Encounter - Melissa Brewer LPN - 02/18/2025 10:04 AM EDT Advised pt we will contact her with results as soon as reviews. * Telephone Encounter - Bernard Mcclain - 02/18/2025 9:50 AM EDT Pt called looking for her results from the EGD done on 02/14. documented in this encounter Plan of Treatment Upcoming Encounters Date Type Department Care Team (Late st Contact Info) Description 06/06/2025 9:15 AM EDT Office Visit [facility] [address] [place] [address] [place] [address] Reg Narayanan MD [address] [place] [address] [place] [address] 07/20/2025 11:30 AM EDT Office Visit [facility] [address] [facility] [place] [address] [place] [address] Perez Matthew Ud, MD [address] [place] [address] documented as of this encounter [...] documented as of this encounter Care Teams Heel Varnisher Relationship Specialty Start Date End Date Reg Narayanan MD [address] [place] [address] [place] [address] PCP - General Family Medicine 10/14/22 Perez Matthew Ud, MD [address] [facility] [place] [address] Internal Medicine-Nephrology 08/04/24 documented as of this encounter
--- OUTSIDE RECORDS SUMMARY | 2025-05-19 17:24 | XMS_ITS | Encounter Summary ---
Author Organization [place] [address] Care Team Providers Care Deckhand Name Role Phone Reg Narayanan MD Primary Care Provider [phone] Perez Matthew Ud, MD Unavailable [phone] Encounter Details Date Type Department Care Team (Late st Contact Info) Description 02/25/2025 Results Follow-Up SEP VASC SURG NPTFTT [address] [place] [address] Ana Arnett MD [address] [place] [address] IR ANGIOGRAM RENAL BILATERAL SELECTIVE Social History Tobacco Use Types Packs/Day Years Used Date Smoking Tobacco: Never Smokeless Tobacco: Never Alcohol Use Standard Drinks/Week Comments No 0 (1 standard drink = 0.6 oz pur e alcohol) [facility] Utilities Answer Date Recorded In the past 12 months has [facility] EHR, gas, oil, or water [employer] threatened to shut off services in your home? No 09/02/2024 Overall Financial Resource Strain (CARDIA) Answe r Date Recorded How hard is it for you to pa y for the very basics like food, housing, medical care, and heating? Not very hard 09/02/2024 PHQ-2 Answer Date Recorded PHQ-2 Total Score 0 09/02/2024 [facility] [place] of Occupat ional Health - Occupational Stress [...] things needed for daily living? No 03/08/2022 [facility] IP Transportation Answer D ate Recorded In [...] AM EDT Office Visit [facility]LO BRIGHT [address] [place] [address] [place] [address] Reg Narayanan MD [address] [place] [address] [place] [address] 07/20/2025 11:30 AM EDT Office Visit [facility] [address] [facility] [place] [address] Perez Matthew Ud, MD [address] [place] [address] documented as of this encounter Goals Goal [...] documented as of this encounter Care Teams Deckhand Relationship Specialty Start Date End Date Reg Narayanan MD [address] [place] [address] [place] [address] PCP - General Family Medicine 10/14/22 Perez Matthew Ud, MD [address] [facility] [address] Internal Medicine-Nephrology 08/04/24 documented as of this encounter
--- OUTSIDE RECORDS SUMMARY | 2025-05-19 17:25 | XMS_ITS | Encounter Summary ---
Author Organization [facility] [address] Care Team Providers Care Owner Operator Name Role Phone Reg Narayanan MD Primary Care Provider [phone] Perez Matthew Ud, MD Unavailable [phone] Encounter Details Date Type Department Care Team (Latest Contact Info) Description 04/08/2025 Travel Social History Tobacco Use Types Packs/Day Years Used Date Smoking Tobacco: Never Smokeless Tobacco: Never Alcohol Use Standard Drinks/Week Comments No 0 (1 standard drink = 0.6 oz pur e alcohol) [facility] Utilities Answer Date Recorded In the [...] Date Recorded PHQ-2 Total Score 0 09/02/[address] [facility] [place] of Occupat ional Health - Occupational [...] things needed for daily living? No 03/08/2022 [facility] IP Transportation Answer D ate Recorded In [...] 9:15 AM EDT Office Visit [facility] [address] [place] [address] Dr. [place], [place] [address] Reg Narayanan MD [address] [place] [address] DR [place], [place] [address] 07/20/2025 11:30 AM EDT Office Visit [facility] [address] [facility] [place] [address] Perez Matthew Ud, MD [address] [facility] [place] [address] documented as of this encounter [...] documented as of this encounter Care Teams Owner Operator Relationship Specialty Start Date End Date Reg Narayanan MD [address] [place] [address] DR [place] [address] PCP - General Family Medicine 10/14/22 Perez Matthew Ud, MD [address] [place] [address] Internal Medicine-Nephrology 08/04/24 documented as of this encounter
--- OUTSIDE RECORDS SUMMARY | 2025-05-19 17:25 | XMS_ITS | Encounter Summary ---
Author Organization [place] [address] Care Team Providers Care Board Stacker Name Role Phone Reg Narayanan MD Primary Care Provider Perez Matthew Ud, MD Unavailable [phone] Reason for Visit * Reason Comments Medication Refill Encounter Details Date Type Department Care Team (Late st Contact Info) Description 04/11/2025 Refill [facility] [place] [address] [address] Reg Narayanan MD [address] [place] [address] [place] [address] Medication Refill Social History Tobacco Use Types Packs/Day Years Used Date Smoking Tobacco: Never Smokeless Tobacco: Never Alcohol Use Standard Drinks/Week Comments No 0 (1 standard drink = 0.6 oz pur e alcohol) [facility] Utilities Answer Date Recorded In the past 12 months has [facility] [employer], gas, oil, or water company threatened to shut off services in your home? No 09/02/2024 Overall Financial Resource Strain (CARDIA) Answe r Date Recorded How hard is it for you to pa y for the very basics like food, housing, medical care, and heating? Not very hard 09/02/2024 PHQ-2 Answer Date Recorded PHQ-2 Total Score 0 09/02/2024 [facility] [place] of Occupat ional Health - Occupational Stress [...] things needed for daily living? No 03/08/2022 [facility] IP Transportation Answer D ate Recorded In [...] Refills Last Filled Start Date End Date FEROSUL 325 mg (65 mg iron) Oral Tablet Take 1 Tablet by mouth once daily. 90 Tablet 04/11/2025 documented in this encounter Plan of Treatment Upcoming Encounters Date Type Department Care Team (Late st Contact Info) Description 06/06/2025 9:15 AM EDT Office Visit [facility] [place] [address] [place] [address] Reg Narayanan MD [address] [place] [address] [place] [address] 07/20/2025 11:30 AM EDT Office Visit [facility] [address] [facility] [place] [address] [place] [address] Perze Matthew Ud, MD [address] [place] [address] documented as of this encounter [...] Diagnoses Not on filedocumented in this encounter Discontinued Medications Medication Sig Discontinue Reason Start Date End Da te FEROSUL 325 mg (65 mg iron) Oral Tablet Take 1 Tablet by mouth once daily. 12/15/2024 04/11/2025 documented as of this encounter Additional Health Concerns Assessment Noted Time A fall risk assessment has been complete d for the patient 12/22/2024 11:37 AM EST documented as of this encounter Care Teams Board Stacker Relationship Specialty Start Date End Date Reg Narayanan MD [address] [facility] [place] [address] PCP - General Family Medicine 10/14/22 Perez Matthew Ud, MD [address] [facility] [place] [address] Internal Medicine-Nephrology 08/04/24 documented as of this encounter
--- OUTSIDE RECORDS SUMMARY | 2025-05-19 17:25 | XMS_ITS | Encounter Summary ---
Author Organization [place] [address] Care Team Providers Care Material Specialist Name Role Phone Reg Narayanan MD Primary Care Provider [phone] Perez Matthew Ud, MD Unavailable [phone] Reason for Visit * Reason Onset Date Comments Appointment Needed 04/08/2025 Appt needed Encounter Details Date Type Department Care Team (Late Contact Info) Description 04/08/2025 Telephone [facility]P [facility] [address] Reg Narayanan MD [address] [place] [address] [place] [address] Appointment Needed (Appt needed ) Social History Tobacco Use Types Packs/Day Years Used Date Smoking Tobacco: Never Smokeless Tobacco: Never Alcohol Use Standard Drinks/Week Comments No 0 (1 standard drink = 0.6 oz pur e alcohol) [facility] Utilities Answer Date Recorded In the past 12 months has [employer], gas, oil, or water [employer] threatened to shut off services in your home? No 09/02/2024 Overall Financial Resource Strain (CARDIA) Answe r Date Recorded How hard is it for you to pa y for the very basics like food, housing, medical care, and heating? Not very hard 09/02/2024 PHQ-2 Answer Date Recorded PHQ-2 Total Score 0 09/02/2024 [facility] [place] of Occupat ional Health - Occupational Stress [...] things needed for daily living? No 03/08/2022 [facility] IP Transportation Answer D ate Recorded [...] encounter Miscellaneous Notes * Telephone Encounter - Zahraa Forman MA - 04/08/2025 3:38 PM EDT Appointment scheduled * Telephone Encounter - Darryl Abbott RMA - 04/08/2025 3:36 PM EDT Select the most appropriate reason for this telephone message: Appointment Needed Appointment Requested By: Patient Provider Preference: Other lab Type of Appt Needed: Other lab Detailed Reason for Appt: lab orders from Dr Cuellar Requested Timeframe: Friday Reason Scheduling Assistance is Needed: Call Center not permitted to schedule Return Method of Communication: Phone Call Additional Information: N/A documented in this encounter Plan of Treatment Upcoming Encounters Date Type Department Care Team (Late st Contact Info) Description 06/06/2025 9:15 AM EDT Office Visit [facility] [place] [address] [place] [address] Reg Narayanan MD [address] [facility] [place] [address] 07/20/2025 11:30 AM EDT Office Visit [facility] [address] [facility] [place] [address] [place] [address] Perez Matthew Ud, MD [address] [place] [address] documented as of this encounter Goals Goal Patient Goal Type Associated Problems Recent Progress Patient-Stated? Author Blood Pressure < 140/90 Blood Pressure 120/78(2024 8:54 PM EDT) No Rge Narayanan MD BMI (Calculated) < 30 General [...] documented as of this encounter Care Teams Material Specialist Relationship Specialty Start Date End Date Reg Narayanan MD [address] [place] [address] [place] [address] PCP - General Family Medicine 10/14/22 Perez Matthew Ud, MD [address] [facility] [place] [address] Internal Medicine-Nephrology 08/04/24 documented as of this encounter
--- OUTSIDE RECORDS SUMMARY | 2025-05-19 17:25 | XMS_ITS | Encounter Summary ---
Author Organization [facility] [place] [address] Care Team Providers Care Cover Stripper Name Role Phone Reg Narayanan MD Primary Care Provider [phone] Perez Matthew Ud, MD Unavailable Encounter Details Date Type Department Care Team (Latest Contact Info) Description 03/30/2025 Travel Social History Tobacco Use Types Packs/Day Years Used Date Smoking Tobacco: Never Smokeless Tobacco: Never Alcohol Use Standard Drinks/Week Comments No 0 (1 standard drink = 0.6 oz pur e alcohol) [facility] Utilities Answer Date Recorded In the [...] Date Recorded PHQ-2 Total Score 0 09/02/2024 [employer] [place] of Occupat ional Health - Occupational Stress [...] things needed for daily living? No 03/08/2022 [facility] IP Transportation Answer D ate Recorded [...] AM EDT Office Visit [facility] [place] [facility] [address] [place] [address] Dr[place], [place] [address] Reg Narayanan MD [address] [place] [address] [address] [place], [place] [address] 07/20/2025 11:30 AM EDT Office Visit [facility] [address] [facility] [place] [address] Perez Matthew Ud, MD [address] [place] [address] documented as of this encounter [...] documented as of this encounter Care Teams Cover Stripper Relationship Specialty Start Date End Date Reg Narayanan MD [address] [place] [address] [address] [place] [address] PCP - General Family Medicine 10/14/22 Perez Matthew Ud, MD [address] [facility] [address] Internal Medicine-Nephrology 08/04/24 documented as of this encounter
[2025-05-19 17:26] VITALS: BP 155/67; PULSE 70; RESP 14; TEMP 36.8; O2SAT 99
--- NOTE | 2025-05-19 17:30 | ED_ITS ---
Discharge Plan Disposition Patient Disposition: Home, Self-Care Condition: Good Prescriptions Prescriptions: New cefdinir 300 mg capsule 300 mg PO BID 10 Days Qty: 20 0RF No Action aspirin [Adult Low Dose Aspirin] 81 mg tablet,delayed release (DR/EC) 81 mg PO DAILY fluticasone propionate [Allergy Relief (fluticasone)] 50 mcg/actuation spray,suspension 1 spray NS DAILY Fish Oil 340-1,000 mg capsule 3 cap PO DAILY cholecalciferol (vitamin D3) 50 mcg (2,000 unit) tablet 150 mcg PO DAILY tamsulosin 0.4 mg capsule 0.4 mg PO HS nitroglycerin 0.4 mg tablet, sublingual 0.4 mg SL Q5MINP PRN (Reason: Chest Pain) Rx Instructions: do not exceed 3 doses per episode cyanocobalamin (vitamin B-12) 1,000 mcg tablet 1,000 mcg PO DAILY atorvastatin 40 mg tablet 40 mg PO HS amlodipine 5 mg tablet 5 mg PO DAILY ferrous sulfate 325 mg (65 mg iron) tablet 325 mg PO DAILY Patient Comments: TAKE 1 TABLET BY MOUTH THREE TIMES A DAY meloxicam 15 mg tablet 15 mg PO DAILY losartan 50 mg tablet 50 mg PO DAILY estradiol 0.5 mg tablet 0.5 mg PO DAILY metoprolol succinate 50 mg tablet extended release 24 hr 100 mg PO DAILY Patient Comments: TAKE 2 TABLETS BY MOUTH EVERY DAY FOR 90 DAYS pantoprazole 40 mg tablet,delayed release (DR/EC) 40 mg PO DAILY Patient Comments: TAKE 1 TABLET BY MOUTH EVERY DAY metformin 1,000 mg tablet 1,000 mg PO BIDWMEAL Patient Comments: TAKE 1 TABLET BY MOUTH TWICE A DAY FOR DIABETES fenofibrate 160 mg tablet 160 mg PO DAILY Patient Comments: TAKE 1 TABLET BY MOUTH EVERY DAY FOR 90 DAYS Myrbetriq 25 mg tablet extended release 24 hr 25 mg PO DAILY Patient Comments: TAKE 1 TABLET BY MOUTH EVERY DAY Trulicity 3 mg/0.5 mL pen injector 3 mg SQ WEEKLY levofloxacin 750 mg Tablet 750 mg PO Q48H 6 Days Qty: 3 0RF Rx Instructions: Next dose due 12/23/2023. insulin glargine [Lantus Solostar U-100 Insulin] 100 unit/mL (3 mL) Insulin Pen 15 unit SQ HS 30 Days Qty: 4.5 0RF (DME) pen needle, diabetic 31 gauge x 1/4 needle See Rx Instructions .Route Qty: 100 0RF Rx Instructions: As directed Referrals Follow up/Referrals: Toro Narayanan [Primary Care Provider, Medical] - See instructions Activity Restrictions/Add. Instructions Additional Instructions/Restrictions: Please take your medication as prescribed, please return to the emergency department with any worsening signs or symptoms, please follow-up with urologist. We will call you with urine culture results if there is need to change your antibiotic therapy. Clinical Impressions Clinical Impression: Acute UTI Instructions Patient Instructions: DI for Acute Abdominal Pain Print Language Print Language: [place] Discharge ED Provider: Pipe Collier General Adult HPI <JAY Rees - Last Filed: 05/19/25 18:49> General Chief complaint: Abdominal Pain Stated complaint: Stomach pain Time Seen by Provider: 05/19/25 17:12 Mode of Arrival: Wheelchair Source of Information: Patient Description of Symptoms (Recalled from ER Triage Doc. by RN): pt presents to the ED with lower abdominal pain. pt reports that she had her catheter replaced yesterday and this morning she started having cramps and pain. pt has a hx of kidney and bladder problems and had a urinary catheter placed fore the past 2 months. pt deies shortness of breath or chest pain. History of Present Illness HPI narrative: 74-year-old female presents to the emergency department with abdominal/suprapubic pain after urinary catheter/[place] catheter insertion yesterday at her urologist office, patient has had a history of In-N-Out catheterization, frequent UTIs, and overactive bladder, has been seen by urology and has had indwelling [place] catheter for the last 2 months, had replacing of her catheter yesterday, and she has had pain ever since the replacement of her catheter, she does endorse good urine output, and functioning catheter status, she admits to some dysuria, denies any fever chills chest pain shortness of breath, no constipation, no diarrhea, no real hematuria no melena no hematochezia or hematemesis, patient denies any other acute symptomatology, o ther past medical history consistent with hypertension, overactive bladder and urinary retention, T2DM, hyperlipidemia, GERD. Initial triage vitals unremarkable. Onset (ago): day(s) Related Data Home Medications ?Medication ?Instructions ?Recorded ?Confirmed aspirin 81 mg tablet,delayed 81 mg PO DAILY Heart Dise ase 05/26/18 12/21/23 release (Adult Low Dose Aspirin) cholecalciferol (vitamin D3) 50 150 mcg PO DAILY Suppl ement 06/10/22 12/21/23 mcg (2,000 unit) tablet cyanocobalamin (vitamin B-12) 1,000 mcg PO DAILY Suppl ement 06/10/22 12/21/23 1,000 mcg tablet fluticasone propionate 50 1 spray intranasal DAILY All ergy 06/10/22 12/21/23 mcg/actuation nasal Symptoms spray,suspension (Allergy Relief (fluticasone)) nitroglycerin 0.4 mg sublingual 0.4 mg sublingual Q5MI [employer] PRN Chest 06/10/22 12/21/23 tablet Pain omega-3 fatty acids-fish oil 340 3 cap PO DAILY Choles terol 06/10/22 12/20/23 mg-1,000 mg capsule (Fish Oil) tamsulosin 0.4 mg capsule 0.4 mg PO HS URINARY SYMPTOM S 06/10/22 12/20/23 amlodipine 5 mg tablet 5 mg PO DAILY 10/16/2212/21 atorvastatin 40 mg tablet 40 mg PO HS Cholesterol 12/05/3112/21/23 ferrous sulfate 325 mg (65 mg 325 mg PO DAILY Suppleme nt 10/16/22 12/21/23 iron) tablet estradiol 0.5 mg tablet 0.5 mg PO DAILY HORMONE REPL ACEMENT 12/20/23 12/20/23 losartan 50 mg tablet 50 mg PO DAILY High Blood Pr essure 12/20/23 12/21/23 meloxicam 15 mg tablet 15 mg PO DAILY Pain 12/20/23 12/20/23 dulaglutide 3 mg/0.5 mL 3 mg SQ WEEKLY 12/21/2312/11 subcutaneous pen injector (Trulicity) fenofibrate 160 mg tablet 160 mg PO DAILY Cholesterol 12/21/23 12/21/23 metformin 1,000 mg tablet 1,000 mg PO BIDWMEAL Diabete s 12/21/23 12/21/23 metoprolol succinate 50 mg 100 mg PO DAILY High Blood Pressure 12/21/23 12/21/23 tablet,extended release 24 hr mirabegron 25 mg tablet,extended 25 mg PO DAILY URINAR Y SYMPTOMS 12/21/23 12/21/23 release 24 hr (Myrbetriq) pantoprazole 40 mg tablet,delayed 40 mg PO DAILY Acid Reflux 12/21/23 12/21/23 release Previous Rx's ?Medication ?Instructions ?Recorded insulin glargine 100 unit/mL (3 15 unit (0.15 mL) SQ H S 30 days 12/21/23 mL) subcutaneous pen (Lantus #4.5 mL Solostar U-100 Insulin) levofloxacin 750 mg tablet 750 mg PO Q48H 6 days #3 ta bs 12/21/23 pen needle, diabetic 31 gauge x #100 ea 12/21/23 1/ cefdinir 300 mg capsule 300 mg PO BID 10 days #20 ca ps 05/19/25 Allergies Allergy/AdvReac Type Severity Reaction Status Date / Time No Known Allergies Allergy Verified 10/16/22 13:54 [facility] <JAY Rees - Last Filed: 05/19/25 18:49> [facility] Disclaimer: The information contained in this section may have been updated after the patient was seen, as this information can be updated by other users. Medical History (Updated 05/19/25 @ 18:47 by JAY Rees) HTN (hypertension) Diabetes Family History Hx of CABG Social History Smoking Status: Never smoker second hand exposure: Yes alcohol intake: never substance use type: denies use current occupational status: retired Travel in the last 8 weeks?: None household members: other housing: house current occupational exposures/hazards: No caffeine: Yes Have you lived/traveled outside [place] in past 30 days?: No Contact w/someone who lives/traveled outside [place] past 30 days?: No Exposure to someone with infectious disease in past 14 days?: No Do you have a fever (greater than 100.4 F or 38 C)?: No Have you tested positive for COVID-19?: No Exposed to someone with COVID-19 in past 14 days?: No Do you have a sore throat?: No Do you have a cough?: No Do you have any weakness?: No Do you have any diarrhea?: No Are you experiencing any unusual bleeding?: No Do you have any muscle aches/pain?: No Do you have any abdominal pain?: No Are you experiencing loss of taste or smell?: No Other Medical History Have you received the Flu Vaccine for this season: No Have you received the Pneumonia Vaccine: No <JAY Rees - Last Filed: 05/19/25 18:49> ROS Obtained: Yes All systems reviewed & no additional complaints except as documented Physical Exam <JAY Rees - Last Filed: 05/19/25 18:49> General General appearance: alert and in no apparent distress Head Head exam: atraumatic and normocephalic Eye Eye exam: Present PERRL and EOMI ENT ENT exam: Present mucous membranes moist Neck Neck exam: Present normal inspection Chest Chest inspection: Present normal inspection and symmetric chest wall rise Respiratory Respiratory exam: Present normal lung sounds bilaterally; Absent respiratory distress Cardiovascular Cardiovascular exam: Present regular rate and normal rhythm Abdominal Exam Abdominal exam: Present soft, distention, tenderness and guarding Abdominal tenderness: Present suprapubic and moderate Comment: Moderate superior pain/tenderness palpation over the suprapubic region, with some voluntary guarding and distention Extremities Exam Extremities exam: Present normal inspection Neurological Exam Neurological exam: Present alert and oriented X3 Psychiatric Psychiatric exam: Present normal affect Skin Skin exam: Present warm and dry Medical Decision Making <JAY Rees - Last Filed: 05/19/25 18:49> Medical Records Medical records reviewed: Yes I reviewed the patient's medical records. Screening: Per USPSTF and CDC recommendations, given the prevalence of disease in our region, it is our hospital?s policy to screen for HIV and viral Hepatitis for all patients aged 18 and over and those with ongoing risk factors. Henry Inquiry Pt receiving controlled substance: No Henry was queried for this patient: No Vital Signs: 05/19/25 17:19 05/19/25 17:26 05/19/25 18:45 Temperature 98.2 F 98.2 F Temperature Source Oral Oral Pulse Rate 70 82 Pulse Rate [Right] 70 Respiratory Rate 14 14 16 Blood Pressure 155/67 H 148/68 H Blood Pressure [Right Arm] 155/67 H Blood Pressure Mean [Right Arm] 96 Blood Pressure Source Automatic Cuff Blood Pressure Source [Right Arm] Automatic Cuff Blood Pressure Position Supine Blood Pressure Position [Right Arm] Supine 02 Sat by Pulse Oximetry 99 99 98 Oxygen Delivery Method Room Air Room Air 05/19/25 18:52 Temperature 98.9 F Temperature Source Oral Pulse Rate 82 Pulse Rate [Right] Respiratory Rate 14 Blood Pressure 158/72 H Blood Pressure [Right Arm] Blood Pressure Mean [Right Arm] Blood Pressure Source Automatic Cuff Blood Pressure Source [Right Arm] Blood Pressure Position Supine Blood Pressure Position [Right Arm] 02 Sat by Pulse Oximetry Oxygen Delivery Method Room Air Lab Data Lab results reviewed: Yes I reviewed the patient's lab results. Lab Results 05/19/25 17:19: HCV Ab DOYLE w/Rflx PCR Qn Negative, HIV Ag/Ab Combo Qual Negative 05/19/25 18:19: Urine Color Yellow, Urine Appearance Clear, Urine pH 6.0, Ur Specific [place] 1.015, Urine Protein 2+ A, Urine Glucose (UA) 3+, Urine Ketones Negative, Urine Blood 2+ A, Urine Nitrate Positive A, Urine Bilirubin Negative, Urine Urobilinogen 0.2, Ur Leukocyte Esterase 2+ A, Urine RBC 10-20, Urine WBC Tntc, Ur Squamous Epith Cells Occasional, Urine Bacteria 2+ Orders (Tests/Meds): ORDERS Category Date Time Status HIV Combo Stat Lab 05/19/25 17:19 Completed Hepatitis C Ab Qual. W/ RFX Stat Lab 05/19/25 17:19 Completed UA [Urinalysis and Microscopic] Stat Lab 05/19/25 18:19 Completed Urine Culture Stat Micro 05/19/25 18:19 Received Medical Decision Narrative: 74-year-old female presents emergency department with suprapubic pain, after [place] catheter insertion yesterday, differential diagnosis include but not limited to, dislodged [place] catheter, [place] catheter malfunction, urinary outflow obstruction, acute UTI, catheter insertion trauma, acute pyelonephritis, among others. I discussed this patient's case with the attending physician Will obtain urinalysis, will troubleshoot/flush [place] catheter via nursing staff, BladderScan the patient prior to insertion of new [place] catheter/discontinuing of current [place] catheter. Bladder scan yielded 0 mL in the urinary bladder. Current [place] catheter is flushing at the bedside/functional, however will replace current [place] catheter with new [place] catheter here in the emergency department symptomatically. Patient received relief of her symptomatology after new [place] catheter was placed here in the emergency department via nursing staff. Patient has 2+ proteinuria, 2+ hematuria, positive nitrites, 2+ leukocyte Estrace. Will send urine culture. Microscopic analysis yields too numerous to count WBCs, 10-20 RBCs, occasional squamous epithelial cells and 2+ bacteria. Will prescribe cefpodoxime 200 mg twice daily for 10 days, for complicated UTI, will send off urine culture and call the patient with results, patient will follow-up with urologist as directed, patient was given strict ED return precautions. Patient and family voiced understanding and agreed with current treatment plan/discharge plan. <Pipe Collier MD - Last Filed: 05/20/25 02:01> Vital Signs: 05/19/25 17:19 05/19/25 17:26 05/19/25 18:45 Temperature 98.2 F 98.2 F Temperature Source Oral Oral Pulse Rate 70 82 Pulse Rate [Right] 70 Respiratory Rate 14 14 16 Blood Pressure 155/67 H 148/68 H Blood Pressure [Right Arm] 155/67 H Blood Pressure Mean [Right Arm] 96 Blood Pressure Source Automatic Cuff Blood Pressure Source [Right Arm] Automatic Cuff Blood Pressure Position Supine Blood Pressure Position [Right Arm] Supine 02 Sat by Pulse Oximetry 99 99 98 Oxygen Delivery Method Room Air Room Air 05/19/25 18:52 Temperature 98.9 F Temperature Source Oral Pulse Rate 82 Pulse Rate [Right] Respiratory Rate 14 Blood Pressure 158/72 H Blood Pressure [Right Arm] Blood Pressure Mean [Right Arm] Blood Pressure Source Automatic Cuff Blood Pressure Source [Right Arm] Blood Pressure Position Supine Blood Pressure Position [Right Arm] 02 Sat by Pulse Oximetry Oxygen Delivery Method Room Air Lab Data Lab Results 05/19/25 17:19: HCV Ab DOYLE w/Rflx PCR Qn Negative, HIV Ag/Ab Combo Qual Negative 05/19/25 18:19: Urine Color Yellow, Urine Appearance Clear, Urine pH 6.0, Ur Specific [place] 1.015, Urine Protein 2+ A, Urine Glucose (UA) 3+, Urine Ketones Negative, Urine Blood 2+ A, Urine Nitrate Positive A, Urine Bilirubin Negative, Urine Urobilinogen 0.2, Ur Leukocyte Esterase 2+ A, Urine RBC 10-20, Urine WBC Tntc, Ur Squamous Epith Cells Occasional, Urine Bacteria 2+ Orders (Tests/Meds): ORDERS Category Date Time Status HIV Combo Stat Lab 07/10/25 17:19 Completed Hepatitis C Ab Qual. W/ RFX Stat Lab 05/19/25 17:19 Completed UA [Urinalysis and Microscopic] Stat Lab 05/19/25 18:19 Completed Urine Culture Stat Micro 05/19/25 18:19 Received Medical Decision Narrative: 74-year-old female presents emergency department with suprapubic pain, after [place] catheter insertion yesterday, differential diagnosis include but not limited to, dislodged [place] catheter, [place] catheter malfunction, urinary outflow obstruction, acute UTI, catheter insertion trauma, acute pyelonephritis, among others. I discussed this patient's case with the attending physician Will obtain urinalysis, will troubleshoot/flush [place] catheter via nursing staff, BladderScan the patient prior to insertion of new [place] catheter/discontinuing of current [place] catheter. Bladder scan yielded 0 mL in the urinary bladder. Current [place] catheter is flushing at the bedside/functional, however will replace current [place] catheter with new [place] catheter here in the emergency department symptomatically. Patient received relief of her symptomatology after new [place] catheter was placed here in the emergency department via nursing staff. Patient has 2+ proteinuria, 2+ hematuria, positive nitrites, 2+ leukocyte Estrace. Will send urine culture. Microscopic analysis yields too numerous to count WBCs, 10-20 RBCs, occasional squamous epithelial cells and 2+ bacteria. Will prescribe cefpodoxime 200 mg twice daily for 10 days, for complicated UTI, will send off urine culture and call the patient with results, patient will follow-up with urologist as directed, patient was given strict ED return precautions. Patient and family voiced understanding and agreed with current treatment plan/discharge plan. I was consulted by the PUSHPA, and we discussed the complexity of the problems being addressed. I approve the treatment and management plan for this patient's care in the emergency department, thus performing a substantive portion of the medical decision making. Pipe Collier MD Critical Care <JAY Rees - Last Filed: 05/19/25 18:49> Critical Care Time Critical Care Time: No
--- OUTSIDE RECORDS SUMMARY | 2025-05-19 18:24 | XMS_ITS | CCD ---
Author Name Justina SALINAS, Lawanda Address [address] [facility] [address] [place] [address] Phone Organization [facility] Phone Care Team Providers Care Cashier General Name Role Phone Unavailable Primary Care Provider Unavailabl e Unavailable Chronic Care Management Unavaila ble Summary Purpose DataExchange Insurance Providers Payer name Policy type / Coverage type Covered republican ID Effective Begin Date Effective End Date MEDICARE [place] [id number] Unknown Unknown NO COPAY HOLD [id number] Unknown Unknown Family history Mother Diagnosis Age [...] School Graduate 07/11 Employment Unknown Retired from [employer] 07/28/2024 Tobacco history Unknown Never Used 07/28/[address]: [id number] Never drinks alco hol 07/28/2024 Illegal/Recreational drug [...] disease invo lving coronary bypass graft of [place] heart without angina pectoris ICD-10: I25.810 ICD-9: [...] disease invo lving coronary bypass graft of [place] heart without angina pectoris ICD-10: I25.810 01/02/2012 [...] Instructions Myrbetriq 25 mg tablet,extended release RxNorm: 9666042 Take 1 Tablet(s) Oral every day 4 10/20/20 25 Active Jardiance 25 mg tablet RxNorm: 3450353 Take 1 Tablet(s) Oral every day 4 10/25/20 24 Inactive dulaglutide (TRULICITY) 4.5 mg/0.5 mL SubQ Pen Injector RxNorm: 1949303 Subcutaneous (Inject under the skin) 0.5 mL once a week. 4 No Stop Date Active finerenone (KERENDIA) 10 mg Oral Tablet RxNorm: 4025524 Take 10 Milligram(s) Oral every day . 4 No Stop Date Active cephALEXin (KEFLEX) 500 mg Oral Capsule RxNorm: 642295 Take 1 Capsule(s) Oral every 8 hours for 10 days . 4 07/18/20 24 Inactive meloxicam (MOBIC) 15 mg Oral Tablet RxNorm: 768519 Take 15 Milligram(s) Oral every day . 4 No Stop Date Active pantoprazole (PROTONIX) 40 mg Oral Tablet, Delayed Release (E.C.) RxNorm: 556967 Take 1 Tablet(s) Oral every day 4 No Stop Date Active ferrous sulfate 325 mg (65 mg iron) Oral Tablet RxNorm: 674317 Take 1 Tablet(s) Oral every day 4 No Stop Date Active metoprolol succinate (TOPROL-XL) 50 mg Oral Tablet Sustained Release 24 hr RxNorm: 235795 Take 2 Tablet(s) Oral every day . 4 No Stop Date Active fenofibrate (LOFIBRA) 160 mg Oral Tablet RxNorm: 116809 Take 1 Tablet(s) Oral every day . 4 No Stop Date Active losartan (COZAAR) 50 mg Oral Tablet RxNorm: 645386 Take 1 Tablet(s) Oral every day . 4 10/04/20 24 Inactive pioglitazone (ACTOS) 30 mg Oral Tablet RxNorm: 045559 Take 1 Tablet(s) Oral every day . 4 No Stop Date Active atorvastatin (LIPITOR) 40 mg Oral Tablet RxNorm: 788154 Take 1 Tablet(s) Oral every day night time 4 No Stop Date Active amLODIPine (NORVASC) 5 mg Oral Tablet RxNorm: 615224 Take 1 Tablet(s) Oral every day . 4 No Stop Date Active cholecalciferol, vitamin D3, 25 mcg (1,000 unit) Oral Tablet RxNorm: 108673 Take 1 Tablet(s) Oral every day . 4 Active aspirin 81 mg Oral Tablet, Chewable RxNorm: 588524 Take by mouth daily. 4 Active Medication Administered No Medication Administered data Results Observation Observation Code Item Item Code Result Date Service Location Direct LDL 82321 LDL-Direct 24204-7 81 mg/dL 024 [facility] [address] [place] [address] 25146 TRIGLYCERIDES 49339 Triglycerides 2571-8 266 mg/dL 0[address] [facility] [address] [place] [address] 68656 TRIGLYCERIDES 41559 VLDL 65825-4 53 mg/dL 0[address] [facility] [address] [place] [address] 66733 COMPLETE CBC W/ DIFF WBC 01709 WBC 6690-2 7.8 K/ul 024 [facility] [address] [place] [address] 97068 COMPLETE CBC W/ DIFF WBC 14869 RBC 789-8 3.76 M/uL 024 [facility] [address] [place] [address] 51402 COMPLETE CBC W/ DIFF WBC 07313 Hemoglobin 718-7 9.8 g/dL 0[address] [facility] [address] [place] [address] 65264 COMPLETE CBC W/ DIFF WBC 44267 Hematocrit 4544-3 30.9 % 024 [facility] [address] [place] [address] 81693 COMPLETE CBC W/ DIFF WBC 07093 MCV 787-2 82.1 fL 024 [facility] [address] [place] [address] 61156 COMPLETE CBC W/ DIFF WBC 15334 MCH 785-6 26.1 pg 024 [facility] [address] [place] [address] 09958 COMPLETE CBC W/ DIFF WBC 15493 MCHC 786-4 31.8 g/dL 024 [facility] [address] [place] [address] 29334 COMPLETE CBC W/ DIFF WBC 60469 RDW 788-0 18.5 % 024 [facility] [address] [place] [address] 72709 COMPLETE CBC W/ DIFF WBC 49715 Platelet Count 777-3 318 K/uL 024 [facility] [address] [place] [address] 30093 COMPLETE CBC W/ DIFF WBC 81155 MPV 65453-8 8.1 fL 024 [facility] [address] [place] [address] 54375 COMPLETE CBC W/ DIFF WBC 90851 Neutrophils % 770-8 75.6 % 024 [facility] [address] [place] [address] 91860 COMPLETE CBC W/ DIFF WBC 61400 Lymphocytes % 736-9 17.4 % 024 [facility] [address] [place] [address] 56796 COMPLETE CBC W/ DIFF WBC 22436 Monocytes % 5905-5 5.3 % 024 [facility] [address] [place] [address] 78545 COMPLETE CBC W/ DIFF WBC 86119 Eosinophils % 713-8 1.0 % 024 [facility] [address] [place] [address] 70826 COMPLETE CBC W/ DIFF WBC 94778 Basophils% 706-2 0.7 % 024 [facility] [address] [place] [address] 48319 COMPLETE CBC W/ DIFF WBC 33132 Absolute Neutrophil 751-8 5897 /ul 024 [facility] [address] [place] [address] 57256 COMPLETE CBC W/ DIFF WBC 77950 Absolute Lymphocyte 68025-0 1357 /ul 024 [facility] [address] [place] [address] 03682 COMPLETE CBC W/ DIFF WBC 84677 Absolute Monocyte 742-7 413 /ul 024 [facility] [address] [place] [address] 25979 COMPLETE CBC W/ DIFF WBC 20082 Absolute Eosinophil 711-2 78 /ul 024 [facility] [address] [place] [address] 19276 COMPLETE CBC W/ DIFF WBC 39135 Absolute Basophil 704-7 55 /ul 024 [facility] [address] [place] [address] [id number] IN 4548-4 Glyco HGB A1C 69083-4 8.3 % 024 [facility] [address] [place] [address] [id number] IN [facility]84 eAG 94950-3 192 mg/dL 024 [facility] [address] [place] [address] CHOLESTEROL 43969 Cholesterol 2093-3 160 mg/dL 024 [facility] [address] [place] [address] URINALYSIS AUTO W/SCOPE 11771 Glucose 2345-7 >1000 mg/dL ++++ mg/dL 024 [facility] [address] [place] [address] URINALYSIS AUTO W/SCOPE 61690 Protein 100 mg/dL ++ mg/dL 024 [facility] [address] [place] [address] 59925 URINALYSIS AUTO W/SCOPE 73108 Bilirubin Negative mg/dL 024 [facility] [address] [place] [address] 02399 URINALYSIS AUTO W/SCOPE 60746 Urobilinogen Negative mg/dL 024 [facility] [address] [place] [address] 48543 URINALYSIS AUTO W/SCOPE 33168 Ph 6.00 024 [facility] [address] [place] [address] 54373 URINALYSIS AUTO W/SCOPE 88396 Blood >1.0 mg/dL +++ mg/dL 024 [facility] [address] [place] [address] 99793 URINALYSIS AUTO W/SCOPE 30668 Ketones Negative mg/dL 024 [facility] [address] [place] [address] 68975 URINALYSIS AUTO W/SCOPE 50069 Nitrite Negative 024 [facility] [address] [place] [address] 99680 URINALYSIS AUTO W/SCOPE 22574 Leukocytes 500 Kain/uL +++ Kain/uL 024 [facility] [address] [place] [address] 47268 URINALYSIS AUTO W/SCOPE 62731 Clarity Ex.Turbid 024 [facility] [address] [place] [address] URINALYSIS AUTO W/SCOPE 15737 Specific [place] 1.014 024 [facility] [address] [place] [address] URINALYSIS AUTO W/SCOPE 89002 Color Light-Orang e 024 [facility] [address] [place] [address] URINALYSIS AUTO W/SCOPE 60023 Red Blood Cell >182 #/HPF 024 [facility] [address] [place] [address] URINALYSIS AUTO W/SCOPE 72562 White Blood Cell >182 #/HPF 024 [facility] [address] [place] [address] URINALYSIS AUTO W/SCOPE 61315 SQUAMOUS EPITHELIAL 2 /HPF #/HPF 024 [facility] [address] [place] [address] URINALYSIS AUTO W/SCOPE 84581 Bacteria 2+ graded/HPF 024 [facility] [address] [place] [address] URINALYSIS AUTO W/SCOPE 68680 White Blood Cell Clump MANY graded/HPF 0[address] [facility] [address] [place] [address] 27108 Microalbumin (Urine) 77800 Microalbumin 29178-6 28.0 mg/dL 024 [facility] [address] [place] [address] Microalbumin (Urine) 44752 Microalbumin/Cre atinine Ratio 33935-8 582 MCG/MGCREAT 024 [facility] [address] [place] [address] 29515 Microalbumin (Urine) 41982 Urine Creatinine 2161-8 48.10 mg/dL 024 [facility] [address] [place] [address] 32540 HDL - CHOL 29019 HDL 2085-9 46 mg/dL 024 [facility] [address] [place] [address] HDL - CHOL 73664 CHD 32655-6 29 % 024 [facility] [address] [place] [address] CHEM 14 (METABOLIC PANEL) 45688 Glucose 2345-7 199 mg/dL 024 [facility] [address] [place] [address] CHEM 14 (METABOLIC PANEL) 40660 BUN 3094-0 35 mg/dL 0[address] [facility] [address] [place] [address] 76337 CHEM 14 (METABOLIC PANEL) 93990 Creatinine 2160-0 2.2 mg/dL [facility] [address] [place] [address] 10488 CHEM 14 (METABOLIC PANEL) 80880 BUN/Creat Ratio 3097-3 15.8 024 [facility] [address] [place] [address] 11820 CHEM 14 (METABOLIC PANEL) 58645 GFR Estimated 91138-8 23 mL/min/1.73 m2 024 [facility] [address] [place] [address] 55546 CHEM 14 (METABOLIC PANEL) 77194 Sodium 2951-2 139 mmol/L [facility] [address] [place] [address] 29057 CHEM 14 (METABOLIC PANEL) 76967 Potassium 2823-3 4.1 mmol/L [facility] [address] [place] [address] 76594 CHEM 14 (METABOLIC PANEL) 39762 Chloride 2075-0 108 mmol/L [facility] [address] [place] [address] 47096 CHEM 14 (METABOLIC PANEL) 88632 Total CO2 2028-9 23 mmol/L [facility] [address] [place] [address] 90074 CHEM 14 (METABOLIC PANEL) 12588 Anion Gap 1863-0 12.1 mEq/L 024 [facility] [address] [place] [address] 88849 CHEM 14 (METABOLIC PANEL) 12383 Calculated Serum Osmolality 56905-9 302 mOsm/kg 024 [facility] [address] [place] [address] 29735 CHEM 14 (METABOLIC PANEL) 69805 Albumin 57822-8 3.5 g/dL 024 [facility] [address] [place] [address] 59960 CHEM 14 (METABOLIC PANEL) 50155 Total Protein 2885-2 8.4 g/dL 024 [facility] [address] [place] [address] 68140 CHEM 14 (METABOLIC PANEL) 26124 Globulin 2336-6 4.9 g/dL 0[address] [facility] [address] [place] [address] 07576 CHEM 14 (METABOLIC PANEL) 95779 Albumin/Globulin Ratio 1759-0 0.7 024 [facility] [address] [place] [address] CHEM 14 (METABOLIC PANEL) 64298 ALK PHOS 6768-6 104.00 U/L 024 [facility] [address] [place] [address] CHEM 14 (METABOLIC PANEL) 46404 SGOT/AST 1920-8 20 U/L 024 [facility] [address] [place] [address] CHEM 14 (METABOLIC PANEL) 38122 SGPT/ALT 1743-4 12 U/L 024 [facility] [address] [place] [address] CHEM 14 (METABOLIC PANEL) 16665 Total Bilirubin 1975-2 0.4 mg/dL 024 [facility] [address] [place] [address] CHEM 14 (METABOLIC PANEL) 76040 Calcium 00677-8 9.2 mg/dL 024 [facility] [address] [place] [address] CHEM 14 (METABOLIC PANEL) 78821 Corrected Calcium 85677-5 9.8 mg/dL 0[address] [facility] [address] [place] [address] 54064 Procedures Procedure Codes Date Most recent A1c = 8.0% and < 9.0% CPT-4: 3052F 11/25/2024 Most recent A1c = 8.0% and < 9.0% CPT-4: 3052F 10/04/2024 Discharge Meds Reconciled w/ Current Med list CP T-4: 1111F 10/04/2024 MED LIST DOCD IN [facility] CPT-4: 1159F 10/04/2024 RVW MEDS BY RX/DR IN [facility] CPT-4: 1160F 2023 MED LIST DOCD IN [facility] CPT-4: 1159F 07/28/2024 RVW MEDS BY RX/DR IN [facility] CPT-4: 1160F 2023 Amnt pain noted; none prsnt CPT-4: 1126F 07/11 Screening for clinical depre ssion is negative, follow-up plan not required CPT-4: G8510 07/28/2024 [id number] CPT-4: 97987 Unknown Vital Signs Date Vital 10/04/2024 Blood Pressure 1: 130/80 Code: 8480-6 BMI: 23.9 Code: 65837-5 Heart Rate 1: 62 bpm Height: 5'3 Code: 8302-2 Respiratory Rate: 16 bpm SpO2: 97% Temperature: 36.2 (C) / 97.2 (F) Weight: 135 lbs Code: 52951-4 07/28/2024 Blood Pressure 1: 158/65 Code: 8480-6 BMI: 23.9 Code: 26659-6 Heart Rate 1: 81 bpm Height: 5'3 Code: 8302-2 Respiratory Rate: 16 bpm SpO2: 98% Temperature: 35.8 (C) / 96.5 (F) Weight: 135 lbs Code: 58136-6 Reason For Visit Reason For Visit Effective Dates Notes established patient visit 10/04/2024 post ED/hospital visit 10/04/2024 new patient welcome visit 07/28/2024 Encounters Encounter Performer Location Location Address Codes Date (45282) Other Reason/Patient not seen Diagnosis: Patient not seen[ICD10: UXZ.01] [facility] Office [address] [place] [address] CPT-4: 60050 11/25/2024 ([id number]) Home or Residence Visit Est Pt - Moderate Level, 40 mins Diagnosis: Neurogenic bladder[ICD10: N31.9] Diagnosis: Atrial fibrillation, unspecified type[ICD10: I48.91] Diagnosis: Type 2 diabetes mellitus with hyperglycemia, without long-term current use of insulin[ICD10: E11.65] Diagnosis: Coronary artery disease involving coronary bypass graft of [place] heart without angina pectoris[ICD10: I25.810] Diagnosis: Primary hypertension[ICD10 : I10] [facility] Office [address] [place] [id number] CPT-4: 08543 10/04/2024 ([id number]) Home or Residence Visit DESKTOP SUPPORT ASSOCIATE - Moderate Level, 60 mins Diagnosis: Encounter for general adult medical examination with abnormal findings[ICD10: Z00.01] Diagnosis: Primary hypertension[ICD10 : I10] Diagnosis: Type 2 diabetes mellitus with hyperglycemia, without long-term current use of insulin[ICD10: E11.65] Diagnosis: Atrial fibrillation, unspecified type[ICD10: I48.91] Diagnosis: Hyperlipidemia[ICD 10: E78.5] Diagnosis: Coronary artery disease involving coronary bypass graft of [place] heart without angina pectoris[ICD10: I25.810] Lawanda [facility] Office [address] [place] [address] CPT-4: 63087 07/28/2024 Plan of Care Planned Activity Notes Codes Status Date Appointment: Lawanda Horn WPtel: [facility] [address] E040 11/25/2024 Patient Education: Patient Medication Summary Completed 11/25/2024 Visit Plan: N31.9-596.59 Neuroge stefany bladder I48.91-427.31 Atrial fibrillation, unspecified type E11.65-250.00 Type 2 diabetes mellitus with hyperglycemia, without long-term current use of insulin I25.810-414.05 Coronary artery disease involving coronary bypass graft of [place] heart without angina pectoris I10-401.9 Primary hypertension [...] no longer accepting her insurance plan. 10/04/2024 Appointment: Lawanda Horn WPtel: [facility] E040 10/04/2024 Patient Education: Patient Medication Summary Completed 10/04/2024 Visit Plan: Z00.01-V70.0 Encount er for general adult medical examination with abnormal findings I10-401.9 Primary hypertension E11.65-250.00 Type 2 diabetes mellitus with hyperglycemia, without long-term current use of insulin I48.91-427.31 Atrial fibrillation, unspecified type E78.5-272.4 Hyperlipidemia I25.810-414.05 Coronary artery disease involving coronary bypass graft of [place] heart without angina pectoris This is a [...] to her PCP. 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, Her PCP has been [...] and agreeable to plan of care, 07/28/2024 Appointment: Justina Lawanda WPtel: [address] [address] 07/28/2024 Patient Education: Patient Medication Summary Completed 07/28/2024 Care Plan: eGFR KHE Pending Referral: [facility]el: [address] [facility] Referral faxed to: Agency Name: [facility] Agency Address: [address] [place] [address] Agency Phone #: [phone] Agency Agency will contact the patient to schedule Order Faxed Referral: Pending Medical Records Information ORDER FAXED TO [id number] [facility] Order Faxed Referral: Justina Lawanda WPtel: [address] Was the patient contacted?_Yes, no pref Patient scheduling preferences:_agency will contact pt Was agency contacted and confirmed insurance is accepted?_yes Was an appointment scheduled?_no Referral faxed to: Agency Name:[facility] Agency Address:[address] [place] [address] Agency Agency Order Faxed Instructions Comment Date 1-800-medicare. N31.9-596.59 Neurogenic bladder I48.91-427.31 Atrial fibrillation, unspecified type E11.65-250.00 Type 2 diabetes mellitus with hyperglycemia, without long-term current use of insulin I25.810-414.05 Coronary artery disease involving coronary bypass graft of [place] heart without angina pectoris I10-401.9 Primary hypertension [...] no longer accepting her insurance plan. 10/04/2024 . Z00.01-V70.0 Encounter for general adult medical examination with abnormal findings I10-401.9 Primary hypertension E11.65-250.00 Type 2 diabetes mellitus with hyperglycemia, without long-term current use of insulin I48.91-427.31 Atrial fibrillation, unspecified type E78.5-272.4 Hyperlipidemia I25.810-414.05 Coronary artery disease involving coronary bypass graft of [place] heart without angina pectoris This is a [...] to her PCP. 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, Her PCP has been [...]
[2025-05-19 18:28] LABS: Microscopic, Urine URINE MICROSCOPIC (MICROSCOPIC)
[2025-05-19 18:29] LABS: Bilirubin,Urine Negative (Negative); Color,Urine YELLOW (Yellow); Glucose,Urine (UA) 3+ (Negative); Ketones,Urine Negative (Negative); Leukocyte Esterase,Urine 2+ (Negative); PH,Urine 6.0 (5.0-8.5); Protein,Urine 2+ (Negative); Specific Gravity, Urine 1.015 (1.005-1.030); Urobilinogen,Urine 0.2 EU/dl (0.2)
[2025-05-19 18:44] LABS: Bacteria,Urine 2+ /lpf; Squamous Epithelial Cell,Urine Occasional #/hpf (0-5); WBC,Urine TNTC #/hpf (0-3)
[2025-05-19 18:45] VITALS: BP 148/68; PULSE 82; RESP 16; O2SAT 98
[2025-05-19 18:52] VITALS: BP 158/72; PULSE 82; RESP 14; TEMP 37.2; O2SAT 98
[2025-05-19 20:09] LABS: Hepatitis C Ab Qual. W/ RFX NEGATIVE (Negative)
--- NOTE | 2025-05-21 09:23 | PC.NURSE ---
Urine culture results reviewed by Dr. Helm. New antibiotics sent in to [facility]. Patient contacted to let her know to stop other antibiotics and start new ones. Patient verbalized understanding.
== END 2025-05-19 19:10 | disposition home or self-care (01) ==
PROVIDERS: Physician Assistant; Emergency Provider Student in an Organized Health Care Education/Training Program; PCP Pediatrics
DX: N39.0 Urinary tract infection, site not specified (principal); I10 Essential (primary) hypertension; E11.9 Type 2 diabetes mellitus without complications; E11.8 Type 2 diabetes mellitus with unspecified complications; G91.9 Hydrocephalus, unspecified
CPT/HCPCS: 51702; 51798; 81001; 86803; 87086; 87088; 87186; 87389; 99283